=== PATIENT | female | born 1940 | race Caucasian/White ===

== ENCOUNTER 2016-12-30 13:08 | Inpatient (IN) | payer OTHER ==
[~2016-12-30] VITALS: Ht 170.2 cm; Wt 82.5 kg
[~2016-12-30 13:08] MED LIST: ALBU8.5H3 INH; ATOR10TA65 PO; BECL8.7A5 INH; BENZ100C70 PO; CEPH500C PO; CYAN500T46 PO; DIGO125T PO; FOLI-49 PO; FURO-109 PO; LEVO500T72 PO; LEVO50TA74 PO; LISI2.5T59 PO; LORA10CA PO; NITR0.4T6 SL; PRED10TA PO; SITA50TA2 PO; TEN25 PO; TRAM50TA2 PO; UDROBAC PO
[2016-12-30] MEDS ORDERED: SODIUM CHLORIDE 0.9% 1L BAG IV* STA (13:41)
--- NOTE | 2016-12-30 14:17 | RADRPT ---
PROCEDURE: XR Chest. CLINICAL INDICATION: Cough and sepsis. TECHNIQUE: Single frontal view. COMPARISON: 12/12/2015. FINDINGS: There is diffuse bilateral interstitial pulmonary disease consistent with pulmonary edema. Patchy a ir space disease in the left mid to upper lung zone consistent with scarring or pneumonia is also no sana and unchanged from 12/12/2015. The heart is enlarged. There is calcification in the aorta consistent with atherosclerosis. There is no pleural effusion. There is no pneumothorax. IMPRESSION: 1. Mild pulmonary edema. 2. Mild left mid to upper lung zone patchy air space disease consistent with scarring or pneumonia, unchanged. 3. Cardiomegaly and atherosclerosis. 4. Otherwise unremarkable chest radiograph. RPTAT: QQ .Singh Martinez MD, MD Date Time Electronically viewed and signed by .Singh Martinez MD, MD on 12/30/2016 14:17 .R/
[2016-12-30 14:37] LABS: ADD SCAN DIFF NO
[2016-12-30 14:40] LABS: BASOPHIL # 0.1 10^3/ul (0.0-0.1); BASOPHILS % 0.5 % (0.0-2.0); EOSINOPHILS # 0.4 10^3/ul (0.0-0.5); EOSINOPHILS % 2.5 % (0.0-7.0); HEMATOCRIT 28.4 % (37.0-47.0); HEMOGLOBIN 9.3 g/dl (12.0-16.0); LYMPHOCYTES # 1.9 10^3/ul (0.8-2.9); LYMPHOCYTES % 13.5 % (15.0-51.0); MEAN CORPUSCULAR HEMOGLOBIN 40.3 pg (29.0-33.0); MEAN CORPUSCULAR HGB CONC 32.7 g/dl (32.0-37.0); MEAN CORPUSCULAR VOLUME 122.9 fl (82.0-101.0); MONOCYTE # 0.9 10^3/ul (0.3-0.9); MONOCYTES % 6.1 % (0.0-11.0); NEUTROPHIL # 10.5 10^3/ul (1.6-7.5); NEUTROPHILS % 74.4 % (39.0-77.0); PLATELET COUNT 80 10^3/UL (140-415); RED BLOOD COUNT 2.31 10^6/ul (4.20-5.40); RED CELL DISTRIBUTION WIDTH 15.5 % (11.5-14.5); WHITE BLOOD COUNT 14.2 10^3/ul (4.8-10.8)
--- NOTE | 2016-12-30 14:40 | ERA ---
ER Documentation Chief Complaint Date/Time DATE: 12/30/16 TIME: 14:39 Chief Complaint Pt with ST, congestion, fever, tachy and hypotention. HPI Patient is a 76-year-old female who presents with 2 days of subjective fever cough productive of clear phlegm and epigastric pain radiating to her right flank. She denies chest pain, nausea, vomiting, or diarrhea. She has taken her temperature orally and it is not been over 98. Patient also reports muscle aches and malaise. Review of patient's record shows recent admission approximately 2 weeks ago for fever, cough, and rapid atrial fibrillation. ROS All systems reviewed and are negative except as per history of present illness. Medications Home Meds Active Scripts Cyanocobalamin* (Vitamin B12*) 500 Mcg Tab, 500 MCG PO DAILY for 30 Days, TAB Prov:LAYNE DURAND 12/14/15 Atenolol (Tenormin) 25 Mg Tab, 25 MG PO Q12 for 30 Days, TAB Prov:LAYNE DURAND 12/14/15 Digoxin* (Digoxin*) 0.125 Mg Tab, 0.125 MG PO DAILY for 30 Days, TAB Prov:LAYNE DURAND 12/14/15 Reported Medications Glipizide* (Glipizide*) 10 Mg Tablet, 10 MG PO BID, TAB 12/30/16 Furosemide* (Lasix*) 20 Mg Tablet, 20 MG PO DAILY, TAB 12/30/16 Lisinopril* (Lisinopril*) 2.5 Mg Tablet, 2.5 MG PO DAILY, #30 TAB 12/12/15 Folic Acid* (Folic Acid*) 1 Mg Tablet, 1 MG PO DAILY, TAB 06/20/15 Levothyroxine Sodium* (Levothyroxine Sodium*) 50 Mcg Tablet, 50 MCG PO AC BREAKFAST, TAB 06/20/15 Nitroglycerin* (Nitroglycerin* SL) 0.4 Mg Tab.subl, 0.4 MG SL Q5MIN Y for CHEST PAIN, BOTTLE 12/14/14 Atorvastatin Calcium (Atorvastatin Calcium) 10 Mg Tab, 10 MG PO HS 11/24/13 Loratadine* (Claritin*) 10 Mg Capsule, 10 MG PO DAILY 11/24/13 Discontinued Reported Medications Albuterol Sulfate* (Proair HFA*) 8.5 Gm Hfa.aer.ad, 2 PUFF INH Q6H Y for WHEEZING AND SOB, #1 INHALER 12/12/15 Beclomethasone Dip* (Qvar 80*) 7.3 Gm Inha, 2 PUFF INH BID, INH 12/14/14 Sitagliptin* (Januvia*) 50 Mg Tablet, 50 MG PO DAILY 11/24/13 Discontinued Scripts Tramadol HCl (Tramadol HCl) 50 Mg Tablet, 50 MG PO Q6H Y for PAIN, #30 TAB Prov:LAYNE DURAND 12/15/15 Prednisone* (Prednisone*) 10 Mg Tab, 10 MG PO DAILY, #30 TAB 1. take 40mg by mouth daily for 3 days 2. then 30mg by mouth daily for 3 days 3. then 20mg by mouth daily for 3 days 1. then 10mg by mouth daily for 3 days Prov:LAYNE DURAND 12/15/15 Guaifenesin-Codeine Phosphate* (Robitussin* AC) 5 Ml Syrup, 10 ML PO Q4H Y for COUGH, #8 OZ Prov:LAYNE DURAND 12/15/15 Cephalexin* (Cephalexin*) 500 Mg Capsule, 500 MG PO Q8 for 7 Days, CAP Prov:LAYNE DURAND 12/14/15 Benzonatate* (Tessalon Perle*) 100 Mg Capsule, 200 MG PO TID, #30 CAP Prov:LAYNE DURAND 12/14/15 Levofloxacin* (Levaquin*) 500 Mg Tablet, 500 MG PO DAILY for 7 Days, TAB Prov:LAYNE DURAND 12/14/15 Furosemide* (Lasix*) 40 Mg Tab, 40 MG PO DAILY for 30 Days Prov:[employer] 12/20/14 Allergies Allergies: Coded Allergies: Penicillins (Verified Allergy, Intermediate, 12/30/16) PMhx/Soc Past medical history: Rheumatoid arthritis, type 2 diabetes, osteoporosis, atrial fibrillation Past surgical history: Denied Social history: No tobacco or alcohol History of Surgery: Yes (, ovaries removed.) Anesthesia Reaction: No Hx Neurological Disorder: No Hx Respiratory Disorders: Yes (ASTHMA, BRONCHITIS, PNA) Hx Cardiac Disorders: Yes (HTN, CHF) Hx Psychiatric Problems: No Hx Miscellaneous Medical Probl: Yes (HYPERLIPEDEMIA, arthritis, osteoporosis.) Hx Alcohol Use: No Hx Substance Use: No Hx Tobacco Use: No Smoking Status: Never smoker FmHx Noncontributory Family History: No diabetes Physical Exam Vitals Vital Signs Date Time Temp Pulse Resp B/P Pulse Ox O2 Delivery O2 Flow Rate FiO2 12/30/16 15:03 127 26 107/91 100 Nasal Cannula 2.0 12/30/16 14:33 2 12/30/16 13:19 99.5 144 18 88/58 96 Physical Exam Const: Alert, oriented, no acute distress Head: Atraumatic Eyes: Normal Conjunctiva ENT: Normal External Ears, Nose and Mouth. Neck: Full range of motion..~ No meningismus. Resp: Clear to auscultation bilaterally Cardio: Tachycardia, irregularly irregular rhythm, no murmurs, rubs or gallops Abd: Soft, non tender, non distended. Normal bowel sounds Skin: No petechiae or rashes Back: No midline or flank tenderness Ext: No cyanosis, or edema Neur: Awake and alert Psych: Normal Mood and Affect Result Diagram: 12/30/16 1415 12/30/16 1415 Results 24 hrs Laboratory Tests Test 12/30/16 14:15 12/30/16 16:33 Activated Partial Thromboplast Time 37.6Sec Alanine Aminotransferase (ALT/SGPT) 42IU/L Albumin 3.7g/dl Albumin/Globulin Ratio 0.88 Alkaline Phosphatase 228IU/L Anion Gap 15 Aspartate Amino Transf (AST/SGOT) 41IU/L Basophils # 0.110^3/ul Basophils % 0.5% Blood Urea Nitrogen 16mg/dl Calcium Level 8.9mg/dl Carbon Dioxide Level 29mmol/L Chloride Level 101mmol/L Creatinine 0.85mg/dl Differential Comment AUTO w/SCAN Direct Bilirubin 0.00mg/dl Eosinophils # 0.410^3/ul Eosinophils % 2.5% Giant Platelets OCCASIONAL Globulin 4.20g/dl Glucose Level 143mg/dl Hematocrit 28.4% Hemoglobin 9.3g/dl INR International Normalized Ratio 1.23 Indirect Bilirubin 1.0mg/dl Lactic Acid Level 1.6mmol/L Large Platelets FEW Lipase 127U/L Lymphocytes # 1.910^3/ul Lymphocytes % 13.5% Mean Corpuscular Hemoglobin 40.3pg Mean Corpuscular Hemoglobin Concent 32.7g/dl Mean Corpuscular Volume 122.9fl Mean Platelet Volume fl Monocytes # 0.910^3/ul Monocytes % 6.1% Neutrophils # 10.510^3/ul Neutrophils % 74.4% Nucleated Red Blood Cells # 0.010^3/ul Nucleated Red Blood Cells % 0.0/100WBC Platelet Count 8010^3/UL Platelet Estimate PLT APPEAR DECREASED Potassium Level 4.2mmol/L Prothrombin Time 15.6Sec Prothrombin Time Ratio 1.2 Red Blood Count 2.3110^6/ul Red Cell Distribution Width 15.5% Sodium Level 141mmol/L Total Bilirubin 1.0mg/dl Total Protein 7.9g/dl Troponin I < 0.012ng/ml White Blood Count 14.210^3/ul Urine Bilirubin NEGATIVE Urine Clarity CLEAR Urine Color LT. YELLOW Urine Glucose NEGATIVE% Urine Hemoglobin NEGATIVE Urine Ketones NEGATIVE Urine Leukocyte Esterase NEGATIVE Urine Nitrite NEGATIVE Urine Specific [place] 1.015 Urine Total Protein NEGATIVE Urine Urobilinogen 0.2 E.U./dL Urine pH 5.5 Current Medications Medications (Trade) Dose Ordered Sig/Erich Route PRN Reason Start Time Stop Time Status Last Admin Dose Admin Sodium Chloride (NS) 2,540 ml BOLUS OVER 2 HOURS STAT IV* 12/30/16 13:41 12/30/16 13:42 DC 12/30/16 14:31 Ceftriaxone Sodium 2 gm 2 gm ONCE ONCE IM 12/30/16 15:30 12/30/16 15:31 DC Azithromycin/ Sodium Chloride (Zithromax/NS) 500 ml @ 250 mls/hr ONCE IVPB 12/30/16 16:30 12/30/16 18:29 Diltiazem HCl (Cardizem Iv) 10 mg ONCE ONCE IV 12/30/16 16:30 12/30/16 16:31 DC 12/30/16 17:21 Ondansetron HCl (Zofran Inj) 4 mg ER BRIDGE PRN IV NAUSEA AND/OR VOMITING 12/30/16 18:00 12/31/16 17:59 Acetaminophen (Tylenol Tab) 650 mg ER BRIDGE PRN PO MILD PAIN/FEVER 12/30/16 18:00 12/31/16 17:59 Procedures/MDM EKG: Time 1422, rate 129, atrial fibrillation with rapid ventricular response, normal axis nonspecific ST-T wave changes in inferior and lateral leads Right upper quadrant ultrasound: IMPRESSION: Hepatomegaly with mildly coarsened echotexture, likely due to mild fatty infiltration although early chronic liver disease can have a similar sonographic appearance. No definite morphologic changes of cirrhosis are identified. Cholelithiasis without evidence of acute cholecystitis. Normal CBD. Chest x-ray:IMPRESSION: 1. Mild pulmonary edema. 2. Mild left mid to upper lung zone patchy air space disease consistent with scarring or pneumonia, unchanged. 3. Cardiomegaly and atherosclerosis. 4. Otherwise unremarkable chest radiograph. MDM: Patient is a 76-year-old female with history of CHF and atrial fibrillation who presents with flulike illness. Initial vital signs show hypotension and tachycardia to the 130s-140s. Temperature 99.5, raises concern for sepsis, so sepsis order set activated, and patient given fluid bolus and antibiotics. Blood and urine cultures sent. Review of prior notes shows recent admission with similar symptoms. Chest x-ray shows possible small infiltrate that is unchanged compared with prior, which may represent untreated pneumonia, or may be nonspecific. Influenza swab is negative, and UA negative. Lactic acid is not elevated. Troponin is negative and no ischemic changes on EKG. patient given diltiazem bolus after blood pressure normalized with IV fluids, and heart rate is improved to the 110s. Patient is on digoxin. Patient developed mild hypoxemia with IV fluids, likely due to underlying CHF. Will admit for rate control and further septic workup. Addition, the patient has macrocytic anemia that will require further work up. Admit to Dr. Greenberg. Departure Diagnosis: Primary Impression: Atrial fibrillation with rapid ventricular response Additional Impressions: Influenza-like symptoms CHF (congestive heart failure) Macrocytic anemia Condition: MARITO Mccauley Dec 30, 2016 14:40
[2016-12-30 14:48] LABS: INR 1.23; PROTIME 15.6 Sec (12.2-14.2); PT RATIO 1.2
[2016-12-30 14:49] LABS: PARTIAL THROMBOPLASTIN TIME 37.6 Sec (25.0-35.0)
[2016-12-30 14:53] LABS: ALBUMIN 3.7 g/dl (3.3-4.9); CHLORIDE 101 mmol/L (97-110); POTASSIUM 4.2 mmol/L (3.5-5.1); SODIUM 141 mmol/L (135-144)
[2016-12-30 14:55] LABS: CREATININE 0.85 mg/dl (0.44-1.00)
[2016-12-30 14:56] LABS: ALANINE AMINOTRANSFERASE 42 IU/L (13-69); ALBUMIN/GLOBULIN RATIO 0.88; ALKALINE PHOSPHATASE 228 IU/L (42-121); ANION GAP 15 (8-16); ASPARTATE AMINO TRANSFERASE 41 IU/L (15-46); BLOOD UREA NITROGEN 16 mg/dl (7-20); CALCIUM 8.9 mg/dl (8.4-10.2); CARBON DIOXIDE 29 mmol/L (21-31); GLUCOSE 143 mg/dl (70-220); TOTAL PROTEIN 7.9 g/dl (6.1-8.1)
[2016-12-30] MEDS ORDERED: GLIP-95 PO (14:56)
[2016-12-30] MEDS ORDERED: FURO-110 PO (14:56)
[2016-12-30 15:19] LABS: TROPONIN-I < 0.012 ng/ml (0.00-0.12)
[2016-12-30] MEDS ORDERED: CEFTRIAXONE 2 GM INJ IM ONE (15:30)
--- NOTE | 2016-12-30 15:41 | RADRPT ---
PROCEDURE: Right Upper Quadrant Ultrasound. CLINICAL INDICATION: Possible Sepsis, abdominal pain TECHNIQUE: Multiple real-time images were acquired of the patient's right upper quadrant abdomen a nd retroperitoneum utilizing a high resolution transducer. COMPARISON: None FINDINGS: The liver measures 17.4 cm, and demonstrates mildly coarsened echotexture. The main portal vein is p atent with proper directional flow. There is no intrahepatic biliary ductal dilatation. The extrahep atic common bile duct measures 3 mm. There is cholelithiasis. There is no gallbladder wall thickening or pericholecystic fluid. The visualized pancreas is unremarkable. The right kidney measures 9.5 cm and demonstrates normal echotexture. There is no right renal calcul us or hydronephrosis. The visualized abdominal aorta and IVC are grossly unremarkable. IMPRESSION: Hepatomegaly with mildly coarsened echotexture, likely due to mild fatty infiltration although early chronic liver disease can have a similar sonographic appearance. No definite morphologic changes o f cirrhosis are identified. Cholelithiasis without evidence of acute cholecystitis. Normal CBD. RPTAT: EE Physician Kirsten Date Time Electronically viewed and signed by Physician Kirsten on 12/30/2016 15:41 /
[2016-12-30 15:47] LABS: PLATELET ESTIMATE PLT APPEAR DECREASED
[2016-12-30] MEDS ORDERED: SOD CHLORIDE 0.9% IVPB SCH (16:30)
[2016-12-30] MEDS ORDERED: DILTIAZEM 25 MG INJ IV ONE (16:30)
[2016-12-30] MEDS ORDERED: AZITHROMYCIN IVPB SCH (16:30)
[2016-12-30 16:59] LABS: ADD UMIC NO; URINE BILIRUBIN (Dip) NEGATIVE (NEGATIVE); URINE BLOOD (Dip) NEGATIVE (NEGATIVE); URINE COLOR LT. YELLOW (YELLOW); URINE GLUCOSE (Dip) NEGATIVE (NEGATIVE); URINE KETONES (Dip) NEGATIVE (NEGATIVE); URINE LEUKOCYTE ESTERASE (Dip) NEGATIVE (NEGATIVE); URINE NITRITE (Dip) NEGATIVE (NEGATIVE); URINE TOTAL PROTEIN (Dip) NEGATIVE (NEGATIVE); URINE UROBILINOGEN (Dip) 0.2 E.U./dL (0.1-1.0)
[2016-12-30] MEDS ORDERED: ONDANSETRON 4 MG INJ IV PRN ×2 (18:00→20:00)
[2016-12-30] MEDS ORDERED: ACETAMINOPHEN 325 MG TAB PO PRN (18:00)
[2016-12-30] MEDS ORDERED: CEFTRIAXONE 2,000 MG in SOD CHLORIDE 0.9% 50 ML IVPB ONE (18:30)
[2016-12-30 19:21] VITALS: TEMP 99.3
[2016-12-30] MEDS: morphine 2 MG INJ IV PRN (19:55)
[2016-12-30] MEDS ORDERED: DIGOXIN 500 MCG INJ IV ONE (20:00)
[2016-12-30] MEDS ORDERED: DOCUSATE SODIUM 100 MG CAP PO PRN (20:00)
[2016-12-30 21:29] VITALS: BP 124/55; PULSE 162; RESP 20
[2016-12-30 21:38] VITALS: PULSE 172
--- NOTE | 2016-12-30 21:53 | HP ---
DATE OF ADMISSION: 12/30/2016 PRESENTING COMPLAINT: Cough, fever, and occasional palpitations. HISTORY OF PRESENTING COMPLAINT: Ms. Yesica Kovacs is a pleasant female who was referred to us from her primary care clinic where she had presented with symptoms of respiratory tract infection to include a lot of coughing associated occasionally with pleuritic midsternal chest pain, subjective fever, and malaise and generalized aches and pains. She has had nausea associated with intractable cough, but she has had no episodes of vomiting, no diarrhea. She denies abdominal pain. She denies flank pain. She denies dysuria or hematuria. She does have a chronic history of atrial fibrillation. In the emergency room, she was found to be in atrial fibrillation with rapid ventricular response. Other than that, she has a history of diabetes, hypothyroidism, osteoarthritis as well as dyslipidemia and high blood pressure. PAST MEDICAL HISTORY: Summarized above. PAST SURGICAL HISTORY: Positive for a hysterectomy for a benign uterine tumor as well as a section in the past. ALLERGIES: SHE HAS ALLERGIES TO PENICILLIN AND IT CAUSES HER TO HAVE RASH. SOCIAL HISTORY: Denies tobacco, alcohol, illicit drug use. REVIEW OF SYSTEMS: A 12-point review of systems was done. Pertinent findings are noted in HPI. FAMILY HISTORY: Noncontributory. No history of anybody else is sick at all. The patient has a close family member at bedside. PHYSICAL EXAMINATION: VITAL SIGNS: Temps 99.5, respirations 18, blood pressure systolics range 88 through 107 and diastolic 58 through 91. Saturation is 100% on oxygen by nasal cannula at 2 liters per minute. GENERAL: Alert, oriented, able to participate in history taking. HEENT: Head normocephalic. Pupils equal and reactive. Mucous membranes dry. post pharynx clear of exudate. NECK: Supple without JVD or adenopathy or tenderness. CHEST: With decreased air entry bilaterally. She has basilar crackles on the right lower lobe, but there was no wheezing. CARDIOVASCULAR: Tachycardiac with no rubs, no murmurs. ABDOMEN: Obese, soft, nontender, nondistended with normoactive bowel sounds. BACK: Negative for costovertebral angle tenderness or step-off. EXTREMITIES: Negative for edema. PSYCHIATRIC: Anxious. LABORATORY DATA: Leukocytosis of 14,000 noted. Low hemoglobin of 9.3 and low platelets of 80, which is likely the contraindication to anticoagulation use in this patient. NA was mildly elevated at 143. Her liver profile alkaline phosphatase was elevated as well. Her lactic acid was normal. Her troponin was negative. Coags were grossly normal INR was 1.2, otherwise unremarkable. A urinalysis was not suggestive of a urinary tract infection. EKG shows atrial fibrillation with rapid ventricular response and a rate of 129. CT abdomen showed showed cardiomegaly.There is no evidence of cirrhosis. The patient also has cholelithiasis without evidence of cholecystitis. A chest x-ray shows mild pulmonary edema with cardiomegaly otherwise unremarkable. ASSESSMENT: A 76-year-old female who presents after being reffered from her primary care doctor's office with fever, cough, malaise, and hypoxia. now managed as follows: 1. Atrial fibrillation with rapid ventricular response. 2. Probable Pneumonia. 3. Mild congestive heart failure exacerbation, likely precipitated by atrial fibrillation with rapid ventricular response. 4. Chronic hypothyroidism. 5. Chronic dyslipidemia. 6. Diabetes type 2. 7. Pancytopenia. PLAN: Admit the patient to telemetry floor, Complete ACS rule out. As patient has borderline hypotension, I will use digoxin as well as amiodarone for rate control. I will trend cardiac enzymes as well as get an echocardiogram, and probable cardiology consult. We will continue gentle diuresis with Lasix and have a low threshold to up titrate if necessary. Will consider empiric abx and obtain cultures. Continue her home sliding scale for her diabetic regimen and continue home meds while she is here and adjust therapy as indicated. We will do a TSH as well. For prophylaxis, she will be placed on Lovenox and Pepcid and further interventions will depend on our findings. Pain control will be provided as well as antiemetics and antipyretics if needed . Again, as mentioned, further interventions will depend on her clinical course. I have discussed the plan of care with the patient as well as her daughter, answered questions. Evaluation and admission time has been more than 45 minutes. For further information, please see the patient's chart and my orders. Dictated By: YOLI GONZALES MD, BA/HERO Conf#: [id number] DID#: [id number] RISSA
[2016-12-30] MEDS ORDERED: DILTIAZEM 25 MG INJ IV PRN (22:00)
[2016-12-30] MEDS: AMIODARONE 900 MG in DEXTROSE 5% 482 ML IV SCH (22:09)
[2016-12-30] MEDS: FAMOTIDINE 20 MG TAB PO SCH (22:19)
[2016-12-30 23:29] VITALS: Ht 170.2 cm; Wt 82.5 kg
[2016-12-30 23:37] LABS: CREATINE KINASE 39 IU/L (23-200)
[2016-12-30 23:48] LABS: CK-MB 0.36 ng/ml (0.0-2.4)
[2016-12-30 23:55] LABS: TROPONIN-I < 0.012 ng/ml (0.00-0.12)
[2016-12-31] VITALS (10 sets, daily range): BP systolic 93–127; BP diastolic 50–66; PULSE 71–150; RESP 17–20
[2016-12-31] MEDS: AMIODARONE 900 MG in DEXTROSE 5% 482 ML IV SCH (04:01)
[2016-12-31] MEDS ORDERED: GLUCAGON 1 MG INJ IM PRN (04:30)
[2016-12-31] MEDS ORDERED: GLUCOSE GEL 15 GRAM TUBE PO PRN ×2 (04:30)
[2016-12-31] MEDS ORDERED: GLUCOSE GEL 15 GRAM TUBE BUCCAL PRN (04:30)
[2016-12-31] MEDS ORDERED: DEXTROSE 50% 50 ML SYRINGE IV PRN ×2 (04:30)
[2016-12-31 07:27] LABS: POTASSIUM 4.1 mmol/L (3.5-5.1)
[2016-12-31 07:30] LABS: CALCIUM 8.2 mg/dl (8.4-10.2); CREATININE 0.76 mg/dl (0.44-1.00)
[2016-12-31] MEDS ORDERED: NITROGLYCERIN (SL) 0.4 MG TAB SL PRN (07:30)
[2016-12-31] MEDS: LEVOTHYROXINE 50 MCG TAB PO SCH (07:30)
[2016-12-31 07:31] LABS: CHOL/HDL RATIO 2.1 RATIO
[2016-12-31 07:33] LABS: CK-MB 0.5 ng/ml (0.0-2.4)
[2016-12-31 07:36] LABS: TROPONIN-I 0.031 ng/ml (0.00-0.12)
[2016-12-31 07:57] LABS: THYROID STIMULATING HORMONE 1.11 MIU/L (0.465-4.680)
[2016-12-31] MEDS: ENOXAPARIN 40 MG/0.4 ML SYG SC SCH (08:49)
[2016-12-31] MEDS: ATENOLOL 25 MG TAB PO SCH ×2 (08:50→20:20)
[2016-12-31] MEDS: LISINOPRIL 5 MG TAB PO SCH (08:51)
[2016-12-31] MEDS: FOLIC ACID 1 MG TAB PO SCH (08:51)
[2016-12-31] MEDS: DIGOXIN 0.125 MG TAB PO SCH (08:52)
[2016-12-31 08:53] LABS: ADD SCAN DIFF NO
[2016-12-31] MEDS: FAMOTIDINE 20 MG TAB PO SCH ×2 (08:53→20:12)
[2016-12-31] MEDS: INSULIN ASPART [NOVOLOG] 3 ML PEN SC SCH ×4 (09:00→21:00)
[2016-12-31] MEDS ORDERED: FUROSEMIDE 20 MG TAB PO SCH (09:00)
[2016-12-31 09:05] LABS: BASOPHILS % 0.5 % (0.0-2.0); EOSINOPHILS % 3.4 % (0.0-7.0); HEMATOCRIT 27.1 % (37.0-47.0); HEMOGLOBIN 8.6 g/dl (12.0-16.0); LYMPHOCYTES # 2.4 10^3/ul (0.8-2.9); LYMPHOCYTES % 15.1 % (15.0-51.0); MEAN CORPUSCULAR HEMOGLOBIN 39.6 pg (29.0-33.0); MEAN CORPUSCULAR HGB CONC 31.7 g/dl (32.0-37.0); MEAN CORPUSCULAR VOLUME 124.9 fl (82.0-101.0); MONOCYTE # 0.9 10^3/ul (0.3-0.9); MONOCYTES % 5.6 % (0.0-11.0); NEUTROPHIL # 11.6 10^3/ul (1.6-7.5); NEUTROPHILS % 72.2 % (39.0-77.0); PLATELET COUNT 81 10^3/UL (140-415); RED BLOOD COUNT 2.17 10^6/ul (4.20-5.40); RED CELL DISTRIBUTION WIDTH 15.4 % (11.5-14.5); WHITE BLOOD COUNT 16.1 10^3/ul (4.8-10.8)
[2016-12-31 09:06] LABS: ABNORMAL IP MESSAGE 1; BASOPHIL # 0.1 10^3/ul (0.0-0.1); EOSINOPHILS # 0.5 10^3/ul (0.0-0.5)
[2016-12-31] MEDS: ACCUCHECK XX SCH ×3 (10:00→20:05)
[2016-12-31 10:17] LABS: FOLATE 14.4 ng/ml (2.8-20.0)
[2016-12-31 11:43] LABS: IRON 57 ug/dl (35-150)
[2016-12-31 11:52] LABS: TOTAL IRON BINDING CAPACITY 191 ug/dl (241-421)
[2016-12-31] MEDS: LORATADINE 10 MG TAB PO SCH (12:02)
[2016-12-31] MEDS: CYANOCOBALAMIN 500 MCG TAB PO SCH (12:02)
[2016-12-31] MEDS: CEFTRIAXONE 1 GM/50 ML (PMX) 50 ML IVPB SCH (17:14)
[2016-12-31] MEDS: AZITHROMYCIN 500MG/NS (PMX) 250 ML IVPB SCH (17:51)
[2016-12-31] MEDS ORDERED: SOD CHLORIDE 0.9% 1,000 ML IV SCH (18:30)
[2016-12-31] MEDS ORDERED: INSULIN GLARGINE [LANtus] 3 ML PEN SC ONE (18:30)
[2016-12-31] MEDS ORDERED: METOPROLOL 5 MG INJ IV PRN (19:30)
[2016-12-31] MEDS: ATORVASTATIN 10 MG TAB PO SCH (20:12)
[2016-12-31] MEDS: ACETAMINOPHEN 325 MG TAB PO PRN (20:13)
[2016-12-31] MEDS: DIGOXIN 500 MCG INJ IV SCH (20:14)
[2016-12-31] MEDS: FUROSEMIDE 20 MG TAB PO SCH (20:18)
[2017-01-01] VITALS (12 sets, daily range): BP systolic 106–127; BP diastolic 53–69; PULSE 73–95; RESP 16–19
[2017-01-01] MEDS: ACCUCHECK XX SCH ×4 (02:00→20:05)
[2017-01-01] MEDS: DIGOXIN 500 MCG INJ IV SCH ×2 (02:55→10:07)
[2017-01-01] MEDS: FUROSEMIDE 20 MG TAB PO SCH ×2 (05:27→17:27)
[2017-01-01 07:09] LABS: CREATININE 0.8 mg/dl (0.44-1.00)
[2017-01-01 07:10] LABS: CALCIUM 7.9 mg/dl (8.4-10.2)
[2017-01-01 07:16] LABS: ADD SCAN DIFF NO
--- NOTE | 2017-01-01 07:21 | CONS ---
DATE OF ADMISSION: 12/30/2016 DATE OF CONSULTATION: 12/31/2016 TYPE OF CONSULTATION: Cardiology. REASON FOR CONSULTATION: Atrial fibrillation/atrial flutter with rapid ventricular response, cardio myopathy, decreased left ventricular ejection fraction. REQUESTING PHYSICIAN: Dr. Gonzales from the hospitalist service and Dr. Roman HISTORY OF PRESENT ILLNESS: Ms. Kovacs is a 76-year-old female with history of hypertension, dyslipid emia, cardiomyopathy with a depressed left ventricular ejection fraction approximately 40%, diabetes mellitus, thrombocytopenia, recurrent bouts of atrial fibrillation/atrial flutter who is not on sys temic anticoagulation due to history of prior bleeding, thrombocytopenia as well as moderate mitral stenosis by echo 11/2015 who now presents with complaints of abdominal pain, associated cough, gener alized body ache and occasional palpitations. Upon arrival, temperature 99.5, blood pressure 88/58, pulse 144, respiratory rate 18, saturating 92%. The patient's labs: White cell count 14.2, hemogl obin 9.3, platelet count of 80. Sodium 141, potassium 4.2, creatinine 0.85, BUN 16. Troponin negat simon. Lipase 127. INR 1.23. UA negative. The patient underwent a gallbladder ultrasound revealing hepatomegaly with mildly coarsened echotexture, likely due to mild fatty infiltration although diane y chronic liver disease could have the same appearance, cholelithiasis. The patient additionally un derwent a chest x-ray revealing mild pulmonary edema, mild left mid to upper lung zone patchy airspa ce disease consistent with scarring or pneumonia. The patient's electrocardiogram revealed atrial f ibrillation/atrial flutter at a rate of 129, normal axis, normal intervals, diffuse nonspecific ST a nd T-wave abnormalities. The patient subsequently was treated with Lantus, diltiazem IV push, digox in ____ mg IV x1, Tylenol, Zofran, was admitted to floor. Since admit to floor, patient has been mo nitored on telemetry revealing atrial fibrillation/atrial flutter with rapid response to low 100s. The patient continues to complain of cough, abdominal pain, palpitations. PAST MEDICAL HISTORY: As above in HPI. MEDICATIONS CURRENTLY IN HOSPITAL: 1. Lipitor 10 mg at bedtime. 2. Insulin sliding scale. 3. Azithromycin. 4. Ceftriaxone. 5. Lovenox 40 mg subQ daily. 6. Atenolol 25 mg p.o. q.12. 7. Digoxin 0.125 mg daily. 8. Lasix 20 mg daily. 9. Lisinopril 2.5 mg daily. 10. Claritin 10 mg daily. 11. Synthroid 50 mcg daily. 12. Sublingual nitroglycerin p.r.n. 13. Pepcid 20 mg p.o. b.i.d. 14. Morphine p.r.n. 15. Amiodarone IV. ALLERGIES: PENICILLIN. SOCIAL HISTORY: No tobacco, ETOH, illicit drug use. FAMILY HISTORY: No history of sudden cardiac or early CAD. REVIEW OF SYSTEMS: As above in HPI. CONSTITUTIONAL: No fevers, chills. PULMONARY: No current shortness of breath. CARDIOVASCULAR: No current chest pain. GASTROINTESTINAL: No vomiting. GENITOURINARY: No hematuria. MUSCULOSKELETAL: Degenerative joint disease. PSYCHIATRIC: The patient ____ depression. NEUROLOGIC: No documented history of CVA. ENDOCRINE: Diabetes mellitus. PHYSICAL EXAMINATION: VITAL SIGNS: Temperature of 99.3, blood pressure 117/58, pulse 90s to 100s, blood pressure 117/58, respiratory rate 18, saturating 93%. GENERAL: The patient is alert, awake, complaining of abdominal pain, palpitations. NECK: JVP difficult to assess secondary to body habitus. HEART: ____ irregular rhythm. I/ systolic murmur. ABDOMEN: Obese, soft. EXTREMITIES: Trace edema. Pulses 1+ bilaterally at posterior tibial. LABORATORIES: Most recently from today: White cell count of 16.1, hemoglobin 8.6, platelet count o f 81. Sodium 140, potassium 4.1, creatinine 0.76, BUN 14. Troponin negative x3. Glucose 517. TSH 1.1. LDL 37, HDL 45. IMAGING STUDIES: As above in HPI. No further imaging studies for my review at this time. ELECTROCARDIOGRAM: As above in HPI. No further electrocardiograms for my review at this time. IMPRESSION: 1. Atrial fibrillation/atrial flutter with rapid ventricular response. 2. Hypertension, under reasonable control. 3. Palpitations secondary to #1. 4. Congestive heart failure exacerbation, systolic, acute on chronic by most recent echocardiogram 11/2015. 5. Abdominal pain with cholelithiasis. 6. Diabetes mellitus. 7. Dyslipidemia. 8. Leukocytosis. 9. Anemia. 10. Thrombocytopenia. RECOMMENDATIONS: 1. At this time would maintain the patient on telemetry monitoring to follow rhythm and rate contro l closely. 2. Would continue the patient's current atenolol with up titration as tolerated. Will give patient additional digoxin loading in order to improve overall heart rate ____ continue the patient's gentl e Zestril afterload reduction. 3. Check a 2D echo to re-assess the patient's ejection fraction, wall motion, rule out any major va lve abnormalities. 4. Initiate the patient on Lasix diuresis, following strict I's and O's to grade diuresis closely. 5. Continue the patient's antibiotics and follow up all culture data. 6. Additionally will consider very low-dose baby aspirin, following for any bleeding complications closely. Thank you for allowing me to take part in the care of this patient. I will continue to follow along very closely with you with further recommendations to be made as the patient progresses through her inpatient hospital clinical course. Dictated By: DICK ROMERO/HERO Conf#: [id number] DID#: [id number] CC: YOLI GONZALES MD;*EndCC*
[2017-01-01 07:44] LABS: CHOL/HDL RATIO 2.1 RATIO
[2017-01-01 07:56] LABS: ABNORMAL IP MESSAGE 1; BASOPHILS % 0.3 % (0.0-2.0); EOSINOPHILS # 0.4 10^3/ul (0.0-0.5); EOSINOPHILS % 3.7 % (0.0-7.0); HEMATOCRIT 24.3 % (37.0-47.0); HEMOGLOBIN 7.7 g/dl (12.0-16.0); LYMPHOCYTES # 1.6 10^3/ul (0.8-2.9); LYMPHOCYTES % 13.5 % (15.0-51.0); MEAN CORPUSCULAR HEMOGLOBIN 39.7 pg (29.0-33.0); MEAN CORPUSCULAR HGB CONC 31.7 g/dl (32.0-37.0); MEAN CORPUSCULAR VOLUME 125.3 fl (82.0-101.0); MEAN PLATELET VOLUME 15.1 fl (7.4-10.4); MONOCYTE # 0.5 10^3/ul (0.3-0.9); MONOCYTES % 4.7 % (0.0-11.0); NEUTROPHIL # 8.7 10^3/ul (1.6-7.5); NEUTROPHILS % 75.3 % (39.0-77.0); PLATELET COUNT 72 10^3/UL (140-415); RED BLOOD COUNT 1.94 10^6/ul (4.20-5.40); RED CELL DISTRIBUTION WIDTH 15.1 % (11.5-14.5); WHITE BLOOD COUNT 11.5 10^3/ul (4.8-10.8)
[2017-01-01] MEDS: INSULIN ASPART [NOVOLOG] 3 ML PEN SC SCH ×4 (08:00→20:23)
[2017-01-01] MEDS: FOLIC ACID 1 MG TAB PO SCH (10:07)
[2017-01-01] MEDS: ASPIRIN 81 MG TAB PO SCH (10:07)
[2017-01-01] MEDS: ATENOLOL 25 MG TAB PO SCH ×2 (10:08→20:23)
[2017-01-01] MEDS: DIGOXIN 0.125 MG TAB PO SCH (10:08)
[2017-01-01] MEDS: CYANOCOBALAMIN 500 MCG TAB PO SCH (10:09)
[2017-01-01] MEDS: FAMOTIDINE 20 MG TAB PO SCH ×2 (10:09→20:22)
[2017-01-01] MEDS: LEVOTHYROXINE 50 MCG TAB PO SCH (10:09)
[2017-01-01] MEDS: LISINOPRIL 5 MG TAB PO SCH (10:09)
[2017-01-01] MEDS: LORATADINE 10 MG TAB PO SCH (10:09)
[2017-01-01] MEDS: ENOXAPARIN 40 MG/0.4 ML SYG SC SCH (10:14)
[2017-01-01] MEDS ORDERED: FUROSEMIDE 20 MG INJ IV ONE (12:30)
--- NOTE | 2017-01-01 12:53 | PN ---
Date/Time of Note Date/Time of Note DATE: 01/01/17 TIME: 12:45 Assessment/Plan VTE Prophylaxis VTE Prophylaxis Intervention: SCD's Lines/Catheters IV Catheter Type (from Nrs): Peripheral IV Assessment/Plan Chief Complaint/Hosp Course ASSESSMENT: 1. Atrial fibrillation with rapid ventricular response. Status post amiodarone drip, rate controlled on digoxin and metoprolol, cardiology has been consulted 2. Pneumonia. Continue Rocephin and azithromycin 3. Mild congestive heart failure exacerbation, likely precipitated by atrial fibrillation with rapid ventricular response. 4. Chronic hypothyroidism. Continue levothyroxine 5. Chronic dyslipidemia. 6. Diabetes type 2. Well-controlled on medical management, continue her home sliding scale for her diabetic regimen and continue home meds while she is here and adjust therapy as indicated 7. Pulmonary edema. Continue diuresis 8. Microcytic anemia. Transfuse 1 unit of packed red blood cells, follow up vitamin B12 and folate level and treated accordingly 9. Hepatomegaly with mild fatty infiltration, No definite morphologic changes of cirrhosis are identified. 10.Cholelithiasis without evidence of acute cholecystitis. Normal CBD. We will continue monitor patient closely for recommendation management treatment as clinical course Plan to discharge home tomorrow if cleared by professional architect Problems: Subjective 24 Hr Interval Summary Free Text/Dictation Patient continues to complain of having shortness of breath without any chest pain A. fib rate controlled in 70s Tolerating oral intake without any difficulty or abdominal discomfort Exam/Review of Systems Vital Signs Vitals Vital Signs Date Time Temp Pulse Resp B/P Pulse Ox O2 Delivery O2 Flow Rate FiO2 01/01/17 11:56 98.2 86 19 127/58 95 12/31/16 20:40 Nasal Cannula 2.0 Intake and Output 12/31/16 12/31/16 01/01/17 15:00 23:00 07:00 Intake Total 1150 ml Balance 1150 ml Exam General: The patient is well-developed, Not in acute distress. HEENT: Atraumatic, normocephalic. The pupils are equal and round . Neck: Supple with full range of motion. Chest: Normal expansion of the thorax during inspiration Lungs: Decreased breath sounds bilateral lower lung field Heart: Normal S1-S2, Regular rhythm and rate. Abdomen: Soft , nontender, nondistended , bowel sounds are present. Extremities: Normal to inspection, no edema no cyanosis Neurologic: Normal mental status,The patient is awake, alert and oriented . Results Result Diagram: 01/01/17 0600 01/01/17 0600 Results 24 hrs Laboratory Tests Test 12/31/16 17:53 12/31/16 18:50 12/31/16 20:23 01/01/17 00:30 Bedside Glucose 517 *H 137 Glucose Level 163 Troponin I 0.023 Test 01/01/17 06:00 01/01/17 08:13 01/01/17 10:06 01/01/17 11:53 Anion Gap 13 Basophils # 0.0 Basophils % 0.3 Blood Urea Nitrogen 15 Calcium Level 7.9 L Carbon Dioxide Level 27 Chloride Level 105 Cholesterol Level 64 L Cholesterol/HDL Ratio 2.1 Creatinine 0.80 Eosinophils # 0.4 Eosinophils % 3.7 Glucose Level 107 # HDL Cholesterol 30 #L Hematocrit 24.3 L Hemoglobin 7.7 L LDL Cholesterol, Calculated 22 Lymphocytes # 1.6 Lymphocytes % 13.5 L Mean Corpuscular Hemoglobin 39.7 H Mean Corpuscular Hemoglobin Concent 31.7 L Mean Corpuscular Volume 125.3 H Mean Platelet Volume 15.1 H Monocytes # 0.5 Monocytes % 4.7 Neutrophils # 8.7 H Neutrophils % 75.3 Nucleated Red Blood Cells # 0.0 Nucleated Red Blood Cells % 0.0 Platelet Count 72 L Potassium Level 4.0 Red Blood Count 1.94 L Red Cell Distribution Width 15.1 H Sodium Level 141 Triglycerides Level 59 Troponin I 0.095 White Blood Count 11.5 #H Bedside Glucose 117 192 151 Medications Medications Current Medications Morphine Sulfate 2 mg 2 mg Q4H PRN IV pain Last administered on 12/30/16 19:55 ; Admin Dose 2 MG; Start 12/30/16 at 20:00 Ceftriaxone Sodium 50 ml @ 100 mls/hr Q24H IVPB Last administered on 12/31/16 17:14; Admin Dose 100 MLS/HR; Start 12/31/16 at 17:00 Azithromycin (Zithromax 500mg/ NS (Pmx)) 250 ml @ 250 mls/hr Q24H IVPB Last administered on 12/31/16 17:51; Admin Dose 250 MLS/HR; Start 12/31/16 at 18:00 Acetaminophen (Tylenol Tab) 650 mg Q6H PRN PO PAIN AND OR ELEVATED TEMP Last administered on 12/31/16 20:13; Admin Dose 650 MG; Start 12/30/16 at 20:00 Docusate Sodium (Colace) 100 mg BID PRN PO CONSTIPATION; Start 12/30/16 at 20:00 Famotidine (Pepcid) 20 mg BID PO Last administered on 01/01/17 10:09; Admin Dose 20 MG; Start 12/30/16 at 21:00 Enoxaparin Sodium (Lovenox) 40 mg DAILY SC Last administered on 01/01/17 10:14 ; Admin Dose 40 MG; Start 12/31/16 at 09:00 Ondansetron HCl (Zofran Inj) 4 mg Q6H PRN IV NAUSEA AND/OR VOMITING; Start 12/30 at 20:00 Miscellaneous Information 1 ea NOTE XX ; Start 12/31/16 at 04:30 Glucose (Glutose) 15 gm Q15M PRN PO DECREASED GLUCOSE; Start 12/31/16 at 04:30 Glucose (Glutose) 22.5 gm Q15M PRN PO DECREASED GLUCOSE; Start 12/31/16 at 04:30 Dextrose (D50w Syringe) 25 ml Q15M PRN IV DECREASED GLUCOSE; Start 12/31/16 at 04:30 Dextrose (D50w Syringe) 50 ml Q15M PRN IV DECREASED GLUCOSE; Start 12/31/16 at 04:30 Glucagon (Glucagen) 1 mg Q15M PRN IM DECREASED GLUCOSE; Start 12/31/16 at 04:30 Glucose (Glutose) 15 gm Q15M PRN BUCCAL DECREASED GLUCOSE; Start 12/31/16 at 04: 30 Atenolol (Tenormin) 25 mg Q12 PO Last administered on 01/01/17 10:08; Admin Dose 25 MG; Start 12/31/16 at 09:00 Diagnostic Test (Pha) (Accucheck) 1 ea 02 XX ; Start 01/01/17 at 02:00 Atorvastatin Calcium (Lipitor) 10 mg HS PO Last administered on 12/31/16 20:12 ; Admin Dose 10 MG; Start 12/31/16 at 21:00 Cyanocobalamin (Vitamin B12) 500 mcg DAILY PO Last administered on 01/01/17 10: 09; Admin Dose 500 MCG; Start 12/31/16 at 09:00 Digoxin (Digoxin) 0.125 mg DAILY PO Last administered on 01/01/17 10:08; Admin Dose 0.125 MG; Start 12/31/16 at 09:00 Folic Acid (Folic Acid) 1 mg DAILY PO Last administered on 01/01/17 10:07; Admin Dose 1 MG; Start 12/31/16 at 09:00 Lisinopril (Zestril) 2.5 mg DAILY PO Last administered on 01/01/17 10:09; Admin Dose 2.5 MG; Start 12/31/16 at 09:00 Loratadine (Claritin) 10 mg DAILY PO Last administered on 01/01/17 10:09; Admin Dose 10 MG; Start 12/31/16 at 09:00 Nitroglycerin (Nitroglycerin (Sl Tab) 0.4 Mg) 0.4 tab PRN PRN SL CHEST PAIN; Start 12/31/16 at 07:30 Metoprolol Tartrate (Lopressor) 5 mg Q4H PRN IV HR>110 Hold SBP<100; Start 12/31 at 19:30 Aspirin (Aspirin) 81 mg DAILY PO Last administered on 01/01/17 10:07; Admin Dose 81 MG; Start 01/01/17 at 09:00 STEPHANY OWENS MD Jan 01, 2017 12:53
--- NOTE | 2017-01-01 12:55 | PN ---
Date/Time of Note Date/Time of Note DATE: 12/31/16 TIME: 15:54 Assessment/Plan VTE Prophylaxis VTE Prophylaxis Intervention: SCD's Lines/Catheters IV Catheter Type (from Nrs): Peripheral IV Assessment/Plan Chief Complaint/Hosp Course ASSESSMENT: 1. Atrial fibrillation with rapid ventricular response. Status post amiodarone drip, cardiology has been consulted 2. Pneumonia. Continue Rocephin and azithromycin 3. Mild congestive heart failure exacerbation, likely precipitated by atrial fibrillation with rapid ventricular response. 4. Chronic hypothyroidism. Continue levothyroxine 5. Chronic dyslipidemia. 6. Diabetes type 2. Well-controlled on medical management, continue her home sliding scale for her diabetic regimen and continue home meds while she is here and adjust therapy as indicated 7. Pulmonary edema. Continue diuresis We will continue monitor patient closely for recommendation management treatment as clinical course Problems: Subjective 24 Hr Interval Summary Free Text/Dictation Patient complains of having chest pain shortness of breath and abdominal discomfort No nausea vomiting diarrhea Exam/Review of Systems Vital Signs Vitals Vital Signs Date Time Temp Pulse Resp B/P Pulse Ox O2 Delivery O2 Flow Rate FiO2 01/01/17 11:56 98.2 86 19 127/58 95 12/31/16 20:40 Nasal Cannula 2.0 Intake and Output 12/31/16 12/31/16 01/01/17 15:00 23:00 07:00 Intake Total 1150 ml Balance 1150 ml Exam General: The patient is morbidly obese, Not in acute distress. HEENT: Atraumatic, normocephalic. The pupils are equal and round . Neck: Supple with full range of motion. Chest: Normal expansion of the thorax during inspiration Lungs: Decreased breath sounds bilateral lower lung field Heart: Normal S1-S2, A. fib rate controlled Abdomen: Soft , nontender, nondistended , bowel sounds are present. Extremities: Normal to inspection, no edema no cyanosis Neurologic: Normal mental status,The patient is awake, alert and oriented . Results Result Diagram: 01/01/17 0600 01/01/17 0600 Results 24 hrs Laboratory Tests Test 12/31/16 17:53 12/31/16 18:50 12/31/16 20:23 01/01/17 00:30 Bedside Glucose 517 *H 137 Glucose Level 163 Troponin I 0.023 Test 01/01/17 06:00 01/01/17 08:13 01/01/17 10:06 01/01/17 11:53 Anion Gap 13 Basophils # 0.0 Basophils % 0.3 Blood Urea Nitrogen 15 Calcium Level 7.9 L Carbon Dioxide Level 27 Chloride Level 105 Cholesterol Level 64 L Cholesterol/HDL Ratio 2.1 Creatinine 0.80 Eosinophils # 0.4 Eosinophils % 3.7 Glucose Level 107 # HDL Cholesterol 30 #L Hematocrit 24.3 L Hemoglobin 7.7 L LDL Cholesterol, Calculated 22 Lymphocytes # 1.6 Lymphocytes % 13.5 L Mean Corpuscular Hemoglobin 39.7 H Mean Corpuscular Hemoglobin Concent 31.7 L Mean Corpuscular Volume 125.3 H Mean Platelet Volume 15.1 H Monocytes # 0.5 Monocytes % 4.7 Neutrophils # 8.7 H Neutrophils % 75.3 Nucleated Red Blood Cells # 0.0 Nucleated Red Blood Cells % 0.0 Platelet Count 72 L Potassium Level 4.0 Red Blood Count 1.94 L Red Cell Distribution Width 15.1 H Sodium Level 141 Triglycerides Level 59 Troponin I 0.095 White Blood Count 11.5 #H Bedside Glucose 117 192 151 Medications Medications Current Medications Morphine Sulfate 2 mg 2 mg Q4H PRN IV pain Last administered on 12/30/16 19:55 ; Admin Dose 2 MG; Start 12/30/16 at 20:00 Ceftriaxone Sodium 50 ml @ 100 mls/hr Q24H IVPB Last administered on 12/31/16 17:14; Admin Dose 100 MLS/HR; Start 12/31/16 at 17:00 Azithromycin (Zithromax 500mg/ NS (Pmx)) 250 ml @ 250 mls/hr Q24H IVPB Last administered on 12/31/16 17:51; Admin Dose 250 MLS/HR; Start 12/31/16 at 18:00 Acetaminophen (Tylenol Tab) 650 mg Q6H PRN PO PAIN AND OR ELEVATED TEMP Last administered on 12/31/16 20:13; Admin Dose 650 MG; Start 12/30/16 at 20:00 Docusate Sodium (Colace) 100 mg BID PRN PO CONSTIPATION; Start 12/30/16 at 20:00 Famotidine (Pepcid) 20 mg BID PO Last administered on 01/01/17 10:09; Admin Dose 20 MG; Start 12/30/16 at 21:00 Enoxaparin Sodium (Lovenox) 40 mg DAILY SC Last administered on 01/01/17 10:14 ; Admin Dose 40 MG; Start 12/31/16 at 09:00 Ondansetron HCl (Zofran Inj) 4 mg Q6H PRN IV NAUSEA AND/OR VOMITING; Start 12/30 at 20:00 Miscellaneous Information 1 ea NOTE XX ; Start 12/31/16 at 04:30 Glucose (Glutose) 15 gm Q15M PRN PO DECREASED GLUCOSE; Start 12/31/16 at 04:30 Glucose (Glutose) 22.5 gm Q15M PRN PO DECREASED GLUCOSE; Start 12/31/16 at 04:30 Dextrose (D50w Syringe) 25 ml Q15M PRN IV DECREASED GLUCOSE; Start 12/31/16 at 04:30 Dextrose (D50w Syringe) 50 ml Q15M PRN IV DECREASED GLUCOSE; Start 12/31/16 at 04:30 Glucagon (Glucagen) 1 mg Q15M PRN IM DECREASED GLUCOSE; Start 12/31/16 at 04:30 Glucose (Glutose) 15 gm Q15M PRN BUCCAL DECREASED GLUCOSE; Start 12/31/16 at 04: 30 Atenolol (Tenormin) 25 mg Q12 PO Last administered on 01/01/17 10:08; Admin Dose 25 MG; Start 12/31/16 at 09:00 Diagnostic Test (Pha) (Accucheck) 1 ea 02 XX ; Start 01/01/17 at 02:00 Atorvastatin Calcium (Lipitor) 10 mg HS PO Last administered on 12/31/16 20:12 ; Admin Dose 10 MG; Start 12/31/16 at 21:00 Cyanocobalamin (Vitamin B12) 500 mcg DAILY PO Last administered on 01/01/17 10: 09; Admin Dose 500 MCG; Start 12/31/16 at 09:00 Digoxin (Digoxin) 0.125 mg DAILY PO Last administered on 01/01/17 10:08; Admin Dose 0.125 MG; Start 12/31/16 at 09:00 Folic Acid (Folic Acid) 1 mg DAILY PO Last administered on 01/01/17 10:07; Admin Dose 1 MG; Start 12/31/16 at 09:00 Lisinopril (Zestril) 2.5 mg DAILY PO Last administered on 01/01/17 10:09; Admin Dose 2.5 MG; Start 12/31/16 at 09:00 Loratadine (Claritin) 10 mg DAILY PO Last administered on 01/01/17 10:09; Admin Dose 10 MG; Start 12/31/16 at 09:00 Nitroglycerin (Nitroglycerin (Sl Tab) 0.4 Mg) 0.4 tab PRN PRN SL CHEST PAIN; Start 12/31/16 at 07:30 Metoprolol Tartrate (Lopressor) 5 mg Q4H PRN IV HR>110 Hold SBP<100; Start 12/31 at 19:30 Aspirin (Aspirin) 81 mg DAILY PO Last administered on 01/01/17 10:07; Admin Dose 81 MG; Start 01/01/17 at 09:00 STEPHANY OWENS MD Jan 01, 2017 12:55
--- NOTE | 2017-01-01 14:36 | RADRPT ---
Echocardiogram Report Patient Name: JUSTICE DAVIS Gender: Female Date: 1940 Study Date: 01-Jan-2017 Distance Education Coordinator: Georges Gould [facility] Location: [id number] Ref. Physician: DICK ELDER Quality: Good Procedures: Transthoracic echocardiogram with complete 2D, M-Mode, and doppler examination. Indications: Congestive Heart Failure. 2D/M Mode Doppler Measurement Value Normal Ranges Measurement Value Normal Ranges LVIDd 2D 5.6 3.5 - 5.6 cm TERRIE Vmax 1.5 cm2 LVIDs 2D 3.5 2.1 - 4.1 cm TERRIE VTI 1.5 cm2 LVPWd 2D 0.9 0.6 - 1.1 cm AV Mean Johan 1.6 m/sec IVSd 2D 1.0 0.6 - 1.1 cm AV Mean PG 11.2 mmHg AoR Diam 2D 2.5 2.0 - 3.7 cm AV Peak Johan 2.2 m/sec EDV 2D 153.0 cm3 AV Peak PG 20.0 mmHg ESV 2D 42.0 cm3 AV VTI 44.7 cm LA Dimen 2D 4.9 2.3 - 4.0 cm LVOT Mean Johan 0.7 m/sec LVOT Diam 2.0 cm LVOT Mean PG 2.1 mmHg LVOT Peak Johan 1.0 m/sec LVOT Peak PG 4.2 mmHg LVOT VTI 17.4 cm MV PHT 141.9 msec MV Peak Johan 2.2 m/sec MV Peak PG 19.2 mmHg MV Mean Johan 1.1 m/sec MV Mean PG 6.2 mmHg MV PHT 141.9 msec MV VTI 55.9 cm MVA PHT 1.6 cm2 TR Peak Johan 2.5 m/sec TR Peak PG 24.8 mmHg RVSP 33.0 mmHg Findings Left Ventricle: Lower limits of normal systolic function. Normal left ventricular cavity size. Normal left ventricular wall thickness. Ejection fraction is visually estimated at 5055 %. Right Ventricle: Normal right ventricular size. Normal right ventricular systolic function. Left Atrium: There is moderate enlargement of left atrium. LA Dimension4.90 cm. Right Atrium: There is mild enlargement of right atrium. Mitral Valve: Moderate mitral leaflet calcification. Moderate mitral annular calcification. Mild to moderate mitral valve regurgitation. Mild to moderate mitral stenosis. Mitral valve Max Velocity 2.19 m/sec. MaxPG 19.20 mmHg. MeanPG 6.20 mmHg. Mitral Valve Area by PHT1.60 cm2. Aortic Valve: Aortic valve Max velocity 2.23 m/sec. Max PG 20.00 mmHg. Mean PG 11.20 mmHg. Aortic sclerosis without stenosis. Aortic cusps appear mildly calcified. Trace aortic valve regurgitation. Tricuspid Valve: Normal appearance of the tricuspid valve. Estimated peak PA systolic pressure 33 mmHg. There is mild tricuspid regurgitation. Pulmonic Valve: Pulmonic valve not well visualized. Pericardium: Normal pericardium with no significant pericardial effusion. Aorta: Normal aortic root. IVC: Normal size and normal respiratory collapse consistent with normal right atrial pressure. Conclusions Lower limits of normal systolic function. Normal left ventricular cavity size. Normal left ventricular wall thickness. Ejection fraction is visually estimated at 50-55 %. There is moderate to severe enlargement of left atrium. LA Dimension4.90 cm. There is mild enlargement of right atrium. Mild to moderate mitral valve regurgitation. Mild to moderate mitral stenosis. Mitral valve Max Velocity 2.19 m/sec. MaxPG 19.20 mmHg. MeanPG 6.20 mmHg. Mitral Valve Area by PHT1.60 cm2. Aortic valve Max velocity 2.23 m/sec. Max PG 20.00 mmHg. Mean PG 11.20 mmHg. Aortic sclerosis without significant stenosis. Trace aortic valve regurgitation. Estimated peak PA systolic pressure 33 mmHg. There is mild tricuspid regurgitation. Electronically Signed By: Dick Elder 01-Jan-2017 14:36:00 -0800 Patient Name: JUSTICE DAVIS Study Date: 01-Jan-2017 [id number]
--- NOTE | 2017-01-01 14:50 | CONS ---
Date/Time of Note Date/Time of Note DATE: 01/01/17 TIME: 14:45 Assessment/Plan Assessment/Plan Chief Complaint/Hosp Course IMPRESSION: 1. Atrial fibrillation/atrial flutter with rapid ventricular response.-now improved HR control on BB s/p IV digoxin load 2. Hypertension, under reasonable control. 3. Palpitations secondary to #1.-improved 4. Congestive heart failure exacerbation, systolic, acute on chronic by most recent echocardiogram 11/2015. 5. Abdominal pain with cholelithiasis. 6. Diabetes mellitus. 7. Dyslipidemia. 8. Leukocytosis. 9. Anemia. 10. Thrombocytopenia-Ongoing Recc: -Tele -serial ecg's -Continue asa -Continue BB/digoxin/JERICA -Continue abx's and f/u cx data -Consider bronchodilators -Follow for bleeding complications -Follow volume status closely Problems: Consultation Date/Type/Reason Admit Date/Time Dec 30, 2016 at 17:56 Initial Consult Date 01/01/2016 Type of Consultation: Cardiology Reason for Consultation AF Referring Provider: YOLI GONZALES Exam/Review of Systems Vital Signs Vitals Vital Signs Date Time Temp Pulse Resp B/P Pulse Ox O2 Delivery O2 Flow Rate FiO2 01/01/17 12:56 94 01/01/17 11:56 98.2 19 127/58 95 12/31/16 20:40 Nasal Cannula 2.0 Intake and Output 12/31/16 12/31/16 01/01/17 15:00 23:00 07:00 Intake Total 1150 ml Balance 1150 ml Exam Review of Systems: CONSTITUTIONAL: No fevers, chills. PULMONARY: Cough CARDIOVASCULAR: No chest pain/palpitations GASTROINTESTINAL: No nausea/vomiting. GENITOURINARY: No hematuria/dysuria. MUSCULOSKELETAL: No myagias/arthalgias. PSYCHIATRIC: The patient denies depression. NEUROLOGIC: No weakness Constitutional: alert, oriented Psych: no complaints Head: normocephalic Neck: jvd (9 cm water), supple Respiratory: diminished breath sounds (at bases/B) Cardiovascular: irregular rhythm Gastrointestinal: non-tender, soft Musculoskeletal: muscle tone (normal) Extremities: edema (none) Neurological: other (No focal deficits) Results Result Diagram: 01/01/17 0600 01/01/17 0600 Results 24 hrs Laboratory Tests Test 12/31/16 17:53 12/31/16 18:50 12/31/16 20:23 01/01/17 00:30 Bedside Glucose 517 *H 137 Glucose Level 163 Troponin I 0.023 Test 01/01/17 06:00 01/01/17 08:13 01/01/17 10:06 01/01/17 11:53 Anion Gap 13 Basophils # 0.0 Basophils % 0.3 Blood Urea Nitrogen 15 Calcium Level 7.9 L Carbon Dioxide Level 27 Chloride Level 105 Cholesterol Level 64 L Cholesterol/HDL Ratio 2.1 Creatinine 0.80 Eosinophils # 0.4 Eosinophils % 3.7 Glucose Level 107 # HDL Cholesterol 30 #L Hematocrit 24.3 L Hemoglobin 7.7 L LDL Cholesterol, Calculated 22 Lymphocytes # 1.6 Lymphocytes % 13.5 L Mean Corpuscular Hemoglobin 39.7 H Mean Corpuscular Hemoglobin Concent 31.7 L Mean Corpuscular Volume 125.3 H Mean Platelet Volume 15.1 H Monocytes # 0.5 Monocytes % 4.7 Neutrophils # 8.7 H Neutrophils % 75.3 Nucleated Red Blood Cells # 0.0 Nucleated Red Blood Cells % 0.0 Platelet Count 72 L Potassium Level 4.0 Red Blood Count 1.94 L Red Cell Distribution Width 15.1 H Sodium Level 141 Triglycerides Level 59 Troponin I 0.095 White Blood Count 11.5 #H Bedside Glucose 117 192 151 Test 01/01/17 12:15 01/01/17 14:12 Troponin I 0.110 Bedside Glucose 123 Medications Medications Current Medications Morphine Sulfate 2 mg 2 mg Q4H PRN IV pain Last administered on 12/30/16 19:55 ; Admin Dose 2 MG; Start 12/30/16 at 20:00 Ceftriaxone Sodium 50 ml @ 100 mls/hr Q24H IVPB Last administered on 12/31/16 17:14; Admin Dose 100 MLS/HR; Start 12/31/16 at 17:00 Azithromycin (Zithromax 500mg/ NS (Pmx)) 250 ml @ 250 mls/hr Q24H IVPB Last administered on 12/31/16 17:51; Admin Dose 250 MLS/HR; Start 12/31/16 at 18:00 Acetaminophen (Tylenol Tab) 650 mg Q6H PRN PO PAIN AND OR ELEVATED TEMP Last administered on 12/31/16 20:13; Admin Dose 650 MG; Start 12/30/16 at 20:00 Docusate Sodium (Colace) 100 mg BID PRN PO CONSTIPATION; Start 12/30/16 at 20:00 Famotidine (Pepcid) 20 mg BID PO Last administered on 01/01/17 10:09; Admin Dose 20 MG; Start 12/30/16 at 21:00 Enoxaparin Sodium (Lovenox) 40 mg DAILY SC Last administered on 01/01/17 10:14 ; Admin Dose 40 MG; Start 12/31/16 at 09:00 Ondansetron HCl (Zofran Inj) 4 mg Q6H PRN IV NAUSEA AND/OR VOMITING; Start 12/30 at 20:00 Miscellaneous Information 1 ea NOTE XX ; Start 12/31/16 at 04:30 Glucose (Glutose) 15 gm Q15M PRN PO DECREASED GLUCOSE; Start 12/31/16 at 04:30 Glucose (Glutose) 22.5 gm Q15M PRN PO DECREASED GLUCOSE; Start 12/31/16 at 04:30 Dextrose (D50w Syringe) 25 ml Q15M PRN IV DECREASED GLUCOSE; Start 12/31/16 at 04:30 Dextrose (D50w Syringe) 50 ml Q15M PRN IV DECREASED GLUCOSE; Start 12/31/16 at 04:30 Glucagon (Glucagen) 1 mg Q15M PRN IM DECREASED GLUCOSE; Start 12/31/16 at 04:30 Glucose (Glutose) 15 gm Q15M PRN BUCCAL DECREASED GLUCOSE; Start 12/31/16 at 04: 30 Atenolol (Tenormin) 25 mg Q12 PO Last administered on 01/01/17 10:08; Admin Dose 25 MG; Start 12/31/16 at 09:00 Diagnostic Test (Pha) (Accucheck) 1 ea 02 XX ; Start 01/01/17 at 02:00 Atorvastatin Calcium (Lipitor) 10 mg HS PO Last administered on 12/31/16 20:12 ; Admin Dose 10 MG; Start 12/31/16 at 21:00 Cyanocobalamin (Vitamin B12) 500 mcg DAILY PO Last administered on 01/01/17 10: 09; Admin Dose 500 MCG; Start 12/31/16 at 09:00 Digoxin (Digoxin) 0.125 mg DAILY PO Last administered on 01/01/17 10:08; Admin Dose 0.125 MG; Start 12/31/16 at 09:00 Folic Acid (Folic Acid) 1 mg DAILY PO Last administered on 01/01/17 10:07; Admin Dose 1 MG; Start 12/31/16 at 09:00 Lisinopril (Zestril) 2.5 mg DAILY PO Last administered on 01/01/17 10:09; Admin Dose 2.5 MG; Start 12/31/16 at 09:00 Loratadine (Claritin) 10 mg DAILY PO Last administered on 01/01/17 10:09; Admin Dose 10 MG; Start 12/31/16 at 09:00 Nitroglycerin (Nitroglycerin (Sl Tab) 0.4 Mg) 0.4 tab PRN PRN SL CHEST PAIN; Start 12/31/16 at 07:30 Metoprolol Tartrate (Lopressor) 5 mg Q4H PRN IV HR>110 Hold SBP<100; Start 12/31 at 19:30 Aspirin (Aspirin) 81 mg DAILY PO Last administered on 01/01/17 10:07; Admin Dose 81 MG; Start 01/01/17 at 09:00 DICK BUCIO Jan 01, 2017 14:50
--- NOTE | 2017-01-01 15:59 | RADRPT ---
Vent Rate: 75 bpm RR Interval: 0 msec MD Interval: 0 msec QRS Duration: 76 msec QT Interval: 370 msec QTC Interval: 413 msec P-R-T [place]: 0 - 88 - 9 degrees Atrial fibrillation Nonspecific T wave abnormality , probably digitalis effect Abnormal ECG Electronically Signed By: Deepak Elder [id number]
[2017-01-01] MEDS: morphine 2 MG INJ IV PRN (17:26)
[2017-01-01] MEDS: CEFTRIAXONE 1 GM/50 ML (PMX) 50 ML IVPB SCH (17:26)
[2017-01-01] MEDS: AZITHROMYCIN 500MG/NS (PMX) 250 ML IVPB SCH (17:27)
[2017-01-01] MEDS: ACETAMINOPHEN 325 MG TAB PO PRN (20:22)
[2017-01-01] MEDS: ATORVASTATIN 10 MG TAB PO SCH (20:23)
[2017-01-02] VITALS (10 sets, daily range): BP systolic 107–140; BP diastolic 54–81; PULSE 64–88; RESP 18–77
[2017-01-02] MEDS: ACCUCHECK XX SCH ×3 (02:00→14:00)
[2017-01-02] MEDS: FUROSEMIDE 20 MG TAB PO SCH (05:59)
[2017-01-02 06:47] LABS: ADD SCAN DIFF NO
[2017-01-02 07:00] LABS: POTASSIUM 3.9 mmol/L (3.5-5.1)
[2017-01-02 07:09] LABS: ABNORMAL IP MESSAGE 1; BASOPHIL # 0.1 10^3/ul (0.0-0.1); BASOPHILS % 0.8 % (0.0-2.0); EOSINOPHILS # 0.5 10^3/ul (0.0-0.5); EOSINOPHILS % 5.3 % (0.0-7.0); HEMOGLOBIN 9.5 g/dl (12.0-16.0); LYMPHOCYTES # 1.6 10^3/ul (0.8-2.9); LYMPHOCYTES % 16.8 % (15.0-51.0); MEAN CORPUSCULAR HEMOGLOBIN 39.6 pg (29.0-33.0); MEAN CORPUSCULAR HGB CONC 33.9 g/dl (32.0-37.0); MEAN CORPUSCULAR VOLUME 116.7 fl (82.0-101.0); MONOCYTE # 0.5 10^3/ul (0.3-0.9); MONOCYTES % 5.4 % (0.0-11.0); NEUTROPHIL # 6.7 10^3/ul (1.6-7.5); NEUTROPHILS % 69.3 % (39.0-77.0); RED CELL DISTRIBUTION WIDTH 18.8 % (11.5-14.5); WHITE BLOOD COUNT 9.7 10^3/ul (4.8-10.8)
[2017-01-02 07:14] LABS: CREATININE 0.76 mg/dl (0.44-1.00)
[2017-01-02 07:15] LABS: CALCIUM 8.2 mg/dl (8.4-10.2); PLATELET COUNT 91 10^3/UL (140-415)
[2017-01-02] MEDS: INSULIN ASPART [NOVOLOG] 3 ML PEN SC SCH ×2 (08:00→12:00)
[2017-01-02 08:06] LABS: FOLATE 14.9 ng/ml (2.8-20.0)
[2017-01-02] MEDS: LEVOTHYROXINE 50 MCG TAB PO SCH (08:36)
[2017-01-02] MEDS: ASPIRIN 81 MG TAB PO SCH (08:36)
[2017-01-02] MEDS: LORATADINE 10 MG TAB PO SCH (08:36)
[2017-01-02] MEDS: FOLIC ACID 1 MG TAB PO SCH (08:37)
[2017-01-02] MEDS: CYANOCOBALAMIN 500 MCG TAB PO SCH (08:39)
[2017-01-02] MEDS: LISINOPRIL 5 MG TAB PO SCH (08:39)
[2017-01-02] MEDS: ATENOLOL 25 MG TAB PO SCH (08:40)
[2017-01-02] MEDS: ENOXAPARIN 40 MG/0.4 ML SYG SC SCH (08:41)
[2017-01-02] MEDS: DIGOXIN 0.125 MG TAB PO SCH (08:42)
[2017-01-02] MEDS: FAMOTIDINE 20 MG TAB PO SCH (08:42)
--- NOTE | 2017-01-02 16:10 | PDOCDIS ---
Discharge Instructions CONDITION Patient Condition: Stable HOME CARE INSTRUCTIONS: Special Diet: 1800 ada ACTIVITY: Activity Restrictions: Slowly Increase Activity Rest between Activity FOLLOW UP/APPOINTMENTS Appointments Follow up with PCP in 3-4 days Follow up with cardiology as out-pt STEPHANY OWENS MD Jan 02, 2017 16:10
[2017-01-02] MEDS ORDERED: IPRA4AER INHALATION (16:14)
[2017-01-02] MEDS ORDERED: CEPH500C PO (16:14)
[2017-01-02] MEDS ORDERED: UDROBDM PO (16:14)
[2017-01-02] MEDS ORDERED: AZIT250T6 PO (16:14)
[2017-01-02] MEDS ORDERED: LEVO50TA83 PO (16:14)
[2017-01-02] MEDS ORDERED: GUAI120011 PO (16:14)
[2017-01-02] MEDS ORDERED: LAS20 PO (16:14)
--- NOTE | 2017-01-02 17:32 | DS ---
DATE OF ADMISSION: 12/30/2016 DATE OF DISCHARGE: 01/02/2017 CONSULTANTS: Dr. Deepak Elder. PROCEDURE: A 2-D echocardiogram which showed lower limits of normal systolic function, normal left ventricle cavity size, normal left ventricle wall thickness, ejection fraction visualized estimated at 55%. There is a moderate to severe enlargement of left atrium. There is mild enlargement of rig ht atrium, mild to moderate mitral valve regurg and mild to moderate mitral stenosis, aortic scleros is without significant stenosis. Estimated peak PA systolic pressure 33 mmHg. DISCHARGE DIAGNOSES: 1. Atrial fibrillation with rapid ventricular response status post amiodarone drip. Cardiology was consulted. 2. Pneumonia. Status post Rocephin and azithromycin. Will be discharged on Keflex and azithromyci n. 3. Congestive heart failure, likely post-surgery atrial fibrillation with rapid ventricular rate. Continue medical management. 4. Chronic hypothyroidism. Continue levothyroxine. 5. Dyslipidemia. Continue statin. 6. Diabetes mellitus type 2. Hold home medications for the patient's hyperglycemia. 7. Atrial flutter with rapid ventricular rate, improved heart rate status post beta piyush. 8. Hypertension, well controlled on medical management. 9. Leukocytosis, resolved. 10. Thrombocytopenia, ongoing. 11. Macrocytic anemia. The patient is status post transfusion 1 unit of packed red blood cells. V itamin B12, folic acid normal. 12. Hepatomegaly with mild fatty infiltration. 13. Cholelithiasis without definite evidence of cholecystitis, normal common bile duct. MEDICATIONS: 1. Combivent. 2. Azithromycin. 3. Keflex. 4. Lasix. 5. Mucinex. 6. Robitussin-DM 7. Levothyroxine. 8. Atenolol. 9. Nystatin. 10. Digoxin. 11. Folic acid. 12. Lisinopril. 13. Loratadine. 14. Nitroglycerin. ALLERGIES: PENICILLIN. LABORATORIES: Sodium 140, potassium 3.9, chloride 100, bicarbonate 33, BUN 15, creatinine 0.76, gluc ose 105, calcium 8.2. Vitamin ____, folate 14.9. TSH 1.10. Triglycerides 59, total cholesterol 64 , LDL 22, HDL 30. Notation: Lipitor has been discontinued secondary to patient's finding of hepatomegaly with mild fat ty infiltration and patient's lipid panel has been low. HOSPITAL COURSE: This is a 76-year-old female who was referred from her primary care physician maritza figueroa to recent upper respiratory tract infection, has a cough associated with pleuritic midsternal chest pain, subjective fever, mild generalized aching pain. Patient has been having nausea with int ractable cough, and has no episode of vomiting or diarrhea. Patient's x-ray showed mild pulmonary e huong, mild left mid upper zone patchy air spacing consistent with scarring pneumonia, unchanged; car diomegaly and atherosclerosis, otherwise unremarkable chest radiograph. Gallbladder ultrasound was obtained, which showed hepatomegaly with coarse echotexture likely due to mild fatty infiltration, a lthough early chronic liver disease can be similar on sonographic appearance, no definite morphologi c changes of cirrhosis are identified. Cholelithiasis without evidence of acute cholecystitis, commo n bile duct. The patient was seen and evaluated by information technology officer. Today echocardiogram was obtained and demonstrated ejection fraction of 50% to 55%. Stage I diastolic dysfunction. Estimated peak P A systolic pressure 33 mmHg. The patient was placed on extra dose of Lasix daily, was continued on IV Rocephin and azithromycin, which has been transitioned to oral Keflex and azithromycin. The maci ent also has been placed on breathing treatment and antitussive medication. The patient's Lipitor h as been discontinued secondary to the finding of the gallbladder ultrasound and patient's lipid pane l with LDL of 22. At this time, patient is medically stable to be discharged home with a close foll owup with her primary care physician as outpatient. Dictated By: STEPHANY OWENS MD PN/NTS Conf#: [id number] DID#: [id number] CC: YOLI GONZALES MD;*EndCC*
== END 2017-01-02 18:30 | disposition home or self-care (01) | DRG 193 ==
LOC: E/R 13:08 → MS4 17:33 → OBSVTOIN 17:56
PROVIDERS: ADMIT Family Medicine; ATTEND Family Medicine
PROC: 30233N1 Transfusion of Nonautologous Red Blood Cells into Peripheral Vein, Percutaneous Approach (ICD-10-PCS; principal; 2017-01-01)
DX: J18.9 Pneumonia, unspecified organism (principal); I50.23 Acute on chronic systolic (congestive) heart failure; D61.818 Other pancytopenia; D69.6 Thrombocytopenia, unspecified; I48.92 Unspecified atrial flutter; E03.9 Hypothyroidism, unspecified; E78.5 Hyperlipidemia, unspecified; E11.9 Type 2 diabetes mellitus without complications; I48.2 Chronic atrial fibrillation; D64.9 Anemia, unspecified; K80.20 Calculus of gallbladder without cholecystitis without obstruction; M06.9 Rheumatoid arthritis, unspecified; M81.0 Age-related osteoporosis without current pathological fracture; Z79.4 Long term (current) use of insulin
CPT/HCPCS: 36430; 71010; 76705; 80048; 80053; 80061; 81003; 82550; 82553; 82607; 82746; 82947; 82962; 83036; 83540; 83605; 83690; 83735; 84100; 84443; 84484; 85025; 85610; 85730; 86644; 86850; 86900; 86901; 86920; 87040; 87070; 87086; 87400; 93005; 93306; G0378; J1940; J0282; J0456; J0696; J1650; J1815; J2270; J2405; J7030; J7050; P9016

== ENCOUNTER 2017-04-23 08:22 | Inpatient (IN) | payer MEDICARE, OTHER ==
[~2017-04-23] VITALS: Ht 170.2 cm; Wt 89.8 kg
[~2017-04-23 08:22] MED LIST changes: -ALBU8.5H3 INH; +ATEN-138 PO; -ATOR10TA65 PO; +AZIT250T6 PO; -BECL8.7A5 INH; -BENZ100C70 PO; -FURO-109 PO; +GUAI120011 PO; +IPRA4AER INHALATION; +LAS20 PO; -LEVO500T72 PO; -LEVO50TA74 PO; +LEVO50TA83 PO; -PRED10TA PO; -SITA50TA2 PO; -TEN25 PO; -TRAM50TA2 PO; -UDROBAC PO; +UDROBDM PO
[2017-04-23] MEDS ORDERED: DILTIAZEM 25 MG INJ IV ONE ×3 (09:00→13:30)
[2017-04-23 09:17] LABS: ADD SCAN DIFF NO
[2017-04-23 09:21] LABS: ABNORMAL IP MESSAGE 1; BASOPHIL # 0.1 10^3/ul (0.0-0.1); BASOPHILS % 0.8 % (0.0-2.0); EOSINOPHILS # 0.3 10^3/ul (0.0-0.5); EOSINOPHILS % 3.7 % (0.0-7.0); HEMATOCRIT 24.8 % (37.0-47.0); LYMPHOCYTES # 1.8 10^3/ul (0.8-2.9); LYMPHOCYTES % 21.9 % (15.0-51.0); MEAN CORPUSCULAR HEMOGLOBIN 42.1 pg (29.0-33.0); MEAN CORPUSCULAR HGB CONC 32.3 g/dl (32.0-37.0); MEAN CORPUSCULAR VOLUME 130.5 fl (82.0-101.0); MONOCYTE # 0.3 10^3/ul (0.3-0.9); MONOCYTES % 3.9 % (0.0-11.0); NEUTROPHIL # 5.7 10^3/ul (1.6-7.5); NEUTROPHILS % 68.5 % (39.0-77.0); PLATELET COUNT 85 10^3/UL (140-415); RED CELL DISTRIBUTION WIDTH 16.1 % (11.5-14.5); WHITE BLOOD COUNT 8.3 10^3/ul (4.8-10.8)
[2017-04-23 09:39] LABS: INR 1.23; PROTIME 15.6 Sec (12.2-14.2); PT RATIO 1.2
[2017-04-23 09:40] LABS: PARTIAL THROMBOPLASTIN TIME 34.8 Sec (25.0-35.0)
--- NOTE | 2017-04-23 09:43 | RADRPT ---
PROCEDURE: XR Chest 1 view. CLINICAL INDICATION: Chest pain TECHNIQUE: AP views of the chest were obtained. COMPARISON: December 30, 2016 FINDINGS: The heart is large. Calcified atherosclerosis is noted in the aorta. Diffuse interstitial prominenc e is seen in both lungs and appears chronic. Patchy infiltrates are seen scattered throughout both lungs and/or combined with small pleural effusions. The osseous structures are osteopenic, but appe ar grossly intact. Degenerative changes are seen in the shoulders. IMPRESSION: Cardiomegaly with calcified atherosclerosis in the aorta. Patchy infiltrates throughout both lungs, combined with small pleural effusions. Chronic mild interstitial prominence throughout both lungs. RPTAT: AA .Red Shaver MD, Date Time Electronically viewed and signed by .Red Shaver MD, on 04/23/2017 09:43 .P/
[2017-04-23] MEDS ORDERED: SOD CHLORIDE 0.9% 500 ML IV STA (09:47)
[2017-04-23 09:57] LABS: ALANINE AMINOTRANSFERASE 40 IU/L (13-69); ALBUMIN 4.5 g/dl (3.3-4.9); ALBUMIN/GLOBULIN RATIO 1.25; ALKALINE PHOSPHATASE 160 IU/L (42-121); ANION GAP 17 (8-16); ASPARTATE AMINO TRANSFERASE 40 IU/L (15-46); BILIRUBIN,INDIRECT 1.2 mg/dl (0-1.1); BILIRUBIN,TOTAL 1.2 mg/dl (0.2-1.3); BLOOD UREA NITROGEN 23 mg/dl (7-20); CALCIUM 8.9 mg/dl (8.4-10.2); CARBON DIOXIDE 26 mmol/L (21-31); CHLORIDE 104 mmol/L (97-110); CREATININE 0.85 mg/dl (0.44-1.00); GLUCOSE 211 mg/dl (70-220); POTASSIUM 3.9 mmol/L (3.5-5.1); SODIUM 143 mmol/L (135-144); TOTAL PROTEIN 8.1 g/dl (6.1-8.1)
[2017-04-23] MEDS ORDERED: LEVOFLOXACIN 500MG/D5W (PMX) 100 ML IV STA (10:04)
[2017-04-23 10:06] LABS: B-TYPE NATRIURETIC PEPTIDE 3330 PG/ML (0-450); TROPONIN-I < 0.012 ng/ml (0.00-0.12)
[2017-04-23] MEDS ORDERED: METHYLPREDNISOLONE 125 MG INJ IV STA (10:07)
[2017-04-23] MEDS ORDERED: IPRATROPIUM (NEB) 0.5 MG/2.5 ML AMP NEB STA (10:07)
[2017-04-23] MEDS ORDERED: ALBUTEROL 0.083% (NEB) 2.5 MG/3 ML AMP NEB STA (10:07)
[2017-04-23] MEDS ORDERED: NICARDipine HCL 30 MG CAPSULE PO ONE (10:30)
[2017-04-23] MEDS ORDERED: SOD CHLORIDE 0.9% 1,000 ML IV SCH (11:02)
--- NOTE | 2017-04-23 11:07 | ERA ---
ER Documentation Chief Complaint Date/Time DATE: 04/23/17 TIME: 11:03 Chief Complaint sob, irreg hr 140-170 HPI This is a 77-year-old female with a history of atrial fibrillation, hypertension who presents to the emergency room for evaluation of shortness of breath and fast heart rate. According to family members this patient was complaining of shortness of breath today when I evaluated this patient did have a heart rate of 147 bpm. Her pulse ox was 84% on room air. The patient states that her shortness of breath is worse when she lays flat. She denies any active chest pain with this. ROS All systems reviewed and are negative except as per history of present illness. Medications Home Meds Active Scripts Albuterol/Ipratropium* (Combivent Respimat*) 20-100 Mcg/Inh - 4 Gm Aer.w.adap, 1 PUFF INHALATION QID, #1 INHALER Prov:STEPHANY OWENS MD 01/02/17 Guaifenesin (Mucinex) 1,200 Mg Tab.er.12h, 1200 MG PO BID, #10 TAB Prov:STEPHANY OWENS MD 01/02/17 Guaifenesin-Dextromethorphan* (Robitussin* DM) 100MG/10MG/5ML Syrup, 10 ML PO Q4H Y for COUGH, #100 ML Prov:STEPHANY OWENS MD 01/02/17 Azithromycin* (Azithromycin*) 250 Mg Tablet, 250 MG PO DAILY, #4 TAB Prov:STEPHANY OWENS MD 01/02/17 Cephalexin* (Cephalexin*) 500 Mg Capsule, 500 MG PO Q8, #21 CAP Prov:STEPHANY OWENS MD 01/02/17 Levothyroxine Sodium* (Synthroid*) 50 Mcg Tablet, 50 MCG PO AC BREAKFAST, #30 TAB Prov:STEPHANY OWENS MD 01/02/17 Furosemide (Lasix) 20 Mg Tab, 20 MG PO BID DIURETICS for 60 Days, TAB Prov:STEPHANY OWENS MD 01/02/17 Cyanocobalamin* (Vitamin B12*) 500 Mcg Tab, 500 MCG PO DAILY for 30 Days, TAB Prov:LAYNE DURAND 12/14/15 Atenolol (Tenormin) 25 Mg Tab, 25 MG PO Q12 for 30 Days, TAB Prov:LAYNE DURAND 12/14/15 Digoxin* (Digoxin*) 0.125 Mg Tab, 0.125 MG PO DAILY for 30 Days, TAB Prov:LAYNE DURAND 12/14/15 Reported Medications Lisinopril* (Lisinopril*) 2.5 Mg Tablet, 2.5 MG PO DAILY, #30 TAB 12/12/15 Folic Acid* (Folic Acid*) 1 Mg Tablet, 1 MG PO DAILY, TAB 06/20/15 Nitroglycerin* (Nitroglycerin* SL) 0.4 Mg Tab.subl, 0.4 MG SL Q5MIN Y for CHEST PAIN, BOTTLE 12/14/14 Loratadine* (Claritin*) 10 Mg Capsule, 10 MG PO DAILY 11/24/13 Allergies Allergies: Coded Allergies: Penicillins (Verified Allergy, Intermediate, 12/30/16) PMhx/Soc History of Surgery: Yes (hysterectomy in 2010, 194) Anesthesia Reaction: No Hx Neurological Disorder: No Hx Respiratory Disorders: Yes (SOB on exertion ) Hx Cardiac Disorders: Yes (A fib) Hx Psychiatric Problems: No Hx Miscellaneous Medical Probl: No Hx Alcohol Use: No Hx Substance Use: No Hx Tobacco Use: No Smoking Status: Never smoker Physical Exam Vitals Vital Signs Date Time Temp Pulse Resp B/P Pulse Ox O2 Delivery O2 Flow Rate FiO2 04/23/17 10:51 129 33 133/86 99 Nasal Cannula 2.0 04/23/17 10:43 2.0 04/23/17 10:15 90 20 94 21 04/23/17 09:36 102 18 109/76 Nasal Cannula 2.0 04/23/17 09:27 Nasal Cannula 2 04/23/17 09:26 Nasal Cannula 2.0 04/23/17 08:31 98.6 148 36 162/99 92 Physical Exam INITIAL VITAL SIGNS: Reviewed by me GENERAL: The patient is well developed and appropriate for usual state of health in no apparent distress HEENT: Pupils equal, round, and reactive to light. EOMI. There is no scleral icterus. NECK: C-spine is soft and supple, there is no meningismus. There is no cervical lymphadenopathy. LUNGS: Coarse breath sounds bilaterally. There are no rales, wheezes or rhonchi. HEART: Irregularly irregular rhythm, no murmurs, clicks, rubs or gallops. ABDOMEN: Soft, non-tender, non-distended. There are bowel sounds in all four quadrants. No rebound or guarding. EXTREMITIES: There is no peripheral cyanosis or edema. No focal swelling or erythema. NEUROLOGICAL: The patient moves all four extremities with 5/5 strength. Cranial nerves II - XII are intact. Normal gait. Alert and oriented SKIN: There is no apparent rash or petechiae. HEME/LYMPHATIC: There is no evidence of excessive bruising or lymphedema. PSYCHIATRIC: The patient does not appear anxious or depressed. Result Diagram: 04/23/17 0850 04/23/17 0850 Results 24 hrs Laboratory Tests Test 04/23/17 08:50 White Blood Count 8.310^3/ul Red Blood Count 1.9010^6/ul Hemoglobin 8.0g/dl Hematocrit 24.8% Mean Corpuscular Volume 130.5fl Mean Corpuscular Hemoglobin 42.1pg Mean Corpuscular Hemoglobin Concent 32.3g/dl Red Cell Distribution Width 16.1% Platelet Count 8510^3/UL Mean Platelet Volume fl Neutrophils % 68.5% Lymphocytes % 21.9% Monocytes % 3.9% Eosinophils % 3.7% Basophils % 0.8% Nucleated Red Blood Cells % 0.0/100WBC Neutrophils # 5.710^3/ul Lymphocytes # 1.810^3/ul Monocytes # 0.310^3/ul Eosinophils # 0.310^3/ul Basophils # 0.110^3/ul Nucleated Red Blood Cells # 0.010^3/ul Prothrombin Time 15.6Sec Prothrombin Time Ratio 1.2 INR International Normalized Ratio 1.23 Activated Partial Thromboplast Time 34.8Sec Sodium Level 143mmol/L Potassium Level 3.9mmol/L Chloride Level 104mmol/L Carbon Dioxide Level 26mmol/L Anion Gap 17 Blood Urea Nitrogen 23mg/dl Creatinine 0.85mg/dl Glucose Level 211mg/dl Calcium Level 8.9mg/dl Total Bilirubin 1.2mg/dl Direct Bilirubin 0.00mg/dl Indirect Bilirubin 1.2mg/dl Aspartate Amino Transf (AST/SGOT) 40IU/L Alanine Aminotransferase (ALT/SGPT) 40IU/L Alkaline Phosphatase 160IU/L Troponin I < 0.012ng/ml B-Type Natriuretic Peptide 3330PG/ML Total Protein 8.1g/dl Albumin 4.5g/dl Globulin 3.60g/dl Albumin/Globulin Ratio 1.25 Current Medications Medications (Trade) Dose Ordered Sig/Erich Route PRN Reason Start Time Stop Time Status Last Admin Dose Admin Diltiazem HCl (Cardizem Iv) 10 mg ONCE ONCE IV 04/23/17 09:00 04/23/17 09:01 DC 04/23/17 08:55 Diltiazem HCl 10 mg 10 mg ONCE ONCE IV 04/23/17 09:30 04/23/17 09:31 DC 04/23/17 09:20 Sodium Chloride 500 ml @ 500 mls/hr Q1H STAT IV 04/23/17 09:47 04/23/17 10:46 DC 04/23/17 09:58 Levofloxacin/ Dextrose (Levaquin 500mg/ D5W 100 ml (Pmx)) 100 ml @ 100 mls/hr ONCE STAT IV 04/23/17 10:04 04/23/17 11:03 Nicardipine HCl (Cardene) 30 mg ONCE ONCE PO 04/23/17 10:30 04/23/17 10:31 DC Albuterol (Proventil 0.083% (Neb)) 5 mg ONCE STAT NEB 04/23/17 10:07 04/23/17 10:08 DC 04/23/17 10:14 Ipratropium [place] (Atrovent 0.02% (Neb)) 0.5 mg ONCE STAT NEB 04/23/17 10:07 04/23/17 10:08 DC 04/23/17 10:14 Methylprednisolone Sodium Succinate (Solu-Medrol) 125 mg ONCE STAT IV 04/23/17 10:07 04/23/17 10:08 DC Procedures/MDM EKG: Rate/Rhythm: A. fib with RVR QRS, ST, T-waves: [No changes consistent w/ acute ischemia] Impression: A. fib with RVR Chest X-ray 1V Interpreted by me: Soft Tissue: Bilateral pneumonia Bones: No acute abnormalities Mediastinum/Cardiac Silhouette/Lungs: [No acute abnormalities] This 77-year-old female presents to the ER for evaluation of shortness of breath. When I evaluated her heart rate is 147 bpm and her pulse ox 84% on room air. The patient does have a history of atrial fibrillation and EKG does show atrial fibrillation with rapid ventricular response. The patient was given 10 mg of IV Cardizem with no resolution of her palpitations. She was subsequently given a second dose of 10 mg IV with control of her rate to 101 bpm. Chest x-ray does reveal bilateral infiltrates. The patient was also satting 84% on room and was given a breathing treatment which increased her heart rate again to the 120s however her heart rate is starting to drop below 110 at this time. She was given Levaquin in the emergency room and will be placed in for admission at this time on our telemetry floor under the care of Dr. Greenberg Critical Care: Excluding all billable procedures Time: 33 minutes Treatments/Evaluations: Close monitoring and treatment of unstable vital signs, cardiorespiratory, and neurologic status, while maintaining tight balance of fluid, respiratory, and cardiac interventions. Departure Diagnosis: Primary Impression: Atrial fibrillation with RVR Additional Impressions: Acute respiratory failure with hypoxia Bilateral pneumonia Macrocytic anemia Thrombocytopenia Condition: Fair RANDALL GARCIA DO Apr 23, 2017 11:07
[2017-04-23] MEDS ORDERED: ATEN-51 PO (11:29)
[2017-04-23] MEDS ORDERED: DILTIAZEM (CD) 120 MG CAP PO ONE (11:30)
[2017-04-23] MEDS ORDERED: METF500T4 PO (11:30)
[2017-04-23] MEDS ORDERED: ONDANSETRON 4 MG INJ IV PRN ×2 (11:30→13:00)
[2017-04-23] MEDS ORDERED: ACETAMINOPHEN 325 MG TAB PO PRN ×2 (11:30→13:00)
[2017-04-23] MEDS ORDERED: BECL8.7A5 INH (11:30)
[2017-04-23] MEDS ORDERED: VITA400C15 PO (11:32)
[2017-04-23] MEDS ORDERED: DIGO250T6 PO (11:33)
[2017-04-23] MEDS ORDERED: LEVO75TA5 PO (12:13)
[2017-04-23] MEDS ORDERED: MAGNESIUM HYDROXIDE 30ML CUP PO PRN (13:00)
[2017-04-23] MEDS ORDERED: BISACODYL (EC) 5 MG TAB PO PRN (13:00)
[2017-04-23] MEDS ORDERED: HYDROCODONE/APAP (5/325) TAB PO PRN (13:00)
[2017-04-23] MEDS ORDERED: NACL 0.9% 3 ML SYG IV SCH (13:00)
[2017-04-23] MEDS ORDERED: morphine 2 MG INJ IV PRN (13:00)
[2017-04-23] MEDS ORDERED: LEVALBUTEROL (NEB) 0.31 MG/3 ML AMP HHN PRN (13:00)
[2017-04-23 13:56] LABS: THYROID STIMULATING HORMONE 1.47 MIU/L (0.465-4.680)
[2017-04-23] MEDS ORDERED: SOD CHLORIDE 0.9% 500 ML IV ONE (14:00)
--- NOTE | 2017-04-23 14:45 | HP ---
Date/Time of Note Date/Time of Note DATE: 04/23/17 TIME: 14:40 Assessment/Plan VTE Prophylaxis VTE Prophylaxis Intervention: SCD's Lines/Catheters IV [facility]ter [facility]from [facility] Assessment/Plan Chief Complaint/Hosp Course 1. Atrial fibrillation with rapid ventricular response. Cardiology consult will be obtained. Rate control will be obtained. Unable to anticoagulate the patient for stroke prophylaxis because of chronic thrombocytopenia. Will rule out the patient for any underlying acute coronary syndrome. 2. Community-acquired pneumonia. The patient will be started on appropriate antibiotics. Pancultures will be obtained. 3. Essential hypertension. The patient will be continued on antihypertensives. However, the patient was hypotensive after multiple doses of IV Cardizem. Antihypertensives will be held if the patient continues to be hypotensive. 4. Type 2 diabetes mellitus. The patient was started on sliding scale insulin along with basal insulin and Lantus insulin. Hemoglobin A1c will be obtained to evaluate the blood glucose control within the past few weeks. 5. Asthma. The patient will be continued on inhaled bronchodilators. Patient is status post 1 dose of IV Solu-Medrol. 6. Hypothyroidism. The patient's Synthroid will be resumed. Plan: The patient will be admitted to inpatient telemetry floor. The patient will be started on a carbohydrate controlled diet. The patient will be started on DVT prophylaxis and gastrointestinal prophylaxis. The patient will remain a full code. Activities will be with assist. The rest of the patient's management will be based on the clinical course and the results of diagnostic studies. Based on the patient's clinical presentation, she most probably requires at least 2 midnights' stay for further management and evaluation of her clinical presentation. The case and management of this patient was fully discussed with . Problems: HPI/ROS Admit Date/Time Admit Date/Time Hx of Present Illness Reason for admission: Shortness of breath, palpitations. Consultants 1. Deepak Elder MD, Cardiology. This is a 77-year-old female with past medical history of atrial fibrillation, type 2 diabetes mellitus, asthma, essential hypertension, hypothyroidism, and chronic thrombocytopenia who came to the emergency room with chief complaint of dyspnea, palpitations, and generalized weakness. Patient denied any cough. The patient denied any fevers or chills. She denied any chest pain. Patient denied any nausea, vomiting, abdominal pain, diarrhea, constipation, hematochezia, or melena. Patient denied any dysuria, hematuria, or pyuria. In the emergency room, the patient was noticed to be in atrial fibrillation with rapid ventricular response. The patient was treated with 10 mg of IV Cardizem 3 with no significant improvement in the patient's heart rate. The patient's chest x-ray showed patchy infiltrates throughout both lungs, combined with small pleural effusions. The patient had no leukocytosis. The patient was afebrile. The patient was also given a single dose of oral nicardipine and 125 mg IV Solu-Medrol. ROS Constitutional: fatigue Eyes: no complaints ENT: no complaints Respiratory: shortness of breath Cardiovascular: palpitations Gastrointestinal: no complaints Genitourinary: no complaints Musculoskeletal: no complaints Skin: no complaints Neurologic: no complaints Endocrine: no complaints Lymphatic: no complaints Psychological: no complaints Immunologic: no complaints PMH/Family/Social Past Medical History Medical History: diabetes, hypertension, hypothyroid, other (Asthma, atrial fibrillation, chronic thrombocytopenia.) Past Surgical History Past Surgical Hx: other (Hysterectomy) Social History Alcohol Use: none Smoking Status: Never smoker Drug Use: none Exam/Review of Systems Vital Signs Vitals Vital Signs Date Time Temp Pulse Resp B/P Pulse Ox O2 Delivery O2 Flow Rate FiO2 04/23/17 13:44 129 35 96/60 91 Nasal Cannula 2.0 04/23/17 10:15 21 04/23/17 08:31 98.6 Exam Exam General: Adequately build 77 year-old female lying in bed in no apparent distress. HEENT: Normocephalic, atraumatic. Eyes: Anicteric sclerae, conjunctivae clear. ENT: Nasal septum midline, oral mucosa moist. Neck supple, no JVD noticed. Respiratory: Bilaterally diminished breath sounds. Bilateral fine rales. Cardiovascular: S1, S2 heard. Irregularly irregular rhythm. Abdomen: Soft, nontender, and nondistended. Bowel sounds positive in all 4 quadrants. Genitourinary: Deferred. Extremities: No cyanosis, no clubbing. Bilateral lower extremity pretibial edema. Neurologic: Cranial nerves II through XII grossly intact. The patient is awake, alert, and oriented. Skin: Normal skin turgor. No skin rashes. Labs Result Diagram: 04/23/17 0850 04/23/17 0850 Medications Medications Current Medications Sodium Chloride 1,000 ml @ 80 mls/hr [id number] IV Last administered on t 13:42; Admin Dose 80 MLS/HR; Start 04/23/17 at 11:02; Stop 04/23/17 at 23: 31 Levofloxacin/ Dextrose (Levaquin 750 Mg/ D5W 150 ml (Pmx)) 150 ml @ 100 mls/hr Q24H IVPB ; Start 04/24/17 at 11:00 Atenolol (Tenormin) 25 mg DAILY PO ; Start 04/24/17 at 09:00 Digoxin (Digoxin) 0.5 mg DAILY@13 PO ; Start 04/24/17 at 13:00 Folic Acid (Folic Acid) 1 mg DAILY PO ; Start 04/24/17 at 09:00 Lisinopril (Zestril) 2.5 mg DAILY PO ; Start 04/24/17 at 09:00 Loratadine (Claritin) 10 mg DAILY PO ; Start 04/24/17 at 09:00 Vitamin E (Vitamin E) 400 units DAILY PO ; Start 04/24/17 at 09:00 Mometasone Furoate (Asmanex) 1 puff BID INH ; Start 04/23/17 at 21:00 Ondansetron HCl (Zofran Inj) 4 mg Q6H PRN IV NAUSEA AND/OR VOMITING; Start at 13:00 Acetaminophen (Tylenol Tab) 650 mg Q6H PRN PO PAIN LEVEL 1-3 OR FEVER; Start at 13:00 Acetaminophen/ Hydrocodone Bitart ([place]arton (5/325)) 1 tab Q6H PRN PO PAIN LEVEL 4 -6; Start 04/23/17 at 13:00 Morphine Sulfate (morphine) 2 mg Q4H PRN IV PAIN LEVEL 7-10; Start 04/23/17 at 13:00 Magnesium Hydroxide (Milk Of Mag) 30 ml DAILY PRN PO CONSTIPATION; Start at 13:00 Bisacodyl (Dulcolax) 5 mg DAILY PRN PO CONSTIPATION; Start 04/23/17 at 13:00 Famotidine 20 mg 20 mg DAILY PO ; Start 04/23/17 at 21:00 Sodium Chloride (NS) 500 ml @ 500 mls/hr Q1H ONCE IV ; Start 04/23/17 at 14:00 ; Stop 04/23/17 at 14:59 Procedures Procedures CXR IMPRESSION: Cardiomegaly with calcified atherosclerosis in the aorta. Patchy infiltrates throughout both lungs, combined with small pleural effusions. Chronic mild interstitial prominence throughout both lungs. SUMI STONE NP Apr 23, 2017 14:45 SUMI STONE NP Apr 23, 2017 14:45
[2017-04-23 14:56] LABS: IRON 92 ug/dl (35-150)
[2017-04-23 15:05] LABS: TOTAL IRON BINDING CAPACITY 186 ug/dl (241-421)
[2017-04-23 15:36] LABS: CREATINE KINASE 50 IU/L (23-200)
[2017-04-23 15:45] LABS: CK-MB 0.75 ng/ml (0.0-2.4)
[2017-04-23] MEDS ORDERED: DILTIAZEM-D5W 125MG/125ML DRIP 125 ML IV STA (15:52)
[2017-04-23 15:58] LABS: TROPONIN-I < 0.012 ng/ml (0.00-0.12)
[2017-04-23] MEDS: FUROSEMIDE 20 MG TAB PO SCH (19:15)
--- NOTE | 2017-04-23 19:15 | CONS ---
Date/Time of Note Date/Time of Note DATE: 04/23/17 TIME: 19:10 Assessment/Plan Assessment/Plan Chief Complaint/Hosp Course IMP: 1.AF with RVR 2.htn 3.ABNL ECG 4.chf-? systolic vs diastolic acute on chronic 5.Hypothyroid Recc: -Tele -Give IVP digoxin dose -Give BB PO dose -Wean off dilt drip keeping HR<110 -TSH -Echo -CRUZ Problems: Consultation Date/Type/Reason Admit Date/Time Date of Consultation: Apr 23, 2017 Type of Consultation: cardiology Reason for Consultation AF/CHF Referring Provider: SUMI STONE NP Hx of Present Illness his is a 77-year-old female with past medical history of atrial fibrillation, type 2 diabetes mellitus, asthma, essential hypertension, hypothyroidism, and chronic thrombocytopenia who came to the emergency room with chief complaint of dyspnea, palpitations, and generalized weakness. Patient denied any cough. The patient denied any fevers or chills. She denied any chest pain. Patient denied any nausea, vomiting, abdominal pain, diarrhea, constipation, hematochezia, or melena. Patient denied any dysuria, hematuria, or pyuria. In the emergency room, the patient was noticed to be in atrial fibrillation with rapid ventricular response. The patient was treated with 10 mg of IV Cardizem 3 with no significant improvement the patient's heart rate. The patient's chest x-ray showed patchy infiltrates throughout both lungs, combined with small pleural effusions. Eyes: no complaints ENT: no complaints Respiratory: shortness of breath Cardiovascular: palpitations Gastrointestinal: no complaints Genitourinary: no complaints Musculoskeletal: no complaints Skin: no complaints Neurologic: no complaints Lymphatic: no complaints Psychological: no complaints Immunologic: no complaints Past Medical History Medical History: diabetes, hypertension, hypothyroid, other (Asthma, atrial fibrillation, chronic thrombocytopenia.) Past Surgical History Past Surgical Hx: other (Hysterectomy) Social History Alcohol Use: none Smoking Status: Never smoker Drug Use: none Exam/Review of Systems Vital Signs Vitals Vital Signs Date Time Temp Pulse Resp B/P Pulse Ox O2 Delivery O2 Flow Rate FiO2 04/23/17 18:58 117 30 117/83 99 Nasal Cannula 2.0 04/23/17 10:15 21 04/23/17 08:31 98.6 Exam Constitutional: alert, oriented Psych: no complaints Head: normocephalic ENMT: mucosa pink and moist Neck: jvd (8-9 cm water), supple Respiratory: diminished breath sounds (at bases/B) Cardiovascular: irregular rhythm (tachycardic) Gastrointestinal: non-tender, soft Musculoskeletal: muscle tone (normal) Extremities: edema (none) Neurological: other (No focal deficits) Results Result Diagram: 04/23/17 0850 04/23/17 0850 Results 24 hrs Laboratory Tests Test 04/23/17 08:50 04/23/17 12:20 04/23/17 15:00 White Blood Count 8.3 Red Blood Count 1.90 #L Hemoglobin 8.0 L Hematocrit 24.8 L Mean Corpuscular Volume 130.5 H Mean Corpuscular Hemoglobin 42.1 H Mean Corpuscular Hemoglobin Concent 32.3 Red Cell Distribution Width 16.1 H Platelet Count 85 L Mean Platelet Volume Neutrophils % 68.5 Lymphocytes % 21.9 Monocytes % 3.9 Eosinophils % 3.7 Basophils % 0.8 Nucleated Red Blood Cells % 0.0 Neutrophils # 5.7 Lymphocytes # 1.8 Monocytes # 0.3 Eosinophils # 0.3 Basophils # 0.1 Nucleated Red Blood Cells # 0.0 Prothrombin Time 15.6 H Prothrombin Time Ratio 1.2 INR International Normalized Ratio 1.23 Activated Partial Thromboplast Time 34.8 Sodium Level 143 Potassium Level 3.9 Chloride Level 104 Carbon Dioxide Level 26 Anion Gap 17 H Blood Urea Nitrogen 23 H Creatinine 0.85 Glucose Level 211 Calcium Level 8.9 Total Bilirubin 1.2 Direct Bilirubin 0.00 Indirect Bilirubin 1.2 H Aspartate Amino Transf (AST/SGOT) 40 Alanine Aminotransferase (ALT/SGPT) 40 Alkaline Phosphatase 160 H Troponin I < 0.012 < 0.012 B-Type Natriuretic Peptide 3330 H Total Protein 8.1 Albumin 4.5 Globulin 3.60 H Albumin/Globulin Ratio 1.25 Hemoglobin A1c 7.0 H Lactic Acid Level 1.9 Iron Level 92 Total Iron Binding Capacity 186 L Percent Iron Saturation 49 Ferritin 300.0 H Vitamin D 1,25-Dihydroxy 29.3 L Thyroid Stimulating Hormone (TSH) 1.470 Free Thyroxine 1.40 Digoxin Level < 0.4 L Creatine Kinase 50 Creatine Kinase Index 1.5 Creatinine Kinase MB (Mass) 0.75 Medications Medications Current Medications Sodium Chloride 1,000 ml @ 80 mls/hr [id number] IV Last administered on t 13:42; Admin Dose 80 MLS/HR; Start 04/23/17 at 11:02; Stop 04/23/17 at 23: 31 Levofloxacin/ Dextrose (Levaquin 750 Mg/ D5W 150 ml (Pmx)) 150 ml @ 100 mls/hr Q24H IVPB ; Start 04/24/17 at 11:00 Atenolol (Tenormin) 25 mg DAILY PO ; Start 04/24/17 at 09:00 Digoxin (Digoxin) 0.5 mg DAILY@13 PO ; Start 04/24/17 at 13:00 Folic Acid (Folic Acid) 1 mg DAILY PO ; Start 04/24/17 at 09:00 Lisinopril (Zestril) 2.5 mg DAILY PO ; Start 04/24/17 at 09:00 Loratadine (Claritin) 10 mg DAILY PO ; Start 04/24/17 at 09:00 Vitamin E (Vitamin E) 400 units DAILY PO ; Start 04/24/17 at 09:00 Mometasone Furoate (Asmanex) 1 puff BID INH ; Start 04/23/17 at 21:00 Ondansetron HCl (Zofran Inj) 4 mg Q6H PRN IV NAUSEA AND/OR VOMITING; Start at 13:00 Acetaminophen (Tylenol Tab) 650 mg Q6H PRN PO PAIN LEVEL 1-3 OR FEVER; Start at 13:00 Acetaminophen/ Hydrocodone Bitart ([place] (5/325)) 1 tab Q6H PRN PO PAIN LEVEL 4 -6; Start 04/23/17 at 13:00 Morphine Sulfate (morphine) 2 mg Q4H PRN IV PAIN LEVEL 7-10; Start 04/23/17 at 13:00 Magnesium Hydroxide (Milk Of Mag) 30 ml DAILY PRN PO CONSTIPATION; Start at 13:00 Bisacodyl (Dulcolax) 5 mg DAILY PRN PO CONSTIPATION; Start 04/23/17 at 13:00 Famotidine (Pepcid) 20 mg DAILY PO ; Start 04/23/17 at 21:00 DICK BUCIO 28, 2017 19:15
[2017-04-23] MEDS ORDERED: METOPROLOL 5 MG INJ IV PRN (19:30)
[2017-04-23] MEDS: DIGOXIN 500 MCG INJ IV SCH (20:03)
[2017-04-23] MEDS: metFORMIN 500 MG TAB PO SCH (20:07)
[2017-04-23] MEDS: LEVALBUTEROL (NEB) 0.63 MG/3 ML AMP HHN SCH (21:26)
[2017-04-23 22:06] LABS: CREATINE KINASE 43 IU/L (23-200)
[2017-04-23 22:18] LABS: CK-MB 0.85 ng/ml (0.0-2.4); TROPONIN-I < 0.012 ng/ml (0.00-0.12)
[2017-04-24] VITALS (13 sets, daily range): BP systolic 101–130; BP diastolic 57–65; PULSE 58–109; RESP 20–22; Ht 170.2 cm; Wt 89.8 kg
[2017-04-24] MEDS: FAMOTIDINE 20 MG TAB PO SCH ×2 (00:50→08:43)
[2017-04-24] MEDS: ATENOLOL 25 MG TAB PO SCH ×3 (00:51→20:28)
[2017-04-24] MEDS: DIGOXIN 500 MCG INJ IV SCH (00:51)
[2017-04-24] MEDS: ENOXAPARIN 100 MG/ML SYG SC SCH ×2 (00:52→09:00)
[2017-04-24] MEDS ORDERED: GLUCOSE GEL 15 GRAM TUBE BUCCAL PRN (01:30)
[2017-04-24] MEDS ORDERED: GLUCAGON 1 MG INJ IM PRN (01:30)
[2017-04-24] MEDS ORDERED: DEXTROSE 50% 50 ML SYRINGE IV PRN ×2 (01:30)
[2017-04-24] MEDS ORDERED: GLUCOSE GEL 15 GRAM TUBE PO PRN ×2 (01:30)
[2017-04-24] MEDS: MOMETASONE 0.24 GM INHALER INH SCH ×3 (01:35→20:27)
[2017-04-24] MEDS ORDERED: ACCU-CHEK XX SCH (02:00)
[2017-04-24] MEDS: LEVALBUTEROL (NEB) 0.63 MG/3 ML AMP HHN SCH ×4 (02:10→21:14)
[2017-04-24 04:48] LABS: ADD UMIC YES; UR ASCORBIC ACID 20 mg/dL (NEGATIVE); UR BACTERIA FEW /HPF (NONE SEEN); UR BILIRUBIN (Dip) NEGATIVE (NEGATIVE); UR BLOOD (Dip) NEGATIVE (NEGATIVE); UR CLARITY SLIGHTLY CLOUDY (CLEAR); UR COLOR YELLOW (YELLOW); UR GLUCOSE (Dip) NEGATIVE (NEGATIVE); UR KETONES (Dip) NEGATIVE (NEGATIVE); UR LEUKOCYTE ESTERASE (Dip) 1+ Leu/ul (NEGATIVE); UR NITRITE (Dip) NEGATIVE (NEGATIVE); UR RBC 0 /HPF (0-5); UR SPECIFIC GRAVITY (Dip) 1.019 (1.003-1.030); UR SQUAMOUS EPITHELIAL CELL FEW /HPF (FEW); UR TOTAL PROTEIN (Dip) 1+ mg/dl (NEGATIVE); UR UROBILINOGEN (Dip) 2+ mg/dL (NEGATIVE)
[2017-04-24] MEDS: FUROSEMIDE 20 MG TAB PO SCH ×2 (06:36→17:15)
[2017-04-24 07:32] LABS: ADD SCAN DIFF NO
[2017-04-24 07:35] LABS: ABNORMAL IP MESSAGE 1; BASOPHIL # 0.1 10^3/ul (0.0-0.1); BASOPHILS % 0.7 % (0.0-2.0); EOSINOPHILS % 0.1 % (0.0-7.0); HEMOGLOBIN 7.6 g/dl (12.0-16.0); LYMPHOCYTES # 1.4 10^3/ul (0.8-2.9); LYMPHOCYTES % 11.5 % (15.0-51.0); MEAN CORPUSCULAR HEMOGLOBIN 43.4 pg (29.0-33.0); MEAN CORPUSCULAR VOLUME 131.4 fl (82.0-101.0); MONOCYTE # 0.5 10^3/ul (0.3-0.9); MONOCYTES % 3.8 % (0.0-11.0); NEUTROPHIL # 9.8 10^3/ul (1.6-7.5); NEUTROPHILS % 82.4 % (39.0-77.0); RED BLOOD COUNT 1.75 10^6/ul (4.20-5.40); RED CELL DISTRIBUTION WIDTH 15.7 % (11.5-14.5); WHITE BLOOD COUNT 11.9 10^3/ul (4.8-10.8)
[2017-04-24 07:36] LABS: PLATELET COUNT 91 10^3/UL (140-415)
[2017-04-24 08:00] LABS: CHOL/HDL RATIO 2.9 RATIO; CHOLESTEROL 116 mg/dl (100-200); HDL CHOLESTEROL 39 mg/dl (33-92); TRIGLYCERIDES 66 mg/dl (0-149)
[2017-04-24 08:01] LABS: BILIRUBIN,INDIRECT 0.7 mg/dl (0-1.1); BILIRUBIN,TOTAL 0.7 mg/dl (0.2-1.3); CALCIUM 8.8 mg/dl (8.4-10.2); CREATININE 0.87 mg/dl (0.44-1.00); POTASSIUM 4.8 mmol/L (3.5-5.1)
[2017-04-24 08:02] LABS: ALBUMIN 4.2 g/dl (3.3-4.9); ALBUMIN/GLOBULIN RATIO 1.27; MAGNESIUM 2.3 mg/dl (1.7-2.5); PHOSPHORUS 4.5 mg/dl (2.5-4.9); TOTAL PROTEIN 7.5 g/dl (6.1-8.1)
[2017-04-24 08:11] LABS: TROPONIN-I < 0.012 ng/ml (0.00-0.12)
[2017-04-24] MEDS: LEVOTHYROXINE 75 MCG TAB PO SCH (08:42)
[2017-04-24] MEDS: metFORMIN 500 MG TAB PO SCH ×2 (08:43→17:14)
[2017-04-24] MEDS: LORATADINE 10 MG TAB PO SCH (08:43)
[2017-04-24] MEDS: LISINOPRIL 5 MG TAB PO SCH (08:43)
[2017-04-24] MEDS: FOLIC ACID 1 MG TAB PO SCH (08:43)
[2017-04-24] MEDS: INSULIN ASPART [NOVOLOG] 3 ML PEN SC SCH ×4 (08:45→20:39)
[2017-04-24] MEDS ORDERED: ATENOLOL 25 MG TAB PO SCH (09:00)
[2017-04-24] MEDS ORDERED: SOD CHLORIDE 0.9% 250 ML IV* ONE (09:09)
[2017-04-24] MEDS ORDERED: FUROSEMIDE 20 MG INJ IV SCH (09:30)
--- NOTE | 2017-04-24 10:38 | RADRPT ---
Vent Rate: 74 bpm RR Interval: 0 msec WV Interval: 0 msec QRS Duration: 78 msec QT Interval: 388 msec QTC Interval: 430 msec P-R-T [place]: 0 - 84 - 100 degrees Atrial fibrillation Low voltage QRS Abnormal ECG Electronically Signed By: Jacob Acosta [id number]
[2017-04-24] MEDS: VITAMIN E 400 UNITS CAP PO SCH (10:46)
[2017-04-24] MEDS: LEVOFLOXACIN 750MG/D5W (PMX) 150 ML IVPB SCH (12:47)
[2017-04-24] MEDS ORDERED: DIGOXIN 0.25 MG TAB PO SCH (13:00)
--- NOTE | 2017-04-24 17:18 | PN ---
Date/Time of Note Date/Time of Note DATE: 04/24/17 TIME: 17:12 Assessment/Plan VTE Prophylaxis VTE Prophylaxis Intervention: SCD's Lines/Catheters IV [facility]ter Type (from [facility]): Peripheral IV Urinary Cath still in place: No Assessment/Plan Chief Complaint/Hosp Course 1. Atrial fibrillation with rapid ventricular response. Rate controlled. Unable to anticoagulate because of underlying anemia and chronic thrombocytopenia. Cardiology following. 2. Community-acquired pneumonia. The patient will be continued on appropriate antibiotics. 3. Essential hypertension. The patient will be continued on antihypertensives. 4. Type 2 diabetes mellitus. The patient on sliding scale insulin along with basal insulin and pre-meal insulin. Hemoglobin A1c 7.0. 5. Asthma. The patient will be continued on inhaled bronchodilators. 6. Hypothyroidism. The patient will be continued on Synthroid. 7. Macrocytic anemia. Hemoglobin today 7.6. Getting 1 unit of PRBC transfusion. Obtain gastroenterology consult. 8. Chronic thrombocytopenia. Monitor for any signs and symptoms of bleeding. 9. Fluids, electrolytes, and nutrition. Carbohydrate controlled diet. 10. Gastrointestinal prophylaxis. Proton pump inhibitors. 11. DVT prophylaxis. Bilateral sequential compression devices. 12. Plan. Continue antibiotics. Continue cardiology recommendations. Obtain gastroenterology consult. The case and management of this patient was fully discussed with . Problems: Subjective 24 Hr Interval Summary Free Text/Dictation Denies any chest pain or dizziness. Exam/Review of Systems Vital Signs Vitals Vital Signs Date Time Temp Pulse Resp B/P Pulse Ox O2 Delivery O2 Flow Rate FiO2 04/24/17 16:41 75 04/24/17 16:26 97.5 20 105/58 98 04/24/17 14:28 Nasal Cannula 2.0 04/23/17 10:15 21 Intake and Output 04/23/17 04/23/17 04/24/17 15:00 23:00 07:00 Intake Total 100 ml 220 ml Output Total 500 ml Balance 100 ml -280 ml Exam General: Adequately build 77 year-old female lying in bed in no apparent distress. HEENT: Normocephalic, atraumatic. Eyes: Anicteric sclerae, conjunctivae clear. ENT: Nasal septum midline, oral mucosa moist. Neck supple, no JVD noticed. Respiratory: Bilaterally diminished breath sounds. Bilateral fine rales. Cardiovascular: S1, S2 heard. Irregularly irregular rhythm. Abdomen: Soft, nontender, and nondistended. Bowel sounds positive in all 4 quadrants. Genitourinary: Deferred. Extremities: No cyanosis, no clubbing. Bilateral lower extremity pretibial edema. Neurologic: Cranial nerves II through XII grossly intact. The patient is awake, alert, and oriented. Skin: Normal skin turgor. No skin rashes. Results Result Diagram: 04/24/17 0645 04/24/17 0645 Results 24 hrs Laboratory Tests Test 04/23/17 21:00 04/24/17 01:08 04/24/17 02:30 04/24/17 06:42 Creatine Kinase 43 Creatine Kinase Index 2.0 Creatinine Kinase MB (Mass) 0.85 Troponin I < 0.012 < 0.012 Bedside Glucose 233 H Urine Color YELLOW Urine Clarity SLIGHTLY CLOUDY A Urine pH 5.0 Urine Specific [place] 1.019 Urine Ketones NEGATIVE Urine Nitrite NEGATIVE Urine Bilirubin NEGATIVE Urine Urobilinogen 2+ H Urine Leukocyte Esterase 1+ H Urine Microscopic RBC 0 Urine Microscopic WBC 3 Urine Squamous Epithelial Cells FEW Urine Bacteria FEW A Urine Hemoglobin NEGATIVE Urine Glucose NEGATIVE Urine Total Protein 1+ H Triglycerides Level 66 Cholesterol Level 116 LDL Cholesterol, Calculated 64 HDL Cholesterol 39 Cholesterol/HDL Ratio 2.9 Test 04/24/17 06:45 04/24/17 08:32 04/24/17 11:59 White Blood Count 11.9 #H Red Blood Count 1.75 L Hemoglobin 7.6 L Hematocrit 23.0 L Mean Corpuscular Volume 131.4 H Mean Corpuscular Hemoglobin 43.4 H Mean Corpuscular Hemoglobin Concent 33.0 Red Cell Distribution Width 15.7 H Platelet Count 91 L Mean Platelet Volume Neutrophils % 82.4 H Lymphocytes % 11.5 L Monocytes % 3.8 Eosinophils % 0.1 Basophils % 0.7 Nucleated Red Blood Cells % 0.0 Neutrophils # 9.8 H Lymphocytes # 1.4 Monocytes # 0.5 Eosinophils # 0.0 Basophils # 0.1 Nucleated Red Blood Cells # 0.0 Sodium Level 141 Potassium Level 4.8 Chloride Level 107 Carbon Dioxide Level 25 Anion Gap 14 Blood Urea Nitrogen 27 H Creatinine 0.87 Glucose Level 151 Calcium Level 8.8 Phosphorus Level 4.5 Magnesium Level 2.3 Total Bilirubin 0.7 Direct Bilirubin 0.00 Indirect Bilirubin 0.7 Aspartate Amino Transf (AST/SGOT) 52 H Alanine Aminotransferase (ALT/SGPT) 49 Alkaline Phosphatase 160 H Total Protein 7.5 Albumin 4.2 Globulin 3.30 H Albumin/Globulin Ratio 1.27 Bedside Glucose 169 157 Medications Medications Current Medications Levofloxacin/ Dextrose (Levaquin 750 Mg/ D5W 150 ml (Pmx)) 150 ml @ 100 mls/hr Q24H IVPB Last administered on 04/24/17 12:47; Admin Dose 100 MLS/HR; Start at 11:00 Folic Acid (Folic Acid) 1 mg DAILY PO Last administered on 04/24/17 08:43; Admin Dose 1 MG; Start 04/24/17 at 09:00 Lisinopril (Zestril) 2.5 mg DAILY PO Last administered on 04/24/17 08:43; Admin Dose 2.5 MG; Start 04/24/17 at 09:00 Loratadine (Claritin) 10 mg DAILY PO Last administered on 04/24/17 08:43; Admin Dose 10 MG; Start 04/24/17 at 09:00 Vitamin E (Vitamin E) 400 units DAILY PO Last administered on 04/24/17 10:46; Admin Dose 400 UNITS; Start 04/24/17 at 09:00 Mometasone Furoate (Asmanex) 1 puff BID INH Last administered on 04/24/17 08: 42; Admin Dose 1 PUFF; Start 04/23/17 at 21:00 Ondansetron HCl (Zofran Inj) 4 mg Q6H PRN IV NAUSEA AND/OR VOMITING; Start at 13:00 Acetaminophen (Tylenol Tab) 650 mg Q6H PRN PO PAIN LEVEL 1-3 OR FEVER; Start at 13:00 Acetaminophen/ Hydrocodone Bitart ([place] (5/325)) 1 tab Q6H PRN PO PAIN LEVEL 4 -6; Start 04/23/17 at 13:00 Morphine Sulfate (morphine) 2 mg Q4H PRN IV PAIN LEVEL 7-10; Start 04/23/17 at 13:00 Magnesium Hydroxide (Milk Of Mag) 30 ml DAILY PRN PO CONSTIPATION; Start at 13:00 Bisacodyl (Dulcolax) 5 mg DAILY PRN PO CONSTIPATION; Start 04/23/17 at 13:00 Famotidine (Pepcid) 20 mg DAILY PO Last administered on 04/24/17 08:43; Admin Dose 20 MG; Start 04/23/17 at 21:00 Atenolol (Tenormin) 25 mg BID PO Last administered on 04/24/17 08:42; Admin Dose 25 MG; Start 04/23/17 at 21:00 Metoprolol Tartrate (Lopressor) 5 mg Q4H PRN IV HR>110 Hold SBP<100; Start at 19:30 Enoxaparin Sodium (Lovenox) 85 mg Q12 SC Last administered on 04/24/17 00:52; Admin Dose 85 MG; Start 04/23/17 at 21:00; Status Future Hold Diagnostic Test (Pha) (Accu-Chek) 1 ea 02 XX ; Start 04/25/17 at 02:00 Miscellaneous Information 1 ea NOTE XX ; Start 04/24/17 at 01:30 Glucose (Glutose) 15 gm Q15M PRN PO DECREASED GLUCOSE; Start 04/24/17 at 01:30 Glucose (Glutose) 22.5 gm Q15M PRN PO DECREASED GLUCOSE; Start 04/24/17 at 01: 30 Dextrose (D50w Syringe) 25 ml Q15M PRN IV DECREASED GLUCOSE; Start 04/24/17 at 01:30 Dextrose (D50w Syringe) 50 ml Q15M PRN IV DECREASED GLUCOSE; Start 04/24/17 at 01:30 Glucagon (Glucagen) 1 mg Q15M PRN IM DECREASED GLUCOSE; Start 04/24/17 at 01:30 Glucose (Glutose) 15 gm Q15M PRN BUCCAL DECREASED GLUCOSE; Start 04/24/17 at 01 :30 Furosemide (Lasix) 10 mg ONCE IV ; Start 04/24/17 at 09:30; Stop 04/25/17 at 09: 29 SUMI STONE NP Apr 24, 2017 17:18 SUMI STONE NP Apr 24, 2017 17:18
[2017-04-24] MEDS: PANTOPRAZOLE (EC) 40 MG TAB PO SCH (18:02)
--- NOTE | 2017-04-24 19:10 | CONS ---
Date/Time of Note Date/Time of Note DATE: 04/24/17 TIME: 19:04 Assessment/Plan Assessment/Plan Chief Complaint/Hosp Course IMP: 1.AF with RVR-now rate controlled. nl tsh 2.htn 3.ABNL ECG-negative trop x 3 4.chf-? systolic vs diastolic acute on chronic 5.Hypothyroid Recc: -Tele -s/p dose IVP digoxin with improved -continue atenolol/acei -f/u Echo -Gentle lasix diuresis -TRansfuse PRBC's and f/u Hgb -LE venous EDMUNDO Problems: Consultation Date/Type/Reason Admit Date/Time Apr 23, 2017 at 11:03 Initial Consult Date 04/23/17 Type of Consultation: cardiology Reason for Consultation AF Referring Provider: SUMI STONE REPORTING DEVELOPER Exam/Review of Systems Vital Signs Vitals Vital Signs Date Time Temp Pulse Resp B/P Pulse Ox O2 Delivery O2 Flow Rate FiO2 04/24/17 16:41 75 04/24/17 16:26 97.5 20 105/58 98 04/24/17 14:28 Nasal Cannula 2.0 04/23/17 10:15 21 Intake and Output 04/23/17 04/23/17 04/24/17 15:00 23:00 07:00 Intake Total 100 ml 220 ml Output Total 500 ml Balance 100 ml -280 ml Exam Review of Systems: CONSTITUTIONAL: No fevers, chills. PULMONARY: No sob CARDIOVASCULAR: No chest pain/palpitations GASTROINTESTINAL: No nausea/vomiting. GENITOURINARY: No hematuria/dysuria. MUSCULOSKELETAL: No myagias/arthalgias. PSYCHIATRIC: The patient denies depression. NEUROLOGIC: weakness Constitutional: alert Psych: no complaints Head: normocephalic ENMT: mucosa pink and moist Neck: jvd (9 cm water), supple Respiratory: diminished breath sounds (at bases/B) Cardiovascular: irregular rhythm Gastrointestinal: non-tender, soft Musculoskeletal: muscle tone (normal) Extremities: edema (bilateral LE) Neurological: other (No focal deficits) Results Result Diagram: 04/24/17 0645 04/24/17 0645 Results 24 hrs Laboratory Tests Test 04/23/17 21:00 04/24/17 01:08 04/24/17 02:30 04/24/17 06:42 Creatine Kinase 43 Creatine Kinase Index 2.0 Creatinine Kinase MB (Mass) 0.85 Troponin I < 0.012 < 0.012 Bedside Glucose 233 H Urine Color YELLOW Urine Clarity SLIGHTLY CLOUDY A Urine pH 5.0 Urine Specific [place] 1.019 Urine Ketones NEGATIVE Urine Nitrite NEGATIVE Urine Bilirubin NEGATIVE Urine Urobilinogen 2+ H Urine Leukocyte Esterase 1+ H Urine Microscopic RBC 0 Urine Microscopic WBC 3 Urine Squamous Epithelial Cells FEW Urine Bacteria FEW A Urine Hemoglobin NEGATIVE Urine Glucose NEGATIVE Urine Total Protein 1+ H Triglycerides Level 66 Cholesterol Level 116 LDL Cholesterol, Calculated 64 HDL Cholesterol 39 Cholesterol/HDL Ratio 2.9 Test 04/24/17 06:45 04/24/17 08:32 04/24/17 11:59 04/24/17 17:04 White Blood Count 11.9 #H Red Blood Count 1.75 L Hemoglobin 7.6 L Hematocrit 23.0 L Mean Corpuscular Volume 131.4 H Mean Corpuscular Hemoglobin 43.4 H Mean Corpuscular Hemoglobin Concent 33.0 Red Cell Distribution Width 15.7 H Platelet Count 91 L Mean Platelet Volume Neutrophils % 82.4 H Lymphocytes % 11.5 L Monocytes % 3.8 Eosinophils % 0.1 Basophils % 0.7 Nucleated Red Blood Cells % 0.0 Neutrophils # 9.8 H Lymphocytes # 1.4 Monocytes # 0.5 Eosinophils # 0.0 Basophils # 0.1 Nucleated Red Blood Cells # 0.0 Sodium Level 141 Potassium Level 4.8 Chloride Level 107 Carbon Dioxide Level 25 Anion Gap 14 Blood Urea Nitrogen 27 H Creatinine 0.87 Glucose Level 151 Calcium Level 8.8 Phosphorus Level 4.5 Magnesium Level 2.3 Total Bilirubin 0.7 Direct Bilirubin 0.00 Indirect Bilirubin 0.7 Aspartate Amino Transf (AST/SGOT) 52 H Alanine Aminotransferase (ALT/SGPT) 49 Alkaline Phosphatase 160 H Total Protein 7.5 Albumin 4.2 Globulin 3.30 H Albumin/Globulin Ratio 1.27 Bedside Glucose 169 157 159 Medications Medications Current Medications Levofloxacin/ Dextrose (Levaquin 750 Mg/ D5W 150 ml (Pmx)) 150 ml @ 100 mls/hr Q24H IVPB Last administered on 04/24/17 12:47; Admin Dose 100 MLS/HR; Start at 11:00 Folic Acid (Folic Acid) 1 mg DAILY PO Last administered on 04/24/17 08:43; Admin Dose 1 MG; Start 04/24/17 at 09:00 Lisinopril (Zestril) 2.5 mg DAILY PO Last administered on 04/24/17 08:43; Admin Dose 2.5 MG; Start 04/24/17 at 09:00 Loratadine (Claritin) 10 mg DAILY PO Last administered on 04/24/17 08:43; Admin Dose 10 MG; Start 04/24/17 at 09:00 Vitamin E (Vitamin E) 400 units DAILY PO Last administered on 04/24/17 10:46; Admin Dose 400 UNITS; Start 04/24/17 at 09:00 Mometasone Furoate (Asmanex) 1 puff BID INH Last administered on 04/24/17 08: 42; Admin Dose 1 PUFF; Start 04/23/17 at 21:00 Ondansetron HCl (Zofran Inj) 4 mg Q6H PRN IV NAUSEA AND/OR VOMITING; Start at 13:00 Acetaminophen (Tylenol Tab) 650 mg Q6H PRN PO PAIN LEVEL 1-3 OR FEVER; Start at 13:00 Acetaminophen/ Hydrocodone Bitart ([place] (5/325)) 1 tab Q6H PRN PO PAIN LEVEL 4 -6; Start 04/23/17 at 13:00 Morphine Sulfate (morphine) 2 mg Q4H PRN IV PAIN LEVEL 7-10; Start 04/23/17 at 13:00 Magnesium Hydroxide (Milk Of Mag) 30 ml DAILY PRN PO CONSTIPATION; Start at 13:00 Bisacodyl (Dulcolax) 5 mg DAILY PRN PO CONSTIPATION; Start 04/23/17 at 13:00 Atenolol (Tenormin) 25 mg BID PO Last administered on 04/24/17 08:42; Admin Dose 25 MG; Start 04/23/17 at 21:00 Metoprolol Tartrate (Lopressor) 5 mg Q4H PRN IV HR>110 Hold SBP<100; Start at 19:30 Enoxaparin Sodium (Lovenox) 85 mg Q12 SC Last administered on 04/24/17 00:52; Admin Dose 85 MG; Start 04/23/17 at 21:00; Status Future Hold Diagnostic Test (Pha) (Accu-Chek) 1 ea 02 XX ; Start 04/25/17 at 02:00 Miscellaneous Information 1 ea NOTE XX ; Start 04/24/17 at 01:30 Glucose (Glutose) 15 gm Q15M PRN PO DECREASED GLUCOSE; Start 04/24/17 at 01:30 Glucose (Glutose) 22.5 gm Q15M PRN PO DECREASED GLUCOSE; Start 04/24/17 at 01: 30 Dextrose (D50w Syringe) 25 ml Q15M PRN IV DECREASED GLUCOSE; Start 04/24/17 at 01:30 Dextrose (D50w Syringe) 50 ml Q15M PRN IV DECREASED GLUCOSE; Start 04/24/17 at 01:30 Glucagon (Glucagen) 1 mg Q15M PRN IM DECREASED GLUCOSE; Start 04/24/17 at 01:30 Glucose (Glutose) 15 gm Q15M PRN BUCCAL DECREASED GLUCOSE; Start 04/24/17 at 01 :30 Furosemide (Lasix) 10 mg ONCE IV ; Start 04/24/17 at 09:30; Stop 04/25/17 at 09: 29 Pantoprazole (Protonix Tab) 40 mg BID@06,18 PO Last administered on 04/24/17t 18:02; Admin Dose 40 MG; Start 04/24/17 at 18:00 DICK BUCIO Apr 24, 2017 19:10
--- NOTE | 2017-04-24 20:15 | RADRPT ---
PROCEDURE: Ultrasound of the bilateral lower extremity venous system. CLINICAL INDICATION: Bilateral leg pain and swelling, deep venous thrombosis TECHNIQUE: Holloway scale with and without compression, color doppler, spectral doppler of the venous system of the bilateral lower extremities was performed. Venous augmentation maneuvers were utilized . COMPARISON: 11/24/2013 FINDINGS: RIGHT: Common femoral vein: Patent. Femoral vein: Patent. Popliteal vein: Patent. Calf veins: Patent. No soft tissue abnormalities are identified. LEFT: Common femoral vein: Patent. Femoral vein: Patent. Popliteal vein: Patent. Calf veins: Patent. No soft tissue abnormalities are identified. IMPRESSION: No evidence of a deep vein thrombosis within the bilateral lower extremities. RPTAT: AADD .Bubba Vasquez MD, MD Date Time Electronically viewed and signed by .Bubba Vasquez MD, on 04/24/2017 20:15 .B/
[2017-04-24] MEDS: FUROSEMIDE 20 MG INJ IV SCH (20:27)
--- NOTE | 2017-04-24 20:30 | RADRPT ---
Echocardiogram Report Patient Name: JUSTICE DAVIS Gender: Female Date: 1940 Study Date: 24-Apr-2017 Dean Of Admissions: Georges Gould [facility] Location: 5561 Ref. Physician: DICK ELDER Quality: Good Procedures: Transthoracic echocardiogram with complete 2D, M-Mode, and doppler examination. Indications: Atrial Fibrillation. 2D/M Mode Doppler Measurement Value Normal Ranges Measurement Value Normal Ranges LVIDd 2D 4.8 3.5 - 5.6 cm TERRIE Vmax 1.8 cm2 LVIDs 2D 3.3 2.1 - 4.1 cm TERRIE VTI 1.8 cm2 FS 2D 32.2 % AV Mean Johan 1.5 m/sec LVPWd 2D 1.2 0.6 - 1.1 cm AV Mean PG 10.0 mmHg IVSd 2D 1.2 0.6 - 1.1 cm AV Peak Johan 2.2 m/sec IVS/LVPW 2D 1.0 AV Peak PG 20.0 mmHg AoR Diam 2D 2.5 2.0 - 3.7 cm AV VTI 49.6 cm LA/Ao 2D 2 0 - 1 LVOT Peak Johan 1.4 m/sec EDV 2D 111.0 cm3 LVOT Peak PG 8.0 mmHg ESV 2D 34.6 cm3 MV E Peak Johan 2.1 m/sec LA Dimen 2D 5.3 2.3 - 4.0 cm MV PHT 84.0 msec LVOT Diam 1.9 cm MV Peak Johan 2.7 m/sec LVOT Area 2.8 cm2 MV Peak PG 30.0 mmHg MV Mean Johan 1.4 m/sec MV Mean PG 10.0 mmHg MV Decel Time 271 msec MV Decel [place] 7 MV PHT Peak Johan 2.1 m/sec MV PHT 84.0 msec MV VTI 60.5 cm MVA PHT 2.6 cm2 MVA VTI 1.5 cm TR Peak Johan 3.1 m/sec TR Peak PG 39.0 mmHg RVSP 47.0 mmHg Findings Left Ventricle: Normal left ventricular systolic function. Normal left ventricular cavity size. Mild concentric left ventricular hypertrophy. Ejection fraction is visually estimated at 55 %. Tissue Doppler/Mitral Doppler indices are indeterminate in this study due to the presence of atrial fibrillation. Right Ventricle: Normal right ventricular size. Normal right ventricular systolic function. Left Atrium: There is severe enlargement of left atrium. Right Atrium: There is mild enlargement of right atrium. Mitral Valve: Mitral valve leaflets appear moderately thickened. Moderate mitral annular calcification. Moderate mitral valve regurgitation. Moderate to severe mitral stenosis. Mitral valve Max Velocity 2.73 m/sec. MaxPG 30.00 mmHg. MeanPG 10.00 mmHg. Mitral Valve Area by Continuity1.00 cm2. Aortic Valve: Mild aortic stenosis. Aortic valve Max velocity 2.23 m/sec. Max PG 20.00 mmHg. Mean PG 10.00 mmHg. Aortic valve area 1.8 cm2. Trace aortic valve regurgitation. Tricuspid Valve: Normal appearance of the tricuspid valve. Estimated peak PA systolic pressure 47 mmHg. There is moderate tricuspid regurgitation. Pulmonic Valve: Normal pulmonic valve appearance. There is trace pulmonic regurgitation. Pericardium: Normal pericardium with no significant pericardial effusion. Aorta: Normal aortic root. IVC: Dilated IVC with respiratory collapse consistent with elevated right atrial pressure. Conclusions 1.Normal left ventricular systolic function. Normal left ventricular cavity size. Mild concentric left ventricular hypertrophy. Ejection fraction is visually estimated at 55 %. Tissue Doppler/Mitral Doppler indices are indeterminate in this study due to the presence of atrial fibrillation. 2.There is severe enlargement of left atrium. 3.There is mild enlargement of right atrium. 4.Mitral valve leaflets appear moderately thickened. Moderate mitral annular calcification. Moderate mitral valve regurgitation. Moderate to severe mitral stenosis. 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 MeanPG 10.00 mmHg. Mitral Valve Area by Continuity1.00 cm2. 5.Mild Aortic stenosis. Trace aortic valve regurgitation. 6.Normal appearance of the tricuspid valve. Estimated peak PA systolic pressure 47 mmHg. There is moderate tricuspid regurgitation. 7.Normal pulmonic valve appearance. There is trace pulmonic regurgitation. Electronically Signed By: Dick Elder 24-Apr-2017 20:29:45 -0700 Patient Name: JUSTICE DAVIS Study Date: 24-Apr-2017 [id number]
--- NOTE | 2017-04-24 21:54 | CONS ---
Date/Time of Note Date/Time of Note DATE: 04/24/17 TIME: 21:47 Assessment/Plan Assessment/Plan Chief Complaint/Hosp Course Impression: 1. Atrial fibrillation with rapid ventricular response. Rate controlled. Unable to anticoagulate because of underlying anemia and chronic thrombocytopenia. 2. Anemia, need to r/o GIB 3. Essential hypertension. 4. Type 2 diabetes mellitus. 5. Asthma. The patient will be continued on inhaled bronchodilators. 6. Hypothyroidism. The patient will be continued on Synthroid. 7. Macrocytic anemia. Hemoglobin today 7.6. 8. Chronic thrombocytopenia. Monitor for any signs and symptoms of bleeding. Recommendations: 1. despite discussing extensively regarding risks of continued GI bleeding, including calling her daughter and son Balwinder, pt refused EGD and colonoscopy knowing that she can bleed to . She rather bleed to than to do EGD and colonoscopy for hemostasis. 2. will maximize medical therapy with protonix and carafate 3. up to cardiology whether to anti-coagulate patient 4. stool for occult blood Above plan d/w Harris Prasad NP. Problems: Consultation Date/Type/Reason Admit Date/Time Apr 23, 2017 at 11:03 Type of Consultation: GI Reason for Consultation GI bleeding Hx of Present Illness 77-year-old female with past medical history of atrial fibrillation, type 2 diabetes mellitus, asthma, essential hypertension, hypothyroidism, and chronic thrombocytopenia who is admitted with complaint of dyspnea, palpitations , and generalized weakness. Patient denied any cough. The patient denied any fevers or chills. She denied any chest pain. Patient denied any nausea, vomiting, abdominal pain, diarrhea, constipation, hematochezia, or melena. Patient denied any dysuria, hematuria, or pyuria. Work up showed atrial fibrillation with rapid ventricular response. The patient was treated with 10 mg of IV Cardizem 3 with no significant improvement the patient's heart rate. The patient's chest x-ray showed patchy infiltrates throughout both lungs, combined with small pleural effusions. The patient had no leukocytosis. The patient was afebrile. She was found to have guaiac positive stool and anemia that required transfusion thus GI is called for evaluation. Eyes: no complaints ENT: no complaints Respiratory: shortness of breath Cardiovascular: palpitations Gastrointestinal: no complaints Genitourinary: no complaints Musculoskeletal: no complaints Skin: no complaints Neurologic: no complaints Lymphatic: no complaints Psychological: no complaints Immunologic: no complaints Past Medical History Medical History: diabetes, hypertension, hypothyroid, other (Asthma, atrial fibrillation, chronic thrombocytopenia.) Past Surgical History Past Surgical Hx: other (Hysterectomy) Family History Significant Family History: no pertinent family hx Social History Alcohol Use: none Smoking Status: Never smoker Drug Use: none Exam/Review of Systems Vital Signs Vitals Vital Signs Date Time Temp Pulse Resp B/P Pulse Ox O2 Delivery O2 Flow Rate FiO2 04/24/17 21:14 90 20 98 Nasal Cannula 2.0 04/24/17 20:06 97.6 116/59 04/23/17 10:15 21 Intake and Output 04/23/17 04/23/17 04/24/17 15:00 23:00 07:00 Intake Total 100 ml 220 ml Output Total 500 ml Balance 100 ml -280 ml Exam Constitutional: alert, oriented, well developed Psych: nl mood/affect, no complaints Head: atraumatic, normocephalic Eyes: EOMI, nl conjunctiva, nl lids, nl sclera ENMT: mucosa pink and moist, nl external ears & nose, nl lips & teeth, nl nasal mucosa & septum Neck: non-tender, supple Respiratory: clear to auscultation, normal air movement Cardiovascular: nl pulses, regular rate and rhythm Gastrointestinal: nl liver, spleen, non-tender, soft Musculoskeletal: nl extremities to inspection, nl gait and stance Extremities: normal pulses Neurological: nl mental status, nl speech, nl strength Results Result Diagram: 04/24/17 0645 04/24/17 0645 Results 24 hrs Laboratory Tests Test 04/24/17 01:08 04/24/17 02:30 04/24/17 06:42 04/24/17 06:45 Bedside Glucose 233 H Urine Color YELLOW Urine Clarity SLIGHTLY CLOUDY A Urine pH 5.0 Urine Specific [place] 1.019 Urine Ketones NEGATIVE Urine Nitrite NEGATIVE Urine Bilirubin NEGATIVE Urine Urobilinogen 2+ H Urine Leukocyte Esterase 1+ H Urine Microscopic RBC 0 Urine Microscopic WBC 3 Urine Squamous Epithelial Cells FEW Urine Bacteria FEW A Urine Hemoglobin NEGATIVE Urine Glucose NEGATIVE Urine Total Protein 1+ H Troponin I < 0.012 Triglycerides Level 66 Cholesterol Level 116 LDL Cholesterol, Calculated 64 HDL Cholesterol 39 Cholesterol/HDL Ratio 2.9 White Blood Count 11.9 #H Red Blood Count 1.75 L Hemoglobin 7.6 L Hematocrit 23.0 L Mean Corpuscular Volume 131.4 H Mean Corpuscular Hemoglobin 43.4 H Mean Corpuscular Hemoglobin Concent 33.0 Red Cell Distribution Width 15.7 H Platelet Count 91 L Mean Platelet Volume Neutrophils % 82.4 H Lymphocytes % 11.5 L Monocytes % 3.8 Eosinophils % 0.1 Basophils % 0.7 Nucleated Red Blood Cells % 0.0 Neutrophils # 9.8 H Lymphocytes # 1.4 Monocytes # 0.5 Eosinophils # 0.0 Basophils # 0.1 Nucleated Red Blood Cells # 0.0 Sodium Level 141 Potassium Level 4.8 Chloride Level 107 Carbon Dioxide Level 25 Anion Gap 14 Blood Urea Nitrogen 27 H Creatinine 0.87 Glucose Level 151 Calcium Level 8.8 Phosphorus Level 4.5 Magnesium Level 2.3 Total Bilirubin 0.7 Direct Bilirubin 0.00 Indirect Bilirubin 0.7 Aspartate Amino Transf (AST/SGOT) 52 H Alanine Aminotransferase (ALT/SGPT) 49 Alkaline Phosphatase 160 H Total Protein 7.5 Albumin 4.2 Globulin 3.30 H Albumin/Globulin Ratio 1.27 Test 04/24/17 08:32 04/24/17 11:59 04/24/17 17:04 04/24/17 20:39 Bedside Glucose 169 157 159 130 Medications Medications Current Medications Levofloxacin/ Dextrose (Levaquin 750 Mg/ D5W 150 ml (Pmx)) 150 ml @ 100 mls/hr Q24H IVPB Last administered on 04/24/17 12:47; Admin Dose 100 MLS/HR; Start at 11:00 Folic Acid (Folic Acid) 1 mg DAILY PO Last administered on 04/24/17 08:43; Admin Dose 1 MG; Start 04/24/17 at 09:00 Lisinopril (Zestril) 2.5 mg DAILY PO Last administered on 04/24/17 08:43; Admin Dose 2.5 MG; Start 04/24/17 at 09:00 Loratadine (Claritin) 10 mg DAILY PO Last administered on 04/24/17 08:43; Admin Dose 10 MG; Start 04/24/17 at 09:00 Vitamin E (Vitamin E) 400 units DAILY PO Last administered on 04/24/17 10:46; Admin Dose 400 UNITS; Start 04/24/17 at 09:00 Mometasone Furoate (Asmanex) 1 puff BID INH Last administered on 04/24/17 20: 27; Admin Dose 1 PUFF; Start 04/23/17 at 21:00 Ondansetron HCl (Zofran Inj) 4 mg Q6H PRN IV NAUSEA AND/OR VOMITING; Start at 13:00 Acetaminophen (Tylenol Tab) 650 mg Q6H PRN PO PAIN LEVEL 1-3 OR FEVER; Start at 13:00 Acetaminophen/ Hydrocodone Bitart ([place] (5/325)) 1 tab Q6H PRN PO PAIN LEVEL 4 -6; Start 04/23/17 at 13:00 Morphine Sulfate (morphine) 2 mg Q4H PRN IV PAIN LEVEL 7-10; Start 04/23/17 at 13:00 Magnesium Hydroxide (Milk Of Mag) 30 ml DAILY PRN PO CONSTIPATION; Start at 13:00 Bisacodyl (Dulcolax) 5 mg DAILY PRN PO CONSTIPATION; Start 04/23/17 at 13:00 Atenolol (Tenormin) 25 mg BID PO Last administered on 04/24/17 20:28; Admin Dose 25 MG; Start 04/23/17 at 21:00 Metoprolol Tartrate (Lopressor) 5 mg Q4H PRN IV HR>110 Hold SBP<100; Start at 19:30 Enoxaparin Sodium (Lovenox) 85 mg Q12 SC Last administered on 04/24/17 00:52; Admin Dose 85 MG; Start 04/23/17 at 21:00; Status Future Hold Diagnostic Test (Pha) (Accu-Chek) 1 ea 02 XX ; Start 04/25/17 at 02:00 Miscellaneous Information 1 ea NOTE XX ; Start 04/24/17 at 01:30 Glucose (Glutose) 15 gm Q15M PRN PO DECREASED GLUCOSE; Start 04/24/17 at 01:30 Glucose (Glutose) 22.5 gm Q15M PRN PO DECREASED GLUCOSE; Start 04/24/17 at 01: 30 Dextrose (D50w Syringe) 25 ml Q15M PRN IV DECREASED GLUCOSE; Start 04/24/17 at 01:30 Dextrose (D50w Syringe) 50 ml Q15M PRN IV DECREASED GLUCOSE; Start 6/29/17 at 01:30 Glucagon (Glucagen) 1 mg Q15M PRN IM DECREASED GLUCOSE; Start 04/24/17 at 01:30 Glucose (Glutose) 15 gm Q15M PRN BUCCAL DECREASED GLUCOSE; Start 04/24/17 at 01 :30 Pantoprazole (Protonix Tab) 40 mg BID@06,18 PO Last administered on 04/24/17t 18:02; Admin Dose 40 MG; Start 04/24/17 at 18:00 EDWIN RAO MD Apr 24, 2017 21:54
[2017-04-25] VITALS (12 sets, daily range): BP systolic 94–132; BP diastolic 53–64; PULSE 80–115; RESP 16–20
[2017-04-25] MEDS: LEVALBUTEROL (NEB) 0.63 MG/3 ML AMP HHN SCH ×4 (01:48→20:04)
[2017-04-25] MEDS: ACCU-CHEK XX SCH (02:00)
[2017-04-25] MEDS: LEVOTHYROXINE 75 MCG TAB PO SCH (06:06)
[2017-04-25] MEDS: FUROSEMIDE 20 MG INJ IV SCH ×2 (06:06→18:23)
[2017-04-25] MEDS: PANTOPRAZOLE (EC) 40 MG TAB PO SCH ×2 (06:06→17:01)
[2017-04-25 07:33] LABS: BASOPHIL # 0.1 10^3/ul (0.0-0.1); BASOPHILS % 0.8 % (0.0-2.0); EOSINOPHILS # 0.2 10^3/ul (0.0-0.5); EOSINOPHILS % 1.8 % (0.0-7.0); HEMATOCRIT 25.8 % (37.0-47.0); HEMOGLOBIN 8.8 g/dl (12.0-16.0); LYMPHOCYTES # 2.6 10^3/ul (0.8-2.9); LYMPHOCYTES % 26.9 % (15.0-51.0); MEAN CORPUSCULAR HEMOGLOBIN 41.9 pg (29.0-33.0); MEAN CORPUSCULAR HGB CONC 34.1 g/dl (32.0-37.0); MEAN CORPUSCULAR VOLUME 122.9 fl (82.0-101.0); MONOCYTE # 0.5 10^3/ul (0.3-0.9); NEUTROPHIL # 6.1 10^3/ul (1.6-7.5); NEUTROPHILS % 63.9 % (39.0-77.0); NUCLEATED RED BLOOD CELLS% 0.2 /100WBC (0.0-0.0); PLATELET COUNT 100 10^3/UL (140-415); RED CELL DISTRIBUTION WIDTH 21.7 % (11.5-14.5); WHITE BLOOD COUNT 9.5 10^3/ul (4.8-10.8)
[2017-04-25 07:38] LABS: ADD SCAN DIFF NO
[2017-04-25 07:52] LABS: CREATININE 0.93 mg/dl (0.44-1.00); MAGNESIUM 2.1 mg/dl (1.7-2.5); PHOSPHORUS 4.1 mg/dl (2.5-4.9); POTASSIUM 4.6 mmol/L (3.5-5.1)
[2017-04-25] MEDS: INSULIN ASPART [NOVOLOG] 3 ML PEN SC SCH ×4 (08:00→20:27)
[2017-04-25] MEDS: FOLIC ACID 1 MG TAB PO SCH (08:14)
[2017-04-25] MEDS: VITAMIN E 400 UNITS CAP PO SCH (08:15)
[2017-04-25] MEDS: LISINOPRIL 5 MG TAB PO SCH (08:15)
[2017-04-25] MEDS: LORATADINE 10 MG TAB PO SCH (08:15)
[2017-04-25] MEDS: SUCRALFATE 1 GM TAB PO SCH ×4 (08:15→20:30)
[2017-04-25] MEDS: MOMETASONE 0.24 GM INHALER INH SCH ×2 (08:16→20:30)
[2017-04-25] MEDS: metFORMIN 500 MG TAB PO SCH ×2 (08:16→17:01)
[2017-04-25] MEDS: ATENOLOL 25 MG TAB PO SCH ×2 (08:16→20:27)
--- NOTE | 2017-04-25 09:25 | CONS ---
Date/Time of Note Date/Time of Note DATE: 04/25/17 TIME: 09:23 Assessment/Plan Assessment/Plan Chief Complaint/Hosp Course Impression: 1. Atrial fibrillation with rapid ventricular response. Rate controlled. Unable to anticoagulate because of underlying anemia and chronic thrombocytopenia. 2. Anemia, need to r/o GIB 3. Essential hypertension. 4. Type 2 diabetes mellitus. 5. Asthma. The patient will be continued on inhaled bronchodilators. 6. Hypothyroidism. The patient will be continued on Synthroid. 7. Macrocytic anemia. Hemoglobin today 7.6. 8. Chronic thrombocytopenia. Monitor for any signs and symptoms of bleeding. Recommendations: 1. despite discussing extensively regarding risks of continued GI bleeding, including calling her daughter and son Balwinder, pt refused EGD and colonoscopy knowing that she can bleed to . She rather bleed to than to do EGD and colonoscopy for hemostasis. 2. continue medical therapy with protonix and carafate 3. up to cardiology whether to anti-coagulate patient given patient refusing EGD and colonoscopy for bleeding risk assessment 4. stool for occult blood Problems: Consultation Date/Type/Reason Admit Date/Time Apr 23, 2017 at 11:03 Initial Consult Date 04/23/17 Type of Consultation: GI Referring Provider: SUMI STONE NP 24 HR Interval Summary Free Text/Dictation denies GIB, worried about anesthesia risks so do not want endoscopic procedure under any circumstances Exam/Review of Systems Vital Signs Vitals Vital Signs Date Time Temp Pulse Resp B/P Pulse Ox O2 Delivery O2 Flow Rate FiO2 04/25/17 08:46 92 18 98 Nasal Cannula 2.0 04/25/17 08:22 97.5 114/63 04/23/17 10:15 21 Intake and Output 04/24/17 04/24/17 04/25/17 15:00 23:00 07:00 Intake Total 700 ml 850 ml Output Total 1400 ml 1200 ml Balance -700 ml -350 ml Exam Constitutional: alert, obese, oriented, well developed Psych: nl mood/affect, no complaints Head: atraumatic, normocephalic Eyes: EOMI, nl conjunctiva, nl lids, nl sclera ENMT: mucosa pink and moist, nl external ears & nose, nl lips & teeth, nl nasal mucosa & septum Neck: non-tender, supple Respiratory: clear to auscultation, normal air movement Cardiovascular: nl pulses, regular rate and rhythm Gastrointestinal: bowel sounds, non-tender, soft Results Result Diagram: 04/25/17 0650 04/25/17 0650 Results 24 hrs Laboratory Tests Test 04/24/17 11:59 04/24/17 17:04 04/24/17 20:39 04/25/17 06:50 Bedside Glucose 157 159 130 White Blood Count 9.5 # Red Blood Count 2.10 L Hemoglobin 8.8 L Hematocrit 25.8 L Mean Corpuscular Volume 122.9 H Mean Corpuscular Hemoglobin 41.9 H Mean Corpuscular Hemoglobin Concent 34.1 Red Cell Distribution Width 21.7 #H Platelet Count 100 L Mean Platelet Volume Neutrophils % 63.9 Lymphocytes % 26.9 Monocytes % 5.0 Eosinophils % 1.8 Basophils % 0.8 Nucleated Red Blood Cells % 0.2 H Neutrophils # 6.1 Lymphocytes # 2.6 Monocytes # 0.5 Eosinophils # 0.2 Basophils # 0.1 Nucleated Red Blood Cells # 0.0 Sodium Level 141 Potassium Level 4.6 Chloride Level 96 #L Carbon Dioxide Level 31 Anion Gap 19 H Blood Urea Nitrogen 30 H Creatinine 0.93 Glucose Level 111 # Calcium Level 9.0 Phosphorus Level 4.1 Magnesium Level 2.1 Test 04/25/17 08:10 Bedside Glucose 128 Medications Medications Current Medications Levofloxacin/ Dextrose (Levaquin 750 Mg/ D5W 150 ml (Pmx)) 150 ml @ 100 mls/hr Q24H IVPB Last administered on 04/24/17 12:47; Admin Dose 100 MLS/HR; Start at 11:00 Folic Acid (Folic Acid) 1 mg DAILY PO Last administered on 04/25/17 08:14; Admin Dose 1 MG; Start 04/24/17 at 09:00 Lisinopril (Zestril) 2.5 mg DAILY PO Last administered on 04/25/17 08:15; Admin Dose 2.5 MG; Start 04/24/17 at 09:00 Loratadine (Claritin) 10 mg DAILY PO Last administered on 04/25/17 08:15; Admin Dose 10 MG; Start 04/24/17 at 09:00 Vitamin E (Vitamin E) 400 units DAILY PO Last administered on 04/25/17 08:15; Admin Dose 400 UNITS; Start 04/24/17 at 09:00 Mometasone Furoate (Asmanex) 1 puff BID INH Last administered on 04/25/17 08: 16; Admin Dose 1 PUFF; Start 04/23/17 at 21:00 Ondansetron HCl (Zofran Inj) 4 mg Q6H PRN IV NAUSEA AND/OR VOMITING; Start at 13:00 Acetaminophen (Tylenol Tab) 650 mg Q6H PRN PO PAIN LEVEL 1-3 OR FEVER; Start at 13:00 Acetaminophen/ Hydrocodone Bitart ([place] (5/325)) 1 tab Q6H PRN PO PAIN LEVEL 4 -6; Start 04/23/17 at 13:00 Morphine Sulfate (morphine) 2 mg Q4H PRN IV PAIN LEVEL 7-10; Start 04/23/17 at 13:00 Magnesium Hydroxide (Milk Of Mag) 30 ml DAILY PRN PO CONSTIPATION; Start at 13:00 Bisacodyl (Dulcolax) 5 mg DAILY PRN PO CONSTIPATION; Start 04/23/17 at 13:00 Atenolol (Tenormin) 25 mg BID PO Last administered on 04/25/17 08:16; Admin Dose 25 MG; Start 04/23/17 at 21:00 Metoprolol Tartrate (Lopressor) 5 mg Q4H PRN IV HR>110 Hold SBP<100; Start at 19:30 Enoxaparin Sodium (Lovenox) 85 mg Q12 SC Last administered on 04/24/17 00:52; Admin Dose 85 MG; Start 04/23/17 at 21:00; Status Future Hold Diagnostic Test (Pha) (Accu-Chek) 1 ea 02 XX ; Start 04/25/17 at 02:00 Miscellaneous Information 1 ea NOTE XX ; Start 04/24/17 at 01:30 Glucose (Glutose) 15 gm Q15M PRN PO DECREASED GLUCOSE; Start 04/24/17 at 01:30 Glucose (Glutose) 22.5 gm Q15M PRN PO DECREASED GLUCOSE; Start 04/24/17 at 01: 30 Dextrose (D50w Syringe) 25 ml Q15M PRN IV DECREASED GLUCOSE; Start 04/24/17 at 01:30 Dextrose (D50w Syringe) 50 ml Q15M PRN IV DECREASED GLUCOSE; Start 04/24/17 at 01:30 Glucagon (Glucagen) 1 mg Q15M PRN IM DECREASED GLUCOSE; Start 04/24/17 at 01:30 Glucose (Glutose) 15 gm Q15M PRN BUCCAL DECREASED GLUCOSE; Start 04/24/17 at 01 :30 Pantoprazole (Protonix Tab) 40 mg BID@06,18 PO Last administered on 04/25/17 06:06; Admin Dose 40 MG; Start 04/24/17 at 18:00 Sucralfate (Carafate) 1 gm QID PO Last administered on 04/25/17 08:15; Admin Dose 1 GM; Start 04/25/17 at 09:00 EDWIN RAO MD Apr 25, 2017 09:25
[2017-04-25] MEDS: LEVOFLOXACIN 750MG/D5W (PMX) 150 ML IVPB SCH (11:35)
--- NOTE | 2017-04-25 14:01 | PN ---
Date/Time of Note Date/Time of Note DATE: 04/25/17 TIME: 14:00 Assessment/Plan VTE Prophylaxis VTE Prophylaxis Intervention: SCD's Lines/Catheters IV [facility] [place] [facility] Urinary Cath still in place: No Assessment/Plan Chief Complaint/Hosp Course 1. Atrial fibrillation with rapid ventricular response. Rate controlled. Unable to anticoagulate because of underlying anemia and chronic thrombocytopenia. Cardiology following. 2. Community-acquired pneumonia. The patient will be continued on appropriate antibiotics. 3. Essential hypertension. The patient will be continued on antihypertensives. 4. Type 2 diabetes mellitus. The patient on sliding scale insulin along with basal insulin and pre-meal insulin. Hemoglobin A1c 7.0. 5. Asthma. The patient will be continued on inhaled bronchodilators. 6. Hypothyroidism. The patient will be continued on Synthroid. 7. Acute on chronic diastolic heart failure. Continue diuresis. 8. Moderate mitral stenosis with moderate mitral valve regurgitation. Needs eventual surgical repair. 9. Macrocytic anemia. Hemoglobin today 7.6. Getting 1 unit of PRBC transfusion. Gastroenterology following. The patient refused any colonoscopy or esophagogastroduodenoscopy. 10. Chronic thrombocytopenia. Monitor for any signs and symptoms of bleeding. 11. Pulmonary hypertension. PA systolic pressure 40 7-0 Monocryl as per 2D echocardiogram. Most probably secondary to underlying tricuspid regurgitation. 12. Fluids, electrolytes, and nutrition. Carbohydrate controlled diet. 13. Gastrointestinal prophylaxis. Proton pump inhibitors. 14. DVT prophylaxis. Bilateral sequential compression devices. 15. Plan. Continue antibiotics. Continue cardiology recommendations. The case and management of this patient was fully discussed with . Problems: Subjective 24 Hr Interval Summary Free Text/Dictation Denies any chest pain or dyspnea. Exam/Review of Systems Vital Signs Vitals Vital Signs Date Time Temp Pulse Resp B/P Pulse Ox O2 Delivery O2 Flow Rate FiO2 04/25/17 12:36 83 04/25/17 11:47 98.1 20 102/57 98 04/25/17 08:46 Nasal Cannula 2.0 04/23/17 10:15 21 Intake and Output 04/24/17 04/24/17 04/25/17 15:00 23:00 07:00 Intake Total 700 ml 850 ml Output Total 1400 ml 1200 ml Balance -700 ml -350 ml Exam General: Adequately build 77 year-old female lying in bed in no apparent distress. HEENT: Normocephalic, atraumatic. Eyes: Anicteric sclerae, conjunctivae clear. ENT: Nasal septum midline, oral mucosa moist. Neck supple, no JVD noticed. Respiratory: Bilaterally diminished breath sounds. Bilateral fine rales. Cardiovascular: S1, S2 heard. Irregularly irregular rhythm. Abdomen: Soft, nontender, and nondistended. Bowel sounds positive in all 4 quadrants. Genitourinary: Deferred. Extremities: No cyanosis, no clubbing. Bilateral lower extremity pretibial edema. Neurologic: Cranial nerves II through XII grossly intact. The patient is awake, alert, and oriented. Skin: Normal skin turgor. No skin rashes. Results Result Diagram: 04/25/17 0650 04/25/17 0650 Results 24 hrs Laboratory Tests Test 04/24/17 17:04 04/24/17 20:39 04/25/17 06:50 04/25/17 08:10 Bedside Glucose 159 130 128 White Blood Count 9.5 # Red Blood Count 2.10 L Hemoglobin 8.8 L Hematocrit 25.8 L Mean Corpuscular Volume 122.9 H Mean Corpuscular Hemoglobin 41.9 H Mean Corpuscular Hemoglobin Concent 34.1 Red Cell Distribution Width 21.7 #H Platelet Count 100 L Mean Platelet Volume Neutrophils % 63.9 Lymphocytes % 26.9 Monocytes % 5.0 Eosinophils % 1.8 Basophils % 0.8 Nucleated Red Blood Cells % 0.2 H Neutrophils # 6.1 Lymphocytes # 2.6 Monocytes # 0.5 Eosinophils # 0.2 Basophils # 0.1 Nucleated Red Blood Cells # 0.0 Sodium Level 141 Potassium Level 4.6 Chloride Level 96 #L Carbon Dioxide Level 31 Anion Gap 19 H Blood Urea Nitrogen 30 H Creatinine 0.93 Glucose Level 111 # Calcium Level 9.0 Phosphorus Level 4.1 Magnesium Level 2.1 Test 04/25/17 11:25 Bedside Glucose 161 Medications Medications Current Medications Levofloxacin/ Dextrose (Levaquin 750 Mg/ D5W 150 ml (Pmx)) 150 ml @ 100 mls/hr Q24H IVPB Last administered on 04/25/17 11:35; Admin Dose 100 MLS/HR; Start at 11:00 Folic Acid (Folic Acid) 1 mg DAILY PO Last administered on 04/25/17 08:14; Admin Dose 1 MG; Start 04/24/17 at 09:00 Lisinopril (Zestril) 2.5 mg DAILY PO Last administered on 04/25/17 08:15; Admin Dose 2.5 MG; Start 04/24/17 at 09:00 Loratadine (Claritin) 10 mg DAILY PO Last administered on 04/25/17 08:15; Admin Dose 10 MG; Start 04/24/17 at 09:00 Vitamin E (Vitamin E) 400 units DAILY PO Last administered on 04/25/17 08:15; Admin Dose 400 UNITS; Start 04/24/17 at 09:00 Mometasone Furoate (Asmanex) 1 puff BID INH Last administered on 04/25/17 08: 16; Admin Dose 1 PUFF; Start 04/23/17 at 21:00 Ondansetron HCl (Zofran Inj) 4 mg Q6H PRN IV NAUSEA AND/OR VOMITING; Start at 13:00 Acetaminophen (Tylenol Tab) 650 mg Q6H PRN PO PAIN LEVEL 1-3 OR FEVER; Start at 13:00 Acetaminophen/ Hydrocodone Bitart ([place] (5/325)) 1 tab Q6H PRN PO PAIN LEVEL 4 -6; Start 04/23/17 at 13:00 Morphine Sulfate (morphine) 2 mg Q4H PRN IV PAIN LEVEL 7-10; Start 04/23/17 at 13:00 Magnesium Hydroxide (Milk Of Mag) 30 ml DAILY PRN PO CONSTIPATION; Start at 13:00 Bisacodyl (Dulcolax) 5 mg DAILY PRN PO CONSTIPATION; Start 04/23/17 at 13:00 Atenolol (Tenormin) 25 mg BID PO Last administered on 04/25/17 08:16; Admin Dose 25 MG; Start 04/23/17 at 21:00 Metoprolol Tartrate (Lopressor) 5 mg Q4H PRN IV HR>110 Hold SBP<100; Start at 19:30 Enoxaparin Sodium (Lovenox) 85 mg Q12 SC Last administered on 04/24/17 00:52; Admin Dose 85 MG; Start 04/23/17 at 21:00; Status Future Hold Diagnostic Test (Pha) (Accu-Chek) XX ; Start 04/25/17 at 02:00 Miscellaneous Information 1 ea NOTE XX ; Start 04/24/17 at 01:30 Glucose (Glutose) 15 gm Q15M PRN PO DECREASED GLUCOSE; Start 04/24/17 at 01:30 Glucose (Glutose) 22.5 gm Q15M PRN PO DECREASED GLUCOSE; Start 04/24/17 at 01: 30 Dextrose (D50w Syringe) 25 ml Q15M PRN IV DECREASED GLUCOSE; Start 04/24/17 at 01:30 Dextrose (D50w Syringe) 50 ml Q15M PRN IV DECREASED GLUCOSE; Start 04/24/17 at 01:30 Glucagon (Glucagen) 1 mg Q15M PRN IM DECREASED GLUCOSE; Start 04/24/17 at 01:30 Glucose (Glutose) 15 gm Q15M PRN BUCCAL DECREASED GLUCOSE; Start 04/24/17 at 01 :30 Pantoprazole (Protonix Tab) 40 mg BID@06,18 PO Last administered on 04/25/17 06:06; Admin Dose 40 MG; Start 04/24/17 at 18:00 Sucralfate (Carafate) 1 gm QID PO Last administered on 04/25/17 12:26; Admin Dose 1 GM; Start 04/25/17 at 09:00 SUMI STONE NP Apr 25, 2017 14:01
--- NOTE | 2017-04-25 17:08 | CONS ---
Date/Time of Note Date/Time of Note DATE: 04/25/17 TIME: 17:02 Assessment/Plan Assessment/Plan Chief Complaint/Hosp Course IMP: 1.AF with RVR-some mild RVR nl tsh 2.htn 3.ABNL ECG-negative trop x 3 4.chf-diastolic acute on chronic 5.Hypothyroid 6. MS-moderate to severe Recc: -Tele -Give additaional IVP dose digoxin and start PO digoxin -continue atenolol -D/C ACEI given marginal BP -Continue lasix diuresis -Follow hgb closely and consider transfusion of PRBC's -Patient will require further eval and most probable valvuloplasty versus open repair of MS which can be done as an outpatient. Problems: Consultation Date/Type/Reason Admit Date/Time Apr 23, 2017 at 11:03 Initial Consult Date 04/23/17 Type of Consultation: cardiology Reason for Consultation AF Referring Provider: SUMI STONE [employer]IST[employer] DIRECTOR Exam/Review of Systems Vital Signs Vitals Vital Signs Date Time Temp Pulse Resp B/P Pulse Ox O2 Delivery O2 Flow Rate FiO2 04/25/17 16:35 98.6 78 18 106/62 97 04/25/17 08:46 Nasal Cannula 2.0 04/23/17 10:15 21 Intake and Output 04/24/17 04/24/17 04/25/17 15:00 23:00 07:00 Intake Total 700 ml 850 ml Output Total 1400 ml 1200 ml Balance -700 ml -350 ml Exam Review of Systems: CONSTITUTIONAL: No fevers, chills. PULMONARY: No sob CARDIOVASCULAR: palpitations GASTROINTESTINAL: No nausea/vomiting. GENITOURINARY: No hematuria/dysuria. MUSCULOSKELETAL: No myagias/arthalgias. PSYCHIATRIC: The patient denies depression. NEUROLOGIC: No weakness Constitutional: alert Psych: no complaints Head: normocephalic ENMT: mucosa pink and moist Neck: jvd (8-9 cm water), supple Respiratory: diminished breath sounds (at bases/B) Cardiovascular: irregular rhythm (tachycardic) Gastrointestinal: non-tender, soft Musculoskeletal: muscle tone (normal) Extremities: pitting pedal edema (bilateral LE) Neurological: other (No focal deficits) Results Result Diagram: 04/25/17 0650 04/25/17 0650 Results 24 hrs Laboratory Tests Test 04/24/17 17:04 04/24/17 20:39 04/25/17 06:50 04/25/17 08:10 Bedside Glucose 159 130 128 White Blood Count 9.5 # Red Blood Count 2.10 L Hemoglobin 8.8 L Hematocrit 25.8 L Mean Corpuscular Volume 122.9 H Mean Corpuscular Hemoglobin 41.9 H Mean Corpuscular Hemoglobin Concent 34.1 Red Cell Distribution Width 21.7 #H Platelet Count 100 L Mean Platelet Volume Neutrophils % 63.9 Lymphocytes % 26.9 Monocytes % 5.0 Eosinophils % 1.8 Basophils % 0.8 Nucleated Red Blood Cells % 0.2 H Neutrophils # 6.1 Lymphocytes # 2.6 Monocytes # 0.5 Eosinophils # 0.2 Basophils # 0.1 Nucleated Red Blood Cells # 0.0 Sodium Level 141 Potassium Level 4.6 Chloride Level 96 #L Carbon Dioxide Level 31 Anion Gap 19 H Blood Urea Nitrogen 30 H Creatinine 0.93 Glucose Level 111 # Calcium Level 9.0 Phosphorus Level 4.1 Magnesium Level 2.1 Test 04/25/17 11:25 04/25/17 16:55 Bedside Glucose 161 141 Medications Medications Current Medications Levofloxacin/ Dextrose (Levaquin 750 Mg/ D5W 150 ml (Pmx)) 150 ml @ 100 mls/hr Q24H IVPB Last administered on 04/25/17 11:35; Admin Dose 100 MLS/HR; Start at 11:00 Folic Acid (Folic Acid) 1 mg DAILY PO Last administered on 04/25/17 08:14; Admin Dose 1 MG; Start 04/24/17 at 09:00 Lisinopril (Zestril) 2.5 mg DAILY PO Last administered on 04/25/17 08:15; Admin Dose 2.5 MG; Start 04/24/17 at 09:00 Loratadine (Claritin) 10 mg DAILY PO Last administered on 04/25/17 08:15; Admin Dose 10 MG; Start 04/24/17 at 09:00 Vitamin E (Vitamin E) 400 units DAILY PO Last administered on 04/25/17 08:15; Admin Dose 400 UNITS; Start 04/24/17 at 09:00 Mometasone Furoate (Asmanex) 1 puff BID INH Last administered on 04/25/17 08: 16; Admin Dose 1 PUFF; Start 04/23/17 at 21:00 Ondansetron HCl (Zofran Inj) 4 mg Q6H PRN IV NAUSEA AND/OR VOMITING; Start at 13:00 Acetaminophen (Tylenol Tab) 650 mg Q6H PRN PO PAIN LEVEL 1-3 OR FEVER; Start at 13:00 Acetaminophen/ Hydrocodone Bitart ([place] (5/325)) 1 tab Q6H PRN PO PAIN LEVEL 4 -6; Start 04/23/17 at 13:00 Morphine Sulfate (morphine) 2 mg Q4H PRN IV PAIN LEVEL 7-10; Start 04/23/17 at 13:00 Magnesium Hydroxide (Milk Of Mag) 30 ml DAILY PRN PO CONSTIPATION; Start at 13:00 Bisacodyl (Dulcolax) 5 mg DAILY PRN PO CONSTIPATION; Start 04/23/17 at 13:00 Atenolol (Tenormin) 25 mg BID PO Last administered on 04/25/17 08:16; Admin Dose 25 MG; Start 04/23/17 at 21:00 Metoprolol Tartrate (Lopressor) 5 mg Q4H PRN IV HR>110 Hold SBP<100; Start at 19:30 Enoxaparin Sodium (Lovenox) 85 mg Q12 SC Last administered on 04/24/17 00:52; Admin Dose 85 MG; Start 04/23/17 at 21:00; Status Future Hold Diagnostic Test (Pha) (Accu-Chek) 1 ea 02 XX ; Start 04/25/17 at 02:00 Miscellaneous Information 1 ea NOTE XX ; Start 04/24/17 at 01:30 Glucose (Glutose) 15 gm Q15M PRN PO DECREASED GLUCOSE; Start 04/24/17 at 01:30 Glucose (Glutose) 22.5 gm Q15M PRN PO DECREASED GLUCOSE; Start 04/24/17 at 01: 30 Dextrose (D50w Syringe) 25 ml Q15M PRN IV DECREASED GLUCOSE; Start 04/24/17 at 01:30 Dextrose (D50w Syringe) 50 ml Q15M PRN IV DECREASED GLUCOSE; Start 04/24/17 at 01:30 Glucagon (Glucagen) 1 mg Q15M PRN IM DECREASED GLUCOSE; Start 04/24/17 at 01:30 Glucose (Glutose) 15 gm Q15M PRN BUCCAL DECREASED GLUCOSE; Start 04/24/17 at 01 :30 Pantoprazole (Protonix Tab) 40 mg BID@06,18 PO Last administered on 04/25/17 06:06; Admin Dose 40 MG; Start 04/24/17 at 18:00 Sucralfate (Carafate) 1 gm QID PO Last administered on 04/25/17 12:26; Admin Dose 1 GM; Start 04/25/17 at 09:00 DICK BUCIO Apr 25, 2017 17:08
[2017-04-25] MEDS ORDERED: DIGOXIN 500 MCG INJ IV ONE (17:30)
[2017-04-26] VITALS (16 sets, daily range): BP systolic 90–130; BP diastolic 51–78; PULSE 83–163; RESP 17–20
[2017-04-26] MEDS: ACCU-CHEK XX SCH (01:13)
[2017-04-26] MEDS: LEVALBUTEROL (NEB) 0.63 MG/3 ML AMP HHN SCH ×4 (02:11→19:56)
[2017-04-26] MEDS: PANTOPRAZOLE (EC) 40 MG TAB PO SCH ×2 (06:05→17:47)
[2017-04-26] MEDS: FUROSEMIDE 20 MG INJ IV SCH ×2 (06:07→17:53)
[2017-04-26 07:53] LABS: ABNORMAL IP MESSAGE 1; BASOPHIL # 0.1 10^3/ul (0.0-0.1); BASOPHILS % 1.6 % (0.0-2.0); EOSINOPHILS # 0.1 10^3/ul (0.0-0.5); EOSINOPHILS % 2.3 % (0.0-7.0); HEMATOCRIT 28.2 % (37.0-47.0); HEMOGLOBIN 9.6 g/dl (12.0-16.0); LYMPHOCYTES # 2.1 10^3/ul (0.8-2.9); LYMPHOCYTES % 33.3 % (15.0-51.0); MEAN CORPUSCULAR HEMOGLOBIN 40.7 pg (29.0-33.0); MEAN CORPUSCULAR VOLUME 119.5 fl (82.0-101.0); MONOCYTE # 0.3 10^3/ul (0.3-0.9); MONOCYTES % 5.5 % (0.0-11.0); NEUTROPHIL # 3.5 10^3/ul (1.6-7.5); NEUTROPHILS % 55.8 % (39.0-77.0); PLATELET COUNT 98 10^3/UL (140-415); RED BLOOD COUNT 2.36 10^6/ul (4.20-5.40); RED CELL DISTRIBUTION WIDTH 20.1 % (11.5-14.5); WHITE BLOOD COUNT 6.2 10^3/ul (4.8-10.8)
[2017-04-26] MEDS: INSULIN ASPART [NOVOLOG] 3 ML PEN SC SCH ×4 (08:00→21:00)
[2017-04-26] MEDS: LEVOTHYROXINE 75 MCG TAB PO SCH (08:35)
[2017-04-26] MEDS: ATENOLOL 25 MG TAB PO SCH ×2 (08:36→21:06)
[2017-04-26] MEDS: FOLIC ACID 1 MG TAB PO SCH (08:37)
[2017-04-26] MEDS: SUCRALFATE 1 GM TAB PO SCH ×4 (08:37→21:06)
[2017-04-26] MEDS: LORATADINE 10 MG TAB PO SCH (08:37)
[2017-04-26] MEDS: metFORMIN 500 MG TAB PO SCH ×2 (08:37→17:47)
[2017-04-26] MEDS: MOMETASONE 0.24 GM INHALER INH SCH ×2 (08:41→21:00)
[2017-04-26 08:54] LABS: CALCIUM 9.1 mg/dl (8.4-10.2); CREATININE 0.88 mg/dl (0.44-1.00); POTASSIUM 4.1 mmol/L (3.5-5.1)
[2017-04-26 08:55] LABS: MAGNESIUM 1.9 mg/dl (1.7-2.5); PHOSPHORUS 3.9 mg/dl (2.5-4.9)
[2017-04-26] MEDS: VITAMIN E 400 UNITS CAP PO SCH (09:00)
[2017-04-26] MEDS: LEVOFLOXACIN 750MG/D5W (PMX) 150 ML IVPB SCH (11:36)
--- NOTE | 2017-04-26 12:02 | PN ---
Date/Time of Note Date/Time of Note DATE: 04/26/17 TIME: 12:01 Assessment/Plan VTE Prophylaxis VTE Prophylaxis Intervention: SCD's Lines/Catheters IV [facility] [place] Urinary Cath still in place: No Assessment/Plan Chief Complaint/Hosp Course 1. Atrial fibrillation with rapid ventricular response. Rate controlled. Unable to anticoagulate because of underlying anemia and chronic thrombocytopenia. Cardiology following. 2. Community-acquired pneumonia. The patient will be continued on appropriate antibiotics. 3. Essential hypertension. The patient will be continued on antihypertensives. 4. Type 2 diabetes mellitus. The patient on sliding scale insulin along with basal insulin and pre-meal insulin. Hemoglobin A1c 7.0. 5. Asthma. The patient will be continued on inhaled bronchodilators. 6. Hypothyroidism. The patient will be continued on Synthroid. 7. Acute on chronic diastolic heart failure. Continue diuresis. 8. Moderate mitral stenosis with moderate mitral valve regurgitation. Needs eventual surgical repair. 9. Macrocytic anemia. Hemoglobin today 7.6. Getting 1 unit of PRBC transfusion. Gastroenterology following. The patient initially refused any colonoscopy or esophagogastroduodenoscopy. Currently agreeing for endoscopy. 10. Chronic thrombocytopenia. Monitor for any signs and symptoms of bleeding. 11. Pulmonary hypertension. PA systolic pressure 40 7-0 Monocryl as per 2D echocardiogram. Most probably secondary to underlying tricuspid regurgitation. 12. Fluids, electrolytes, and nutrition. Carbohydrate controlled diet. 13. Gastrointestinal prophylaxis. Proton pump inhibitors. 14. DVT prophylaxis. Bilateral sequential compression devices. 15. Plan. Continue antibiotics. Continue cardiology recommendations. The case and management of this patient was fully discussed with . Problems: Subjective 24 Hr Interval Summary Free Text/Dictation Denies any chest pain or dyspnea. Patient today agreeing to have colonoscopy and esophagogastroduodenoscopy. Exam/Review of Systems Vital Signs Vitals Vital Signs Date Time Temp Pulse Resp B/P Pulse Ox O2 Delivery O2 Flow Rate FiO2 04/26/17 11:49 98.1 81 18 112/62 99 04/26/17 02:11 21 04/25/17 18:34 2.0 04/25/17 08:46 Nasal Cannula Intake and Output 04/25/17 04/25/17 04/26/17 15:00 23:00 07:00 Intake Total 1000 ml 360 ml Output Total 1450 ml Balance -450 ml 360 ml Exam General: Adequately build 77 year-old female lying in bed in no apparent distress. HEENT: Normocephalic, atraumatic. Eyes: Anicteric sclerae, conjunctivae clear. ENT: Nasal septum midline, oral mucosa moist. Neck supple, no JVD noticed. Respiratory: Bilaterally diminished breath sounds. Bilateral fine rales. Cardiovascular: S1, S2 heard. Irregularly irregular rhythm. Abdomen: Soft, nontender, and nondistended. Bowel sounds positive in all 4 quadrants. Genitourinary: Deferred. Extremities: No cyanosis, no clubbing. Bilateral lower extremity pretibial edema. Neurologic: Cranial nerves II through XII grossly intact. The patient is awake, alert, and oriented. Skin: Normal skin turgor. No skin rashes. Results Result Diagram: 04/26/17 0730 04/26/17 0730 Results 24 hrs Laboratory Tests Test 04/25/17 14:15 04/25/17 16:55 04/25/17 20:25 04/26/17 06:07 Stool Occult Blood NEGATIVE Bedside Glucose 141 130 Lab Scanned Report BLOOD TRANSFUSION Test 04/26/17 07:30 04/26/17 08:14 White Blood Count 6.2 # Red Blood Count 2.36 L Hemoglobin 9.6 L Hematocrit 28.2 L Mean Corpuscular Volume 119.5 H Mean Corpuscular Hemoglobin 40.7 H Mean Corpuscular Hemoglobin Concent 34.0 Red Cell Distribution Width 20.1 H Platelet Count 98 L Mean Platelet Volume Neutrophils % 55.8 Lymphocytes % 33.3 Monocytes % 5.5 Eosinophils % 2.3 Basophils % 1.6 Nucleated Red Blood Cells % 0.0 Neutrophils # 3.5 Lymphocytes # 2.1 Monocytes # 0.3 Eosinophils # 0.1 Basophils # 0.1 Nucleated Red Blood Cells # 0.0 Sodium Level 138 Potassium Level 4.1 Chloride Level 92 L Carbon Dioxide Level 34 H Anion Gap 16 Blood Urea Nitrogen 26 H Creatinine 0.88 Glucose Level 119 Calcium Level 9.1 Phosphorus Level 3.9 Magnesium Level 1.9 Bedside Glucose 130 Medications Medications Current Medications Levofloxacin/ Dextrose (Levaquin 750 Mg/ D5W 150 ml (Pmx)) 150 ml @ 100 mls/hr Q24H IVPB Last administered on 04/26/17t 11:36; Admin Dose 100 MLS/HR; Start at 11:00 Folic Acid (Folic Acid) 1 mg DAILY PO Last administered on 04/26/17 08:37; Admin Dose 1 MG; Start 04/24/17 at 09:00 Loratadine (Claritin) 10 mg DAILY PO Last administered on 04/26/17 08:37; Admin Dose 10 MG; Start 04/24/17 at 09:00 Vitamin E (Vitamin E) 400 units DAILY PO Last administered on 04/25/17 08:15; Admin Dose 400 UNITS; Start 04/24/17 at 09:00 Mometasone Furoate (Asmanex) 1 puff BID INH Last administered on 04/26/17 08:41 ; Admin Dose 1 PUFF; Start 04/23/17 at 21:00 Ondansetron HCl (Zofran Inj) 4 mg Q6H PRN IV NAUSEA AND/OR VOMITING; Start at 13:00 Acetaminophen (Tylenol Tab) 650 mg Q6H PRN PO PAIN LEVEL 1-3 OR FEVER; Start at 13:00 Acetaminophen/ Hydrocodone Bitart ([place] (5/325)) 1 tab Q6H PRN PO PAIN LEVEL 4 -6; Start 04/23/17 at 13:00 Morphine Sulfate (morphine) 2 mg Q4H PRN IV PAIN LEVEL 7-10; Start 04/23/17 at 13:00 Magnesium Hydroxide (Milk Of Mag) 30 ml DAILY PRN PO CONSTIPATION; Start at 13:00 Bisacodyl (Dulcolax) 5 mg DAILY PRN PO CONSTIPATION; Start 04/23/17 at 13:00 Atenolol (Tenormin) 25 mg BID PO Last administered on 04/26/17 08:36; Admin Dose 25 MG; Start 04/23/17 at 21:00 Metoprolol Tartrate (Lopressor) 5 mg Q4H PRN IV HR>110 Hold SBP<100; Start at 19:30 Enoxaparin Sodium (Lovenox) 85 mg Q12 SC Last administered on 04/24/17 00:52; Admin Dose 85 MG; Start 04/23/17 at 21:00; Status Future Hold Diagnostic Test (Pha) (Accu-Chek) 1 ea 02 XX ; Start 04/25/17 at 02:00 Miscellaneous Information 1 ea NOTE XX ; Start 04/24/17 at 01:30 Glucose (Glutose) 15 gm Q15M PRN PO DECREASED GLUCOSE; Start 04/24/17 at 01:30 Glucose (Glutose) 22.5 gm Q15M PRN PO DECREASED GLUCOSE; Start 04/24/17 at 01: 30 Dextrose (D50w Syringe) 25 ml Q15M PRN IV DECREASED GLUCOSE; Start 04/24/17 at 01:30 Dextrose (D50w Syringe) 50 ml Q15M PRN IV DECREASED GLUCOSE; Start 04/24/17 at 01:30 Glucagon (Glucagen) 1 mg Q15M PRN IM DECREASED GLUCOSE; Start 04/24/17 at 01:30 Glucose (Glutose) 15 gm Q15M PRN BUCCAL DECREASED GLUCOSE; Start 04/24/17 at 01 :30 Pantoprazole (Protonix Tab) 40 mg BID@06,18 PO Last administered on 04/26/17 06 :05; Admin Dose 40 MG; Start 04/24/17 at 18:00 Sucralfate (Carafate) 1 gm QID PO Last administered on 04/26/17 08:37; Admin Dose 1 GM; Start 04/25/17 at 09:00 Digoxin (Digoxin) 0.125 mg DAILY@13 PO ; Start 04/26/17 at 13:00 SUMI STONE NP Apr 26, 2017 12:02
[2017-04-26] MEDS: DIGOXIN 0.125 MG TAB PO SCH (13:14)
--- NOTE | 2017-04-26 17:06 | CONS ---
Date/Time of Note Date/Time of Note DATE: 04/26/17 TIME: 17:04 Assessment/Plan Assessment/Plan Additional Assessment/Plan 1.AF with RVR-some mild RVR nl tsh - rate better controlled 2.HTN- well controlled now 3.ABNL ECG-negative trop x 3 - no intervention planned 4.chf-diastolic acute on chronic 5.Hypothyroid 6. MS-moderate to severe - per DR. Elder: Patient will require further eval and most probable valvuloplasty versus open repair of MS which can be done as an outpatient. Consultation Date/Type/Reason Admit Date/Time Apr 23, 2017 at 11:03 Initial Consult Date 04/23/17 Type of Consultation: cardiology Referring Provider: SUMI STONE NP 24 HR Interval Summary Free Text/Dictation NO acute events - HR reasonably controlled. ROS: No fever, no chills, no nausea, no vomiting, no diarrhea/constipation No recent weight changes No chest pain, no PND, no orthopnea No dizziness, blurred vision No thirst, no heat or cold intolerance Exam/Review of Systems Vital Signs Vitals Vital Signs Date Time Temp Pulse Resp B/P Pulse Ox O2 Delivery O2 Flow Rate FiO2 04/26/17 16:19 98.3 96 18 90/51 94 04/26/17 13:24 21 04/25/17 18:34 2.0 04/25/17 08:46 Nasal Cannula Intake and Output 04/25/17 04/25/17 04/26/17 15:00 23:00 07:00 Intake Total 1000 ml 360 ml Output Total 1450 ml Balance -450 ml 360 ml Exam General: WN/WD/NAD, AOx 3 HEENT: Unicetric/atraumatic/EOMI (follows commands) NECK: JVD elevated, no thyromegaly Lymph: no lymphadenopathy HEART: Ir Irregular with no S3, II/ systolic murmur at apex LUNGS: Coarse sounds ABD: soft, NT, ND, +BS : Intact Neuro: non focal SKIN: chronic changes EXT: trace edema Results Result Diagram: 04/26/17 0730 04/26/17 0730 Results 24 hrs Laboratory Tests Test 04/25/17 20:25 04/26/17 06:07 04/26/17 07:30 04/26/17 08:14 Bedside Glucose 130 130 Lab Scanned Report BLOOD TRANSFUSION White Blood Count 6.2 # Red Blood Count 2.36 L Hemoglobin 9.6 L Hematocrit 28.2 L Mean Corpuscular Volume 119.5 H Mean Corpuscular Hemoglobin 40.7 H Mean Corpuscular Hemoglobin Concent 34.0 Red Cell Distribution Width 20.1 H Platelet Count 98 L Mean Platelet Volume Neutrophils % 55.8 Lymphocytes % 33.3 Monocytes % 5.5 Eosinophils % 2.3 Basophils % 1.6 Nucleated Red Blood Cells % 0.0 Neutrophils # 3.5 Lymphocytes # 2.1 Monocytes # 0.3 Eosinophils # 0.1 Basophils # 0.1 Nucleated Red Blood Cells # 0.0 Sodium Level 138 Potassium Level 4.1 Chloride Level 92 L Carbon Dioxide Level 34 H Anion Gap 16 Blood Urea Nitrogen 26 H Creatinine 0.88 Glucose Level 119 Calcium Level 9.1 Phosphorus Level 3.9 Magnesium Level 1.9 Test 04/26/17 12:31 Bedside Glucose 115 Medications Medications Current Medications Levofloxacin/ Dextrose (Levaquin 750 Mg/ D5W 150 ml (Pmx)) 150 ml @ 100 mls/hr Q24H IVPB Last administered on 04/26/17 11:36; Admin Dose 100 MLS/HR; Start at 11:00 Folic Acid (Folic Acid) 1 mg DAILY PO Last administered on 04/26/17 08:37; Admin Dose 1 MG; Start 04/24/17 at 09:00 Loratadine (Claritin) 10 mg DAILY PO Last administered on 04/26/17 08:37; Admin Dose 10 MG; Start 04/24/17 at 09:00 Vitamin E (Vitamin E) 400 units DAILY PO Last administered on 04/25/17 08:15; Admin Dose 400 UNITS; Start 04/24/17 at 09:00 Mometasone Furoate (Asmanex) 1 puff BID INH Last administered on 04/26/17 08:41 ; Admin Dose 1 PUFF; Start 04/23/17 at 21:00 Ondansetron HCl (Zofran Inj) 4 mg Q6H PRN IV NAUSEA AND/OR VOMITING; Start at 13:00 Acetaminophen (Tylenol Tab) 650 mg Q6H PRN PO PAIN LEVEL 1-3 OR FEVER; Start at 13:00 Acetaminophen/ Hydrocodone Bitart ([place] (5/325)) 1 tab Q6H PRN PO PAIN LEVEL 4 -6; Start 04/23/17 at 13:00 Morphine Sulfate (morphine) 2 mg Q4H PRN IV PAIN LEVEL 7-10; Start 04/23/17 at 13:00 Magnesium Hydroxide (Milk Of Mag) 30 ml DAILY PRN PO CONSTIPATION; Start at 13:00 Bisacodyl (Dulcolax) 5 mg DAILY PRN PO CONSTIPATION; Start 04/23/17 at 13:00 Atenolol (Tenormin) 25 mg BID PO Last administered on 04/26/17 08:36; Admin Dose 25 MG; Start 04/23/17 at 21:00 Metoprolol Tartrate (Lopressor) 5 mg Q4H PRN IV HR>110 Hold SBP<100; Start at 19:30 Enoxaparin Sodium (Lovenox) 85 mg Q12 SC Last administered on 04/24/17 00:52; Admin Dose 85 MG; Start 04/23/17 at 21:00; Status Future Hold Diagnostic Test (Pha) (Accu-Chek) 1 ea 02 XX ; Start 04/25/17 at 02:00 Miscellaneous Information 1 ea NOTE XX ; Start 04/24/17 at 01:30 Glucose (Glutose) 15 gm Q15M PRN PO DECREASED GLUCOSE; Start 04/24/17 at 01:30 Glucose (Glutose) 22.5 gm Q15M PRN PO DECREASED GLUCOSE; Start 04/24/17 at 01: 30 Dextrose (D50w Syringe) 25 ml Q15M PRN IV DECREASED GLUCOSE; Start 04/24/17 at 01:30 Dextrose (D50w Syringe) 50 ml Q15M PRN IV DECREASED GLUCOSE; Start 04/24/17 at 01:30 Glucagon (Glucagen) 1 mg Q15M PRN IM DECREASED GLUCOSE; Start 04/24/17 at 01:30 Glucose (Glutose) 15 gm Q15M PRN BUCCAL DECREASED GLUCOSE; Start 04/24/17 at 01 :30 Pantoprazole (Protonix Tab) 40 mg BID@06,18 PO Last administered on 04/26/17 06 :05; Admin Dose 40 MG; Start 04/24/17 at 18:00 Sucralfate (Carafate) 1 gm QID PO Last administered on 04/26/17 13:14; Admin Dose 1 GM; Start 04/25/17 at 09:00 Digoxin (Digoxin) 0.125 mg DAILY@13 PO Last administered on 04/26/17 13:14; Admin Dose 0.125 MG; Start 04/26/17 at 13:00 MALIK CANNON MD Apr 26, 2017 17:06
[2017-04-26] MEDS ORDERED: BISACODYL (EC) 5 MG TAB PO ONE (20:00)
[2017-04-26] MEDS ORDERED: MAGNESIUM CITRATE 300 ML BTL PO ONE (20:00)
[2017-04-26] MEDS ORDERED: POLYETHYLENE GLYCOL 3350 119 GM POWDER PO ONE (20:00)
--- NOTE | 2017-04-26 20:07 | CONS ---
Date/Time of Note Date/Time of Note DATE: 04/26/17 TIME: 20:04 Assessment/Plan Assessment/Plan Chief Complaint/Hosp Course Impression: 1. Atrial fibrillation with rapid ventricular response. Rate controlled. Unable to anticoagulate because of underlying anemia and chronic thrombocytopenia. 2. Anemia, need to r/o GIB 3. Essential hypertension. 4. Type 2 diabetes mellitus. 5. Asthma. The patient will be continued on inhaled bronchodilators. 6. Hypothyroidism. The patient will be continued on Synthroid. 7. Macrocytic anemia. Hemoglobin today 7.6. 8. Chronic thrombocytopenia. Monitor for any signs and symptoms of bleeding. Recommendations: 1. After thinking over and due to persistent anemia, pt agreed to EGD and colonoscopy for hemostasis. 2. continue medical therapy with protonix and carafate 3. hold off on anti-coagulate until after EGD and colonoscopy for bleeding risk assessment Problems: Consultation Date/Type/Reason Admit Date/Time Apr 23, 2017 at 11:03 Initial Consult Date 04/23/17 Type of Consultation: GI Referring Provider: SUMI STONE GLOVE EXAMINER 24 HR Interval Summary Free Text/Dictation no abdominal pain, agree to EGD and colonoscopy to evaluate her anemia now Exam/Review of Systems Vital Signs Vitals Vital Signs Date Time Temp Pulse Resp B/P Pulse Ox O2 Delivery O2 Flow Rate FiO2 04/26/17 19:56 97 20 91 21 04/26/17 19:39 98.1 114/61 04/25/17 18:34 2.0 04/25/17 08:46 Nasal Cannula Intake and Output 04/25/17 04/25/17 04/26/17 15:00 23:00 07:00 Intake Total 1000 ml 360 ml Output Total 1450 ml Balance -450 ml 360 ml Exam Constitutional: alert, obese, oriented Psych: nl mood/affect, no complaints Head: atraumatic, normocephalic Eyes: EOMI, nl conjunctiva, nl lids, nl sclera ENMT: mucosa pink and moist, nl external ears & nose, nl lips & teeth, nl nasal mucosa & septum Neck: non-tender, supple Respiratory: clear to auscultation, normal air movement Cardiovascular: nl pulses, regular rate and rhythm Gastrointestinal: bowel sounds, non-tender, soft Results Result Diagram: 04/26/17 0730 04/26/17 0730 Results 24 hrs Laboratory Tests Test 04/25/17 20:25 04/26/17 06:07 04/26/17 07:30 04/26/17 08:14 Bedside Glucose 130 130 Lab Scanned Report BLOOD TRANSFUSION White Blood Count 6.2 # Red Blood Count 2.36 L Hemoglobin 9.6 L Hematocrit 28.2 L Mean Corpuscular Volume 119.5 H Mean Corpuscular Hemoglobin 40.7 H Mean Corpuscular Hemoglobin Concent 34.0 Red Cell Distribution Width 20.1 H Platelet Count 98 L Mean Platelet Volume Neutrophils % 55.8 Lymphocytes % 33.3 Monocytes % 5.5 Eosinophils % 2.3 Basophils % 1.6 Nucleated Red Blood Cells % 0.0 Neutrophils # 3.5 Lymphocytes # 2.1 Monocytes # 0.3 Eosinophils # 0.1 Basophils # 0.1 Nucleated Red Blood Cells # 0.0 Sodium Level 138 Potassium Level 4.1 Chloride Level 92 L Carbon Dioxide Level 34 H Anion Gap 16 Blood Urea Nitrogen 26 H Creatinine 0.88 Glucose Level 119 Calcium Level 9.1 Phosphorus Level 3.9 Magnesium Level 1.9 Test 04/26/17 12:31 04/26/17 17:25 Bedside Glucose 115 149 Medications Medications Current Medications Levofloxacin/ Dextrose (Levaquin 750 Mg/ D5W 150 ml (Pmx)) 150 ml @ 100 mls/hr Q24H IVPB Last administered on 04/26/17 11:36; Admin Dose 100 MLS/HR; Start at 11:00 Folic Acid (Folic Acid) 1 mg DAILY PO Last administered on 04/26/17 08:37; Admin Dose 1 MG; Start 04/24/17 at 09:00 Loratadine (Claritin) 10 mg DAILY PO Last administered on 04/26/17 08:37; Admin Dose 10 MG; Start 04/24/17 at 09:00 Vitamin E (Vitamin E) 400 units DAILY PO Last administered on 04/25/17 08:15; Admin Dose 400 UNITS; Start 04/24/17 at 09:00 Mometasone Furoate (Asmanex) 1 puff BID INH Last administered on 04/26/17 08:41 ; Admin Dose 1 PUFF; Start 04/23/17 at 21:00 Ondansetron HCl (Zofran Inj) 4 mg Q6H PRN IV NAUSEA AND/OR VOMITING; Start at 13:00 Acetaminophen (Tylenol Tab) 650 mg Q6H PRN PO PAIN LEVEL 1-3 OR FEVER; Start at 13:00 Acetaminophen/ Hydrocodone Bitart ([place] (5/325)) 1 tab Q6H PRN PO PAIN LEVEL 4 -6; Start 04/23/17 at 13:00 Morphine Sulfate (morphine) 2 mg Q4H PRN IV PAIN LEVEL 7-10; Start 04/23/17 at 13:00 Magnesium Hydroxide (Milk Of Mag) 30 ml DAILY PRN PO CONSTIPATION; Start at 13:00 Bisacodyl (Dulcolax) 5 mg DAILY PRN PO CONSTIPATION; Start 04/23/17 at 13:00 Atenolol (Tenormin) 25 mg BID PO Last administered on 04/26/17 08:36; Admin Dose 25 MG; Start 04/23/17 at 21:00 Metoprolol Tartrate (Lopressor) 5 mg Q4H PRN IV HR>110 Hold SBP<100; Start at 19:30 Enoxaparin Sodium (Lovenox) 85 mg Q12 SC Last administered on 04/24/17 00:52; Admin Dose 85 MG; Start 04/23/17 at 21:00; Status Future Hold Diagnostic Test (Pha) (Accu-Chek) 1 ea 02 XX ; Start 04/25/17 at 02:00 Miscellaneous Information 1 ea NOTE XX ; Start 04/24/17 at 01:30 Glucose (Glutose) 15 gm Q15M PRN PO DECREASED GLUCOSE; Start 04/24/17 at 01:30 Glucose (Glutose) 22.5 gm Q15M PRN PO DECREASED GLUCOSE; Start 04/24/17 at 01: 30 Dextrose (D50w Syringe) 25 ml Q15M PRN IV DECREASED GLUCOSE; Start 04/24/17 at 01:30 Dextrose (D50w Syringe) 50 ml Q15M PRN IV DECREASED GLUCOSE; Start 04/24/17 at 01:30 Glucagon (Glucagen) 1 mg Q15M PRN IM DECREASED GLUCOSE; Start 04/24/17 at 01:30 Glucose (Glutose) 15 gm Q15M PRN BUCCAL DECREASED GLUCOSE; Start 04/24/17 at 01 :30 Pantoprazole (Protonix Tab) 40 mg BID@06,18 PO Last administered on 04/26/17 17 :47; Admin Dose 40 MG; Start 04/24/17 at 18:00 Sucralfate (Carafate) 1 gm QID PO Last administered on 04/26/17 17:48; Admin Dose 1 GM; Start 04/25/17 at 09:00 Digoxin (Digoxin) 0.125 mg DAILY@13 PO Last administered on 04/26/17 13:14; Admin Dose 0.125 MG; Start 04/26/17 at 13:00 Bisacodyl (Dulcolax) 10 mg ONCE ONCE PO ; Start 04/26/17 at 20:00; Stop 04/26/17 at 20:01; Status UNV Magnesium Citrate (Citroma) 300 ml ONCE ONCE PO ; Start 04/26/17 at 20:00; Stop 04/26/17 at 20:01; Status UNV Polyethylene Glycol (Miralax) 119 gm ONCE ONCE PO ; Start 04/26/17 at 20:00; Stop 04/26/17 at 20:01; Status UNV EDWIN RAO MD Apr 26, 2017 20:07
[2017-04-27] VITALS (16 sets, daily range): BP systolic 98–119; BP diastolic 49–70; PULSE 68–171; RESP 14–20
[2017-04-27] MEDS: LEVALBUTEROL (NEB) 0.63 MG/3 ML AMP HHN SCH ×4 (01:40→22:13)
[2017-04-27] MEDS: ACCU-CHEK XX SCH (02:00)
[2017-04-27] MEDS: PANTOPRAZOLE (EC) 40 MG TAB PO SCH ×2 (05:55→17:42)
[2017-04-27] MEDS: FUROSEMIDE 20 MG INJ IV SCH ×2 (05:56→17:42)
[2017-04-27] MEDS ORDERED: POLYETHYLENE GLYCOL 3350 119 GM POWDER PO ONE (06:00)
[2017-04-27] MEDS ORDERED: BISACODYL (EC) 5 MG TAB PO ONE (06:00)
[2017-04-27] MEDS: LEVOTHYROXINE 75 MCG TAB PO SCH (07:00)
[2017-04-27] MEDS ORDERED: MIDAZOLAM 1 MG/ML 2 ML INJ ONE (07:27)
[2017-04-27] MEDS ORDERED: FENTAnyl 50 MCG/ML VIAL ONE ×2 (07:27)
[2017-04-27] MEDS ORDERED: METOCLOPRAMIDE 10 MG INJ ONE (07:28)
[2017-04-27] MEDS ORDERED: ETOMIDATE 20 MG INJ ONE (07:28)
--- NOTE | 2017-04-27 07:33 | OPR ---
Date/Time of Note Date/Time of Note DATE: 04/27/17 TIME: 07:32 Operative Report Free Text/Dictation Recommendation: 1. f/u biopsy results 2. hold anti-platelet and blood thinners for 2 wks if ok with cardiology 3. f/u biopsy results and treat for H. pylori eradication if positive 4. continue protonix 40 mg bid for at least 2 wks Procedure Date: Apr 27, 2017 Preoperative Diagnosis symptomatic anemia, GI bleed Postoperative Diagnosis 1. esophagitis 2. multiple small clean based gastric antral erosions and ulcers 3. gastropathy 4. ascending colon polyp 5. scattered diverticulosis 6. moderate sized internal hemorrhoids Operation Performed EGD with biopsies colonoscopy with polypectomy via biopsy forcep Surgeon: EDWIN RAO MD Anesthesia: MAC Anesthesiologist: ANTONIA AYALA MD Estimated Blood Loss: minimal Specimens 1. gastric biopsies 2. ascending colon polyp Complications: None Pt Condition Post Procedure: stable Disposition: PACU Indications symptomatic anemia, GI bleed Procedure Description After informed consent and timeout, patient was sedated. After adequate sedation , I inserted an adult EGD scope from the mouth and advanced to 2nd portion of duodenum. Retroflexion was performed in the body of stomach revealing cardia and fundus. Random biopsies taken in antrum and body to r/o H. pylori. I then withdraw the EGD scope to GEJ and Z line at 38 cm, no hiatal hernia. Air then suctioned out as I completely removed the scope. Patient then turned around for colonoscopy. Rectal exam normal with normal tone. I then inserted an colonoscope from the rectum and advanced to cecum at 80 cm. There were a small ascending colon polyp s/p polypectomy. Retroflexion performed in rectum showing moderate sized internal hemorrhoids. I then suctioned out the air as I completely removed the colonoscope. EDWIN RAO MD Apr 27, 2017 07:33
[2017-04-27] MEDS: INSULIN ASPART [NOVOLOG] 3 ML PEN SC SCH ×4 (08:00→21:00)
[2017-04-27] MEDS: metFORMIN 500 MG TAB PO SCH ×3 (08:00→17:42)
[2017-04-27 08:01] LABS: ABNORMAL IP MESSAGE 1; BASOPHIL # 0.1 10^3/ul (0.0-0.1); BASOPHILS % 1.1 % (0.0-2.0); EOSINOPHILS # 0.2 10^3/ul (0.0-0.5); EOSINOPHILS % 3.3 % (0.0-7.0); HEMOGLOBIN 9.8 g/dl (12.0-16.0); LYMPHOCYTES # 1.9 10^3/ul (0.8-2.9); LYMPHOCYTES % 31.5 % (15.0-51.0); MEAN CORPUSCULAR HEMOGLOBIN 40.3 pg (29.0-33.0); MEAN CORPUSCULAR HGB CONC 33.8 g/dl (32.0-37.0); MEAN CORPUSCULAR VOLUME 119.3 fl (82.0-101.0); MONOCYTE # 0.3 10^3/ul (0.3-0.9); MONOCYTES % 5.6 % (0.0-11.0); NEUTROPHIL # 3.5 10^3/ul (1.6-7.5); NEUTROPHILS % 57.5 % (39.0-77.0); RED BLOOD COUNT 2.43 10^6/ul (4.20-5.40); RED CELL DISTRIBUTION WIDTH 19.1 % (11.5-14.5); WHITE BLOOD COUNT 6.1 10^3/ul (4.8-10.8)
[2017-04-27 08:03] LABS: ADD SCAN DIFF NO; PLATELET COUNT 72 10^3/UL (140-415)
[2017-04-27 08:18] LABS: MAGNESIUM 2.1 mg/dl (1.7-2.5); PHOSPHORUS 4.2 mg/dl (2.5-4.9)
[2017-04-27 08:19] LABS: CALCIUM 9.1 mg/dl (8.4-10.2); CREATININE 0.91 mg/dl (0.44-1.00); POTASSIUM 3.8 mmol/L (3.5-5.1)
[2017-04-27] MEDS ORDERED: LABETALOL HCL 20MG INJ IV PRN (08:30)
[2017-04-27] MEDS ORDERED: METOCLOPRAMIDE 10 MG INJ IV PRN (08:30)
[2017-04-27] MEDS ORDERED: ONDANSETRON 4 MG INJ IV PRN (08:30)
[2017-04-27] MEDS: VITAMIN E 400 UNITS CAP PO SCH (10:29)
[2017-04-27] MEDS: SUCRALFATE 1 GM TAB PO SCH ×4 (10:29→21:11)
[2017-04-27] MEDS: LORATADINE 10 MG TAB PO SCH (10:30)
[2017-04-27] MEDS: FOLIC ACID 1 MG TAB PO SCH (10:30)
[2017-04-27] MEDS: LEVOFLOXACIN 750MG/D5W (PMX) 150 ML IVPB SCH (10:30)
[2017-04-27] MEDS: ATENOLOL 25 MG TAB PO SCH ×2 (10:30→21:12)
[2017-04-27] MEDS: MOMETASONE 0.24 GM INHALER INH SCH ×2 (10:31→21:00)
[2017-04-27] MEDS: DIGOXIN 0.125 MG TAB PO SCH (12:49)
--- NOTE | 2017-04-27 13:02 | PN ---
Date/Time of Note Date/Time of Note DATE: 04/27/17 TIME: 13:01 Assessment/Plan VTE Prophylaxis VTE Prophylaxis Intervention: SCD's Lines/Catheters IV [facility]from [facility] [place] [facility] Urinary Cath still in place: No Assessment/Plan Chief Complaint/Hosp Course 1. Atrial fibrillation with rapid ventricular response. Rate controlled. Unable to anticoagulate because of underlying anemia and chronic thrombocytopenia. Cardiology following. 2. Community-acquired pneumonia. The patient will be continued on appropriate antibiotics. 3. Essential hypertension. The patient will be continued on antihypertensives. 4. Type 2 diabetes mellitus. The patient on sliding scale insulin along with basal insulin and pre-meal insulin. Hemoglobin A1c 7.0. 5. Asthma. The patient will be continued on inhaled bronchodilators. 6. Hypothyroidism. The patient will be continued on Synthroid. 7. Acute on chronic diastolic heart failure. Continue diuresis. 8. Moderate mitral stenosis with moderate mitral valve regurgitation. Needs eventual surgical repair. 9. Macrocytic anemia. Esophagogastroduodenoscopy showed esophagitis, multiple small clean-based gastric antral erosions and ulcers and gastropathy. Continue proton pump inhibitors. 10. Chronic thrombocytopenia. Monitor for any signs and symptoms of bleeding. 11. Pulmonary hypertension. PA systolic pressure 40 7-0 Monocryl as per 2D echocardiogram. Most probably secondary to underlying tricuspid regurgitation. 12. Fluids, electrolytes, and nutrition. Carbohydrate controlled diet. 13. Gastrointestinal prophylaxis. Proton pump inhibitors. 14. DVT prophylaxis. Bilateral sequential compression devices. 15. Plan. Continue antibiotics. Continue cardiology recommendations. Avoid any anticoagulation or antiplatelet therapy for at least 2 weeks as per gastroenterology. Repeat chest x-ray. The case and management of this patient was fully discussed with . Problems: Subjective 24 Hr Interval Summary Free Text/Dictation Status post esophagogastroduodenoscopy and colonoscopy today. Exam/Review of Systems Vital Signs Vitals Vital Signs Date Time Temp Pulse Resp B/P Pulse Ox O2 Delivery O2 Flow Rate FiO2 04/27/17 12:18 98.0 86 20 98/49 96 04/27/17 09:00 Room Air 04/27/17 08:39 2.0 04/26/17 19:56 21 Intake and Output 04/26/17 04/26/17 04/27/17 15:00 23:00 07:00 Intake Total 150 ml 850 ml 2000 ml Balance 150 ml 850 ml 2000 ml Exam General: Adequately build 77 year-old female lying in bed in no apparent distress. HEENT: Normocephalic, atraumatic. Eyes: Anicteric sclerae, conjunctivae clear. ENT: Nasal septum midline, oral mucosa moist. Neck supple, no JVD noticed. Respiratory: Bilaterally diminished breath sounds. Bilateral fine rales. Cardiovascular: S1, S2 heard. Irregularly irregular rhythm. Abdomen: Soft, nontender, and nondistended. Bowel sounds positive in all 4 quadrants. Genitourinary: Deferred. Extremities: No cyanosis, no clubbing. Bilateral lower extremity pretibial edema. Neurologic: Cranial nerves II through XII grossly intact. The patient is awake, alert, and oriented. Skin: Normal skin turgor. No skin rashes. Results Result Diagram: 04/27/1771704/27/17717 Results 24 hrs Laboratory Tests Test 04/26/17 17:25 04/26/17 21:18 04/27/17 07:18 04/27/17 07:28 Bedside Glucose 149 126 138 White Blood Count 6.1 Red Blood Count 2.43 L Hemoglobin 9.8 L Hematocrit 29.0 L Mean Corpuscular Volume 119.3 H Mean Corpuscular Hemoglobin 40.3 H Mean Corpuscular Hemoglobin Concent 33.8 Red Cell Distribution Width 19.1 H Platelet Count 72 #L Mean Platelet Volume Neutrophils % 57.5 Lymphocytes % 31.5 Monocytes % 5.6 Eosinophils % 3.3 Basophils % 1.1 Nucleated Red Blood Cells % 0.0 Neutrophils # 3.5 Lymphocytes # 1.9 Monocytes # 0.3 Eosinophils # 0.2 Basophils # 0.1 Nucleated Red Blood Cells # 0.0 Sodium Level 136 Potassium Level 3.8 Chloride Level 93 L Carbon Dioxide Level 37 H Anion Gap 10 # Blood Urea Nitrogen 20 Creatinine 0.91 Glucose Level 123 Calcium Level 9.1 Phosphorus Level 4.2 Magnesium Level 2.1 Test 04/27/17 10:29 04/27/17 12:48 Lab Scanned Report REFERENCE LAB Bedside Glucose 145 Medications Medications Current Medications Levofloxacin/ Dextrose (Levaquin 750 Mg/ D5W 150 ml (Pmx)) 150 ml @ 100 mls/hr Q24H IVPB Last administered on 04/27/17t 10:30; Admin Dose 100 MLS/HR; Start at 11:00 Folic Acid (Folic Acid) 1 mg DAILY PO Last administered on 04/27/17 10:30; Admin Dose 1 MG; Start 04/24/17 at 09:00 Loratadine (Claritin) 10 mg DAILY PO Last administered on 04/27/17 10:30; Admin Dose 10 MG; Start 04/24/17 at 09:00 Vitamin E (Vitamin E) 400 units DAILY PO Last administered on 04/27/17 10:29; Admin Dose 400 UNITS; Start 04/24/17 at 09:00 Mometasone Furoate (Asmanex) 1 puff BID INH Last administered on 04/27/17 10:31 ; Admin Dose 1 PUFF; Start 04/23/17 at 21:00 Ondansetron HCl (Zofran Inj) 4 mg Q6H PRN IV NAUSEA AND/OR VOMITING; Start at 13:00 Acetaminophen (Tylenol Tab) 650 mg Q6H PRN PO PAIN LEVEL 1-3 OR FEVER; Start at 13:00 Acetaminophen/ Hydrocodone Bitart ([place] (5/325)) 1 tab Q6H PRN PO PAIN LEVEL 4 -6; Start 04/23/17 at 13:00 Morphine Sulfate (morphine) 2 mg Q4H PRN IV PAIN LEVEL 7-10; Start 04/23/17 at 13:00 Magnesium Hydroxide (Milk Of Mag) 30 ml DAILY PRN PO CONSTIPATION; Start at 13:00 Bisacodyl (Dulcolax) 5 mg DAILY PRN PO CONSTIPATION; Start 04/23/17 at 13:00 Atenolol (Tenormin) 25 mg BID PO Last administered on 04/27/17 10:30; Admin Dose 25 MG; Start 04/23/17 at 21:00 Metoprolol Tartrate (Lopressor) 5 mg Q4H PRN IV HR>110 Hold SBP<100; Start at 19:30 Enoxaparin Sodium (Lovenox) 85 mg Q12 SC Last administered on 04/24/17 00:52; Admin Dose 85 MG; Start 04/23/17 at 21:00; Status Future Hold Diagnostic Test (Pha) (Accu-Chek) 1 ea 02 XX ; Start 04/25/17 at 02:00 Miscellaneous Information 1 ea NOTE XX ; Start 04/24/17 at 01:30 Glucose (Glutose) 15 gm Q15M PRN PO DECREASED GLUCOSE; Start 04/24/17 at 01:30 Glucose (Glutose) 22.5 gm Q15M PRN PO DECREASED GLUCOSE; Start 04/24/17 at 01: 30 Dextrose (D50w Syringe) 25 ml Q15M PRN IV DECREASED GLUCOSE; Start 04/24/17 at 01:30 Dextrose (D50w Syringe) 50 ml Q15M PRN IV DECREASED GLUCOSE; Start 04/24/17 at 01:30 Glucagon (Glucagen) 1 mg Q15M PRN IM DECREASED GLUCOSE; Start 04/24/17 at 01:30 Glucose (Glutose) 15 gm Q15M PRN BUCCAL DECREASED GLUCOSE; Start 04/24/17 at 01 :30 Pantoprazole (Protonix Tab) 40 mg BID@06,18 PO Last administered on 04/27/17 05 :55; Admin Dose 40 MG; Start 04/24/17 at 18:00 Sucralfate (Carafate) 1 gm QID PO Last administered on 04/27/17 12:50; Admin Dose 1 GM; Start 04/25/17 at 09:00 Digoxin (Digoxin) 0.125 mg DAILY@13 PO Last administered on 04/27/17 12:49; Admin Dose 0.125 MG; Start 04/26/17 at 13:00 SUMI STONE NP Apr 27, 2017 13:02
--- NOTE | 2017-04-27 15:41 | CONS ---
Date/Time of Note Date/Time of Note DATE: 04/27/17 TIME: 15:38 Assessment/Plan Assessment/Plan Additional Assessment/Plan 1.AF with RVR-some mild RVR nl tsh - rate better controlled - discuss with GI team - s/p clip in antrum gastric - high risk bleed - will hold off all anti- coagulation 3 days now. 2.HTN- well controlled now 3.ABNL ECG-negative trop x 3 - no intervention planned 4.chf-diastolic acute on chronic - stable fluid status. 5.Hypothyroid 6. MS-moderate to severe - per DR. Elder: Patient will require further eval and most probable valvuloplasty versus open repair of MS which can be done as an outpatient. Consultation Date/Type/Reason Admit Date/Time Apr 23, 2017 at 11:03 Initial Consult Date 04/23/17 Type of Consultation: GI Referring Provider: SUMI STONE NP 24 HR Interval Summary Free Text/Dictation discuss with GI team - s/p clip in antrum gastric - high risk bleed - will hold off all anti-coagulation 3 days now. ROS: No fever, no chills, no nausea, no vomiting, no diarrhea/constipation No recent weight changes No chest pain, no PND, no orthopnea No dizziness, blurred vision No thirst, no heat or cold intolerance Exam/Review of Systems Vital Signs Vitals Vital Signs Date Time Temp Pulse Resp B/P Pulse Ox O2 Delivery O2 Flow Rate FiO2 04/27/17 13:25 61 20 95 Nasal Cannula 2.0 04/27/17 12:18 98.0 98/49 04/26/17 19:56 21 Intake and Output 04/26/17 04/26/17 04/27/17 15:00 23:00 07:00 Intake Total 150 ml 850 ml 2000 ml Balance 150 ml 850 ml 2000 ml Exam General: WN/WD/NAD, AOx 1-2 HEENT: Unicetric/atraumatic/EOMI (follow commands) NECK: JVD elevated, no thyromegaly Lymph: no lymphadenopathy HEART: IR Irregular with no S3, II/ systolic murmur at apex LUNGS: Coarse sounds ABD: soft, NT, ND, +BS : Intact Neuro: non focal SKIN: chronic changes EXT: trace edema Results Result Diagram: 7/2/17 0718 7/2/17 0718 Results 24 hrs Laboratory Tests Test 04/26/17 17:25 04/26/17 21:18 04/27/17 07:18 04/27/17 07:28 Bedside Glucose 149 126 138 White Blood Count 6.1 Red Blood Count 2.43 L Hemoglobin 9.8 L Hematocrit 29.0 L Mean Corpuscular Volume 119.3 H Mean Corpuscular Hemoglobin 40.3 H Mean Corpuscular Hemoglobin Concent 33.8 Red Cell Distribution Width 19.1 H Platelet Count 72 #L Mean Platelet Volume Neutrophils % 57.5 Lymphocytes % 31.5 Monocytes % 5.6 Eosinophils % 3.3 Basophils % 1.1 Nucleated Red Blood Cells % 0.0 Neutrophils # 3.5 Lymphocytes # 1.9 Monocytes # 0.3 Eosinophils # 0.2 Basophils # 0.1 Nucleated Red Blood Cells # 0.0 Sodium Level 136 Potassium Level 3.8 Chloride Level 93 L Carbon Dioxide Level 37 H Anion Gap 10 # Blood Urea Nitrogen 20 Creatinine 0.91 Glucose Level 123 Calcium Level 9.1 Phosphorus Level 4.2 Magnesium Level 2.1 Test 04/27/17 10:29 04/27/17 12:48 Lab Scanned Report REFERENCE LAB Bedside Glucose 145 Medications Medications Current Medications Levofloxacin/ Dextrose (Levaquin 750 Mg/ D5W 150 ml (Pmx)) 150 ml @ 100 mls/hr Q24H IVPB Last administered on 04/27/17 10:30; Admin Dose 100 MLS/HR; Start at 11:00 Folic Acid (Folic Acid) 1 mg DAILY PO Last administered on 04/27/17 10:30; Admin Dose 1 MG; Start 04/24/17 at 09:00 Loratadine (Claritin) 10 mg DAILY PO Last administered on 04/27/17 10:30; Admin Dose 10 MG; Start 04/24/17 at 09:00 Vitamin E (Vitamin E) 400 units DAILY PO Last administered on 04/27/17 10:29; Admin Dose 400 UNITS; Start 04/24/17 at 09:00 Mometasone Furoate (Asmanex) 1 puff BID INH Last administered on 04/27/17 10:31 ; Admin Dose 1 PUFF; Start 04/23/17 at 21:00 Ondansetron HCl (Zofran Inj) 4 mg Q6H PRN IV NAUSEA AND/OR VOMITING; Start at 13:00 Acetaminophen (Tylenol Tab) 650 mg Q6H PRN PO PAIN LEVEL 1-3 OR FEVER; Start at 13:00 Acetaminophen/ Hydrocodone Bitart ([place] (5/325)) 1 tab Q6H PRN PO PAIN LEVEL 4 -6; Start 04/23/17 at 13:00 Morphine Sulfate (morphine) 2 mg Q4H PRN IV PAIN LEVEL 7-10; Start 04/23/17 at 13:00 Magnesium Hydroxide (Milk Of Mag) 30 ml DAILY PRN PO CONSTIPATION; Start at 13:00 Bisacodyl (Dulcolax) 5 mg DAILY PRN PO CONSTIPATION; Start 04/23/17 at 13:00 Atenolol (Tenormin) 25 mg BID PO Last administered on 04/27/17 10:30; Admin Dose 25 MG; Start 04/23/17 at 21:00 Metoprolol Tartrate (Lopressor) 5 mg Q4H PRN IV HR>110 Hold SBP<100; Start at 19:30 Enoxaparin Sodium (Lovenox) 85 mg Q12 SC Last administered on 04/24/17 00:52; Admin Dose 85 MG; Start 04/23/17 at 21:00; Status Future Hold Diagnostic Test (Pha) (Accu-Chek) 1 ea 02 XX ; Start 04/25/17 at 02:00 Miscellaneous Information 1 ea NOTE XX ; Start 04/24/17 at 01:30 Glucose (Glutose) 15 gm Q15M PRN PO DECREASED GLUCOSE; Start 04/24/17 at 01:30 Glucose (Glutose) 22.5 gm Q15M PRN PO DECREASED GLUCOSE; Start 04/24/17 at 01: 30 Dextrose (D50w Syringe) 25 ml Q15M PRN IV DECREASED GLUCOSE; Start 04/24/17 at 01:30 Dextrose (D50w Syringe) 50 ml Q15M PRN IV DECREASED GLUCOSE; Start 04/24/17 at 01:30 Glucagon (Glucagen) 1 mg Q15M PRN IM DECREASED GLUCOSE; Start 04/24/17 at 01:30 Glucose (Glutose) 15 gm Q15M PRN BUCCAL DECREASED GLUCOSE; Start 04/24/17 at 01 :30 Pantoprazole (Protonix Tab) 40 mg BID@06,18 PO Last administered on 04/27/17 05 :55; Admin Dose 40 MG; Start 04/24/17 at 18:00 Sucralfate (Carafate) 1 gm QID PO Last administered on 04/27/17 12:50; Admin Dose 1 GM; Start 04/25/17 at 09:00 Digoxin (Digoxin) 0.125 mg DAILY@13 PO Last administered on 04/27/17 12:49; Admin Dose 0.125 MG; Start 04/26/17 at 13:00 MALIK CANNON MD Apr 27, 2017 15:40
--- NOTE | 2017-04-27 15:57 | RADRPT ---
PROCEDURE: XR Chest 1 view. CLINICAL INDICATION: Shortness of breath. TECHNIQUE: AP views of the chest were obtained. COMPARISON: April 23, 2017 FINDINGS: The heart is large. Calcified atherosclerosis is noted in the aorta. Central pulmonary vascular con gestion and interstitial prominence is seen in both lungs. Bilateral perihilar infiltrates in both lungs have decreased. Minimal residual remains. Small bilateral pleural effusions are noted. Mild bronchial wall thickening and bronchiectasis is noted in both lungs. The osseous structures are oste openic, but appear intact. Degenerative changes are seen in the shoulders. IMPRESSION: Cardiomegaly with calcified atherosclerosis in the aorta. Central pulmonary vascular congestion and interstitial prominence in both lungs. Interval decrease in bilateral perihilar infiltrates in both lungs. Mild residual combined small pl eural effusions remains. Bronchial wall thickening and mild bronchiectasis in both lungs, possibly indicating bronchitis. RPTAT: AA .Red Shaver MD, MD Date Time Electronically viewed and signed by .Red Shaver MD, on 04/27/2017 15:57 .P/
[2017-04-28] VITALS (11 sets, daily range): BP systolic 99–125; BP diastolic 54–76; PULSE 76–151; RESP 18–20
[2017-04-28] MEDS: LEVALBUTEROL (NEB) 0.63 MG/3 ML AMP HHN SCH ×4 (01:47→19:37)
[2017-04-28] MEDS: ACCU-CHEK XX SCH (02:00)
[2017-04-28] MEDS: PANTOPRAZOLE (EC) 40 MG TAB PO SCH ×2 (06:02→17:18)
[2017-04-28] MEDS: FUROSEMIDE 20 MG INJ IV SCH ×2 (06:03→17:23)
[2017-04-28] MEDS: LEVOTHYROXINE 75 MCG TAB PO SCH (06:08)
[2017-04-28 06:48] LABS: ABNORMAL IP MESSAGE 1; BASOPHIL # 0.1 10^3/ul (0.0-0.1); BASOPHILS % 0.9 % (0.0-2.0); EOSINOPHILS # 0.3 10^3/ul (0.0-0.5); EOSINOPHILS % 4.1 % (0.0-7.0); HEMATOCRIT 27.9 % (37.0-47.0); HEMOGLOBIN 9.5 g/dl (12.0-16.0); LYMPHOCYTES # 2.2 10^3/ul (0.8-2.9); LYMPHOCYTES % 31.8 % (15.0-51.0); MEAN CORPUSCULAR HEMOGLOBIN 40.8 pg (29.0-33.0); MEAN CORPUSCULAR HGB CONC 34.1 g/dl (32.0-37.0); MEAN CORPUSCULAR VOLUME 119.7 fl (82.0-101.0); MONOCYTE # 0.4 10^3/ul (0.3-0.9); MONOCYTES % 5.8 % (0.0-11.0); NEUTROPHIL # 3.9 10^3/ul (1.6-7.5); NEUTROPHILS % 56.1 % (39.0-77.0); RED BLOOD COUNT 2.33 10^6/ul (4.20-5.40); RED CELL DISTRIBUTION WIDTH 18.6 % (11.5-14.5); WHITE BLOOD COUNT 6.9 10^3/ul (4.8-10.8)
[2017-04-28 07:04] LABS: PLATELET COUNT 102 10^3/UL (140-415)
[2017-04-28 07:17] LABS: CALCIUM 9.2 mg/dl (8.4-10.2); CREATININE 0.82 mg/dl (0.44-1.00); PHOSPHORUS 4.1 mg/dl (2.5-4.9); POTASSIUM 3.9 mmol/L (3.5-5.1)
[2017-04-28] MEDS: INSULIN ASPART [NOVOLOG] 3 ML PEN SC SCH ×4 (08:00→21:00)
[2017-04-28] MEDS: MOMETASONE 0.24 GM INHALER INH SCH ×2 (09:00→21:33)
[2017-04-28] MEDS: metFORMIN 500 MG TAB PO SCH ×2 (09:19→17:20)
[2017-04-28] MEDS: SUCRALFATE 1 GM TAB PO SCH ×4 (09:19→21:30)
[2017-04-28] MEDS: VITAMIN E 400 UNITS CAP PO SCH (09:20)
[2017-04-28] MEDS: FOLIC ACID 1 MG TAB PO SCH (09:20)
[2017-04-28] MEDS: LORATADINE 10 MG TAB PO SCH (09:20)
[2017-04-28] MEDS: ATENOLOL 25 MG TAB PO SCH ×2 (09:20→21:00)
--- NOTE | 2017-04-28 11:38 | CONS ---
Date/Time of Note Date/Time of Note DATE: 04/28/17 TIME: 11:37 Assessment/Plan Assessment/Plan Additional Assessment/Plan 1.AF with RVR-some mild RVR nl tsh - rate better controlled - discuss with GI team - s/p clip in antrum gastric - high risk bleed - will hold off all anti- coagulation 3 days now. RATE MUCH BETTER CONTROLLED NOW. 2.HTN- well controlled now 3.ABNL ECG-negative trop x 3 - no intervention planned 4.chf-diastolic acute on chronic - stable fluid status. 5.Hypothyroid 6. MS-moderate to severe - per DR. Elder: Patient will require further eval and most probable valvuloplasty versus open repair of MS which can be done as an outpatient. 7. S/p GI bending - no anti-coag now Consultation Date/Type/Reason Admit Date/Time Apr 23, 2017 at 11:03 Initial Consult Date 04/23/17 Type of Consultation: GI Referring Provider: SUMI STONE [employer] 24 HR Interval Summary Free Text/Dictation NO acute events - HR much better now ROS: No fever, no chills, no nausea, no vomiting, no diarrhea/constipation No recent weight changes No chest pain, no PND, no orthopnea No dizziness, blurred vision No thirst, no heat or cold intolerance Exam/Review of Systems Vital Signs Vitals Vital Signs Date Time Temp Pulse Resp B/P Pulse Ox O2 Delivery O2 Flow Rate FiO2 04/28/17 08:43 72 20 95 Nasal Cannula 2.0 04/28/17 07:44 98.5 108/55 04/26/17 19:56 21 Intake and Output 04/27/17 04/27/17 04/28/17 15:00 23:00 07:00 Intake Total 150 ml 800 ml 400 ml Balance 150 ml 800 ml 400 ml Exam General: WN/WD/NAD, AOx 3 HEENT: Unicetric/atraumatic/EOMI (follows commands) NECK: JVD elevated, no thyromegaly Lymph: no lymphadenopathy HEART: Irregular with no S3, II/ systolic murmur at apex LUNGS: Coarse sounds ABD: soft, NT, ND, +BS : Intact Neuro: non focal SKIN: chronic changes EXT: trace edema Results Result Diagram: 04/28/17 0550 04/28/17 0550 Results 24 hrs Laboratory Tests Test 04/27/17 12:48 04/27/17 17:15 04/27/17 21:14 04/28/17 05:50 Bedside Glucose 145 114 148 White Blood Count 6.9 Red Blood Count 2.33 L Hemoglobin 9.5 L Hematocrit 27.9 L Mean Corpuscular Volume 119.7 H Mean Corpuscular Hemoglobin 40.8 H Mean Corpuscular Hemoglobin Concent 34.1 Red Cell Distribution Width 18.6 H Platelet Count 102 #L Mean Platelet Volume Neutrophils % 56.1 Lymphocytes % 31.8 Monocytes % 5.8 Eosinophils % 4.1 Basophils % 0.9 Nucleated Red Blood Cells % 0.0 Neutrophils # 3.9 Lymphocytes # 2.2 Monocytes # 0.4 Eosinophils # 0.3 Basophils # 0.1 Nucleated Red Blood Cells # 0.0 Sodium Level 140 Potassium Level 3.9 Chloride Level 92 L Carbon Dioxide Level 34 H Anion Gap 18 #H Blood Urea Nitrogen 20 Creatinine 0.82 Glucose Level 102 Calcium Level 9.2 Phosphorus Level 4.1 Magnesium Level 2.0 Test 04/28/17 09:05 Bedside Glucose 134 Medications Medications Current Medications Levofloxacin/ Dextrose (Levaquin 750 Mg/ D5W 150 ml (Pmx)) 150 ml @ 100 mls/hr Q24H IVPB Last administered on 04/27/17 10:30; Admin Dose 100 MLS/HR; Start at 11:00 Folic Acid (Folic Acid) 1 mg DAILY PO Last administered on 04/28/17 09:20; Admin Dose 1 MG; Start 04/24/17 at 09:00 Loratadine (Claritin) 10 mg DAILY PO Last administered on 04/28/17 09:20; Admin Dose 10 MG; Start 04/24/17 at 09:00 Vitamin E (Vitamin E) 400 units DAILY PO Last administered on 04/28/17 09:20; Admin Dose 400 UNITS; Start 04/24/17 at 09:00 Mometasone Furoate (Asmanex) 1 puff BID INH Last administered on 04/28/17 09:00 ; Admin Dose 1 PUFF; Start 04/23/17 at 21:00 Ondansetron HCl (Zofran Inj) 4 mg Q6H PRN IV NAUSEA AND/OR VOMITING; Start at 13:00 Acetaminophen (Tylenol Tab) 650 mg Q6H PRN PO PAIN LEVEL 1-3 OR FEVER; Start at 13:00 Acetaminophen/ Hydrocodone Bitart ([place] (5/325)) 1 tab Q6H PRN PO PAIN LEVEL 4 -6; Start 04/23/17 at 13:00 Morphine Sulfate (morphine) 2 mg Q4H PRN IV PAIN LEVEL 7-10; Start 04/23/17 at 13:00 Magnesium Hydroxide (Milk Of Mag) 30 ml DAILY PRN PO CONSTIPATION; Start at 13:00 Bisacodyl (Dulcolax) 5 mg DAILY PRN PO CONSTIPATION; Start 04/23/17 at 13:00 Atenolol (Tenormin) 25 mg BID PO Last administered on 04/28/17 09:20; Admin Dose 25 MG; Start 04/23/17 at 21:00 Metoprolol Tartrate (Lopressor) 5 mg Q4H PRN IV HR>110 Hold SBP<100; Start at 19:30 Enoxaparin Sodium (Lovenox) 85 mg Q12 SC Last administered on 04/24/17 00:52; Admin Dose 85 MG; Start 04/23/17 at 21:00; Status Future Hold Diagnostic Test (Pha) (Accu-Chek) 1 ea 02 XX ; Start 04/25/17 at 02:00 Miscellaneous Information 1 ea NOTE XX ; Start 04/24/17 at 01:30 Glucose (Glutose) 15 gm Q15M PRN PO DECREASED GLUCOSE; Start 04/24/17 at 01:30 Glucose (Glutose) 22.5 gm Q15M PRN PO DECREASED GLUCOSE; Start 04/24/17 at 01: 30 Dextrose (D50w Syringe) 25 ml Q15M PRN IV DECREASED GLUCOSE; Start 04/24/17 at 01:30 Dextrose (D50w Syringe) 50 ml Q15M PRN IV DECREASED GLUCOSE; Start 04/24/17 at 01:30 Glucagon (Glucagen) 1 mg Q15M PRN IM DECREASED GLUCOSE; Start 04/24/17 at 01:30 Glucose (Glutose) 15 gm Q15M PRN BUCCAL DECREASED GLUCOSE; Start 04/24/17 at 01 :30 Pantoprazole (Protonix Tab) 40 mg BID@06,18 PO Last administered on 04/28/17 06 :02; Admin Dose 40 MG; Start 04/24/17 at 18:00 Sucralfate (Carafate) 1 gm QID PO Last administered on 04/28/17 09:19; Admin Dose 1 GM; Start 04/25/17 at 09:00 Digoxin (Digoxin) 0.125 mg DAILY@13 PO Last administered on 04/27/17 12:49; Admin Dose 0.125 MG; Start 04/26/17 at 13:00 MALIK CANNON MD Apr 28, 2017 11:38
[2017-04-28] MEDS: LEVOFLOXACIN 750MG/D5W (PMX) 150 ML IVPB SCH (12:28)
[2017-04-28] MEDS: DIGOXIN 0.125 MG TAB PO SCH (13:08)
--- NOTE | 2017-04-28 14:09 | PN ---
Date/Time of Note Date/Time of Note DATE: 04/28/17 TIME: 14:05 Assessment/Plan VTE Prophylaxis VTE Prophylaxis Intervention: SCD's Lines/Catheters [facility]from [facility] Saline Lock Urinary Cath still in place: No Assessment/Plan Assessment/Plan 1. Atrial fibrillation with rapid ventricular response. Rate controlled. Unable to anticoagulate because of underlying anemia and chronic thrombocytopenia. Cardiology following. 2. Community-acquired pneumonia. The patient will be continued on appropriate antibiotics. 3. Essential hypertension. The patient will be continued on antihypertensives. 4. Type 2 diabetes mellitus. The patient on sliding scale insulin along with basal insulin and pre-meal insulin. Hemoglobin A1c 7.0. 5. Asthma. The patient will be continued on inhaled bronchodilators. 6. Hypothyroidism. The patient will be continued on Synthroid. 7. Acute on chronic diastolic heart failure. Continue diuresis. 8. Moderate mitral stenosis with moderate mitral valve regurgitation. Needs eventual surgical repair. 9. Macrocytic anemia. Esophagogastroduodenoscopy showed esophagitis, multiple small clean-based gastric antral erosions and ulcers and gastropathy. Continue proton pump inhibitors. 10. Chronic thrombocytopenia. Monitor for any signs and symptoms of bleeding. 11. Pulmonary hypertension. PA systolic pressure 40 7-0 Monocryl as per 2D echocardiogram. Most probably secondary to underlying tricuspid regurgitation. 12. Fluids, electrolytes, and nutrition. Carbohydrate controlled diet. 13. Gastrointestinal prophylaxis. Proton pump inhibitors. 14. DVT prophylaxis. Bilateral sequential compression devices. 15. Plan. Continue antibiotics. Continue cardiology recommendations. Avoid any anticoagulation or antiplatelet therapy for at least 2 weeks as per gastroenterology. Repeat chest x-ray showed pulmonary congestion on IV levaquin for PNA on IV lasix 20mg BID for diuresis for CHF will stay in telemetry floor Subjective 24 Hr Interval Summary Free Text/Dictation no acute events, HR controlled, BP runs on low side Exam/Review of Systems Vital Signs Vitals Vital Signs Date Time Temp Pulse Resp B/P Pulse Ox O2 Delivery O2 Flow Rate FiO2 04/28/17 12:00 86 04/28/17 08:43 20 95 Nasal Cannula 2.0 04/28/17 07:44 98.5 108/55 04/26/17 19:56 21 Intake and Output 04/27/17 04/27/17 04/28/17 15:00 23:00 07:00 Intake Total 150 ml 800 ml 400 ml Balance 150 ml 800 ml 400 ml Exam General: no acute distress NECK: JVD elevated, no thyromegaly Lymph: no lymphadenopathy HEART: Ir Irregular with no S3, II/ systolic murmur at apex LUNGS: bilateral basilar crackles ABD: soft, NT, ND, +BS EXT: trace edema Results Result Diagram: 04/28/17 0550 04/28/17 0550 Results 24 hrs Laboratory Tests Test 04/27/17 17:15 04/27/17 21:14 04/28/17 05:50 04/28/17 09:05 Bedside Glucose 114 148 134 White Blood Count 6.9 Red Blood Count 2.33 L Hemoglobin 9.5 L Hematocrit 27.9 L Mean Corpuscular Volume 119.7 H Mean Corpuscular Hemoglobin 40.8 H Mean Corpuscular Hemoglobin Concent 34.1 Red Cell Distribution Width 18.6 H Platelet Count 102 #L Mean Platelet Volume Neutrophils % 56.1 Lymphocytes % 31.8 Monocytes % 5.8 Eosinophils % 4.1 Basophils % 0.9 Nucleated Red Blood Cells % 0.0 Neutrophils # 3.9 Lymphocytes # 2.2 Monocytes # 0.4 Eosinophils # 0.3 Basophils # 0.1 Nucleated Red Blood Cells # 0.0 Sodium Level 140 Potassium Level 3.9 Chloride Level 92 L Carbon Dioxide Level 34 H Anion Gap 18 #H Blood Urea Nitrogen 20 Creatinine 0.82 Glucose Level 102 Calcium Level 9.2 Phosphorus Level 4.1 Magnesium Level 2.0 Test 04/28/17 12:27 Bedside Glucose 115 Medications Medications Current Medications Levofloxacin/ Dextrose (Levaquin 750 Mg/ D5W 150 ml (Pmx)) 150 ml @ 100 mls/hr Q24H IVPB Last administered on 04/28/17 12:28; Admin Dose 100 MLS/HR; Start at 11:00 Folic Acid (Folic Acid) 1 mg DAILY PO Last administered on 04/28/17 09:20; Admin Dose 1 MG; Start 04/24/17 at 09:00 Loratadine (Claritin) 10 mg DAILY PO Last administered on 04/28/17 09:20; Admin Dose 10 MG; Start 04/24/17 at 09:00 Vitamin E (Vitamin E) 400 units DAILY PO Last administered on 04/28/17 09:20; Admin Dose 400 UNITS; Start 04/24/17 at 09:00 Mometasone Furoate (Asmanex) 1 puff BID INH Last administered on 04/28/17 09:00 ; Admin Dose 1 PUFF; Start 04/23/17 at 21:00 Ondansetron HCl (Zofran Inj) 4 mg Q6H PRN IV NAUSEA AND/OR VOMITING; Start at 13:00 Acetaminophen (Tylenol Tab) 650 mg Q6H PRN PO PAIN LEVEL 1-3 OR FEVER; Start at 13:00 Acetaminophen/ Hydrocodone Bitart ([place] (5/325)) 1 tab Q6H PRN PO PAIN LEVEL 4 -6; Start 04/23/17 at 13:00 Morphine Sulfate (morphine) 2 mg Q4H PRN IV PAIN LEVEL 7-10; Start 04/23/17 at 13:00 Magnesium Hydroxide (Milk Of Mag) 30 ml DAILY PRN PO CONSTIPATION; Start at 13:00 Bisacodyl (Dulcolax) 5 mg DAILY PRN PO CONSTIPATION; Start 04/23/17 at 13:00 Atenolol (Tenormin) 25 mg BID PO Last administered on 04/28/17 09:20; Admin Dose 25 MG; Start 04/23/17 at 21:00 Metoprolol Tartrate (Lopressor) 5 mg Q4H PRN IV HR>110 Hold SBP<100; Start at 19:30 Enoxaparin Sodium (Lovenox) 85 mg Q12 SC Last administered on 04/24/17 00:52; Admin Dose 85 MG; Start 04/23/17 at 21:00; Status Future Hold Diagnostic Test (Pha) (Accu-Chek) 1 ea 02 XX ; Start 04/25/17 at 02:00 Miscellaneous Information 1 ea NOTE XX ; Start 04/24/17 at 01:30 Glucose (Glutose) 15 gm Q15M PRN PO DECREASED GLUCOSE; Start 04/24/17 at 01:30 Glucose (Glutose) 22.5 gm Q15M PRN PO DECREASED GLUCOSE; Start 04/24/17 at 01: 30 Dextrose (D50w Syringe) 25 ml Q15M PRN IV DECREASED GLUCOSE; Start 04/24/17 at 01:30 Dextrose (D50w Syringe) 50 ml Q15M PRN IV DECREASED GLUCOSE; Start 04/24/17 at 01:30 Glucagon (Glucagen) 1 mg Q15M PRN IM DECREASED GLUCOSE; Start 04/24/17 at 01:30 Glucose (Glutose) 15 gm Q15M PRN BUCCAL DECREASED GLUCOSE; Start 04/24/17 at 01 :30 Pantoprazole (Protonix Tab) 40 mg BID@06,18 PO Last administered on 04/28/17 06 :02; Admin Dose 40 MG; Start 04/24/17 at 18:00 Sucralfate (Carafate) 1 gm QID PO Last administered on 04/28/17 13:08; Admin Dose 1 GM; Start 04/25/17 at 09:00 Digoxin (Digoxin) 0.125 mg DAILY@13 PO Last administered on 04/28/17 13:08; Admin Dose 0.125 MG; Start 04/26/17 at 13:00 MACK REYES MD Apr 28, 2017 14:08
[2017-04-29] VITALS (15 sets, daily range): BP systolic 91–105; BP diastolic 48–53; PULSE 76–164; RESP 16–21
[2017-04-29] MEDS: LEVALBUTEROL (NEB) 0.63 MG/3 ML AMP HHN SCH ×4 (01:53→19:41)
[2017-04-29] MEDS: ACCU-CHEK XX SCH (02:00)
[2017-04-29] MEDS: PANTOPRAZOLE (EC) 40 MG TAB PO SCH ×2 (05:38→17:30)
[2017-04-29] MEDS: FUROSEMIDE 20 MG INJ IV SCH (05:40)
[2017-04-29 06:51] LABS: ADD SCAN DIFF NO
[2017-04-29 06:55] LABS: ABNORMAL IP MESSAGE 1; BASOPHIL # 0.1 10^3/ul (0.0-0.1); BASOPHILS % 0.8 % (0.0-2.0); EOSINOPHILS # 0.2 10^3/ul (0.0-0.5); EOSINOPHILS % 3.7 % (0.0-7.0); HEMATOCRIT 27.5 % (37.0-47.0); HEMOGLOBIN 9.1 g/dl (12.0-16.0); LYMPHOCYTES # 1.8 10^3/ul (0.8-2.9); LYMPHOCYTES % 28.5 % (15.0-51.0); MEAN CORPUSCULAR HEMOGLOBIN 39.1 pg (29.0-33.0); MEAN CORPUSCULAR HGB CONC 33.1 g/dl (32.0-37.0); MONOCYTE # 0.4 10^3/ul (0.3-0.9); MONOCYTES % 6.3 % (0.0-11.0); NEUTROPHIL # 3.6 10^3/ul (1.6-7.5); NEUTROPHILS % 58.8 % (39.0-77.0); RED BLOOD COUNT 2.33 10^6/ul (4.20-5.40); RED CELL DISTRIBUTION WIDTH 17.7 % (11.5-14.5); WHITE BLOOD COUNT 6.2 10^3/ul (4.8-10.8)
[2017-04-29 07:04] LABS: PLATELET COUNT 93 10^3/UL (140-415)
[2017-04-29 07:08] LABS: INR 1.16; PROTIME 14.9 Sec (12.2-14.2); PT RATIO 1.2
[2017-04-29 07:09] LABS: PARTIAL THROMBOPLASTIN TIME 35.6 Sec (25.0-35.0)
[2017-04-29 07:17] LABS: CALCIUM 9.3 mg/dl (8.4-10.2); CREATININE 0.83 mg/dl (0.44-1.00); POTASSIUM 3.5 mmol/L (3.5-5.1)
[2017-04-29] MEDS: INSULIN ASPART [NOVOLOG] 3 ML PEN SC SCH ×4 (08:00→20:50)
[2017-04-29] MEDS: FOLIC ACID 1 MG TAB PO SCH (09:12)
[2017-04-29] MEDS: SUCRALFATE 1 GM TAB PO SCH ×4 (09:12→20:50)
[2017-04-29] MEDS: LORATADINE 10 MG TAB PO SCH (09:12)
[2017-04-29] MEDS: VITAMIN E 400 UNITS CAP PO SCH (09:12)
[2017-04-29] MEDS: metFORMIN 500 MG TAB PO SCH ×2 (09:12→17:30)
[2017-04-29] MEDS: ATENOLOL 25 MG TAB PO SCH ×2 (09:13→20:49)
[2017-04-29] MEDS: LEVOTHYROXINE 75 MCG TAB PO SCH (09:14)
[2017-04-29] MEDS: MOMETASONE 0.24 GM INHALER INH SCH ×2 (09:14→20:50)
--- NOTE | 2017-04-29 11:02 | CONS ---
Date/Time of Note Date/Time of Note DATE: 04/29/17 TIME: 10:58 Assessment/Plan Assessment/Plan Chief Complaint/Hosp Course Impression: 1. Atrial fibrillation with rapid ventricular response. Rate controlled. Unable to anticoagulate because of underlying anemia and chronic thrombocytopenia. 2. Anemia, need to r/o GIB 3. Essential hypertension. 4. Type 2 diabetes mellitus. 5. Asthma. The patient will be continued on inhaled bronchodilators. 6. Hypothyroidism. The patient will be continued on Synthroid. 7. Macrocytic anemia. Hemoglobin today 7.6. 8. Chronic thrombocytopenia. Monitor for any signs and symptoms of bleeding. 9. s/p EGD on 04-27-17 that showed esophagitis, multiple small clean based gastric antral erosions and ulcers, gastropathy 10. s/p colonoscopy on 04-27-17 that showed ascending colon polyp s/p polypectomy , scattered diverticulosis and moderate sized internal hemorrhoids Recommendations: 1. 1. f/u biopsy results 2. hold anti-platelet and blood thinners for another day if ok with cardiology 3. f/u biopsy results and treat for H. pylori eradication if positive 4. continue protonix 40 mg bid and carafate for at least [address] Wilkinson to resume coverage of this patient for Dr. Sharma tomorrow. Problems: Consultation Date/Type/Reason Admit Date/Time Apr 23, 2017 at 11:03 Initial Consult Date 04/23/17 Type of Consultation: GI Referring Provider: SUMI STONE NP 24 HR Interval Summary Free Text/Dictation resting comfortably, no n/v, no abdominal pain, no melena Exam/Review of Systems Vital Signs Vitals Vital Signs Date Time Temp Pulse Resp B/P Pulse Ox O2 Delivery O2 Flow Rate FiO2 04/29/17 09:06 164 04/29/17 08:18 16 96 21 04/29/17 07:37 98.4 105/50 04/29/17 06:00 Room Air 04/28/17 21:14 2.0 Intake and Output 04/28/17 04/28/17 04/29/17 15:00 23:00 07:00 Intake Total 800 ml 600 ml Output Total 1600 ml Balance 800 ml -1000 ml Exam Constitutional: alert, obese, oriented Psych: nl mood/affect, no complaints Head: atraumatic, normocephalic Eyes: EOMI, nl conjunctiva, nl lids, nl sclera ENMT: mucosa pink and moist, nl external ears & nose, nl lips & teeth, nl nasal mucosa & septum Neck: non-tender, supple Respiratory: clear to auscultation, normal air movement Cardiovascular: nl pulses, regular rate and rhythm Gastrointestinal: bowel sounds, non-tender, soft Results Result Diagram: 04/29/17 0548 04/29/17 0607 Results 24 hrs Laboratory Tests Test 04/28/17 12:27 04/28/17 21:28 04/29/17 02:04 04/29/17 05:48 Bedside Glucose 115 120 115 White Blood Count 6.2 Red Blood Count 2.33 L Hemoglobin 9.1 L Hematocrit 27.5 L Mean Corpuscular Volume 118.0 H Mean Corpuscular Hemoglobin 39.1 H Mean Corpuscular Hemoglobin Concent 33.1 Red Cell Distribution Width 17.7 H Platelet Count 93 L Mean Platelet Volume Neutrophils % 58.8 Lymphocytes % 28.5 Monocytes % 6.3 Eosinophils % 3.7 Basophils % 0.8 Nucleated Red Blood Cells % 0.0 Neutrophils # 3.6 Lymphocytes # 1.8 Monocytes # 0.4 Eosinophils # 0.2 Basophils # 0.1 Nucleated Red Blood Cells # 0.0 Test 04/29/17 06:00 04/29/17 06:07 04/29/17 07:52 Prothrombin Time 14.9 H Prothrombin Time Ratio 1.2 INR International Normalized Ratio 1.16 Activated Partial Thromboplast Time 35.6 H Sodium Level 140 Potassium Level 3.5 Chloride Level 91 L Carbon Dioxide Level 32 H Anion Gap 21 H Blood Urea Nitrogen 21 H Creatinine 0.83 Glucose Level 110 Calcium Level 9.3 Bedside Glucose 121 Medications Medications Current Medications Levofloxacin/ Dextrose (Levaquin 750 Mg/ D5W 150 ml (Pmx)) 150 ml @ 100 mls/hr Q24H IVPB Last administered on 04/28/17 12:28; Admin Dose 100 MLS/HR; Start at 11:00 Folic Acid (Folic Acid) 1 mg DAILY PO Last administered on 04/29/17 09:12; Admin Dose 1 MG; Start 04/24/17 at 09:00 Loratadine (Claritin) 10 mg DAILY PO Last administered on 04/29/17 09:12; Admin Dose 10 MG; Start 04/24/17 at 09:00 Vitamin E (Vitamin E) 400 units DAILY PO Last administered on 04/29/17 09:12; Admin Dose 400 UNITS; Start 04/24/17 at 09:00 Mometasone Furoate (Asmanex) 1 puff BID INH Last administered on 04/29/17 09:14 ; Admin Dose 1 PUFF; Start 04/23/17 at 21:00 Ondansetron HCl (Zofran Inj) 4 mg Q6H PRN IV NAUSEA AND/OR VOMITING; Start at 13:00 Acetaminophen (Tylenol Tab) 650 mg Q6H PRN PO PAIN LEVEL 1-3 OR FEVER; Start at 13:00 Acetaminophen/ Hydrocodone Bitart ([place] (5/325)) 1 tab Q6H PRN PO PAIN LEVEL 4 -6; Start 04/23/17 at 13:00 Morphine Sulfate (morphine) 2 mg Q4H PRN IV PAIN LEVEL 7-10; Start 04/23/17 at 13:00 Magnesium Hydroxide (Milk Of Mag) 30 ml DAILY PRN PO CONSTIPATION; Start at 13:00 Bisacodyl (Dulcolax) 5 mg DAILY PRN PO CONSTIPATION; Start 04/23/17 at 13:00 Atenolol (Tenormin) 25 mg BID PO Last administered on 04/29/17 09:13; Admin Dose 25 MG; Start 04/23/17 at 21:00 Metoprolol Tartrate (Lopressor) 5 mg Q4H PRN IV HR>110 Hold SBP<100; Start at 19:30 Enoxaparin Sodium (Lovenox) 85 mg Q12 SC Last administered on 04/24/17 00:52; Admin Dose 85 MG; Start 04/23/17 at 21:00; Status Future Hold Diagnostic Test (Pha) (Accu-Chek) 1 ea 02 XX ; Start 04/25/17 at 02:00 Miscellaneous Information 1 ea NOTE XX ; Start 04/24/17 at 01:30 Glucose (Glutose) 15 gm Q15M PRN PO DECREASED GLUCOSE; Start 04/24/17 at 01:30 Glucose (Glutose) 22.5 gm Q15M PRN PO DECREASED GLUCOSE; Start 04/24/17 at 01: 30 Dextrose (D50w Syringe) 25 ml Q15M PRN IV DECREASED GLUCOSE; Start 04/24/17 at 01:30 Dextrose (D50w Syringe) 50 ml Q15M PRN IV DECREASED GLUCOSE; Start 04/24/17 at 01:30 Glucagon (Glucagen) 1 mg Q15M PRN IM DECREASED GLUCOSE; Start 04/24/17 at 01:30 Glucose (Glutose) 15 gm Q15M PRN BUCCAL DECREASED GLUCOSE; Start 04/24/17 at 01 :30 Pantoprazole (Protonix Tab) 40 mg BID@06,18 PO Last administered on 04/29/17 05 :38; Admin Dose 40 MG; Start 04/24/17 at 18:00 Sucralfate (Carafate) 1 gm QID PO Last administered on 04/29/17 09:12; Admin Dose 1 GM; Start 04/25/17 at 09:00 Digoxin (Digoxin) 0.125 mg DAILY@13 PO Last administered on 04/28/17 13:08; Admin Dose 0.125 MG; Start 04/26/17 at 13:00 EDWIN RAO MD Apr 29, 2017 11:01
[2017-04-29] MEDS: LEVOFLOXACIN 750MG/D5W (PMX) 150 ML IVPB SCH (12:25)
--- NOTE | 2017-04-29 12:57 | CONS ---
Date/Time of Note Date/Time of Note DATE: 04/29/17 TIME: 12:55 Assessment/Plan Assessment/Plan Additional Assessment/Plan 1.AF with RVR-some mild RVR nl tsh - rate better controlled - discuss with GI team - s/p clip in antrum gastric - high risk bleed - will hold off all anti- coagulation 3 days now. RATE MUCH BETTER CONTROLLED NOW. GI follows - resume anti-coag when OK with GI. 2.HTN- well controlled now 3.ABNL ECG-negative trop x 3 - no intervention planned 4.chf-diastolic acute on chronic - stable fluid status. 5.Hypothyroid 6. MS-moderate to severe - per DR. Elder: Patient will require further eval and most probable valvuloplasty versus open repair of MS which can be done as an outpatient. 7. S/p GI bending - no anti-coag now Consultation Date/Type/Reason Admit Date/Time Apr 23, 2017 at 11:03 Initial Consult Date 04/23/17 Type of Consultation: GI Referring Provider: SUMI STONE NP 24 HR Interval Summary Free Text/Dictation will hold off all anti-coagulation 3 days now. RATE MUCH BETTER CONTROLLED NOW. GI follows - resume anti-coag when OK with GI. ROS: No fever, no chills, no nausea, no vomiting, no diarrhea/constipation No recent weight changes No chest pain, no PND, no orthopnea No dizziness, blurred vision No thirst, no heat or cold intolerance Exam/Review of Systems Vital Signs Vitals Vital Signs Date Time Temp Pulse Resp B/P Pulse Ox O2 Delivery O2 Flow Rate FiO2 04/29/17 12:20 76 04/29/17 11:39 98.0 18 91/51 96 04/29/17 08:18 21 04/29/17 08:10 2.0 04/29/17 06:00 Room Air Intake and Output 04/28/17 04/28/17 04/29/17 15:00 23:00 07:00 Intake Total 800 ml 600 ml Output Total 1600 ml Balance 800 ml -1000 ml Exam General: WN/WD/NAD, AOx 3 HEENT: Unicetric/atraumatic/EOMI (follow commands) NECK: JVD elevated, no thyromegaly Lymph: no lymphadenopathy HEART: Ir Irregular with no S3, II/ systolic murmur at apex LUNGS: Coarse sounds ABD: soft, NT, ND, +BS : Intact Neuro: non focal SKIN: chronic changes EXT: trace edema Results Result Diagram: 04/29/17 0548 04/29/17 0607 Results 24 hrs Laboratory Tests Test 04/28/17 21:28 04/29/17 02:04 04/29/17 05:48 04/29/17 06:00 Bedside Glucose 120 115 White Blood Count 6.2 Red Blood Count 2.33 L Hemoglobin 9.1 L Hematocrit 27.5 L Mean Corpuscular Volume 118.0 H Mean Corpuscular Hemoglobin 39.1 H Mean Corpuscular Hemoglobin Concent 33.1 Red Cell Distribution Width 17.7 H Platelet Count 93 L Mean Platelet Volume Neutrophils % 58.8 Lymphocytes % 28.5 Monocytes % 6.3 Eosinophils % 3.7 Basophils % 0.8 Nucleated Red Blood Cells % 0.0 Neutrophils # 3.6 Lymphocytes # 1.8 Monocytes # 0.4 Eosinophils # 0.2 Basophils # 0.1 Nucleated Red Blood Cells # 0.0 Prothrombin Time 14.9 H Prothrombin Time Ratio 1.2 INR International Normalized Ratio 1.16 Activated Partial Thromboplast Time 35.6 H Test 04/29/17 06:07 04/29/17 07:52 04/29/17 12:24 Sodium Level 140 Potassium Level 3.5 Chloride Level 91 L Carbon Dioxide Level 32 H Anion Gap 21 H Blood Urea Nitrogen 21 H Creatinine 0.83 Glucose Level 110 Calcium Level 9.3 Bedside Glucose 121 125 Medications Medications Current Medications Levofloxacin/ Dextrose (Levaquin 750 Mg/ D5W 150 ml (Pmx)) 150 ml @ 100 mls/hr Q24H IVPB Last administered on 04/29/17 12:25; Admin Dose 100 MLS/HR; Start at 11:00 Folic Acid (Folic Acid) 1 mg DAILY PO Last administered on 04/29/17 09:12; Admin Dose 1 MG; Start 04/24/17 at 09:00 Loratadine (Claritin) 10 mg DAILY PO Last administered on 04/29/17 09:12; Admin Dose 10 MG; Start 04/24/17 at 09:00 Vitamin E (Vitamin E) 400 units DAILY PO Last administered on 04/29/17 09:12; Admin Dose 400 UNITS; Start 04/24/17 at 09:00 Mometasone Furoate (Asmanex) 1 puff BID INH Last administered on 04/29/17 09:14 ; Admin Dose 1 PUFF; Start 04/23/17 at 21:00 Ondansetron HCl (Zofran Inj) 4 mg Q6H PRN IV NAUSEA AND/OR VOMITING; Start at 13:00 Acetaminophen (Tylenol Tab) 650 mg Q6H PRN PO PAIN LEVEL 1-3 OR FEVER; Start at 13:00 Acetaminophen/ Hydrocodone Bitart ([place] (5/325)) 1 tab Q6H PRN PO PAIN LEVEL 4 -6; Start 04/23/17 at 13:00 Morphine Sulfate (morphine) 2 mg Q4H PRN IV PAIN LEVEL 7-10; Start 04/23/17 at 13:00 Magnesium Hydroxide (Milk Of Mag) 30 ml DAILY PRN PO CONSTIPATION; Start at 13:00 Bisacodyl (Dulcolax) 5 mg DAILY PRN PO CONSTIPATION; Start 04/23/17 at 13:00 Atenolol (Tenormin) 25 mg BID PO Last administered on 04/29/17 09:13; Admin Dose 25 MG; Start 04/23/17 at 21:00 Metoprolol Tartrate (Lopressor) 5 mg Q4H PRN IV HR>110 Hold SBP<100; Start at 19:30 Enoxaparin Sodium (Lovenox) 85 mg Q12 SC Last administered on 04/24/17 00:52; Admin Dose 85 MG; Start 04/23/17 at 21:00; Status Future Hold Diagnostic Test (Pha) (Accu-Chek) 1 ea 02 XX ; Start 04/25/17 at 02:00 Miscellaneous Information 1 ea NOTE XX ; Start 04/24/17 at 01:30 Glucose (Glutose) 15 gm Q15M PRN PO DECREASED GLUCOSE; Start 04/24/17 at 01:30 Glucose (Glutose) 22.5 gm Q15M PRN PO DECREASED GLUCOSE; Start 04/24/17 at 01: 30 Dextrose (D50w Syringe) 25 ml Q15M PRN IV DECREASED GLUCOSE; Start 04/24/17 at 01:30 Dextrose (D50w Syringe) 50 ml Q15M PRN IV DECREASED GLUCOSE; Start 04/24/17 at 01:30 Glucagon (Glucagen) 1 mg Q15M PRN IM DECREASED GLUCOSE; Start 04/24/17 at 01:30 Glucose (Glutose) 15 gm Q15M PRN BUCCAL DECREASED GLUCOSE; Start 04/24/17 at 01 :30 Pantoprazole (Protonix Tab) 40 mg BID@06,18 PO Last administered on 04/29/17 05 :38; Admin Dose 40 MG; Start 04/24/17 at 18:00 Sucralfate (Carafate) 1 gm QID PO Last administered on 04/29/17 09:12; Admin Dose 1 GM; Start 04/25/17 at 09:00 Digoxin (Digoxin) 0.125 mg DAILY@13 PO Last administered on 04/28/17 13:08; Admin Dose 0.125 MG; Start 04/26/17 at 13:00 MALIK CANNON MD Apr 29, 2017 12:57
--- NOTE | 2017-04-29 13:33 | PN ---
Date/Time of Note Date/Time of Note DATE: 04/29/17 TIME: 13:25 Assessment/Plan VTE Prophylaxis VTE Prophylaxis Intervention: LMWH Lines/Catheters IV Catheter Type (from Nrs): Saline Lock Assessment/Plan Assessment/Plan 1. Atrial fibrillation with rapid ventricular response. Rate controlled. - intermittenlty goes upto 130-140 2. Community-acquired pneumonia. 3. Essential hypertension. 4. Type 2 diabetes mellitus. 5. Asthma. 6. Hypothyroidism. 7. Acute on chronic diastolic heart failure. on IV lasix diuresis . 8. Moderate mitral stenosis with moderate mitral valve regurgitation. Needs eventual surgical repair. 9. Macrocytic anemia. Esophagogastroduodenoscopy showed esophagitis, multiple small clean-based gastric antral erosions and ulcers and gastropathy. Continue proton pump inhibitors. 10. Chronic thrombocytopenia. Monitor for any signs and symptoms of bleeding. 11. Pulmonary hypertension. PA systolic pressure 40 7-0 Monocryl as per 2D echocardiogram. Most probably secondary to underlying tricuspid regurgitation.pt i son lasix 20mg IV BID 15. Plan. Continue antibiotics. Continue cardiology recommendations. Avoid any anticoagulation or antiplatelet therapy for at least 2 weeks as per gastroenterology. Repeat chest x-ray showed pulmonary congestion- pt is on lasix 20mg IV BID but she becomes tachycardic with ambulation upto 130-140s and BP borderline very low - carol change lasix to 20mg PO BID- cardiology to decide for diuresis on IV levaquin for PNA will stay in telemetry floor Pt anticoagulation has been hold due to GI bleeding and gastric antral ulcer Subjective 24 Hr Interval Summary Free Text/Dictation doing ok, no more GI bleeding, Hb stable Exam/Review of Systems Vital Signs Vitals Vital Signs Date Time Temp Pulse Resp B/P Pulse Ox O2 Delivery O2 Flow Rate FiO2 04/29/17 12:20 76 04/29/17 11:39 98.0 18 91/51 96 04/29/17 08:18 21 04/29/17 08:10 2.0 04/29/17 06:00 Room Air Intake and Output 04/28/17 04/28/17 04/29/17 15:00 23:00 07:00 Intake Total 800 ml 600 ml Output Total 1600 ml Balance 800 ml -1000 ml Exam General: no acute distress NECK: JVD elevated, no thyromegaly Lymph: no lymphadenopathy HEART: Ir Irregular with no S3, II/ systolic murmur at apex LUNGS: bilateral basilar crackles ABD: soft, NT, ND, +BS EXT: trace edema Results Result Diagram: 04/29/17 0548 04/29/17 0607 Results 24 hrs Laboratory Tests Test 04/28/17 21:28 04/29/17 02:04 04/29/17 05:48 04/29/17 06:00 Bedside Glucose 120 115 White Blood Count 6.2 Red Blood Count 2.33 L Hemoglobin 9.1 L Hematocrit 27.5 L Mean Corpuscular Volume 118.0 H Mean Corpuscular Hemoglobin 39.1 H Mean Corpuscular Hemoglobin Concent 33.1 Red Cell Distribution Width 17.7 H Platelet Count 93 L Mean Platelet Volume Neutrophils % 58.8 Lymphocytes % 28.5 Monocytes % 6.3 Eosinophils % 3.7 Basophils % 0.8 Nucleated Red Blood Cells % 0.0 Neutrophils # 3.6 Lymphocytes # 1.8 Monocytes # 0.4 Eosinophils # 0.2 Basophils # 0.1 Nucleated Red Blood Cells # 0.0 Prothrombin Time 14.9 H Prothrombin Time Ratio 1.2 INR International Normalized Ratio 1.16 Activated Partial Thromboplast Time 35.6 H Test 04/29/17 06:07 04/29/17 07:52 04/29/17 12:24 Sodium Level 140 Potassium Level 3.5 Chloride Level 91 L Carbon Dioxide Level 32 H Anion Gap 21 H Blood Urea Nitrogen 21 H Creatinine 0.83 Glucose Level 110 Calcium Level 9.3 Bedside Glucose 121 125 Medications Medications Current Medications Levofloxacin/ Dextrose (Levaquin 750 Mg/ D5W 150 ml (Pmx)) 150 ml @ 100 mls/hr Q24H IVPB Last administered on 04/29/17 12:25; Admin Dose 100 MLS/HR; Start at 11:00 Folic Acid (Folic Acid) 1 mg DAILY PO Last administered on 04/29/17 09:12; Admin Dose 1 MG; Start 04/24/17 at 09:00 Loratadine (Claritin) 10 mg DAILY PO Last administered on 04/29/17 09:12; Admin Dose 10 MG; Start 04/24/17 at 09:00 Vitamin E (Vitamin E) 400 units DAILY PO Last administered on 04/29/17 09:12; Admin Dose 400 UNITS; Start 04/24/17 at 09:00 Mometasone Furoate (Asmanex) 1 puff BID INH Last administered on 04/29/17 09:14 ; Admin Dose 1 PUFF; Start 04/23/17 at 21:00 Ondansetron HCl (Zofran Inj) 4 mg Q6H PRN IV NAUSEA AND/OR VOMITING; Start at 13:00 Acetaminophen (Tylenol Tab) 650 mg Q6H PRN PO PAIN LEVEL 1-3 OR FEVER; Start at 13:00 Acetaminophen/ Hydrocodone Bitart ([place] (5/325)) 1 tab Q6H PRN PO PAIN LEVEL 4 -6; Start 04/23/17 at 13:00 Morphine Sulfate (morphine) 2 mg Q4H PRN IV PAIN LEVEL 7-10; Start 04/23/17 at 13:00 Magnesium Hydroxide (Milk Of Mag) 30 ml DAILY PRN PO CONSTIPATION; Start at 13:00 Bisacodyl (Dulcolax) 5 mg DAILY PRN PO CONSTIPATION; Start 04/23/17 at 13:00 Atenolol (Tenormin) 25 mg BID PO Last administered on 04/29/17 09:13; Admin Dose 25 MG; Start 04/23/17 at 21:00 Metoprolol Tartrate (Lopressor) 5 mg Q4H PRN IV HR>110 Hold SBP<100; Start at 19:30 Enoxaparin Sodium (Lovenox) 85 mg Q12 SC Last administered on 04/24/17 00:52; Admin Dose 85 MG; Start 04/23/17 at 21:00; Status Future Hold Diagnostic Test (Pha) (Accu-Chek) 1 ea 02 XX ; Start 04/25/17 at 02:00 Miscellaneous Information 1 ea NOTE XX ; Start 04/24/17 at 01:30 Glucose (Glutose) 15 gm Q15M PRN PO DECREASED GLUCOSE; Start 04/24/17 at 01:30 Glucose (Glutose) 22.5 gm Q15M PRN PO DECREASED GLUCOSE; Start 04/24/17 at 01: 30 Dextrose (D50w Syringe) 25 ml Q15M PRN IV DECREASED GLUCOSE; Start 04/24/17 at 01:30 Dextrose (D50w Syringe) 50 ml Q15M PRN IV DECREASED GLUCOSE; Start 04/24/17 at 01:30 Glucagon (Glucagen) 1 mg Q15M PRN IM DECREASED GLUCOSE; Start 04/24/17 at 01:30 Glucose (Glutose) 15 gm Q15M PRN BUCCAL DECREASED GLUCOSE; Start 04/24/17 at 01 :30 Pantoprazole (Protonix Tab) 40 mg BID@06,18 PO Last administered on 04/29/17 05 :38; Admin Dose 40 MG; Start 04/24/17 at 18:00 Sucralfate (Carafate) 1 gm QID PO Last administered on 04/29/17 09:12; Admin Dose 1 GM; Start 04/25/17 at 09:00 Digoxin (Digoxin) 0.125 mg DAILY@13 PO Last administered on 04/28/17 13:08; Admin Dose 0.125 MG; Start 04/26/17 at 13:00 MACK REYES MD Apr 29, 2017 13:33
[2017-04-29] MEDS: DIGOXIN 0.125 MG TAB PO SCH (13:44)
--- NOTE | 2017-04-29 15:03 | RADRPT ---
PROCEDURE: XR 1 view Chest. CLINICAL INDICATION: Shortness of breath. TECHNIQUE: Portable Single frontal view of the chest was obtained. COMPARISON: December 30, 2016. FINDINGS: There is mild cardiomegaly. There are moderate aortic calcifications. There is no focal consolidation.The lungs are hypoaerated. No definite previous noted interstitial p rominence. There is no pleural effusion. No pneumothorax is identified. The osseous structures are intact. IMPRESSION: No definite previous noted interstitial prominence. Otherwise no significant change. The lungs are hypoaerated. No evidence for acute cardiopulmonary disease. Mild cardiomegaly with aortic calcifications. Further findings as detailed above. RPTAT: HVF .Yossi Garces MD, MD Date Time Electronically viewed and signed by .Yossi Garces MD, on 04/29/2017 15:02 .F/
[2017-04-29] MEDS: FUROSEMIDE 20 MG TAB PO SCH (17:32)
[2017-04-30] VITALS (11 sets, daily range): BP systolic 93–119; BP diastolic 55–66; PULSE 80–112; RESP 17–18
[2017-04-30] MEDS: ACCU-CHEK XX SCH ×2 (02:00→20:47)
[2017-04-30] MEDS: LEVALBUTEROL (NEB) 0.63 MG/3 ML AMP HHN SCH ×4 (02:05→20:00)
[2017-04-30] MEDS: PANTOPRAZOLE (EC) 40 MG TAB PO SCH ×2 (05:38→17:25)
[2017-04-30] MEDS: LEVOTHYROXINE 75 MCG TAB PO SCH (05:39)
[2017-04-30] MEDS: FUROSEMIDE 20 MG TAB PO SCH ×2 (05:40→17:25)
[2017-04-30 07:32] LABS: ADD SCAN DIFF NO
[2017-04-30 07:37] LABS: ABNORMAL IP MESSAGE 1; BASOPHIL # 0.1 10^3/ul (0.0-0.1); EOSINOPHILS # 0.3 10^3/ul (0.0-0.5); EOSINOPHILS % 5.2 % (0.0-7.0); HEMATOCRIT 26.7 % (37.0-47.0); LYMPHOCYTES # 1.8 10^3/ul (0.8-2.9); LYMPHOCYTES % 36.4 % (15.0-51.0); MEAN CORPUSCULAR HEMOGLOBIN 40.2 pg (29.0-33.0); MEAN CORPUSCULAR HGB CONC 33.7 g/dl (32.0-37.0); MEAN CORPUSCULAR VOLUME 119.2 fl (82.0-101.0); MONOCYTE # 0.3 10^3/ul (0.3-0.9); MONOCYTES % 6.6 % (0.0-11.0); NEUTROPHIL # 2.5 10^3/ul (1.6-7.5); NEUTROPHILS % 49.8 % (39.0-77.0); RED BLOOD COUNT 2.24 10^6/ul (4.20-5.40); RED CELL DISTRIBUTION WIDTH 17.9 % (11.5-14.5)
[2017-04-30 07:42] LABS: PLATELET COUNT 82 10^3/UL (140-415)
[2017-04-30 07:51] LABS: INR 1.16; PROTIME 14.8 Sec (12.2-14.2); PT RATIO 1.2
[2017-04-30 07:52] LABS: PARTIAL THROMBOPLASTIN TIME 35.4 Sec (25.0-35.0)
[2017-04-30 07:58] LABS: MAGNESIUM 2.1 mg/dl (1.7-2.5); PHOSPHORUS 3.8 mg/dl (2.5-4.9)
[2017-04-30] MEDS: INSULIN ASPART [NOVOLOG] 3 ML PEN SC SCH ×4 (08:00→20:47)
[2017-04-30 08:02] LABS: CALCIUM 9.1 mg/dl (8.4-10.2); CREATININE 0.85 mg/dl (0.44-1.00); POTASSIUM 3.7 mmol/L (3.5-5.1)
[2017-04-30] MEDS: SUCRALFATE 1 GM TAB PO SCH ×4 (08:23→20:46)
[2017-04-30] MEDS: VITAMIN E 400 UNITS CAP PO SCH (08:23)
[2017-04-30] MEDS: LORATADINE 10 MG TAB PO SCH (08:23)
[2017-04-30] MEDS: metFORMIN 500 MG TAB PO SCH ×2 (08:24→17:27)
[2017-04-30] MEDS: FOLIC ACID 1 MG TAB PO SCH (08:25)
[2017-04-30] MEDS: MOMETASONE 0.24 GM INHALER INH SCH ×2 (08:25→20:46)
[2017-04-30] MEDS: ATENOLOL 25 MG TAB PO SCH ×2 (08:25→20:46)
[2017-04-30] MEDS: LEVOFLOXACIN 750MG/D5W (PMX) 150 ML IVPB SCH (11:13)
[2017-04-30] MEDS: DIGOXIN 0.125 MG TAB PO SCH (13:15)
--- NOTE | 2017-04-30 13:33 | PN ---
Date/Time of Note Date/Time of Note DATE: 04/30/17 TIME: 13:30 Assessment/Plan VTE Prophylaxis VTE Prophylaxis Intervention: contraindicated VTE Contraindication Reason: bleeding, peptic ulcer disease Lines/Catheters [facility] Urinary Cath still in place: No Assessment/Plan Chief Complaint/Hosp Course Overall better. Atrial fibrillation heart rate is under control. Problems: Assessment/Plan 1. Atrial fibrillation with rapid ventricular response. Rate controlled. - intermittenlty goes upto 130-140 2. Community-acquired pneumonia. 3. Essential hypertension. 4. Type 2 diabetes mellitus. 5. Asthma. 6. Hypothyroidism. 7. Acute on chronic diastolic heart failure. on IV lasix diuresis . 8. Moderate mitral stenosis with moderate mitral valve regurgitation. Needs eventual surgical repair. 9. Macrocytic anemia. Esophagogastroduodenoscopy showed esophagitis, multiple small clean-based gastric antral erosions and ulcers and gastropathy. Continue proton pump inhibitors. 10. Chronic thrombocytopenia. Monitor for any signs and symptoms of bleeding. 11. Pulmonary hypertension. PA systolic pressure 40 7-0 Monocryl as per 2D echocardiogram. Most probably secondary to underlying tricuspid regurgitation.pt i son lasix 20mg IV BID 15. Plan. Continue antibiotics. Continue cardiology recommendations. Avoid any anticoagulation or antiplatelet therapy for at least 2 weeks as per gastroenterology. Repeat chest x-ray showed pulmonary congestion- pt is on lasix 20mg IV BID but she becomes tachycardic with ambulation upto 130-140s and BP borderline very low - carol change lasix to 20mg PO BID- cardiology to decide for diuresis on IV levaquin for PNA will stay in telemetry floor Pt anticoagulation has been hold due to GI bleeding and gastric antral ulcer Subjective 24 Hr Interval Summary Free Text/Dictation Chart reviewed. Events noted. Patient remains in atrial fibrillation however heart rate is well controlled. Exam/Review of Systems Vital Signs Vitals Vital Signs Date Time Temp Pulse Resp B/P Pulse Ox O2 Delivery O2 Flow Rate FiO2 04/30/17 12:29 91 04/30/17 11:43 98.1 17 105/65 97 04/30/17 08:00 Nasal Cannula 2.0 04/30/17 02:05 21 Intake and Output 04/29/17 04/29/17 04/30/17 15:00 23:00 07:00 Intake Total 550 ml Output Total 1550 ml Balance -1000 ml Exam General: no acute distress NECK: JVD elevated, no thyromegaly Lymph: no lymphadenopathy HEART: Ir Irregular with no S3, II/ systolic murmur at apex LUNGS: bilateral basilar crackles ABD: soft, NT, ND, +BS EXT: trace edema Results Result Diagram: 04/30/17 0700 04/30/17 0700 Results 24 hrs Laboratory Tests Test 04/29/17 17:15 04/29/17 20:31 04/30/17 07:00 04/30/17 07:58 Bedside Glucose 151 132 129 White Blood Count 5.0 Red Blood Count 2.24 L Hemoglobin 9.0 L Hematocrit 26.7 L Mean Corpuscular Volume 119.2 H Mean Corpuscular Hemoglobin 40.2 H Mean Corpuscular Hemoglobin Concent 33.7 Red Cell Distribution Width 17.9 H Platelet Count 82 L Mean Platelet Volume Neutrophils % 49.8 Lymphocytes % 36.4 Monocytes % 6.6 Eosinophils % 5.2 Basophils % 1.0 Nucleated Red Blood Cells % 0.0 Neutrophils # 2.5 Lymphocytes # 1.8 Monocytes # 0.3 Eosinophils # 0.3 Basophils # 0.1 Nucleated Red Blood Cells # 0.0 Prothrombin Time 14.8 H Prothrombin Time Ratio 1.2 INR International Normalized Ratio 1.16 Activated Partial Thromboplast Time 35.4 H Sodium Level 139 Potassium Level 3.7 Chloride Level 93 L Carbon Dioxide Level 32 H Anion Gap 18 H Blood Urea Nitrogen 20 Creatinine 0.85 Glucose Level 108 Calcium Level 9.1 Phosphorus Level 3.8 Magnesium Level 2.1 Test 04/30/17 11:49 Bedside Glucose 111 Medications Medications Current Medications Levofloxacin/ Dextrose (Levaquin 750 Mg/ D5W 150 ml (Pmx)) 150 ml @ 100 mls/hr Q24H IVPB Last administered on 04/30/17 11:13; Admin Dose 100 MLS/HR; Start at 11:00 Folic Acid (Folic Acid) 1 mg DAILY PO Last administered on 04/30/17 08:25; Admin Dose 1 MG; Start 04/24/17 at 09:00 Loratadine (Claritin) 10 mg DAILY PO Last administered on 04/30/17 08:23; Admin Dose 10 MG; Start 04/24/17 at 09:00 Vitamin E (Vitamin E) 400 units DAILY PO Last administered on 04/30/17 08:23; Admin Dose 400 UNITS; Start 04/24/17 at 09:00 Mometasone Furoate (Asmanex) 1 puff BID INH Last administered on 04/30/17 08:25 ; Admin Dose 1 PUFF; Start 04/23/17 at 21:00 Ondansetron HCl (Zofran Inj) 4 mg Q6H PRN IV NAUSEA AND/OR VOMITING; Start at 13:00 Acetaminophen (Tylenol Tab) 650 mg Q6H PRN PO PAIN LEVEL 1-3 OR FEVER; Start at 13:00 Acetaminophen/ Hydrocodone Bitart ([place] (5/325)) 1 tab Q6H PRN PO PAIN LEVEL 4 -6; Start 04/23/17 at 13:00 Morphine Sulfate (morphine) 2 mg Q4H PRN IV PAIN LEVEL 7-10; Start 04/23/17 at 13:00 Magnesium Hydroxide (Milk Of Mag) 30 ml DAILY PRN PO CONSTIPATION; Start at 13:00 Bisacodyl (Dulcolax) 5 mg DAILY PRN PO CONSTIPATION; Start 04/23/17 at 13:00 Atenolol (Tenormin) 25 mg BID PO Last administered on 04/29/17 09:13; Admin Dose 25 MG; Start 04/23/17 at 21:00 Metoprolol Tartrate (Lopressor) 5 mg Q4H PRN IV HR>110 Hold SBP<100; Start at 19:30 Diagnostic Test (Pha) (Accu-Chek) 1 ea 02 XX ; Start 04/25/17 at 02:00 Miscellaneous Information 1 ea NOTE XX ; Start 04/24/17 at 01:30 Glucose (Glutose) 15 gm Q15M PRN PO DECREASED GLUCOSE; Start 04/24/17 at 01:30 Glucose (Glutose) 22.5 gm Q15M PRN PO DECREASED GLUCOSE; Start 04/24/17 at 01: 30 Dextrose (D50w Syringe) 25 ml Q15M PRN IV DECREASED GLUCOSE; Start 04/24/17 at 01:30 Dextrose (D50w Syringe) 50 ml Q15M PRN IV DECREASED GLUCOSE; Start 04/24/17 at 01:30 Glucagon (Glucagen) 1 mg Q15M PRN IM DECREASED GLUCOSE; Start 04/24/17 at 01:30 Glucose (Glutose) 15 gm Q15M PRN BUCCAL DECREASED GLUCOSE; Start 04/24/17 at 01 :30 Pantoprazole (Protonix Tab) 40 mg BID@06,18 PO Last administered on 04/30/17 05 :38; Admin Dose 40 MG; Start 04/24/17 at 18:00 Sucralfate (Carafate) 1 gm QID PO Last administered on 04/30/17 13:15; Admin Dose 1 GM; Start 04/25/17 at 09:00 Digoxin (Digoxin) 0.125 mg DAILY@13 PO Last administered on 04/30/17 13:15; Admin Dose 0.125 MG; Start 04/26/17 at 13:00 ORSA BROWN MD Apr 30, 2017 13:32
--- NOTE | 2017-04-30 15:45 | CONS ---
Date/Time of Note Date/Time of Note DATE: 04/30/17 TIME: 15:40 Assessment/Plan Assessment/Plan Chief Complaint/Hosp Course IMP: 1.AF with RVR-some recurrent RVR 2.htn 3.ABNL ECG-negative trop x 3 4.chf-diastolic acute on chronic 5.Hypothyroid 6. MS-moderate to severe 7. Gastric ulcer by EGD s/p clipping Recc: -Tele -Continue lasix diuresis -continue atenolol and will reduce hold parameters as well held today -Patient will require further eval and most probable valvuloplasty versus open repair of MS which can be done as an outpatient. -Resume systemic anti-coag when ok per GI Problems: Consultation Date/Type/Reason Admit Date/Time Apr 23, 2017 at 11:03 Initial Consult Date 04/23/17 Type of Consultation: Cardiology Reason for Consultation AF Referring Provider: SUMI STONE [employer]LO[employer] PRESIDENT Exam/Review of Systems Vital Signs Vitals Vital Signs Date Time Temp Pulse Resp B/P Pulse Ox O2 Delivery O2 Flow Rate FiO2 04/30/17 12:29 91 04/30/17 11:43 98.1 17 105/65 97 04/30/17 08:00 Nasal Cannula 2.0 04/30/17 02:05 21 Intake and Output 04/29/17 04/29/17 04/30/17 15:00 23:00 07:00 Intake Total 550 ml Output Total 1550 ml Balance -1000 ml Exam Review of Systems: CONSTITUTIONAL: No fevers, chills. PULMONARY: No sob CARDIOVASCULAR: No chest pain/palpitations GASTROINTESTINAL: C/O abd pain GENITOURINARY: No hematuria/dysuria. MUSCULOSKELETAL: No myagias/arthalgias. PSYCHIATRIC: The patient denies depression. NEUROLOGIC: No weakness Constitutional: alert Psych: no complaints Head: normocephalic ENMT: mucosa pink and moist Neck: jvd (8 cm water), supple Respiratory: diminished breath sounds (at bases/B) Cardiovascular: regular rate and rhythm Gastrointestinal: non-tender, soft Musculoskeletal: muscle tone (normal) Extremities: edema (none) Neurological: other (No focal deficits) Results Result Diagram: 04/30/17 0700 04/30/17 0700 Results 24 hrs Laboratory Tests Test 04/29/17 17:15 04/29/17 20:31 04/30/17 07:00 04/30/17 07:58 Bedside Glucose 151 132 129 White Blood Count 5.0 Red Blood Count 2.24 L Hemoglobin 9.0 L Hematocrit 26.7 L Mean Corpuscular Volume 119.2 H Mean Corpuscular Hemoglobin 40.2 H Mean Corpuscular Hemoglobin Concent 33.7 Red Cell Distribution Width 17.9 H Platelet Count 82 L Mean Platelet Volume Neutrophils % 49.8 Lymphocytes % 36.4 Monocytes % 6.6 Eosinophils % 5.2 Basophils % 1.0 Nucleated Red Blood Cells % 0.0 Neutrophils # 2.5 Lymphocytes # 1.8 Monocytes # 0.3 Eosinophils # 0.3 Basophils # 0.1 Nucleated Red Blood Cells # 0.0 Prothrombin Time 14.8 H Prothrombin Time Ratio 1.2 INR International Normalized Ratio 1.16 Activated Partial Thromboplast Time 35.4 H Sodium Level 139 Potassium Level 3.7 Chloride Level 93 L Carbon Dioxide Level 32 H Anion Gap 18 H Blood Urea Nitrogen 20 Creatinine 0.85 Glucose Level 108 Calcium Level 9.1 Phosphorus Level 3.8 Magnesium Level 2.1 Test 04/30/17 11:49 Bedside Glucose 111 Medications Medications Current Medications Levofloxacin/ Dextrose (Levaquin 750 Mg/ D5W 150 ml (Pmx)) 150 ml @ 100 mls/hr Q24H IVPB Last administered on 04/30/17 11:13; Admin Dose 100 MLS/HR; Start at 11:00 Folic Acid (Folic Acid) 1 mg DAILY PO Last administered on 04/30/17 08:25; Admin Dose 1 MG; Start 04/24/17 at 09:00 Loratadine (Claritin) 10 mg DAILY PO Last administered on 04/30/17 08:23; Admin Dose 10 MG; Start 04/24/17 at 09:00 Vitamin E (Vitamin E) 400 units DAILY PO Last administered on 04/30/17 08:23; Admin Dose 400 UNITS; Start 04/24/17 at 09:00 Mometasone Furoate (Asmanex) 1 puff BID INH Last administered on 04/30/17 08:25 ; Admin Dose 1 PUFF; Start 04/23/17 at 21:00 Ondansetron HCl (Zofran Inj) 4 mg Q6H PRN IV NAUSEA AND/OR VOMITING; Start at 13:00 Acetaminophen (Tylenol Tab) 650 mg Q6H PRN PO PAIN LEVEL 1-3 OR FEVER; Start at 13:00 Acetaminophen/ Hydrocodone Bitart ([place] (5/325)) 1 tab Q6H PRN PO PAIN LEVEL 4 -6; Start 04/23/17 at 13:00 Morphine Sulfate (morphine) 2 mg Q4H PRN IV PAIN LEVEL 7-10; Start 04/23/17 at 13:00 Magnesium Hydroxide (Milk Of Mag) 30 ml DAILY PRN PO CONSTIPATION; Start at 13:00 Bisacodyl (Dulcolax) 5 mg DAILY PRN PO CONSTIPATION; Start 04/23/17 at 13:00 Atenolol (Tenormin) 25 mg BID PO Last administered on 04/29/17 09:13; Admin Dose 25 MG; Start 04/23/17 at 21:00 Metoprolol Tartrate (Lopressor) 5 mg Q4H PRN IV HR>110 Hold SBP<100; Start at 19:30 Diagnostic Test (Pha) (Accu-Chek) 1 ea 02 XX ; Start 04/25/17 at 02:00 Miscellaneous Information 1 ea NOTE XX ; Start 04/24/17 at 01:30 Glucose (Glutose) 15 gm Q15M PRN PO DECREASED GLUCOSE; Start 04/24/17 at 01:30 Glucose (Glutose) 22.5 gm Q15M PRN PO DECREASED GLUCOSE; Start 04/24/17 at 01: 30 Dextrose (D50w Syringe) 25 ml Q15M PRN IV DECREASED GLUCOSE; Start 04/24/17 at 01:30 Dextrose (D50w Syringe) 50 ml Q15M PRN IV DECREASED GLUCOSE; Start 04/24/17 at 01:30 Glucagon (Glucagen) 1 mg Q15M PRN IM DECREASED GLUCOSE; Start 04/24/17 at 01:30 Glucose (Glutose) 15 gm Q15M PRN BUCCAL DECREASED GLUCOSE; Start 04/24/17 at 01 :30 Pantoprazole (Protonix Tab) 40 mg BID@06,18 PO Last administered on 04/30/17 05 :38; Admin Dose 40 MG; Start 04/24/17 at 18:00 Sucralfate (Carafate) 1 gm QID PO Last administered on 04/30/17 13:15; Admin Dose 1 GM; Start 04/25/17 at 09:00 Digoxin (Digoxin) 0.125 mg DAILY@13 PO Last administered on 04/30/17 13:15; Admin Dose 0.125 MG; Start 04/26/17 at 13:00 DICK BUCIO Apr 30, 2017 15:45
--- NOTE | 2017-04-30 15:55 | PN ---
Date/Time of Note Date/Time of Note DATE: 04/30/17 TIME: 15:49 Assessment/Plan VTE Prophylaxis VTE Prophylaxis Intervention: ambulation Lines/Catheters [facility] Urinary Cath still in place: No Assessment/Plan Assessment/Plan 1. Atrial fibrillation with rapid ventricular response. Rate controlled. Unable to anticoagulate because of underlying anemia and chronic thrombocytopenia. 2. Anemia, 3. Essential hypertension. 4. Type 2 diabetes mellitus. 5. Asthma. The patient will be continued on inhaled bronchodilators. 6. Hypothyroidism. The patient will be continued on Synthroid. 7. Macrocytic anemia. Hemoglobin today 9 8. Chronic thrombocytopenia. Monitor for any signs and symptoms of bleeding. 9. s/p EGD on 04-27-17 that showed esophagitis, multiple small clean based gastric antral erosions and ulcers, gastropathy 10. s/p colonoscopy on 04-27-17 that showed ascending colon polyp s/p polypectomy , scattered diverticulosis and moderate sized internal hemorrhoids Plan * continue present management * further orders will depend on clinical course * case discussed with Dr Sharma and Dr Wilkinson * will await biopsy results Subjective 24 Hr Interval Summary Free Text/Dictation * course reviewed with RN * Patient seen and examined * Awaiting biopsy result * latest hemoglobin 9 Exam/Review of Systems Vital Signs Vitals Vital Signs Date Time Temp Pulse Resp B/P Pulse Ox O2 Delivery O2 Flow Rate FiO2 04/30/17 12:29 91 04/30/17 11:43 98.1 17 105/65 97 04/30/17 08:00 Nasal Cannula 2.0 04/30/17 02:05 21 Intake and Output 04/29/17 04/29/17 04/30/17 15:00 23:00 07:00 Intake Total 550 ml Output Total 1550 ml Balance -1000 ml Exam Constitutional: alert, oriented Head: normocephalic Eyes: nl conjunctiva Neck: non-tender, supple Respiratory: clear to auscultation, normal air movement Cardiovascular: nl pulses, regular rate and rhythm Gastrointestinal: nl liver, spleen, non-tender, soft Musculoskeletal: nl extremities to inspection, nl gait and stance Extremities: normal pulses Neurological: nl mental status, nl speech, nl strength Skin: nl turgor, No rash or lesions Results Result Diagram: 04/30/17 0700 04/30/17 0700 Results 24 hrs Laboratory Tests Test 04/29/17 17:15 04/29/17 20:31 04/30/17 07:00 04/30/17 07:58 Bedside Glucose 151 132 129 White Blood Count 5.0 Red Blood Count 2.24 L Hemoglobin 9.0 L Hematocrit 26.7 L Mean Corpuscular Volume 119.2 H Mean Corpuscular Hemoglobin 40.2 H Mean Corpuscular Hemoglobin Concent 33.7 Red Cell Distribution Width 17.9 H Platelet Count 82 L Mean Platelet Volume Neutrophils % 49.8 Lymphocytes % 36.4 Monocytes % 6.6 Eosinophils % 5.2 Basophils % 1.0 Nucleated Red Blood Cells % 0.0 Neutrophils # 2.5 Lymphocytes # 1.8 Monocytes # 0.3 Eosinophils # 0.3 Basophils # 0.1 Nucleated Red Blood Cells # 0.0 Prothrombin Time 14.8 H Prothrombin Time Ratio 1.2 INR International Normalized Ratio 1.16 Activated Partial Thromboplast Time 35.4 H Sodium Level 139 Potassium Level 3.7 Chloride Level 93 L Carbon Dioxide Level 32 H Anion Gap 18 H Blood Urea Nitrogen 20 Creatinine 0.85 Glucose Level 108 Calcium Level 9.1 Phosphorus Level 3.8 Magnesium Level 2.1 Test 04/30/17 11:49 Bedside Glucose 111 Medications Medications Current Medications Levofloxacin/ Dextrose (Levaquin 750 Mg/ D5W 150 ml (Pmx)) 150 ml @ 100 mls/hr Q24H IVPB Last administered on 04/30/17 11:13; Admin Dose 100 MLS/HR; Start at 11:00 Folic Acid (Folic Acid) 1 mg DAILY PO Last administered on 04/30/17 08:25; Admin Dose 1 MG; Start 04/24/17 at 09:00 Loratadine (Claritin) 10 mg DAILY PO Last administered on 04/30/17 08:23; Admin Dose 10 MG; Start 04/24/17 at 09:00 Vitamin E (Vitamin E) 400 units DAILY PO Last administered on 04/30/17 08:23; Admin Dose 400 UNITS; Start 04/24/17 at 09:00 Mometasone Furoate (Asmanex) 1 puff BID INH Last administered on 04/30/17 08:25 ; Admin Dose 1 PUFF; Start 04/23/17 at 21:00 Ondansetron HCl (Zofran Inj) 4 mg Q6H PRN IV NAUSEA AND/OR VOMITING; Start at 13:00 Acetaminophen (Tylenol Tab) 650 mg Q6H PRN PO PAIN LEVEL 1-3 OR FEVER; Start at 13:00 Acetaminophen/ Hydrocodone Bitart ([place] (5/325)) 1 tab Q6H PRN PO PAIN LEVEL 4 -6; Start 04/23/17 at 13:00 Morphine Sulfate (morphine) 2 mg Q4H PRN IV PAIN LEVEL 7-10; Start 04/23/17 at 13:00 Magnesium Hydroxide (Milk Of Mag) 30 ml DAILY PRN PO CONSTIPATION; Start at 13:00 Bisacodyl (Dulcolax) 5 mg DAILY PRN PO CONSTIPATION; Start 04/23/17 at 13:00 Atenolol (Tenormin) 25 mg BID PO Last administered on 04/29/17 09:13; Admin Dose 25 MG; Start 04/23/17 at 21:00 Metoprolol Tartrate (Lopressor) 5 mg Q4H PRN IV HR>110 Hold SBP<100; Start at 19:30 Diagnostic Test (Pha) (Accu-Chek) 1 ea 02 XX ; Start 04/25/17 at 02:00 Miscellaneous Information 1 ea NOTE XX ; Start 04/24/17 at 01:30 Glucose (Glutose) 15 gm Q15M PRN PO DECREASED GLUCOSE; Start 04/24/17 at 01:30 Glucose (Glutose) 22.5 gm Q15M PRN PO DECREASED GLUCOSE; Start 04/24/17 at 01: 30 Dextrose (D50w Syringe) 25 ml Q15M PRN IV DECREASED GLUCOSE; Start 04/24/17 at 01:30 Dextrose (D50w Syringe) 50 ml Q15M PRN IV DECREASED GLUCOSE; Start 04/24/17 at 01:30 Glucagon (Glucagen) 1 mg Q15M PRN IM DECREASED GLUCOSE; Start 04/24/17 at 01:30 Glucose (Glutose) 15 gm Q15M PRN BUCCAL DECREASED GLUCOSE; Start 04/24/17 at 01 :30 Pantoprazole (Protonix Tab) 40 mg BID@06,18 PO Last administered on 04/30/17 05 :38; Admin Dose 40 MG; Start 04/24/17 at 18:00 Sucralfate (Carafate) 1 gm QID PO Last administered on 04/30/17 13:15; Admin Dose 1 GM; Start 04/25/17 at 09:00 Digoxin (Digoxin) 0.125 mg DAILY@13 PO Last administered on 04/30/17 13:15; Admin Dose 0.125 MG; Start 04/26/17 at 13:00 PRESTON VELÁZQUEZ NP Apr 30, 2017 15:55
[2017-05-01] VITALS (13 sets, daily range): BP systolic 93–108; BP diastolic 49–62; PULSE 76–101; RESP 16–19
[2017-05-01] MEDS: LEVALBUTEROL (NEB) 0.63 MG/3 ML AMP HHN SCH ×4 (00:56→19:17)
[2017-05-01] MEDS: FUROSEMIDE 20 MG TAB PO SCH ×2 (06:32→17:18)
[2017-05-01] MEDS: PANTOPRAZOLE (EC) 40 MG TAB PO SCH ×2 (06:32→17:17)
[2017-05-01] MEDS: LEVOTHYROXINE 75 MCG TAB PO SCH (06:32)
[2017-05-01] MEDS: MOMETASONE 0.24 GM INHALER INH SCH ×2 (08:53→21:00)
[2017-05-01] MEDS: metFORMIN 500 MG TAB PO SCH ×2 (08:53→17:18)
[2017-05-01] MEDS: SUCRALFATE 1 GM TAB PO SCH ×4 (08:53→21:16)
[2017-05-01] MEDS: FOLIC ACID 1 MG TAB PO SCH (08:54)
[2017-05-01] MEDS: ATENOLOL 25 MG TAB PO SCH ×2 (08:54→21:16)
[2017-05-01] MEDS: VITAMIN E 400 UNITS CAP PO SCH (08:54)
[2017-05-01] MEDS: LORATADINE 10 MG TAB PO SCH (08:54)
[2017-05-01] MEDS: INSULIN ASPART [NOVOLOG] 3 ML PEN SC SCH ×4 (09:20→21:00)
[2017-05-01] MEDS: LEVOFLOXACIN 750MG/D5W (PMX) 150 ML IVPB SCH (11:36)
--- NOTE | 2017-05-01 12:46 | CONS ---
Date/Time of Note Date/Time of Note DATE: 05/01/17 TIME: 12:43 Assessment/Plan Assessment/Plan Chief Complaint/Hosp Course IMP: 1.AF with RVR-some recurrent RVR 2.htn 3.ABNL ECG-negative trop x 3 4.chf-diastolic acute on chronic 5.Hypothyroid 6. MS-moderate to severe 7. Gastric ulcer by EGD s/p clipping Recc: -Tele -Continue lasix diuresis -continue atenolol will well controlled HR's -Patient will require further eval and most probable valvuloplasty versus open repair of MS which can be done as an outpatient. -Resume systemic anti-coag when ok per GI with per GI note ok to resume 1-2 days and per primary note need to wait 2 weeks -Contineu PPI and sucralfate Problems: Consultation Date/Type/Reason Admit Date/Time Apr 23, 2017 at 11:03 Initial Consult Date 04/23/17 Type of Consultation: Cardiology Reason for Consultation AF Referring Provider: SUMI STONE [employer]OY[employer] ADVISOR Exam/Review of Systems Vital Signs Vitals Vital Signs Date Time Temp Pulse Resp B/P Pulse Ox O2 Delivery O2 Flow Rate FiO2 05/01/17 12:24 98.0 78 18 101/57 98 05/01/17 08:53 Nasal Cannula 2.0 05/01/17 07:26 21 Intake and Output 04/30/17 04/30/17 05/01/17 15:00 23:00 07:00 Intake Total 650 ml Balance 650 ml Exam Review of Systems: CONSTITUTIONAL: No fevers, chills. PULMONARY: No sob CARDIOVASCULAR: No chest pain/palpitations GASTROINTESTINAL: No nausea/vomiting. GENITOURINARY: No hematuria/dysuria. MUSCULOSKELETAL: No myagias/arthalgias. PSYCHIATRIC: The patient denies depression. NEUROLOGIC: No weakness Constitutional: alert Psych: no complaints Head: normocephalic ENMT: mucosa pink and moist Neck: supple Respiratory: clear to auscultation Cardiovascular: irregular rhythm Gastrointestinal: non-tender, soft Musculoskeletal: muscle tone (normal) Extremities: edema (none) Neurological: other (No focal deficits) Results Result Diagram: 04/30/17 0700 04/30/17 0700 Results 24 hrs Laboratory Tests Test 04/30/17 17:15 04/30/17 20:44 05/01/17 08:52 05/01/17 11:36 Bedside Glucose 129 171 155 129 Medications Medications Current Medications Levofloxacin/ Dextrose (Levaquin 750 Mg/ D5W 150 ml (Pmx)) 150 ml @ 100 mls/hr Q24H IVPB Last administered on 05/01/17 11:36; Admin Dose 100 MLS/HR; Start at 11:00 Folic Acid (Folic Acid) 1 mg DAILY PO Last administered on 05/01/17 08:54; Admin Dose 1 MG; Start 04/24/17 at 09:00 Loratadine (Claritin) 10 mg DAILY PO Last administered on 05/01/17 08:54; Admin Dose 10 MG; Start 04/24/17 at 09:00 Vitamin E (Vitamin E) 400 units DAILY PO Last administered on 05/01/17 08:54; Admin Dose 400 UNITS; Start 04/24/17 at 09:00 Mometasone Furoate (Asmanex) 1 puff BID INH Last administered on 05/01/17 08:53 ; Admin Dose 1 PUFF; Start 04/23/17 at 21:00 Ondansetron HCl (Zofran Inj) 4 mg Q6H PRN IV NAUSEA AND/OR VOMITING; Start at 13:00 Acetaminophen (Tylenol Tab) 650 mg Q6H PRN PO PAIN LEVEL 1-3 OR FEVER; Start at 13:00 Acetaminophen/ Hydrocodone Bitart ([place] (5/325)) 1 tab Q6H PRN PO PAIN LEVEL 4 -6; Start 04/23/17 at 13:00 Morphine Sulfate (morphine) 2 mg Q4H PRN IV PAIN LEVEL 7-10; Start 04/23/17 at 13:00 Magnesium Hydroxide (Milk Of Mag) 30 ml DAILY PRN PO CONSTIPATION; Start at 13:00 Bisacodyl (Dulcolax) 5 mg DAILY PRN PO CONSTIPATION; Start 04/23/17 at 13:00 Atenolol (Tenormin) 25 mg BID PO Last administered on 05/01/17 08:54; Admin Dose 25 MG; Start 04/23/17 at 21:00 Metoprolol Tartrate (Lopressor) 5 mg Q4H PRN IV HR>110 Hold SBP<100; Start at 19:30 Diagnostic Test (Pha) (Accu-Chek) 1 ea 02 XX ; Start 04/25/17 at 02:00 Miscellaneous Information 1 ea NOTE XX ; Start 04/24/17 at 01:30 Glucose (Glutose) 15 gm Q15M PRN PO DECREASED GLUCOSE; Start 04/24/17 at 01:30 Glucose (Glutose) 22.5 gm Q15M PRN PO DECREASED GLUCOSE; Start 04/24/17 at 01: 30 Dextrose (D50w Syringe) 25 ml Q15M PRN IV DECREASED GLUCOSE; Start 04/24/17 at 01:30 Dextrose (D50w Syringe) 50 ml Q15M PRN IV DECREASED GLUCOSE; Start 04/24/17 at 01:30 Glucagon (Glucagen) 1 mg Q15M PRN IM DECREASED GLUCOSE; Start 04/24/17 at 01:30 Glucose (Glutose) 15 gm Q15M PRN BUCCAL DECREASED GLUCOSE; Start 04/24/17 at 01 :30 Pantoprazole (Protonix Tab) 40 mg BID@06,18 PO Last administered on 05/01/17 06 :32; Admin Dose 40 MG; Start 04/24/17 at 18:00 Sucralfate (Carafate) 1 gm QID PO Last administered on 05/01/17 08:53; Admin Dose 1 GM; Start 04/25/17 at 09:00 Digoxin (Digoxin) 0.125 mg DAILY@13 PO Last administered on 04/30/17 13:15; Admin Dose 0.125 MG; Start 04/26/17 at 13:00 DICK BUCIO May 01, 2017 12:46
--- NOTE | 2017-05-01 13:22 | PN ---
Date/Time of Note Date/Time of Note DATE: 05/01/17 TIME: 13:20 Assessment/Plan VTE Prophylaxis VTE Prophylaxis Intervention: SCD's Lines/Catheters IV C[facility]ter Type ([facility] Saline Lock Urinary Cath still in place: No Assessment/Plan Chief Complaint/Hosp Course Overall better. Atrial fibrillation heart rate is under control. Problems: Assessment/Plan 1. Atrial fibrillation with rapid ventricular response. Rate controlled. - intermittenlty goes upto 130-140 2. Community-acquired pneumonia. 3. Essential hypertension. 4. Type 2 diabetes mellitus. 5. Asthma. 6. Hypothyroidism. 7. Acute on chronic diastolic heart failure. on IV lasix diuresis . 8. Moderate mitral stenosis with moderate mitral valve regurgitation. Needs eventual surgical repair. 9. Macrocytic anemia. Esophagogastroduodenoscopy showed esophagitis, multiple small clean-based gastric antral erosions and ulcers and gastropathy. Continue proton pump inhibitors. 10. Chronic thrombocytopenia. Monitor for any signs and symptoms of bleeding. 11. Pulmonary hypertension. PA systolic pressure 40 7-0 Monocryl as per 2D echocardiogram. Most probably secondary to underlying tricuspid regurgitation.pt i son lasix 20mg IV BID 15. Plan. Continue antibiotics. Continue cardiology recommendations. Repeat chest x-ray showed pulmonary congestion- pt is on lasix 20mg IV BID but she becomes tachycardic with ambulation upto 130-140s and BP borderline very low - carol change lasix to 20mg PO BID- cardiology to decide for diuresis on IV levaquin for PNA will stay in telemetry floor Pt anticoagulation has been hold due to GI bleeding and gastric antral ulcer Start anticoagulation when okay with GI. Cardiology follow-up noted regarding valvuloplasty Subjective 24 Hr Interval Summary Free Text/Dictation Chart reviewed. Patient on 2 L nasal cannula saturating 98% and does not appear in acute distress. Patient remains in atrial fibrillation although heart rate is well controlled Exam/Review of Systems Vital Signs Vitals Vital Signs Date Time Temp Pulse Resp B/P Pulse Ox O2 Delivery O2 Flow Rate FiO2 05/01/17 12:24 98.0 78 18 101/57 98 05/01/17 08:53 Nasal Cannula 2.0 05/01/17 07:26 21 Intake and Output 04/30/17 04/30/17 05/01/17 15:00 23:00 07:00 Intake Total 650 ml Balance 650 ml Exam General: no acute distress NECK: JVD elevated, no thyromegaly Lymph: no lymphadenopathy HEART: Ir Irregular with no S3, II/ systolic murmur at apex LUNGS: bilateral basilar crackles ABD: soft, NT, ND, +BS EXT: trace edema Results Result Diagram: 04/30/17 0700 04/30/17 0700 Results 24 hrs Laboratory Tests Test 04/30/17 17:15 04/30/17 20:44 05/01/17 08:52 05/01/17 11:36 Bedside Glucose 129 171 155 129 Medications Medications Current Medications Levofloxacin/ Dextrose (Levaquin 750 Mg/ D5W 150 ml (Pmx)) 150 ml @ 100 mls/hr Q24H IVPB Last administered on 05/01/17 11:36; Admin Dose 100 MLS/HR; Start at 11:00 Folic Acid (Folic Acid) 1 mg DAILY PO Last administered on 05/01/17 08:54; Admin Dose 1 MG; Start 04/24/17 at 09:00 Loratadine (Claritin) 10 mg DAILY PO Last administered on 05/01/17 08:54; Admin Dose 10 MG; Start 04/24/17 at 09:00 Vitamin E (Vitamin E) 400 units DAILY PO Last administered on 05/01/17 08:54; Admin Dose 400 UNITS; Start 04/24/17 at 09:00 Mometasone Furoate (Asmanex) 1 puff BID INH Last administered on 05/01/17 08:53 ; Admin Dose 1 PUFF; Start 04/23/17 at 21:00 Ondansetron HCl (Zofran Inj) 4 mg Q6H PRN IV NAUSEA AND/OR VOMITING; Start at 13:00 Acetaminophen (Tylenol Tab) 650 mg Q6H PRN PO PAIN LEVEL 1-3 OR FEVER; Start at 13:00 Acetaminophen/ Hydrocodone Bitart ([place] (5/325)) 1 tab Q6H PRN PO PAIN LEVEL 4 -6; Start 04/23/17 at 13:00 Morphine Sulfate (morphine) 2 mg Q4H PRN IV PAIN LEVEL 7-10; Start 04/23/17 at 13:00 Magnesium Hydroxide (Milk Of Mag) 30 ml DAILY PRN PO CONSTIPATION; Start at 13:00 Bisacodyl (Dulcolax) 5 mg DAILY PRN PO CONSTIPATION; Start 04/23/17 at 13:00 Atenolol (Tenormin) 25 mg BID PO Last administered on 05/01/17 08:54; Admin Dose 25 MG; Start 04/23/17 at 21:00 Metoprolol Tartrate (Lopressor) 5 mg Q4H PRN IV HR>110 Hold SBP<100; Start at 19:30 Diagnostic Test (Pha) (Accu-Chek) 1 ea 02 XX ; Start 04/25/17 at 02:00 Miscellaneous Information 1 ea NOTE XX ; Start 04/24/17 at 01:30 Glucose (Glutose) 15 gm Q15M PRN PO DECREASED GLUCOSE; Start 04/24/17 at 01:30 Glucose (Glutose) 22.5 gm Q15M PRN PO DECREASED GLUCOSE; Start 04/24/17 at 01: 30 Dextrose (D50w Syringe) 25 ml Q15M PRN IV DECREASED GLUCOSE; Start 04/24/17 at 01:30 Dextrose (D50w Syringe) 50 ml Q15M PRN IV DECREASED GLUCOSE; Start 04/24/17 at 01:30 Glucagon (Glucagen) 1 mg Q15M PRN IM DECREASED GLUCOSE; Start 04/24/17 at 01:30 Glucose (Glutose) 15 gm Q15M PRN BUCCAL DECREASED GLUCOSE; Start 04/24/17 at 01 :30 Pantoprazole (Protonix Tab) 40 mg BID@06,18 PO Last administered on 05/01/17 06 :32; Admin Dose 40 MG; Start 04/24/17 at 18:00 Sucralfate (Carafate) 1 gm QID PO Last administered on 05/01/17 08:53; Admin Dose 1 GM; Start 04/25/17 at 09:00 Digoxin (Digoxin) 0.125 mg DAILY@13 PO Last administered on 04/30/17 13:15; Admin Dose 0.125 MG; Start 04/26/17 at 13:00 ROSA BROWN MD May 01, 2017 13:22
[2017-05-01] MEDS: DIGOXIN 0.125 MG TAB PO SCH (13:23)
--- NOTE | 2017-05-01 14:41 | PN ---
Date/Time of Note Date/Time of Note DATE: 05/01/17 TIME: 14:35 Assessment/Plan VTE Prophylaxis VTE Prophylaxis Intervention: ambulation Lines/Catheters IV Catheter Type (from [facility]): Saline Lock Urinary Cath still in place: No Assessment/Plan Assessment/Plan 1. Atrial fibrillation with rapid ventricular response. Rate controlled. 2. Anemia, 3. Essential hypertension. 4. Type 2 diabetes mellitus. 5. Asthma. The patient will be continued on inhaled bronchodilators. 6. Hypothyroidism. The patient will be continued on Synthroid. 7. Macrocytic anemia. Hemoglobin today 9 8. Chronic thrombocytopenia. Monitor for any signs and symptoms of bleeding. 9. s/p EGD on 04-27-17 that showed esophagitis, multiple small clean based gastric antral erosions and ulcers, gastropathy 10. s/p colonoscopy on 04-27-17 that showed ascending colon polyp s/p polypectomy , scattered diverticulosis and moderate sized internal hemorrhoids Plan * may resume anticoagulant per discussion with Dr Sharma and Jaja * continue present management * further orders will depend on clinical course Subjective 24 Hr Interval Summary Free Text/Dictation * Course reviewed with patient * Patient seen and examined * Biopsy result A-Gastric biopsy: -- Reactive gastropathy, mild, with patchy acute inflammation of the lamina propria and one fragment of antral mucosa. -- Separate fragments of body and antral mucosa showing minimal patchy chronic inflammation in the superficial lamina propria. -- No Helicobacter organisms are identified in a Giemsa stain (positive control concurrently reviewed). -- There is no evidence of malignancy. B-Ascending colon polyp, biopsy: -- Colon mucosa showing no adenoma or hyperplastic polyp in deep sections through the block. -- There is no evidence of malignancy. Exam/Review of Systems Vital Signs Vitals Vital Signs Date Time Temp Pulse Resp B/P Pulse Ox O2 Delivery O2 Flow Rate FiO2 05/01/17 13:36 76 18 97 21 05/01/17 12:24 98.0 101/57 05/01/17 08:53 Nasal Cannula 2.0 Intake and Output 04/30/17 04/30/17 05/01/17 15:00 23:00 07:00 Intake Total 650 ml Balance 650 ml Exam Constitutional: alert, oriented Head: normocephalic Neck: supple Respiratory: clear to auscultation, normal air movement Cardiovascular: nl pulses, regular rate and rhythm Gastrointestinal: nl liver, spleen, non-tender, soft Musculoskeletal: nl extremities to inspection Extremities: normal pulses Neurological: nl speech, nl strength Skin: nl turgor, No rash or lesions Lymph: nl lymph nodes Results Result Diagram: 04/30/17 0700 04/30/17 0700 Results 24 hrs Laboratory Tests Test 04/30/17 17:15 04/30/17 20:44 05/01/17 08:52 05/01/17 11:36 Bedside Glucose 129 171 155 129 Medications Medications Current Medications Levofloxacin/ Dextrose (Levaquin 750 Mg/ D5W 150 ml (Pmx)) 150 ml @ 100 mls/hr Q24H IVPB Last administered on 05/01/17 11:36; Admin Dose 100 MLS/HR; Start at 11:00 Folic Acid (Folic Acid) 1 mg DAILY PO Last administered on 05/01/17 08:54; Admin Dose 1 MG; Start 04/24/17 at 09:00 Loratadine (Claritin) 10 mg DAILY PO Last administered on 05/01/17 08:54; Admin Dose 10 MG; Start 04/24/17 at 09:00 Vitamin E (Vitamin E) 400 units DAILY PO Last administered on 05/01/17 08:54; Admin Dose 400 UNITS; Start 04/24/17 at 09:00 Mometasone Furoate (Asmanex) 1 puff BID INH Last administered on 05/01/17 08:53 ; Admin Dose 1 PUFF; Start 04/23/17 at 21:00 Ondansetron HCl (Zofran Inj) 4 mg Q6H PRN IV NAUSEA AND/OR VOMITING; Start at 13:00 Acetaminophen (Tylenol Tab) 650 mg Q6H PRN PO PAIN LEVEL 1-3 OR FEVER; Start at 13:00 Acetaminophen/ Hydrocodone Bitart ([place] (5/325)) 1 tab Q6H PRN PO PAIN LEVEL 4 -6; Start 04/23/17 at 13:00 Morphine Sulfate (morphine) 2 mg Q4H PRN IV PAIN LEVEL 7-10; Start 04/23/17 at 13:00 Magnesium Hydroxide (Milk Of Mag) 30 ml DAILY PRN PO CONSTIPATION; Start at 13:00 Bisacodyl (Dulcolax) 5 mg DAILY PRN PO CONSTIPATION; Start 04/23/17 at 13:00 Atenolol (Tenormin) 25 mg BID PO Last administered on 05/01/17 08:54; Admin Dose 25 MG; Start 04/23/17 at 21:00 Metoprolol Tartrate (Lopressor) 5 mg Q4H PRN IV HR>110 Hold SBP<100; Start at 19:30 Diagnostic Test (Pha) (Accu-Chek) 1 ea 02 XX ; Start 04/25/17 at 02:00 Miscellaneous Information 1 ea NOTE XX ; Start 04/24/17 at 01:30 Glucose (Glutose) 15 gm Q15M PRN PO DECREASED GLUCOSE; Start 04/24/17 at 01:30 Glucose (Glutose) 22.5 gm Q15M PRN PO DECREASED GLUCOSE; Start 04/24/17 at 01: 30 Dextrose (D50w Syringe) 25 ml Q15M PRN IV DECREASED GLUCOSE; Start 04/24/17 at 01:30 Dextrose (D50w Syringe) 50 ml Q15M PRN IV DECREASED GLUCOSE; Start 04/24/17 at 01:30 Glucagon (Glucagen) 1 mg Q15M PRN IM DECREASED GLUCOSE; Start 04/24/17 at 01:30 Glucose (Glutose) 15 gm Q15M PRN BUCCAL DECREASED GLUCOSE; Start 04/24/17 at 01 :30 Pantoprazole (Protonix Tab) 40 mg BID@06,18 PO Last administered on 05/01/17 06 :32; Admin Dose 40 MG; Start 04/24/17 at 18:00 Sucralfate (Carafate) 1 gm QID PO Last administered on 05/01/17 13:23; Admin Dose 1 GM; Start 04/25/17 at 09:00 Digoxin (Digoxin) 0.125 mg DAILY@13 PO Last administered on 05/01/17 13:23; Admin Dose 0.125 MG; Start 04/26/17 at 13:00 PRESTON VELÁZQUEZ NP May 01, 2017 14:41
[2017-05-02] VITALS (11 sets, daily range): BP systolic 92–104; BP diastolic 53–67; PULSE 71–91; RESP 17–19
[2017-05-02] MEDS: LEVALBUTEROL (NEB) 0.63 MG/3 ML AMP HHN SCH ×4 (01:00→19:36)
[2017-05-02] MEDS: ACCU-CHEK XX SCH ×2 (01:51→20:59)
[2017-05-02] MEDS: LEVOTHYROXINE 75 MCG TAB PO SCH (05:40)
[2017-05-02] MEDS: PANTOPRAZOLE (EC) 40 MG TAB PO SCH ×2 (05:40→17:10)
[2017-05-02] MEDS: FUROSEMIDE 20 MG TAB PO SCH (05:40)
[2017-05-02] MEDS: INSULIN ASPART [NOVOLOG] 3 ML PEN SC SCH ×4 (07:57→20:58)
[2017-05-02] MEDS: FOLIC ACID 1 MG TAB PO SCH (08:14)
[2017-05-02] MEDS: VITAMIN E 400 UNITS CAP PO SCH (08:14)
[2017-05-02] MEDS: MOMETASONE 0.24 GM INHALER INH SCH ×2 (08:14→20:58)
[2017-05-02] MEDS: LORATADINE 10 MG TAB PO SCH (08:14)
[2017-05-02] MEDS: SUCRALFATE 1 GM TAB PO SCH ×4 (08:14→20:58)
[2017-05-02] MEDS: metFORMIN 500 MG TAB PO SCH ×2 (08:14→17:11)
[2017-05-02] MEDS: ATENOLOL 25 MG TAB PO SCH ×2 (08:15→20:58)
--- NOTE | 2017-05-02 10:17 | PN ---
Date/Time of Note Date/Time of Note DATE: 05/02/17 TIME: 10:14 Assessment/Plan VTE Prophylaxis VTE Prophylaxis Intervention: ambulation Lines/Catheters [facility]from [facility] Saline Lock Urinary Cath still in place: No Assessment/Plan Assessment/Plan Assessment/Plan 1. Atrial fibrillation with rapid ventricular response. Rate controlled. 2. Anemia, 3. Essential hypertension. 4. Type 2 diabetes mellitus. 5. Asthma. The patient will be continued on inhaled bronchodilators. 6. Hypothyroidism. The patient will be continued on Synthroid. 7. Macrocytic anemia. Hemoglobin today 9 8. Chronic thrombocytopenia. Monitor for any signs and symptoms of bleeding. 9. s/p EGD on 04-27-17 that showed esophagitis, multiple small clean based gastric antral erosions and ulcers, gastropathy 10. s/p colonoscopy on 04-27-17 that showed ascending colon polyp s/p polypectomy , scattered diverticulosis and moderate sized internal hemorrhoids Plan resume anticoagulant per discussion with Dr Sharma and Jaja spoke with Dr Luis Hernandez and inform him of suggestion of * continue present management * further orders will depend on clinical course Subjective 24 Hr Interval Summary Free Text/Dictation * Course reviewed with RN * Patient seen and examined * no hematemesis nor hematochezia Exam/Review of Systems Vital Signs Vitals Vital Signs Date Time Temp Pulse Resp B/P Pulse Ox O2 Delivery O2 Flow Rate FiO2 05/02/17 09:48 71 05/02/17 07:41 97.8 18 98/57 94 05/02/17 01:00 Room Air 05/02/17 01:00 21 05/01/17 08:53 2.0 Intake and Output 05/01/17 05/01/17 05/02/17 15:00 23:00 07:00 Intake Total 800 ml 650 ml Output Total 1200 ml Balance -400 ml 650 ml Exam Constitutional: alert, oriented Head: normocephalic Neck: non-tender, supple Respiratory: clear to auscultation, normal air movement Cardiovascular: nl pulses, regular rate and rhythm Gastrointestinal: nl liver, spleen, non-tender, soft Musculoskeletal: nl extremities to inspection, nl gait and stance Extremities: normal pulses Neurological: nl speech, nl strength Skin: nl turgor Results Result Diagram: 04/30/17 0700 04/30/17 0700 Results 24 hrs Laboratory Tests Test 05/01/17 11:36 05/01/17 17:17 05/01/17 21:10 05/02/17 07:56 Bedside Glucose 129 110 136 119 Medications Medications Current Medications Levofloxacin/ Dextrose (Levaquin 750 Mg/ D5W 150 ml (Pmx)) 150 ml @ 100 mls/hr Q24H IVPB Last administered on 05/01/17 11:36; Admin Dose 100 MLS/HR; Start at 11:00 Folic Acid (Folic Acid) 1 mg DAILY PO Last administered on 05/02/17 08:14; Admin Dose 1 MG; Start 04/24/17 at 09:00 Loratadine (Claritin) 10 mg DAILY PO Last administered on 05/02/17 08:14; Admin Dose 10 MG; Start 04/24/17 at 09:00 Vitamin E (Vitamin E) 400 units DAILY PO Last administered on 05/02/17 08:14; Admin Dose 400 UNITS; Start 04/24/17 at 09:00 Mometasone Furoate (Asmanex) 1 puff BID INH Last administered on 05/02/17 08:14 ; Admin Dose 1 PUFF; Start 04/23/17 at 21:00 Ondansetron HCl (Zofran Inj) 4 mg Q6H PRN IV NAUSEA AND/OR VOMITING; Start at 13:00 Acetaminophen (Tylenol Tab) 650 mg Q6H PRN PO PAIN LEVEL 1-3 OR FEVER; Start at 13:00 Acetaminophen/ Hydrocodone Bitart ([place] (5/325)) 1 tab Q6H PRN PO PAIN LEVEL 4 -6; Start 04/23/17 at 13:00 Morphine Sulfate (morphine) 2 mg Q4H PRN IV PAIN LEVEL 7-10; Start 04/23/17 at 13:00 Magnesium Hydroxide (Milk Of Mag) 30 ml DAILY PRN PO CONSTIPATION; Start at 13:00 Bisacodyl (Dulcolax) 5 mg DAILY PRN PO CONSTIPATION; Start 04/23/17 at 13:00 Atenolol (Tenormin) 25 mg BID PO Last administered on 05/01/17 21:16; Admin Dose 25 MG; Start 04/23/17 at 21:00 Metoprolol Tartrate (Lopressor) 5 mg Q4H PRN IV HR>110 Hold SBP<100; Start at 19:30 Diagnostic Test (Pha) (Accu-Chek) 1 ea 02 XX ; Start 04/25/17 at 02:00 Miscellaneous Information 1 ea NOTE XX ; Start 04/24/17 at 01:30 Glucose (Glutose) 15 gm Q15M PRN PO DECREASED GLUCOSE; Start 04/24/17 at 01:30 Glucose (Glutose) 22.5 gm Q15M PRN PO DECREASED GLUCOSE; Start 04/24/17 at 01: 30 Dextrose (D50w Syringe) 25 ml Q15M PRN IV DECREASED GLUCOSE; Start 04/24/17 at 01:30 Dextrose (D50w Syringe) 50 ml Q15M PRN IV DECREASED GLUCOSE; Start 04/24/17 at 01:30 Glucagon (Glucagen) 1 mg Q15M PRN IM DECREASED GLUCOSE; Start 04/24/17 at 01:30 Glucose (Glutose) 15 gm Q15M PRN BUCCAL DECREASED GLUCOSE; Start 04/24/17 at 01 :30 Pantoprazole (Protonix Tab) 40 mg BID@06,18 PO Last administered on 05/02/17 05 :40; Admin Dose 40 MG; Start 04/24/17 at 18:00 Sucralfate (Carafate) 1 gm QID PO Last administered on 05/02/17 08:14; Admin Dose 1 GM; Start 04/25/17 at 09:00 Digoxin (Digoxin) 0.125 mg DAILY@13 PO Last administered on 05/01/17 13:23; Admin Dose 0.125 MG; Start 04/26/17 at 13:00 PRESTON VELÁZQUEZ NP May 02, 2017 10:17
[2017-05-02] MEDS: LEVOFLOXACIN 750MG/D5W (PMX) 150 ML IVPB SCH (13:16)
[2017-05-02] MEDS: DIGOXIN 0.125 MG TAB PO SCH (13:18)
--- NOTE | 2017-05-02 13:39 | CONS ---
Date/Time of Note Date/Time of Note DATE: 05/02/17 TIME: 13:36 Assessment/Plan Assessment/Plan Chief Complaint/Hosp Course IMP: 1.AF with RVR-some recurrent RVR when not receiving atenolol due to borderline BP 2.htn 3.ABNL ECG-negative trop x 3 4.chf-diastolic acute on chronic 5.Hypothyroid 6. MS-moderate to severe 7. Gastric ulcer by EGD s/p clipping Recc: -Tele -Decrease lasix dose given hypotension -continue atenolol will well controlled HR's when receives -Patient will require further eval and most probable valvuloplasty versus open repair of MS which can be done as an outpatient. -Resume systemic anti-coag when ok per GI with per GI note ok to resume 1-2 days and per primary note need to wait 2 weeks -Continue PPI and sucralfate -Follow Hgb -Give IVP dose digoxin to improve HR control currently Problems: Consultation Date/Type/Reason Admit Date/Time Apr 23, 2017 at 11:03 Initial Consult Date 04/23/17 Type of Consultation: Cardiology Reason for Consultation AF Referring Provider: [employer] Exam/Review of Systems Vital Signs Vitals Vital Signs Date Time Temp Pulse Resp B/P Pulse Ox O2 Delivery O2 Flow Rate FiO2 05/02/17 12:20 87 05/02/17 11:37 97.9 19 93/53 98 05/02/17 01:00 Room Air 05/02/17 01:00 21 05/01/17 08:53 2.0 Intake and Output 05/01/17 05/01/17 05/02/17 15:00 23:00 07:00 Intake Total 800 ml 650 ml Output Total 1200 ml Balance -400 ml 650 ml Exam Review of Systems: CONSTITUTIONAL: No fevers, chills. PULMONARY: No sob CARDIOVASCULAR: No chest pain/palpitations GASTROINTESTINAL: No nausea/vomiting. GENITOURINARY: No hematuria/dysuria. MUSCULOSKELETAL: No myagias/arthalgias. PSYCHIATRIC: The patient denies depression. NEUROLOGIC: No weakness Constitutional: alert Psych: no complaints Head: normocephalic ENMT: mucosa pink and moist Neck: jvd (8 cm water), supple Respiratory: diminished breath sounds (at bases/B) Cardiovascular: irregular rhythm Gastrointestinal: non-tender, soft Extremities: edema (none) Neurological: other (No focal deficits) Results Result Diagram: 04/30/17 0700 04/30/17 0700 Results 24 hrs Laboratory Tests Test 05/01/17 17:17 05/01/17 21:10 05/02/17 07:56 05/02/17 12:32 Bedside Glucose 110 136 119 149 Medications Medications Current Medications Levofloxacin/ Dextrose (Levaquin 750 Mg/ D5W 150 ml (Pmx)) 150 ml @ 100 mls/hr Q24H IVPB Last administered on 05/02/17 13:16; Admin Dose 100 MLS/HR; Start at 11:00 Folic Acid (Folic Acid) 1 mg DAILY PO Last administered on 05/02/17 08:14; Admin Dose 1 MG; Start 04/24/17 at 09:00 Loratadine (Claritin) 10 mg DAILY PO Last administered on 05/02/17 08:14; Admin Dose 10 MG; Start 04/24/17 at 09:00 Vitamin E (Vitamin E) 400 units DAILY PO Last administered on 05/02/17 08:14; Admin Dose 400 UNITS; Start 04/24/17 at 09:00 Mometasone Furoate (Asmanex) 1 puff BID INH Last administered on 05/02/17 08:14 ; Admin Dose 1 PUFF; Start 04/23/17 at 21:00 Ondansetron HCl (Zofran Inj) 4 mg Q6H PRN IV NAUSEA AND/OR VOMITING; Start at 13:00 Acetaminophen (Tylenol Tab) 650 mg Q6H PRN PO PAIN LEVEL 1-3 OR FEVER; Start at 13:00 Acetaminophen/ Hydrocodone Bitart ([place] (5/325)) 1 tab Q6H PRN PO PAIN LEVEL 4 -6; Start 04/23/17 at 13:00 Morphine Sulfate (morphine) 2 mg Q4H PRN IV PAIN LEVEL 7-10; Start 04/23/17 at 13:00 Magnesium Hydroxide (Milk Of Mag) 30 ml DAILY PRN PO CONSTIPATION; Start at 13:00 Bisacodyl (Dulcolax) 5 mg DAILY PRN PO CONSTIPATION; Start 04/23/17 at 13:00 Atenolol (Tenormin) 25 mg BID PO Last administered on 05/01/17 21:16; Admin Dose 25 MG; Start 04/23/17 at 21:00 Metoprolol Tartrate (Lopressor) 5 mg Q4H PRN IV HR>110 Hold SBP<100; Start at 19:30 Diagnostic Test (Pha) (Accu-Chek) 1 ea 02 XX ; Start 04/25/17 at 02:00 Miscellaneous Information 1 ea NOTE XX ; Start 04/24/17 at 01:30 Glucose (Glutose) 15 gm Q15M PRN PO DECREASED GLUCOSE; Start 04/24/17 at 01:30 Glucose (Glutose) 22.5 gm Q15M PRN PO DECREASED GLUCOSE; Start 04/24/17 at 01: 30 Dextrose (D50w Syringe) 25 ml Q15M PRN IV DECREASED GLUCOSE; Start 04/24/17 at 01:30 Dextrose (D50w Syringe) 50 ml Q15M PRN IV DECREASED GLUCOSE; Start 04/24/17 at 01:30 Glucagon (Glucagen) 1 mg Q15M PRN IM DECREASED GLUCOSE; Start 04/24/17 at 01:30 Glucose (Glutose) 15 gm Q15M PRN BUCCAL DECREASED GLUCOSE; Start 04/24/17 at 01 :30 Pantoprazole (Protonix Tab) 40 mg BID@06,18 PO Last administered on 05/02/17 05 :40; Admin Dose 40 MG; Start 04/24/17 at 18:00 Sucralfate (Carafate) 1 gm QID PO Last administered on 05/02/17 13:18; Admin Dose 1 GM; Start 04/25/17 at 09:00 Digoxin (Digoxin) 0.125 mg DAILY@13 PO Last administered on 05/02/17 13:18; Admin Dose 0.125 MG; Start 04/26/17 at 13:00 DICK BUCIO May 02, 2017 13:39
[2017-05-02] MEDS ORDERED: DIGOXIN 500 MCG INJ IV ONE (14:00)
--- NOTE | 2017-05-02 17:29 | PN ---
Date/Time of Note Date/Time of Note DATE: 05/02/17 TIME: 17:26 Assessment/Plan VTE Prophylaxis VTE Prophylaxis Intervention: SCD's, other (Eliquis) Lines/Catheters [facility]from [facility] Saline Lock Urinary Cath still in place: No Assessment/Plan Assessment/Plan 1. Atrial fibrillation with rapid ventricular response. Rate controlled. - intermittenlty goes upto 130-140 2. Community-acquired pneumonia. 3. Essential hypertension. 4. Type 2 diabetes mellitus. 5. Asthma. 6. Hypothyroidism. 7. Acute on chronic diastolic heart failure. on IV lasix diuresis . 8. Moderate mitral stenosis with moderate mitral valve regurgitation. Needs eventual surgical repair. 9. Macrocytic anemia. Esophagogastroduodenoscopy showed esophagitis, multiple small clean-based gastric antral erosions and ulcers and gastropathy. Continue proton pump inhibitors. 10. Chronic thrombocytopenia. Monitor for any signs and symptoms of bleeding. 11. Pulmonary hypertension. PA systolic pressure 40 7-0 Monocryl as per 2D echocardiogram. Most probably secondary to underlying tricuspid regurgitation.pt i son lasix 20mg IV BID 15. Plan. Continue IV antibiotic levaquin. on lasix 20mg po daily, euvolemic will stay in telemetry floor Pt anticoagulation has been hold due to GI bleeding and gastric antral ulcer- Today GI cleared for antiocagulatin I will start Eliquis 5 BID Cardiolgoy following also Subjective 24 Hr Interval Summary Free Text/Dictation stable, HR controlled, GI cleard to resume Anticoagulation Exam/Review of Systems Vital Signs Vitals Vital Signs Date Time Temp Pulse Resp B/P Pulse Ox O2 Delivery O2 Flow Rate FiO2 05/02/17 16:21 91 05/02/17 16:16 98.0 19 92/53 97 05/02/17 01:00 Room Air 05/02/17 01:00 21 05/01/17 08:53 2.0 Intake and Output 05/01/17 05/01/17 05/02/17 15:00 23:00 07:00 Intake Total 800 ml 650 ml Output Total 1200 ml Balance -400 ml 650 ml Exam General: no acute distress NECK: JVD elevated, no thyromegaly Lymph: no lymphadenopathy HEART: Ir Irregular with no S3, II/ systolic murmur at apex LUNGS: bilateral basilar crackles ABD: soft, NT, ND, +BS EXT: trace edema Results Result Diagram: 04/30/17 0700 04/30/17 0700 Results 24 hrs Laboratory Tests Test 05/01/17 21:10 05/02/17 07:56 05/02/17 12:32 Bedside Glucose 136 119 149 Medications Medications Current Medications Levofloxacin/ Dextrose (Levaquin 750 Mg/ D5W 150 ml (Pmx)) 150 ml @ 100 mls/hr Q24H IVPB Last administered on 05/02/17 13:16; Admin Dose 100 MLS/HR; Start at 11:00 Folic Acid (Folic Acid) 1 mg DAILY PO Last administered on 05/02/17 08:14; Admin Dose 1 MG; Start 04/24/17 at 09:00 Loratadine (Claritin) 10 mg DAILY PO Last administered on 05/02/17 08:14; Admin Dose 10 MG; Start 04/24/17 at 09:00 Vitamin E (Vitamin E) 400 units DAILY PO Last administered on 05/02/17 08:14; Admin Dose 400 UNITS; Start 04/24/17 at 09:00 Mometasone Furoate (Asmanex) 1 puff BID INH Last administered on 05/02/17 08:14 ; Admin Dose 1 PUFF; Start 04/23/17 at 21:00 Ondansetron HCl (Zofran Inj) 4 mg Q6H PRN IV NAUSEA AND/OR VOMITING; Start at 13:00 Acetaminophen (Tylenol Tab) 650 mg Q6H PRN PO PAIN LEVEL 1-3 OR FEVER; Start at 13:00 Acetaminophen/ Hydrocodone Bitart ([place] (5/325)) 1 tab Q6H PRN PO PAIN LEVEL 4 -6; Start 04/23/17 at 13:00 Morphine Sulfate (morphine) 2 mg Q4H PRN IV PAIN LEVEL 7-10; Start 04/23/17 at 13:00 Magnesium Hydroxide (Milk Of Mag) 30 ml DAILY PRN PO CONSTIPATION; Start at 13:00 Bisacodyl (Dulcolax) 5 mg DAILY PRN PO CONSTIPATION; Start 04/23/17 at 13:00 Atenolol (Tenormin) 25 mg BID PO Last administered on 7/6/17at 21:16; Admin Dose 25 MG; Start 04/23/17 at 21:00 Metoprolol Tartrate (Lopressor) 5 mg Q4H PRN IV HR>110 Hold SBP<100; Start at 19:30 Diagnostic Test (Pha) (Accu-Chek) 1 ea 02 XX ; Start 04/25/17 at 02:00 Miscellaneous Information 1 ea NOTE XX ; Start 04/24/17 at 01:30 Glucose (Glutose) 15 gm Q15M PRN PO DECREASED GLUCOSE; Start 04/24/17 at 01:30 Glucose (Glutose) 22.5 gm Q15M PRN PO DECREASED GLUCOSE; Start 04/24/17 at 01: 30 Dextrose (D50w Syringe) 25 ml Q15M PRN IV DECREASED GLUCOSE; Start 04/24/17 at 01:30 Dextrose (D50w Syringe) 50 ml Q15M PRN IV DECREASED GLUCOSE; Start 04/24/17 at 01:30 Glucagon (Glucagen) 1 mg Q15M PRN IM DECREASED GLUCOSE; Start 04/24/17 at 01:30 Glucose (Glutose) 15 gm Q15M PRN BUCCAL DECREASED GLUCOSE; Start 04/24/17 at 01 :30 Pantoprazole (Protonix Tab) 40 mg BID@06,18 PO Last administered on 05/02/17 17 :10; Admin Dose 40 MG; Start 04/24/17 at 18:00 Sucralfate (Carafate) 1 gm QID PO Last administered on 05/02/17 17:10; Admin Dose 1 GM; Start 04/25/17 at 09:00 Digoxin (Digoxin) 0.125 mg DAILY@13 PO Last administered on 05/02/17 13:18; Admin Dose 0.125 MG; Start 04/26/17 at 13:00 Furosemide (Lasix) 20 mg DAILY PO ; Start 05/03/17 at 09:00 MACK REYES MD May 02, 2017 17:29
[2017-05-02] MEDS: APIXABAN 5 MG TABLET PO SCH (20:58)
[2017-05-03] MEDS: LEVALBUTEROL (NEB) 0.63 MG/3 ML AMP HHN SCH ×4 (02:32→19:52)
[2017-05-03] MEDS: LEVOTHYROXINE 75 MCG TAB PO SCH (06:26)
[2017-05-03] MEDS: PANTOPRAZOLE (EC) 40 MG TAB PO SCH ×2 (06:26→17:16)
[2017-05-03 07:41] VITALS: BP 99/52; RESP 18
[2017-05-03] MEDS: INSULIN ASPART [NOVOLOG] 3 ML PEN SC SCH ×4 (07:48→20:29)
[2017-05-03] MEDS: ATENOLOL 25 MG TAB PO SCH (08:30)
[2017-05-03] MEDS: MOMETASONE 0.24 GM INHALER INH SCH ×2 (08:30→20:29)
--- NOTE | 2017-05-03 08:31 | CONS ---
Date/Time of Note Date/Time of Note DATE: 05/03/17 TIME: 08:28 Assessment/Plan Assessment/Plan Chief Complaint/Hosp Course IMP: 1.AF with RVR-some recurrent RVR when not receiving atenolol due to borderline BP but currently well controlled 2.htn 3.ABNL ECG-negative trop x 3 4.chf-diastolic acute on chronic 5.Hypothyroid 6. MS-moderate to severe 7. Gastric ulcer by EGD s/p clipping Recc: -Tele -Continue lasix now po daily -continue atenolol will well controlled HR's as tolerated -Patient will require further eval and most probable valvuloplasty versus open repair of MS which can be done as an outpatient. -Now back on eliquis. Follow Hgb closely -Continue PPI and sucralfate -Follow Hgb -D/C planning Problems: Consultation Date/Type/Reason Admit Date/Time Apr 23, 2017 at 11:03 Initial Consult Date 04/23/17 Type of Consultation: Cardiology Reason for Consultation AF/CHF Referring Provider: SUMI STONE BUILDING COORDINATOR Exam/Review of Systems Vital Signs Vitals Vital Signs Date Time Temp Pulse Resp B/P Pulse Ox O2 Delivery O2 Flow Rate FiO2 05/03/17 07:42 83 18 96 21 05/03/17 07:41 98.1 99/52 05/02/17 01:00 Room Air 05/01/17 08:53 2.0 Intake and Output 05/02/17 05/02/17 05/03/17 15:00 23:00 07:00 Intake Total 820 ml 60 ml Balance 820 ml 60 ml Exam Review of Systems: CONSTITUTIONAL: No fevers, chills. PULMONARY: No sob CARDIOVASCULAR: No chest pain/palpitations GASTROINTESTINAL: No nausea/vomiting. GENITOURINARY: No hematuria/dysuria. MUSCULOSKELETAL: No myagias/arthalgias. PSYCHIATRIC: The patient denies depression. NEUROLOGIC: No weakness Constitutional: alert, oriented Psych: no complaints Head: normocephalic ENMT: mucosa pink and moist Neck: jvd (8-9 cm water), supple Respiratory: diminished breath sounds (at bases/B) Cardiovascular: irregular rhythm Gastrointestinal: non-tender, soft Musculoskeletal: muscle tone (normal) Extremities: edema (none) Neurological: other (No focal deficits) Results Result Diagram: 04/30/17 0704/30/17 0700 Results 24 hrs Laboratory Tests Test 05/02/17 12:32 05/02/17 18:34 05/02/17 20:56 05/03/17 07:46 Bedside Glucose 149 155 119 108 Medications Medications Current Medications Levofloxacin/ Dextrose (Levaquin 750 Mg/ D5W 150 ml (Pmx)) 150 ml @ 100 mls/hr Q24H IVPB Last administered on 05/02/17 13:16; Admin Dose 100 MLS/HR; Start at 11:00 Folic Acid (Folic Acid) 1 mg DAILY PO Last administered on 05/02/17 08:14; Admin Dose 1 MG; Start 04/24/17 at 09:00 Loratadine (Claritin) 10 mg DAILY PO Last administered on 05/02/17 08:14; Admin Dose 10 MG; Start 04/24/17 at 09:00 Vitamin E (Vitamin E) 400 units DAILY PO Last administered on 05/02/17 08:14; Admin Dose 400 UNITS; Start 04/24/17 at 09:00 Mometasone Furoate (Asmanex) 1 puff BID INH Last administered on 05/02/17 20:58 ; Admin Dose 1 PUFF; Start 04/23/17 at 21:00 Ondansetron HCl (Zofran Inj) 4 mg Q6H PRN IV NAUSEA AND/OR VOMITING; Start at 13:00 Acetaminophen (Tylenol Tab) 650 mg Q6H PRN PO PAIN LEVEL 1-3 OR FEVER; Start at 13:00 Acetaminophen/ Hydrocodone Bitart ([place] (5/325)) 1 tab Q6H PRN PO PAIN LEVEL 4 -6; Start 04/23/17 at 13:00 Morphine Sulfate (morphine) 2 mg Q4H PRN IV PAIN LEVEL 7-10; Start 04/23/17 at 13:00 Magnesium Hydroxide (Milk Of Mag) 30 ml DAILY PRN PO CONSTIPATION; Start at 13:00 Bisacodyl (Dulcolax) 5 mg DAILY PRN PO CONSTIPATION; Start 04/23/17 at 13:00 Atenolol (Tenormin) 25 mg BID PO Last administered on 05/02/17 20:58; Admin Dose 25 MG; Start 04/23/17 at 21:00 Metoprolol Tartrate (Lopressor) 5 mg Q4H PRN IV HR>110 Hold SBP<100; Start at 19:30 Diagnostic Test (Pha) (Accu-Chek) 1 ea 02 XX ; Start 04/25/17 at 02:00 Miscellaneous Information 1 ea NOTE XX ; Start 04/24/17 at 01:30 Glucose (Glutose) 15 gm Q15M PRN PO DECREASED GLUCOSE; Start 04/24/17 at 01:30 Glucose (Glutose) 22.5 gm Q15M PRN PO DECREASED GLUCOSE; Start 04/24/17 at 01: 30 Dextrose (D50w Syringe) 25 ml Q15M PRN IV DECREASED GLUCOSE; Start 04/24/17 at 01:30 Dextrose (D50w Syringe) 50 ml Q15M PRN IV DECREASED GLUCOSE; Start 04/24/17 at 01:30 Glucagon (Glucagen) 1 mg Q15M PRN IM DECREASED GLUCOSE; Start 04/24/17 at 01:30 Glucose (Glutose) 15 gm Q15M PRN BUCCAL DECREASED GLUCOSE; Start 04/24/17 at 01 :30 Pantoprazole (Protonix Tab) 40 mg BID@06,18 PO Last administered on 05/03/17 06 :26; Admin Dose 40 MG; Start 04/24/17 at 18:00 Sucralfate (Carafate) 1 gm QID PO Last administered on 05/02/17 20:58; Admin Dose 1 GM; Start 04/25/17 at 09:00 Digoxin (Digoxin) 0.125 mg DAILY@13 PO Last administered on 05/02/17 13:18; Admin Dose 0.125 MG; Start 04/26/17 at 13:00 Furosemide (Lasix) 20 mg DAILY PO ; Start 05/03/17 at 09:00 Apixaban (Eliquis) 5 mg BID PO Last administered on 05/02/17 20:58; Admin Dose 5 MG; Start 05/02/17 at 21:00 DICK BUCIO May 03, 2017 08:30
[2017-05-03 08:34] LABS: ADD SCAN DIFF NO
[2017-05-03] MEDS: FOLIC ACID 1 MG TAB PO SCH (08:34)
[2017-05-03] MEDS: metFORMIN 500 MG TAB PO SCH ×2 (08:34→17:21)
[2017-05-03] MEDS: SUCRALFATE 1 GM TAB PO SCH ×4 (08:34→20:29)
[2017-05-03] MEDS: FUROSEMIDE 20 MG TAB PO SCH (08:34)
[2017-05-03] MEDS: VITAMIN E 400 UNITS CAP PO SCH (08:35)
[2017-05-03] MEDS: LORATADINE 10 MG TAB PO SCH (08:35)
[2017-05-03] MEDS: APIXABAN 5 MG TABLET PO SCH ×2 (08:35→20:29)
[2017-05-03 08:36] LABS: ABNORMAL IP MESSAGE 1; BASOPHIL # 0.1 10^3/ul (0.0-0.1); BASOPHILS % 1.8 % (0.0-2.0); EOSINOPHILS # 0.2 10^3/ul (0.0-0.5); EOSINOPHILS % 5.6 % (0.0-7.0); HEMATOCRIT 26.8 % (37.0-47.0); HEMOGLOBIN 9.1 g/dl (12.0-16.0); LYMPHOCYTES # 1.5 10^3/ul (0.8-2.9); LYMPHOCYTES % 38.9 % (15.0-51.0); MEAN CORPUSCULAR HEMOGLOBIN 41.4 pg (29.0-33.0); MEAN CORPUSCULAR VOLUME 121.8 fl (82.0-101.0); MONOCYTE # 0.3 10^3/ul (0.3-0.9); MONOCYTES % 8.6 % (0.0-11.0); NEUTROPHIL # 1.8 10^3/ul (1.6-7.5); NEUTROPHILS % 44.6 % (39.0-77.0); RED CELL DISTRIBUTION WIDTH 17.3 % (11.5-14.5)
[2017-05-03 09:01] LABS: INR 1.3; PROTIME 16.3 Sec (12.2-14.2); PT RATIO 1.3
[2017-05-03 09:02] LABS: CALCIUM 9.2 mg/dl (8.4-10.2); CREATININE 0.81 mg/dl (0.44-1.00); POTASSIUM 4.1 mmol/L (3.5-5.1)
[2017-05-03 09:14] LABS: PLATELET COUNT 57 10^3/UL (140-415)
--- NOTE | 2017-05-03 10:50 | PN ---
Date/Time of Note Date/Time of Note DATE: 05/03/17 TIME: 10:46 Assessment/Plan VTE Prophylaxis VTE Prophylaxis Intervention: other Lines/Catheters [facility]from [facility] Saline Lock Urinary Cath still in place: No Assessment/Plan Problems: (1) Mild persistent asthma Status: Chronic Comment: Patient is stable on controller medications. Please note given the asthma the usage of a noncardioselective beta-piyush is less ideal and I will switch this over to a cardioselective beta-piyush. Qualifiers: Asthma complication type: uncomplicated Qualified Code: J45.30 - Mild persistent asthma without complication (2) Essential hypertension Status: Chronic Comment: Adequate control (3) Diabetes mellitus, type 2 Status: Chronic Comment: Adequate control on current regimen Qualifiers: Diabetes mellitus complication status: without complication Diabetes mellitus assistant terminal manager insulin use: without skilled nursing use Qualified Code: E11.9 - Type 2 diabetes mellitus without complication, without long-term current use of insulin (4) Hypothyroid Status: Chronic Comment: Stable on replacement therapy Qualifiers: Hypothyroidism type: acquired Qualified Code: E03.9 - Acquired hypothyroidism (5) Atrial fibrillation with RVR Status: Chronic Comment: Rate is adequately controlled. We will switch over the medications for better control the asthma. Will follow along and will be a combination of the beta-blockade along with digoxin to slow the ventricular rate given the blood pressures (6) Thrombocytopenia Status: Acute Comment: This in combination with the macrocytic anemia and a low normal white count is suggestive of some type of a myelodysplastic disorder. While this does not need to be evaluated in the hospital she will need an outpatient evaluation. (7) Macrocytic anemia Status: Acute Comment: As above. She has normal B12 and folate levels Subjective 24 Hr Interval Summary Free Text/Dictation Patient reports she is interested in finding out when she will be going home. Patient reports she has never been referred to a corporate secretary or other type of blood doctor for evaluation. She is none of the thrombocytopenia since 2010 Constitutional: no complaints Respiratory: no complaints Cardiovascular: no complaints Gastrointestinal: no complaints Genitourinary: no complaints Exam/Review of Systems Vital Signs Vitals Vital Signs Date Time Temp Pulse Resp B/P Pulse Ox O2 Delivery O2 Flow Rate FiO2 05/03/17 07:42 83 18 96 21 05/03/17 07:41 98.1 99/52 05/02/17 01:00 Room Air 05/01/17 08:53 2.0 Intake and Output 05/02/17 05/02/17 05/03/17 14:59 22:59 06:59 Intake Total 820 ml 60 ml Balance 820 ml 60 ml Exam Constitutional: alert, oriented Respiratory: clear to auscultation, normal air movement Cardiovascular: irregular rhythm, nl pulses Gastrointestinal: nl liver, spleen, non-tender, soft Results Result Diagram: 05/03/17 0710 05/03/17 0742 Results 24 hrs Laboratory Tests Test 05/02/17 12:32 05/02/17 18:34 05/02/17 20:56 05/03/17 07:10 Bedside Glucose 149 155 119 White Blood Count 4.0 L Red Blood Count 2.20 L Hemoglobin 9.1 L Hematocrit 26.8 L Mean Corpuscular Volume 121.8 H Mean Corpuscular Hemoglobin 41.4 H Mean Corpuscular Hemoglobin Concent 34.0 Red Cell Distribution Width 17.3 H Platelet Count 57 #L Mean Platelet Volume Neutrophils % 44.6 Lymphocytes % 38.9 Monocytes % 8.6 Eosinophils % 5.6 Basophils % 1.8 Nucleated Red Blood Cells % 0.0 Neutrophils # 1.8 Lymphocytes # 1.5 Monocytes # 0.3 Eosinophils # 0.2 Basophils # 0.1 Nucleated Red Blood Cells # 0.0 Test 05/03/17 07:42 05/03/17 07:46 Prothrombin Time 16.3 H Prothrombin Time Ratio 1.3 INR International Normalized Ratio 1.30 Activated Partial Thromboplast Time 40.0 H Sodium Level 139 Potassium Level 4.1 Chloride Level 98 Carbon Dioxide Level 31 Anion Gap 14 Blood Urea Nitrogen 16 Creatinine 0.81 Glucose Level 102 Calcium Level 9.2 Bedside Glucose 108 Medications Medications Current Medications Levofloxacin/ Dextrose (Levaquin 750 Mg/ D5W 150 ml (Pmx)) 150 ml @ 100 mls/hr Q24H IVPB Last administered on 05/02/17 13:16; Admin Dose 100 MLS/HR; Start at 11:00 Folic Acid (Folic Acid) 1 mg DAILY PO Last administered on 05/03/17 08:34; Admin Dose 1 MG; Start 04/24/17 at 09:00 Loratadine (Claritin) 10 mg DAILY PO Last administered on 05/03/17 08:35; Admin Dose 10 MG; Start 04/24/17 at 09:00 Vitamin E (Vitamin E) 400 units DAILY PO Last administered on 05/03/17 08:35; Admin Dose 400 UNITS; Start 04/24/17 at 09:00 Mometasone Furoate (Asmanex) 1 puff BID INH Last administered on 05/03/17 08:30 ; Admin Dose 1 PUFF; Start 04/23/17 at 21:00 Ondansetron HCl (Zofran Inj) 4 mg Q6H PRN IV NAUSEA AND/OR VOMITING; Start at 13:00 Acetaminophen (Tylenol Tab) 650 mg Q6H PRN PO PAIN LEVEL 1-3 OR FEVER; Start at 13:00 Acetaminophen/ Hydrocodone Bitart ([place] (5/325)) 1 tab Q6H PRN PO PAIN LEVEL 4 -6; Start 04/23/17 at 13:00 Morphine Sulfate (morphine) 2 mg Q4H PRN IV PAIN LEVEL 7-10; Start 04/23/17 at 13:00 Magnesium Hydroxide (Milk Of Mag) 30 ml DAILY PRN PO CONSTIPATION; Start at 13:00 Bisacodyl (Dulcolax) 5 mg DAILY PRN PO CONSTIPATION; Start 04/23/17 at 13:00 Atenolol (Tenormin) 25 mg BID PO Last administered on 05/02/17 20:58; Admin Dose 25 MG; Start 04/23/17 at 21:00 Metoprolol Tartrate (Lopressor) 5 mg Q4H PRN IV HR>110 Hold SBP<100; Start at 19:30 Diagnostic Test (Pha) (Accu-Chek) 1 ea 02 XX ; Start 04/25/17 at 02:00 Miscellaneous Information 1 ea NOTE XX ; Start 04/24/17 at 01:30 Glucose (Glutose) 15 gm Q15M PRN PO DECREASED GLUCOSE; Start 04/24/17 at 01:30 Glucose (Glutose) 22.5 gm Q15M PRN PO DECREASED GLUCOSE; Start 04/24/17 at 01: 30 Dextrose (D50w Syringe) 25 ml Q15M PRN IV DECREASED GLUCOSE; Start 04/24/17 at 01:30 Dextrose (D50w Syringe) 50 ml Q15M PRN IV DECREASED GLUCOSE; Start 04/24/17 at 01:30 Glucagon (Glucagen) 1 mg Q15M PRN IM DECREASED GLUCOSE; Start 04/24/17 at 01:30 Glucose (Glutose) 15 gm Q15M PRN BUCCAL DECREASED GLUCOSE; Start 04/24/17 at 01 :30 Pantoprazole (Protonix Tab) 40 mg BID@06,18 PO Last administered on 05/03/17 06 :26; Admin Dose 40 MG; Start 04/24/17 at 18:00 Sucralfate (Carafate) 1 gm QID PO Last administered on 05/03/17 08:34; Admin Dose 1 GM; Start 04/25/17 at 09:00 Digoxin (Digoxin) 0.125 mg DAILY@13 PO Last administered on 05/02/17 13:18; Admin Dose 0.125 MG; Start 04/26/17 at 13:00 Furosemide (Lasix) 20 mg DAILY PO Last administered on 05/03/17 08:34; Admin Dose 20 MG; Start 05/03/17 at 09:00 Apixaban (Eliquis) 5 mg BID PO Last administered on 05/03/17 08:35; Admin Dose 5 MG; Start 05/02/17 at 21:00 FRANCISCO J NAVA MD May 03, 2017 10:50
[2017-05-03] MEDS: LEVOFLOXACIN 750MG/D5W (PMX) 150 ML IVPB SCH (11:32)
[2017-05-03 11:40] VITALS: BP 108/58; RESP 18
[2017-05-03] MEDS: DIGOXIN 0.125 MG TAB PO SCH (12:04)
[2017-05-03] MEDS: METOPROLOL (XL) 50 MG TAB PO SCH ×2 (12:05→20:32)
[2017-05-03 12:43] LABS: PLATELET ESTIMATE PLT APPEAR DECREASED
--- NOTE | 2017-05-03 14:07 | PN ---
Date/Time of Note Date/Time of Note DATE: 05/03/17 TIME: 14:02 Assessment/Plan VTE Prophylaxis VTE Prophylaxis Intervention: ambulation Lines/Catheters [facility] Saline Lock Urinary Cath still in place: No Assessment/Plan Assessment/Plan 1. Atrial fibrillation with rapid ventricular response. Rate controlled. 2. Anemia, 3. Essential hypertension. 4. Type 2 diabetes mellitus. 5. Asthma. The patient will be continued on inhaled bronchodilators. 6. Hypothyroidism. The patient will be continued on Synthroid. 7. Macrocytic anemia. Hemoglobin today 9.1 8. Chronic thrombocytopenia. Monitor for any signs and symptoms of bleeding. 9. s/p EGD on 04-27-17 that showed esophagitis, multiple small clean based gastric antral erosions and ulcers, gastropathy 10. s/p colonoscopy on 04-27-17 that showed ascending colon polyp s/p polypectomy , scattered diverticulosis and moderate sized internal hemorrhoids Plan * continue present management * stable for outpatient management * pantoprazole 40 mg BID for x 6 weeks * case discussed with DR Sharma Subjective 24 Hr Interval Summary Free Text/Dictation * Course reviewed with RN * Patient seen and examined * Uneventful last night Exam/Review of Systems Vital Signs Vitals Vital Signs Date Time Temp Pulse Resp B/P Pulse Ox O2 Delivery O2 Flow Rate FiO2 05/03/17 13:59 85 18 95 21 05/03/17 11:40 97.9 108/58 05/02/17 01:00 Room Air 05/01/17 08:53 2.0 Intake and Output 05/02/17 05/02/17 05/03/17 15:00 23:00 07:00 Intake Total 820 ml 60 ml Balance 820 ml 60 ml Exam Constitutional: alert, frail Neck: non-tender, supple Respiratory: clear to auscultation, normal air movement Cardiovascular: nl pulses, regular rate and rhythm Gastrointestinal: nl liver, spleen, non-tender, soft Musculoskeletal: nl extremities to inspection, nl gait and stance Neurological: nl speech, nl strength Skin: nl turgor, No rash or lesions Lymph: nl lymph nodes Results Result Diagram: 05/03/17 0710 05/03/17 0742 Results 24 hrs Laboratory Tests Test 05/02/17 18:34 05/02/17 20:56 05/03/17 07:10 05/03/17 07:42 Bedside Glucose 155 119 White Blood Count 4.0 L Red Blood Count 2.20 L Hemoglobin 9.1 L Hematocrit 26.8 L Mean Corpuscular Volume 121.8 H Mean Corpuscular Hemoglobin 41.4 H Mean Corpuscular Hemoglobin Concent 34.0 Red Cell Distribution Width 17.3 H Platelet Count 57 #L Mean Platelet Volume Neutrophils % 44.6 Lymphocytes % 38.9 Monocytes % 8.6 Eosinophils % 5.6 Basophils % 1.8 Nucleated Red Blood Cells % 0.0 Neutrophils # 1.8 Lymphocytes # 1.5 Monocytes # 0.3 Eosinophils # 0.2 Basophils # 0.1 Nucleated Red Blood Cells # 0.0 Platelet Estimate PLT APPEAR DECREASED Giant Platelets 1+ Prothrombin Time 16.3 H Prothrombin Time Ratio 1.3 INR International Normalized Ratio 1.30 Activated Partial Thromboplast Time 40.0 H Sodium Level 139 Potassium Level 4.1 Chloride Level 98 Carbon Dioxide Level 31 Anion Gap 14 Blood Urea Nitrogen 16 Creatinine 0.81 Glucose Level 102 Calcium Level 9.2 Test 05/03/17 07:46 05/03/17 11:50 Bedside Glucose 108 138 Medications Medications Current Medications Levofloxacin/ Dextrose (Levaquin 750 Mg/ D5W 150 ml (Pmx)) 150 ml @ 100 mls/hr Q24H IVPB Last administered on 05/03/17 11:32; Admin Dose 100 MLS/HR; Start at 11:00 Folic Acid (Folic Acid) 1 mg DAILY PO Last administered on 05/03/17 08:34; Admin Dose 1 MG; Start 04/24/17 at 09:00 Loratadine (Claritin) 10 mg DAILY PO Last administered on 05/03/17 08:35; Admin Dose 10 MG; Start 04/24/17 at 09:00 Vitamin E (Vitamin E) 400 units DAILY PO Last administered on 05/03/17 08:35; Admin Dose 400 UNITS; Start 04/24/17 at 09:00 Mometasone Furoate (Asmanex) 1 puff BID INH Last administered on 05/03/17 08:30 ; Admin Dose 1 PUFF; Start 04/23/17 at 21:00 Ondansetron HCl (Zofran Inj) 4 mg Q6H PRN IV NAUSEA AND/OR VOMITING; Start at 13:00 Acetaminophen (Tylenol Tab) 650 mg Q6H PRN PO PAIN LEVEL 1-3 OR FEVER; Start at 13:00 Acetaminophen/ Hydrocodone Bitart ([place] (5/325)) 1 tab Q6H PRN PO PAIN LEVEL 4 -6; Start 04/23/17 at 13:00 Morphine Sulfate (morphine) 2 mg Q4H PRN IV PAIN LEVEL 7-10; Start 04/23/17 at 13:00 Magnesium Hydroxide (Milk Of Mag) 30 ml DAILY PRN PO CONSTIPATION; Start at 13:00 Bisacodyl (Dulcolax) 5 mg DAILY PRN PO CONSTIPATION; Start 04/23/17 at 13:00 Metoprolol Tartrate (Lopressor) 5 mg Q4H PRN IV HR>110 Hold SBP<100; Start at 19:30 Diagnostic Test (Pha) (Accu-Chek) 1 ea 02 XX ; Start 04/25/17 at 02:00 Miscellaneous Information 1 ea NOTE XX ; Start 04/24/17 at 01:30 Glucose (Glutose) 15 gm Q15M PRN PO DECREASED GLUCOSE; Start 04/24/17 at 01:30 Glucose (Glutose) 22.5 gm Q15M PRN PO DECREASED GLUCOSE; Start 04/24/17 at 01: 30 Dextrose (D50w Syringe) 25 ml Q15M PRN IV DECREASED GLUCOSE; Start 04/24/17 at 01:30 Dextrose (D50w Syringe) 50 ml Q15M PRN IV DECREASED GLUCOSE; Start 04/24/17 at 01:30 Glucagon (Glucagen) 1 mg Q15M PRN IM DECREASED GLUCOSE; Start 04/24/17 at 01:30 Glucose (Glutose) 15 gm Q15M PRN BUCCAL DECREASED GLUCOSE; Start 04/24/17 at 01 :30 Pantoprazole (Protonix Tab) 40 mg BID@06,18 PO Last administered on 05/03/17 06 :26; Admin Dose 40 MG; Start 04/24/17 at 18:00 Sucralfate (Carafate) 1 gm QID PO Last administered on 05/03/17 12:04; Admin Dose 1 GM; Start 04/25/17 at 09:00 Digoxin (Digoxin) 0.125 mg DAILY@13 PO Last administered on 05/03/17 12:04; Admin Dose 0.125 MG; Start 04/26/17 at 13:00 Furosemide (Lasix) 20 mg DAILY PO Last administered on 05/03/17 08:34; Admin Dose 20 MG; Start 05/03/17 at 09:00 Apixaban (Eliquis) 5 mg BID PO Last administered on 05/03/17 08:35; Admin Dose 5 MG; Start 05/02/17 at 21:00 Metoprolol Succinate (Toprol Xl) 50 mg BID PO Last administered on 05/03/17 12: 05; Admin Dose 50 MG; Start 05/03/17 at 11:00 PRESTON VELÁZQUEZ NP May 03, 2017 14:07
[2017-05-03 15:48] VITALS: BP 109/62; RESP 17
[2017-05-03 16:22] VITALS: BP 117/57; RESP 16
[2017-05-03 21:09] VITALS: BP 111/57; RESP 19
[2017-05-04] MEDS: ACCU-CHEK XX SCH (01:22)
[2017-05-04 02:00] VITALS: BP 99/53; RESP 18
[2017-05-04] MEDS: LEVALBUTEROL (NEB) 0.63 MG/3 ML AMP HHN SCH ×3 (02:11→13:53)
[2017-05-04] MEDS: PANTOPRAZOLE (EC) 40 MG TAB PO SCH (06:03)
[2017-05-04] MEDS: LEVOTHYROXINE 75 MCG TAB PO SCH (06:03)
[2017-05-04] MEDS: INSULIN ASPART [NOVOLOG] 3 ML PEN SC SCH ×2 (08:00→12:00)
[2017-05-04 08:16] VITALS: BP 99/55; RESP 18
[2017-05-04] MEDS: FUROSEMIDE 20 MG TAB PO SCH (08:54)
[2017-05-04] MEDS: LORATADINE 10 MG TAB PO SCH (08:55)
[2017-05-04] MEDS: FOLIC ACID 1 MG TAB PO SCH (08:55)
[2017-05-04] MEDS: METOPROLOL (XL) 50 MG TAB PO SCH (08:55)
[2017-05-04] MEDS: VITAMIN E 400 UNITS CAP PO SCH (08:55)
[2017-05-04] MEDS: MOMETASONE 0.24 GM INHALER INH SCH (08:55)
[2017-05-04] MEDS: metFORMIN 500 MG TAB PO SCH (08:55)
[2017-05-04] MEDS: SUCRALFATE 1 GM TAB PO SCH ×2 (08:55→12:32)
[2017-05-04] MEDS: APIXABAN 5 MG TABLET PO SCH (08:55)
[2017-05-04 08:56] VITALS: BP 101/58; PULSE 85; RESP 18
[2017-05-04] MEDS: LEVOFLOXACIN 750MG/D5W (PMX) 150 ML IVPB SCH (11:00)
--- NOTE | 2017-05-04 11:57 | PDOCDIS ---
Discharge Instructions DIAGNOSIS Discharge Diagnosis Pneumonia with respiratory failure; atrial fibrillation with rapid ventricular response; esophagitis and gastritis CONDITION Patient Condition: Fair HOME CARE INSTRUCTIONS: Special Diet: Carb controlled diet. ACTIVITY: Activity Restrictions: Slowly Increase Activity Do not operate Machinery Do not operate Power Tool FOLLOW UP/APPOINTMENTS Follow-up Plan Primary care doctor in 2 weeks; grooming assistant in 3 weeks SCHOOL/WORK RELEASE May return to School/Work with: With Restrictions FRANCISCO J NAVA MD May 04, 2017 11:56
[2017-05-04] MEDS ORDERED: BECL8.7A5 INH (12:00)
[2017-05-04] MEDS ORDERED: APIX5TAB PO (12:00)
[2017-05-04] MEDS ORDERED: METO50TA16 PO (12:00)
--- NOTE | 2017-05-04 12:08 | DS ---
Date/Time of Note Date/Time of Note DATE: 05/04/17 TIME: 12:01 Discharge Summary Admission/Discharge Info Admit Date/Time Apr 23, 2017 at 11:03 Discharge Date/Time 05/04/2017 Discharge Diagnosis Pneumonia with respiratory failure; mitral stenosis; atrial fibrillation with rapid ventricular response; esophagitis and gastritis essential hypertension; asthma persistent moderate; diabetes mellitus type 2; possible myelodysplastic syndrome Patient Condition: Fair Consults Gastroenterology; cardiology Procedures Echocardiogram; EGD; colonoscopy Hx of Present Illness Reason for admission: Shortness of breath, palpitations. Consultants 1. Deepak Elder MD, Cardiology. This is a 77-year-old female with past medical history of atrial fibrillation, type 2 diabetes mellitus, asthma, essential hypertension, hypothyroidism, and chronic thrombocytopenia who came to the emergency room with chief complaint of dyspnea, palpitations, and generalized weakness. Patient denied any cough. The patient denied any fevers or chills. She denied any chest pain. Patient denied any nausea, vomiting, abdominal pain, diarrhea, constipation, hematochezia, or melena. Patient denied any dysuria, hematuria, or pyuria. In the emergency room, the patient was noticed to be in atrial fibrillation with rapid ventricular response. The patient was treated with 10 mg of IV Cardizem 3 with no significant improvement in the patient's heart rate. The patient's chest x-ray showed patchy infiltrates throughout both lungs, combined with small pleural effusions. The patient had no leukocytosis. The patient was afebrile. The patient was also given a single dose of oral nicardipine and 125 mg IV Solu-Medrol. Hospital Course IMP: 1.AF with RVR-some recurrent RVR when not receiving atenolol due to borderline BP but currently well controlled 2.htn 3.ABNL ECG-negative trop x 3 4.chf-diastolic acute on chronic 5.Hypothyroid 6. MS-moderate to severe 7. Gastric ulcer by EGD s/p clipping Recc: -Tele -Continue lasix now po daily -continue atenolol will well controlled HR's as tolerated -Patient will require further eval and most probable valvuloplasty versus open repair of MS which can be done as an outpatient. -Now back on eliquis. Follow Hgb closely -Continue PPI and sucralfate -Follow Hgb -D/C planning 77-year-old female who was admitted with A. fib rapid ventricular response pneumonia with subacute respiratory failure. She was stabilized and brought under control. Please note she also has a rather significant anemia which is significantly macrocytic with normal B12 and folate and also thrombocytopenia. Her evaluation did demonstrate mitral stenosis. She is now stabilized improved to the point where she is ready for discharge home in improved condition compared. She has no known communicable diseases her rehabilitation potential is fair. She will need to follow-up with cardiology in the next 3 weeks for evaluation for possible mitral valve procedure. Home Meds Active Scripts Metoprolol Succinate* (Toprol XL*) 50 Mg Tab.er.24h, 50 MG PO BID for 30 Days For atrial fibrillation Prov:FRANCISCO J NAVA MD 05/04/17 Apixaban* (Eliquis*) 5 Mg Tablet, 5 MG PO BID for 30 Days, TAB Prov:FRANCISCO J NAVA MD 05/04/17 Beclomethasone Dip* (Qvar 80*) 7.3 Gm Inha, 2 PUFF INH BID, #1 INHALER For breathing Prov:FRANCISCO J NAVA MD 05/04/17 Furosemide (Lasix) 20 Mg Tab, 20 MG PO BID DIURETICS for 60 Days, TAB Prov:STEPHANY OWENS MD 01/02/17 Reported Medications Levothyroxine Sodium* (Levothyroxine Sodium*) 75 Mcg Tablet, 75 MCG PO BEFORE BREAKFAST, #30 TAB 04/23/17 Digoxin* (Lanoxin*) 0.25 Mg Tablet, 0.5 MG PO QAM, TAB 04/23/17 Vitamin E* (Vitamin E*) 400 Unit Capsule, 400 UNIT PO DAILY, CAP 04/23/17 Metformin* (Glucophage*) 500 Mg Tab, 250 MG PO BID WITH MEALS, #90 TAB 04/23/17 Atenolol* (Atenolol*) 25 Mg Tablet, 25 MG PO DAILY, #30 TAB 04/23/17 Lisinopril* (Lisinopril*) 2.5 Mg Tablet, 2.5 MG PO DAILY, #30 TAB 12/12/15 Folic Acid* (Folic Acid*) 1 Mg Tablet, 1 MG PO DAILY, TAB 06/20/15 Nitroglycerin* (Nitroglycerin* SL) 0.4 Mg Tab.subl, 0.4 MG SL Q5MIN Y for CHEST PAIN, BOTTLE 12/14/14 Loratadine* (Claritin*) 10 Mg Capsule, 10 MG PO DAILY 11/24/13 Follow-up Plan Cardiology 3 weeks primary care physician [address] Bubba Patel Primary Care Provider Not On Staff Doctor Time spent on discharge: > 30 minutes Pending Labs Laboratory Tests Test 05/03/17 17:01 05/03/17 20:26 05/04/17 08:19 Bedside Glucose 130mg/dL (70-220) 119mg/dL (70-220) 125mg/dL (70-220) FRANCISCO J NAVA MD May 04, 2017 12:08
[2017-05-04] MEDS: DIGOXIN 0.125 MG TAB PO SCH (12:32)
--- NOTE | 2017-05-04 13:52 | PN ---
Date/Time of Note Date/Time of Note DATE: 05/04/17 TIME: 13:50 Assessment/Plan VTE Prophylaxis VTE Prophylaxis Intervention: SCD's Lines/Catheters IV Catheter Type (from [facility]): [facility] Urinary Cath still in place: No Assessment/Plan Assessment/Plan 1. Atrial fibrillation with rapid ventricular response. Rate controlled. 2. Anemia, 3. Essential hypertension. 4. Type 2 diabetes mellitus. 5. Asthma. The patient will be continued on inhaled bronchodilators. 6. Hypothyroidism. The patient will be continued on Synthroid. 7. Macrocytic anemia. Hemoglobin today 9.1 8. Chronic thrombocytopenia. Monitor for any signs and symptoms of bleeding. 9. s/p EGD on 04-27-17 that showed esophagitis, multiple small clean based gastric antral erosions and ulcers, gastropathy 10. s/p colonoscopy on 04-27-17 that showed ascending colon polyp s/p polypectomy , scattered diverticulosis and moderate sized internal hemorrhoids Plan * continue present management * stable for outpatient management * pantoprazole 40 mg BID for x 6 weeks * case discussed with DR Sharma Subjective 24 Hr Interval Summary Free Text/Dictation * Course reviewed with RN * Patient seen and examined * no untoward events overnight Exam/Review of Systems Vital Signs Vitals Vital Signs Date Time Temp Pulse Resp B/P Pulse Ox O2 Delivery O2 Flow Rate FiO2 05/04/17 08:56 85 18 101/58 05/04/17 08:16 98.4 94 05/04/17 07:35 21 05/02/17 01:00 Room Air 05/01/17 08:53 2.0 Intake and Output 05/03/17 05/03/17 05/04/17 15:00 23:00 07:00 Intake Total 150 ml 700 ml 120 ml Balance 150 ml 700 ml 120 ml Exam Constitutional: alert, oriented Psych: no complaints Neck: non-tender, supple Respiratory: clear to auscultation, normal air movement Cardiovascular: nl pulses, regular rate and rhythm Gastrointestinal: nl liver, spleen, non-tender, soft Musculoskeletal: nl extremities to inspection, nl gait and stance Extremities: normal pulses Neurological: nl speech, nl strength Skin: nl turgor, No rash or lesions Lymph: nl lymph nodes Results Result Diagram: 05/03/17 0710 05/03/17 0742 Results 24 hrs Laboratory Tests Test 05/03/17 17:01 05/03/17 20:26 05/04/17 08:19 05/04/17 12:29 Bedside Glucose 130 119 125 130 Medications Medications Current Medications Levofloxacin/ Dextrose (Levaquin 750 Mg/ D5W 150 ml (Pmx)) 150 ml @ 100 mls/hr Q24H IVPB Last administered on 05/03/17 11:32; Admin Dose 100 MLS/HR; Start at 11:00 Folic Acid (Folic Acid) 1 mg DAILY PO Last administered on 05/04/17 08:55; Admin Dose 1 MG; Start 04/24/17 at 09:00 Loratadine (Claritin) 10 mg DAILY PO Last administered on 05/04/17 08:55; Admin Dose 10 MG; Start 04/24/17 at 09:00 Vitamin E (Vitamin E) 400 units DAILY PO Last administered on 05/04/17 08:55; Admin Dose 400 UNITS; Start 04/24/17 at 09:00 Mometasone Furoate (Asmanex) 1 puff BID INH Last administered on 05/04/17 08:55 ; Admin Dose 1 PUFF; Start 04/23/17 at 21:00 Ondansetron HCl (Zofran Inj) 4 mg Q6H PRN IV NAUSEA AND/OR VOMITING; Start at 13:00 Acetaminophen (Tylenol Tab) 650 mg Q6H PRN PO PAIN LEVEL 1-3 OR FEVER Last administered on 05/03/17 20:29; Admin Dose 650 MG; Start 04/23/17 at 13:00 Acetaminophen/ Hydrocodone Bitart ([place] (5/325)) 1 tab Q6H PRN PO PAIN LEVEL 4 -6; Start 04/23/17 at 13:00 Morphine Sulfate (morphine) 2 mg Q4H PRN IV PAIN LEVEL 7-10; Start 04/23/17 at 13:00 Magnesium Hydroxide (Milk Of Mag) 30 ml DAILY PRN PO CONSTIPATION; Start at 13:00 Bisacodyl (Dulcolax) 5 mg DAILY PRN PO CONSTIPATION; Start 04/23/17 at 13:00 Metoprolol Tartrate (Lopressor) 5 mg Q4H PRN IV HR>110 Hold SBP<100; Start at 19:30 Diagnostic Test (Pha) (Accu-Chek) 1 ea 02 XX ; Start 04/25/17 at 02:00 Miscellaneous Information 1 ea NOTE XX ; Start 04/24/17 at 01:30 Glucose (Glutose) 15 gm Q15M PRN PO DECREASED GLUCOSE; Start 04/24/17 at 01:30 Glucose (Glutose) 22.5 gm Q15M PRN PO DECREASED GLUCOSE; Start 04/24/17 at 01: 30 Dextrose (D50w Syringe) 25 ml Q15M PRN IV DECREASED GLUCOSE; Start 04/24/17 at 01:30 Dextrose (D50w Syringe) 50 ml Q15M PRN IV DECREASED GLUCOSE; Start 04/24/17 at 01:30 Glucagon (Glucagen) 1 mg Q15M PRN IM DECREASED GLUCOSE; Start 04/24/17 at 01:30 Glucose (Glutose) 15 gm Q15M PRN BUCCAL DECREASED GLUCOSE; Start 04/24/17 at 01 :30 Pantoprazole (Protonix Tab) 40 mg BID@06,18 PO Last administered on 05/04/17 06 :03; Admin Dose 40 MG; Start 04/24/17 at 18:00 Sucralfate (Carafate) 1 gm QID PO Last administered on 05/04/17 12:32; Admin Dose 1 GM; Start 04/25/17 at 09:00 Digoxin (Digoxin) 0.125 mg DAILY@13 PO Last administered on 05/04/17 12:32; Admin Dose 0.125 MG; Start 04/26/17 at 13:00 Furosemide (Lasix) 20 mg DAILY PO Last administered on 05/04/17 08:54; Admin Dose 20 MG; Start 05/03/17 at 09:00 Apixaban (Eliquis) 5 mg BID PO Last administered on 05/04/17 08:55; Admin Dose 5 MG; Start 05/02/17 at 21:00 Metoprolol Succinate (Toprol Xl) 50 mg BID PO Last administered on 05/04/17 08: 55; Admin Dose 50 MG; Start 05/03/17 at 11:00 PRESTON VELÁZQUEZ NP May 04, 2017 13:51
--- NOTE | 2017-05-04 14:16 | CONS ---
Date/Time of Note Date/Time of Note DATE: 05/04/17 TIME: 14:13 Assessment/Plan Assessment/Plan Chief Complaint/Hosp Course IMP: 1.AF with RVR-some recurrent RVR when not receiving atenolol due to borderline BP but currently well controlled 2.htn 3.ABNL ECG-negative trop x 3 4.chf-diastolic acute on chronic 5.Hypothyroid 6. MS-moderate to severe 7. Gastric ulcer by EGD s/p clipping Recc: -Tele -Continue lasix now po daily -Change metoprolol back to atenolol to assure patient will tolerate medicaal therapy and continue to have reasonable HR control -Patient will require further eval and most probable valvuloplasty versus open repair of MS which can be done as an outpatient. -Now back on eliquis. Follow Hgb closely -Continue PPI and sucralfate -Follow Hgb -D/C planning Problems: Consultation Date/Type/Reason Admit Date/Time Apr 23, 2017 at 11:03 Initial Consult Date 04/23/17 Type of Consultation: Cardiology Reason for Consultation AF Referring Provider: SUMI [employer] Exam/Review of Systems Vital Signs Vitals Vital Signs Date Time Temp Pulse Resp B/P Pulse Ox O2 Delivery O2 Flow Rate FiO2 05/04/17 08:56 85 18 101/58 05/04/17 08:16 98.4 94 05/04/17 07:35 21 05/02/17 01:00 Room Air 05/01/17 08:53 2.0 Intake and Output 05/03/17 05/03/17 05/04/17 15:00 23:00 07:00 Intake Total 150 ml 700 ml 120 ml Balance 150 ml 700 ml 120 ml Exam Review of Systems: CONSTITUTIONAL: No fevers, chills. PULMONARY: No sob CARDIOVASCULAR: No chest pain/palpitations GASTROINTESTINAL: No nausea/vomiting. GENITOURINARY: No hematuria/dysuria. MUSCULOSKELETAL: No myagias/arthalgias. PSYCHIATRIC: The patient denies depression. NEUROLOGIC: No weakness Constitutional: alert Psych: no complaints Head: normocephalic ENMT: mucosa pink and moist Neck: jvd (8-9 cm water), supple Respiratory: diminished breath sounds (at bses/B) Cardiovascular: regular rate and rhythm Gastrointestinal: non-tender, soft Musculoskeletal: muscle tone (normal) Extremities: edema (none) Neurological: other (No focal deficits) Results Result Diagram: 05/03/17 0710 05/03/17 0742 Results 24 hrs Laboratory Tests Test 05/03/17 17:01 05/03/17 20:26 05/04/17 08:19 05/04/17 12:29 Bedside Glucose 130 119 125 130 Medications Medications Current Medications Levofloxacin/ Dextrose (Levaquin 750 Mg/ D5W 150 ml (Pmx)) 150 ml @ 100 mls/hr Q24H IVPB Last administered on 05/03/17 11:32; Admin Dose 100 MLS/HR; Start at 11:00 Folic Acid (Folic Acid) 1 mg DAILY PO Last administered on 05/04/17 08:55; Admin Dose 1 MG; Start 04/24/17 at 09:00 Loratadine (Claritin) 10 mg DAILY PO Last administered on 05/04/17 08:55; Admin Dose 10 MG; Start 04/24/17 at 09:00 Vitamin E (Vitamin E) 400 units DAILY PO Last administered on 05/04/17 08:55; Admin Dose 400 UNITS; Start 04/24/17 at 09:00 Mometasone Furoate (Asmanex) 1 puff BID INH Last administered on 05/04/17 08:55 ; Admin Dose 1 PUFF; Start 04/23/17 at 21:00 Ondansetron HCl (Zofran Inj) 4 mg Q6H PRN IV NAUSEA AND/OR VOMITING; Start at 13:00 Acetaminophen (Tylenol Tab) 650 mg Q6H PRN PO PAIN LEVEL 1-3 OR FEVER Last administered on 05/03/17 20:29; Admin Dose 650 MG; Start 04/23/17 at 13:00 Acetaminophen/ Hydrocodone Bitart ([place] (5/325)) 1 tab Q6H PRN PO PAIN LEVEL 4 -6; Start 04/23/17 at 13:00 Morphine Sulfate (morphine) 2 mg Q4H PRN IV PAIN LEVEL 7-10; Start 04/23/17 at 13:00 Magnesium Hydroxide (Milk Of Mag) 30 ml DAILY PRN PO CONSTIPATION; Start at 13:00 Bisacodyl (Dulcolax) 5 mg DAILY PRN PO CONSTIPATION; Start 04/23/17 at 13:00 Metoprolol Tartrate (Lopressor) 5 mg Q4H PRN IV HR>110 Hold SBP<100; Start at 19:30 Diagnostic Test (Pha) (Accu-Chek) 1 ea 02 XX ; Start 04/25/17 at 02:00 Miscellaneous Information 1 ea NOTE XX ; Start 04/24/17 at 01:30 Glucose (Glutose) 15 gm Q15M PRN PO DECREASED GLUCOSE; Start 04/24/17 at 01:30 Glucose (Glutose) 22.5 gm Q15M PRN PO DECREASED GLUCOSE; Start 04/24/17 at 01: 30 Dextrose (D50w Syringe) 25 ml Q15M PRN IV DECREASED GLUCOSE; Start 04/24/17 at 01:30 Dextrose (D50w Syringe) 50 ml Q15M PRN IV DECREASED GLUCOSE; Start 04/24/17 at 01:30 Glucagon (Glucagen) 1 mg Q15M PRN IM DECREASED GLUCOSE; Start 04/24/17 at 01:30 Glucose (Glutose) 15 gm Q15M PRN BUCCAL DECREASED GLUCOSE; Start 04/24/17 at 01 :30 Pantoprazole (Protonix Tab) 40 mg BID@06,18 PO Last administered on 05/04/17 06 :03; Admin Dose 40 MG; Start 04/24/17 at 18:00 Sucralfate (Carafate) 1 gm QID PO Last administered on 05/04/17 12:32; Admin Dose 1 GM; Start 04/25/17 at 09:00 Digoxin (Digoxin) 0.125 mg DAILY@13 PO Last administered on 05/04/17 12:32; Admin Dose 0.125 MG; Start 04/26/17 at 13:00 Furosemide (Lasix) 20 mg DAILY PO Last administered on 05/04/17 08:54; Admin Dose 20 MG; Start 05/03/17 at 09:00 Apixaban (Eliquis) 5 mg BID PO Last administered on 05/04/17 08:55; Admin Dose 5 MG; Start 05/02/17 at 21:00 Metoprolol Succinate (Toprol Xl) 50 mg BID PO Last administered on 05/04/17 08: 55; Admin Dose 50 MG; Start 05/03/17 at 11:00 DICK BUCIO May 04, 2017 14:16
[2017-05-04] MEDS ORDERED: ATENOLOL 25 MG TAB PO SCH (21:00)
== END 2017-05-04 14:55 | disposition home or self-care (01) | DRG 308 ==
LOC: E/R 08:22 → MS4 11:03 → PP2 05-03 16:03
PROVIDERS: ADMIT Family Medicine; ATTEND Family Medicine
PROC: 0DBK8ZZ Excision of Ascending Colon, Via Natural or Artificial Opening Endoscopic (ICD-10-PCS; 2017-04-27)
PROC: 0DB78ZX Excision of Stomach, Pylorus, Via Natural or Artificial Opening Endoscopic, Diagnostic (ICD-10-PCS; principal; 2017-04-27 07:40)
PROC: 0DB68ZX Excision of Stomach, Via Natural or Artificial Opening Endoscopic, Diagnostic (ICD-10-PCS; 2017-04-27 07:40)
DX: I48.91 Unspecified atrial fibrillation (principal); J18.9 Pneumonia, unspecified organism; J96.01 Acute respiratory failure with hypoxia; I50.33 Acute on chronic diastolic (congestive) heart failure; D69.6 Thrombocytopenia, unspecified; I27.2 Other secondary pulmonary hypertension; I11.0 Hypertensive heart disease with heart failure; E11.9 Type 2 diabetes mellitus without complications; I05.2 Rheumatic mitral stenosis with insufficiency; D53.9 Nutritional anemia, unspecified; K20.9 Esophagitis, unspecified; E03.9 Hypothyroidism, unspecified; K25.9 Gastric ulcer, unspecified as acute or chronic, without hemorrhage or perforation; K31.9 Disease of stomach and duodenum, unspecified; K57.90 Diverticulosis of intestine, part unspecified, without perforation or abscess without bleeding; K64.8 Other hemorrhoids; K63.5 Polyp of colon; J45.30 Mild persistent asthma, uncomplicated
CPT/HCPCS: 36415; 36430; 71010; 80048; 80053; 80061; 80162; 81001; 82270; 82306; 82550; 82553; 82652; 82728; 82962; 83036; 83540; 83605; 83735; 83880; 84100; 84439; 84443; 84484; 85025; 85610; 85730; 86850; 86900; 86901; 86920; 87040; 87086; 88305; 88312; 93005; 93306; 93970; 94640; 94664; 96365; 96366; 96367; 96375; 96376; J1940; J1650; J1815; J1956; J2250; J2765; J2930; J3010; J7030; J7040; P9016

== ENCOUNTER 2017-05-30 10:36 | Inpatient (IN) | END 2017-06-06 13:30 | disposition home or self-care (01) | DRG 802 | DX: D46.9 Myelodysplastic syndrome, unspecified (principal); I50.33 Acute on chronic diastolic (congestive) heart failure; I48.92 Unspecified atrial flutter; D69.6 Thrombocytopenia, unspecified; K22.10 Ulcer of esophagus without bleeding; I48.91 Unspecified atrial fibrillation; I11.0 Hypertensive heart disease with heart failure; J45.909 Unspecified asthma, uncomplicated; K64.8 Other hemorrhoids; E03.9 Hypothyroidism, unspecified; E11.9 Type 2 diabetes mellitus without complications; R07.9 Chest pain, unspecified; K25.9 Gastric ulcer, unspecified as acute or chronic, without hemorrhage or perforation; D50.9 Iron deficiency anemia, unspecified; Z87.891 Personal history of nicotine dependence; Z88.0 Allergy status to penicillin; Z98.890 Other specified postprocedural states ==

== ENCOUNTER 2017-07-18 09:17 | Observation (INO) | payer MEDICARE, OTHER ==
[~2017-07-18] VITALS: Ht 160 cm; Wt 80.0 kg
[2017-07-18] VITALS (7 sets, daily range): BP systolic 96–126; BP diastolic 58–69; PULSE 77–115; RESP 17–22; Ht 160 cm; Wt 80.0 kg
[~2017-07-18 09:17] MED LIST changes: -ATEN-138 PO; -AZIT250T6 PO; +BECL8.7A5 INH; -CEPH500C PO; -CYAN500T46 PO; -FOLI-49 PO; -GUAI120011 PO; -IPRA4AER INHALATION; -LEVO50TA83 PO; +LEVO75TA5 PO; -LISI2.5T59 PO; -LORA10CA PO; +METF500T4 PO; +METO-429 PO; -NITR0.4T6 SL; -UDROBDM PO
[2017-07-18] MEDS ORDERED: DIPHENHYDRAMINE 25 MG CAP PO ONE (11:30)
[2017-07-18] MEDS ORDERED: ACETAMINOPHEN 325 MG TAB PO ONE (11:30)
[2017-07-18] MEDS ORDERED: GLUCAGON 1 MG INJ IM PRN (12:00)
[2017-07-18] MEDS ORDERED: DEXTROSE 50% 50 ML SYRINGE IV PRN ×2 (12:00)
[2017-07-18] MEDS ORDERED: GLUCOSE GEL 15 GRAM TUBE BUCCAL PRN (12:00)
[2017-07-18] MEDS ORDERED: GLUCOSE GEL 15 GRAM TUBE PO PRN ×2 (12:00)
[2017-07-18] MEDS ORDERED: ACETAMINOPHEN 325 MG TAB PO PRN (12:00)
[2017-07-18] MEDS: METOPROLOL 50 MG TAB PO SCH ×2 (12:15→22:10)
--- NOTE | 2017-07-18 12:20 | EN ---
Date/Time of Note Date/Time of Note DATE: 07/18/17 TIME: 12:16 Event Note Medicine Medicine Event Note H & P dictated-- 77 y/o female with recent dx of myelodysplastic syndrome with 5q deletion. Has been treated with weekly EPO without benefit. Admitted to receive 2 units of RBC's. Pt also is c/o recent Lt sided chest wall pain. Will evaluate for poss rib fx. Does have osteoporosis. Will be able to be discharged on 07/19 if Hgb is >8.o. Will plan on starting lenalidomide 10 mg daily as OP. SIMONA RAINEY MD Jul 18, 2017 12:19
[2017-07-18] MEDS ORDERED: HYDROCODONE/HOMATROPINE 5ML CUP PO PRN (12:30)
[2017-07-18] MEDS ORDERED: HYDROCODONE/APAP (7.5/325) TAB GTB PRN (12:30)
--- NOTE | 2017-07-18 12:48 | RADRPT ---
PROCEDURE: XR Chest 1 view. CLINICAL INDICATION: Chest pain. TECHNIQUE: AP views of the chest were obtained. COMPARISON: May 31, 2017 FINDINGS: The heart is large. Calcified atherosclerosis is noted in the aorta. Chronic interstitial prominenc e is seen in both lungs. Superimposed potential patchy alveolar infiltrates are seen scattered throu ghout both lungs. Osseous structures are intact. IMPRESSION: Cardiomegaly with calcified atherosclerosis in the aorta. Chronic mild interstitial prominence in both lungs. Potential superimposed patchy alveolar infiltrates scattered in both lungs. RPTAT: AA .Red Shaver MD, MD Date Time Electronically viewed and signed by .Red Shaver MD, MD on 07/18/2017 12:48 .P/
--- NOTE | 2017-07-18 12:49 | RADRPT ---
PROCEDURE: XR Left ribs 2 views. CLINICAL INDICATION: Left chest pain. TECHNIQUE: Two oblique views of the left ribs were obtained. COMPARISON: None. FINDINGS: Osteopenia is identified. The left ribs appear intact. No destructive bony lesions are identified. I nterstitial prominence is noted in the visualized lungs. Potential superimposed mild patchy alveolar infiltrates are noted in the visualized lungs. IMPRESSION: Osteopenia. Otherwise, unremarkable left ribs. The diffuse interstitial prominence in the visualized lungs. Interstitial prominence may be chronic. Potential superimposed mild patchy alveolar infiltrates in the visualized lungs. If further characterization of the chest or ribs is needed CT should be considered. RPTAT: AA .Red Shaver MD, Date Time Electronically viewed and signed by .Red Shaver MD, on 07/18/2017 12:49 .P/
--- NOTE | 2017-07-18 13:26 | HP ---
DATE OF ADMISSION: 07/18/2017 CHIEF COMPLAINT: Mild dysplastic syndrome, anemia and possible rib fracture. HISTORY OF PRESENT ILLNESS: Ms. Kovacs is a 77-year-old female, who was recently hospitalized here at [facility] with a significant macrocytic anemia. The patient did receive a transfusion at that time, and a bone marrow aspiration and biopsy was done which revealed a myelodysplastic syndrome with history 5 Q deletion. The patient has since been treated with erythropoietin. The patient has received approximately 4 weekly injections of erythropoietin without obvious benefit. The patient was seen in the office yesterday and hemoglobin was 6.3. It was decided to admit the patient at this time for red blood cell transfusion. The patient does have apparently a prior history of anemia. Patient previously had undergone a upper GI endoscopy, as well as colonoscopy. This was in approximately April 2017. At that time, there was some evidence of esophagitis and gastric antral erosions and ulcerations were present. PAST MEDICAL HISTORY: History of diabetes mellitus. The patient also has history of diastolic congestive heart failure with atrial fibrillation and hypothyroidism. The did have an all an echocardiogram approximately 1 month ago, which showed left ventricular ejection fraction of approximately 55 percent. There was some mitral insufficiency. Other medical problems include "asthma". PAST SURGERIES: section, as well as hysterectomy, as well as bilateral cataract extraction. MEDICATIONS: Patient has been takin. Furosemide 20 mg twice a day. 2. Atenolol 25 mg per day. 3. Levothyroxine 75 mcg per day. 4. Digoxin 0.25 mg daily. 5. Metformin 250 mg twice a day. 6. Lisinopril 2.5 mg daily. ALLERGIES: THE PATIENT IS ALLERGIC TO PENICILLIN. SOCIAL HISTORY: Patient is . Lives with her and daughter. The patient has a remote history of smoking, but has not smoked for many years. Uses alcohol minimally. FAMILY HISTORY: Unremarkable. There is no history of any hematologic abnormalities. The patient states she has no family history of diabetes. REVIEW OF SYSTEMS: HEENT: Denies headaches or dizziness. There is no diplopia or visual disturbances. CARDIORESPIRATORY: Does had some dyspnea on exertion. Patient also complains of left-sided pleuritic chest pain. This pain is present when the patient coughs or presses on the left anterior ribs or twists. She has had no hemoptysis. Does not recall any trauma to this area. The pain started after she bent down to tie her shoe. GASTROINTESTINAL: No complaints of abdominal pain. No nausea or vomiting. No constipation. No diarrhea. No hematemesis, melena, or hematochezia. GENITOURINARY: No hematuria or dysuria. MUSCULOSKELETAL: No unusual joint pain, swelling, or tenderness. PHYSICAL EXAMINATION: VITAL SIGNS: Temperature 98.6, pulse 115 and irregular, respiratory rate 17 per minute, blood pressure 96/58, and pulse oximetry 95 percent on room air. SKIN: Pale. No ecchymosis. No petechiae or rashes. HEENT: Normocephalic. No evidence of trauma. The pupils equal, round, react to light and accommodation. Sclerae nonicteric. Oral mucosa is moist without lesions. Tongue is well papillated. There is no gingival hyperplasia. No hypertrophy of Waldeyer's ring. No mucosal telangiectasias. NECK: Supple. No jugular distention, or thyroid enlargement. CHEST: Clear on the right side, but there are rales in the left base. There are no rubs. There is no wheezing or rhonchi. There is some pain on palpation of the lower ribs on the left side in the mid and anterior axillary line. There is no subcutaneous emphysema. No "step-off". HEART: Irregular regular rate and rhythm with a ventricular response of approximately 110 per minute. There are no murmurs heard. ABDOMEN: Mildly obese, but soft. There is no organomegaly. No masses or tenderness. Bowel sounds are active. No ascites. No hernia defects. NEUROLOGIC: No focal neurologic abnormalities. IMPRESSION: 1. Myelodysplastic syndrome with 5 Q deletion. 2. Anemia secondary to number 1. 3. Chronic atrial fibrillation. 4. Left chest wall pain, possible rib fracture. PLAN: 1. Patient will be admitted to [facility] as an observation. 2. She will be typed and cross-matched and transfused with 2 units of packed red blood cells. 3. We will obtain a chest x-ray, as well as a left rib series to determine if the patient does have a rib fracture Dictated By: Rodriguez Garcia MD /eusebia/sascha /Document#: [id number]
[2017-07-18 13:37] LABS: ABNORMAL IP MESSAGE 1; HEMATOCRIT 17.3 % (37.0-47.0); MEAN CORPUSCULAR HEMOGLOBIN 42.6 pg (29.0-33.0); MEAN CORPUSCULAR HGB CONC 31.8 g/dl (32.0-37.0); MEAN CORPUSCULAR VOLUME 134.1 fl (82.0-101.0); MEAN PLATELET VOLUME 14.9 fl (7.4-10.4); PLATELET COUNT 106 10^3/UL (140-415); RED BLOOD COUNT 1.29 10^6/ul (4.20-5.40); RED CELL DISTRIBUTION WIDTH 16.9 % (11.5-14.5); WHITE BLOOD COUNT 8.4 10^3/ul (4.8-10.8)
[2017-07-18 13:58] LABS: ALBUMIN 3.5 g/dl (3.3-4.9); ALBUMIN/GLOBULIN RATIO 0.87; BILIRUBIN,INDIRECT 0.4 mg/dl (0-1.1); BILIRUBIN,TOTAL 0.4 mg/dl (0.2-1.3); CALCIUM 8.6 mg/dl (8.4-10.2); CREATININE 0.69 mg/dl (0.44-1.00); POTASSIUM 4.2 mmol/L (3.5-5.1); TOTAL PROTEIN 7.5 g/dl (6.1-8.1)
[2017-07-18] MEDS: DIGOXIN 0.125 MG TAB PO SCH (14:04)
[2017-07-18] MEDS: MOMETASONE 0.24 GM INHALER INH SCH ×2 (14:05→21:00)
[2017-07-18 14:08] LABS: POSITIVE DIFF @See below
[2017-07-18 14:13] LABS: HEMOGLOBIN 5.5 g/dl (12.0-16.0)
[2017-07-18 15:24] LABS: ANISOCYTOSIS 1+ (0-0); EOSINOPHILS % (M) 12 % (0-7); HYPOCHROMASIA 1+ (0-0); MICROCYTOSIS 1+ (0-0); MONOCYTES % (M) 2 % (0-11); PLATELET ESTIMATE NORMAL
[2017-07-18] MEDS: FUROSEMIDE 20 MG TAB PO SCH (18:56)
[2017-07-18] MEDS: metFORMIN 500 MG TAB PO SCH (18:57)
[2017-07-19] VITALS (7 sets, daily range): BP systolic 105–134; BP diastolic 59–75; PULSE 79–100; RESP 16–19
[2017-07-19] MEDS ORDERED: LEVOTHYROXINE 75 MCG TAB PO SCH (06:00)
[2017-07-19] MEDS: FUROSEMIDE 20 MG TAB PO SCH (06:38)
[2017-07-19] MEDS: metFORMIN 500 MG TAB PO SCH (08:23)
[2017-07-19] MEDS: METOPROLOL 50 MG TAB PO SCH (08:23)
[2017-07-19] MEDS: MOMETASONE 0.24 GM INHALER INH SCH (08:35)
--- NOTE | 2017-07-19 08:58 | PDOCDIS ---
Discharge Instructions CONDITION Patient Condition: Stable HOME CARE INSTRUCTIONS: Diet Instructions: RegularSpecial Diet: 1800ADA ACTIVITY: Activity Restrictions: Slowly Increase Activity Bathing Restrictions: Shower FOLLOW UP/APPOINTMENTS Follow-up Plan Follow-up with Dr. Garcia in 2-3 days to recheck your blood counts. REFERRALS Referring Provider: JAMES PAIGE ASHKAN Jul 19, 2017 08:58
--- NOTE | 2017-07-19 09:07 | DS ---
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 Pt was briefly started on BRUNO therapy but did not respond at all. Pt was seen on Friday, Setp 2016, at Dr. Garcia's office and found to have a Hb of less than 6g/dl. She was sent to this hospital to receive 3upBRB. She received the blood without any complications. Her fatigue has improved. She has complained of left flank pain. CXR/rib series did not reveal any signs of fracture. There is no sign of infection appreciated clinically. Pt is deemed stable to go home with the understanding that she f/u with Dr. Garcia in the next 2-3 days to repeat her CBC. She has been recommended to start lenalidomide to help improve her anemia secondary to her 5q- MDS. This agent is associated with a high response rate in terms of improving the anemia and reducing her need for recurrent blood transfusions. Pt may be moving to [facility] shortly. If so, she will need to establish hematologic care in that area. James Galvan MD Hematology Home Meds Active Scripts Metoprolol Tartrate* (Lopressor*) 50 Mg Tab, 50 MG PO BID for 30 Days, #60 TAB Prov:ZACRAIAS JAFFE MD 06/06/17 Digoxin* (Digitek*) 125 Mcg Tablet, 0.125 MG PO DAILY for 30 Days, #30 TAB Prov:ZACARIAS JAFFE MD 06/06/17 Beclomethasone Dip* (Qvar 80*) 7.3 Gm Inha, 2 PUFF INH BID, #1 INHALER For breathing Prov:FRANCISCO J NAVA MD 05/04/17 Furosemide (Lasix) 20 Mg Tab, 20 MG PO BID DIURETICS for 60 Days, TAB Prov:STEPHANY OWENS MD 01/02/17 Reported Medications Levothyroxine Sodium* (Levothyroxine Sodium*) 75 Mcg Tablet, 75 MCG PO BEFORE BREAKFAST, #30 TAB 04/23/17 Metformin* (Glucophage*) 500 Mg Tab, 250 MG PO BID WITH MEALS, #90 TAB 04/23/17 Follow-up Plan Follow-up with Dr. Garcia in 2-3 days to recheck your blood counts. Primary Care Provider Bubba Starkey Pending Labs Laboratory Tests Test 07/18/17 13:24 07/19/17 07:10 07/19/17 08:27 White Blood Count 8.410^3/ul (4.8-10.8) Red Blood Count 1.2910^6/ul (4.20-5.40) Hemoglobin 5.5g/dl (12.0-16.0) Hematocrit 17.3% (37.0-47.0) Mean Corpuscular Volume 134.1fl (82.0-101.0) Mean Corpuscular Hemoglobin 42.6pg (29.0-33.0) Mean Corpuscular Hemoglobin Concent 31.8g/dl (32.0-37.0) Red Cell Distribution Width 16.9% (11.5-14.5) Platelet Count 61697^3/UL (140-415) Mean Platelet Volume 14.9fl (7.4-10.4) Neutrophils % % (39.0-77.0) Segmented Neutrophils % (Manual) 65% (39-77) Lymphocytes % % (15.0-51.0) Lymphocytes % (Manual) 20% (15-51) Monocytes % % (0.0-11.0) Monocytes % (Manual) 2% (0-11) Eosinophils % % (0.0-7.0) Eosinophils % (Manual) 12% (0-7) Basophils % % (0.0-2.0) Nucleated Red Blood Cells % 0.0/100WBC (0.0-0.0) Neutrophils # 10^3/ul (1.6-7.5) Absolute Lymphocytes (Manual) 1.610^3/ul (0.8-2.9) Lymphocytes # 10^3/ul (0.8-2.9) Monocytes # 10^3/ul (0.3-0.9) Absolute Monocytes (Manual) 0.110^3/ul (0.3-0.9) Eosinophils # 10^3/ul (0.0-0.5) Basophils # 10^3/ul (0.0-0.1) Nucleated Red Blood Cells # 10^3/ul (0.0-0.0) Pathologist Review (Hematology) Platelet Estimate NORMAL Hypochromasia 1+ (0-0) Anisocytosis 1+ (0-0) Microcytosis 1+ (0-0) Path Consult Signing Pathologist OWEN RODRÍGUEZ MD Sodium Level 140mmol/L (135-144) Potassium Level 4.2mmol/L (3.5-5.1) Chloride Level 104mmol/L (97-110) Carbon Dioxide Level 31mmol/L (21-31) Anion Gap 9 (8-16) Blood Urea Nitrogen 15mg/dl (7-20) Creatinine 0.69mg/dl (0.44-1.00) Glucose Level 111mg/dl (70-220) Calcium Level 8.6mg/dl (8.4-10.2) Total Bilirubin 0.4mg/dl (0.2-1.3) Direct Bilirubin 0.00mg/dl (0.00-0.20) Indirect Bilirubin 0.4mg/dl (0-1.1) Aspartate Amino Transf (AST/SGOT) 38IU/L (15-46) Alanine Aminotransferase (ALT/SGPT) 38IU/L (13-69) Alkaline Phosphatase 189IU/L (42-121) Total Protein 7.5g/dl (6.1-8.1) Albumin 3.5g/dl (3.3-4.9) Globulin 4.00g/dl (1.3-3.2) Albumin/Globulin Ratio 0.87 Lab Scanned Report BLOOD [id number] Bedside Glucose 142mg/dL (70-220) JAMES GALVAN Jul 19, 2017 09:07
[2017-07-19 11:10] LABS: HEMATOCRIT 25.7 % (37.0-47.0)
[2017-07-19] MEDS: DIGOXIN 0.125 MG TAB PO SCH (13:05)
== END 2017-07-19 15:34 | disposition home or self-care (01) ==
LOC: EDSTATUS 09:50 → MS1 09:54
PROVIDERS: ADMIT Internal Medicine Hematology & Oncology; ATTEND Internal Medicine Hematology & Oncology
DX: D46.C Myelodysplastic syndrome with isolated del(5q) chromosomal abnormality (principal); I48.2 Chronic atrial fibrillation; R07.89 Other chest pain; E11.9 Type 2 diabetes mellitus without complications; E03.9 Hypothyroidism, unspecified; I50.30 Unspecified diastolic (congestive) heart failure; Z79.84 Long term (current) use of oral hypoglycemic drugs; Z88.0 Allergy status to penicillin
CPT/HCPCS: 36430; 71010; 71100; 80053; 82962; 85014; 85018; 85025; 86644; 86850; 86900; 86901; 86920; G0378; P9016